=== PATIENT | female | born 1995 | race Caucasian/White ===

== ENCOUNTER 2019-06-21 17:26 | Emergency (ER) | payer MEDICAID, SELFPAY ==
[2019-06-21 17:38] VITALS: BP 126/90; PULSE 104; RESP 16; TEMP 36.8; O2SAT 100; BMI 24.3
--- NOTE | 2019-06-21 17:54 | ED_ITS ---
Entered by Louann Shin, acting as scribe for Judit Flores HPI - Ear Problem General: Chief complaint: Ear Stated complaint: infected left outter earlobe Time Seen by Provider: 06/21/19 17:51 Source: patient Mode of arrival: ambulatory Limitations: no limitations History of Present Illness: HPI Narrative: 24 yo Female presents to ED with complaint of ear pain. Pt states that this pain started from an earring that she ordered online. Pt states that the pain is now running down into her neck. Pt denies any inner ear pain. MD Complaint: ear pain Location: left ear Duration: constant Relieving factors: nothing Exacerbating factors: palpation Context: other (new earring) Discharge from ear: no Associated symptoms: Reports ear or mastoid pain and external ear pain; Denies fever(s), headache(s) or neck pain Treatment prior to arrival: none Review of Systems General: Reports: other (negative unless marked) Const: Denies: fever, chills, body aches, fatigue, malaise or diaphoresis Eyes: Denies: change in vision or blurry vision ENMT: Reports: ear pain; Denies: throat pain, painful swallowing, hoarseness, ear discharge, Change in hearing or nasal discharge Card: Denies: chest pain, palpitations, irregular heart rhythm, syncope, pre- syncope, shortness of breath on exertion or shortness of breath when lying down Resp: Denies: shortness of breath, productive cough, non-productive cough, wheezing, coughing up blood or chest congestion GI: Denies: abdominal pain, nausea, vomiting, vomiting blood, coffee grounds in vomit, diarrhea, constipation, cramping, blood in stool or black tarry stool : Denies: flank pain, painful urination, urinary frequency, urinary urgency, decreased urine ouput, urinary incontinence or blood in urine Musc: Denies: neck pain, back pain, extremity pain, extremity swelling, joint pain, joint swelling, joint warmth or joint stiffness Skin/Breast: Denies: rash, skin tenderness or yellow skin Neuro: Denies: headache, numbness in extremities, weakness in extremities, changes in sensation, lack of coordination, difficulty walking, dizziness, vertigo or confusion Endo: Denies: excessive thirst, tired all the time, cold intolerance, excessive sweating, flushing or hot flashes Josh/Lymph: Denies: easy bruising, easy bleeding, petechiae or enlarged lymph nodes All/Imm: Denies: hives, throat swelling, tongue swelling, facial swelling or acute wheezing PFSH ED PFSH: Statuses (acute, chronic, etc) shown below reflect problem list status as previously entered and may not be historically accurate Social History Smoking and tobacco status: never smoked Alcohol intake: never Female Reproductive History: Date of last menstrual period: 05/23/19 Physical Exam Const: COMMON NORMALS: no apparent distress, oriented x3, no limitations, healthy appearing and well nourished EXAM LIMITATIONS: no altered mental status GENERAL APPEARANCE: cooperative, well kempt and well developed ORIENTATION/CONSCIOUSNESS: Yes awake HENMT: COMMON NORMALS: normocephalic, head/scalp atraumatic, hearing grossly n ormal bilaterally, external ears normal, EAC's normal, external nose normal and moist oral mucous membranes HEAD & SCALP: normal to inspection, normocephalic and atraumatic FACE & SINUS: normal facial exam and face symmetric NOSE: external nose normal and nares normal EXTERNAL EAR: Yes external ears normal EXTERNAL AUDITORY CANAL: EAC's normal MOUTH: oral and palatal mucosa normal and tongue normal Eye: COMMON NORMALS: PERRL, EOMs intact bilaterally, conjunctivae normal and no scleral icterus GENERAL EYE: normal appearance of both eyes and normal light reflex CONJUNCTIVA: Yes conjunctivae normal SCLERA: sclerae normal CORNEA: Yes corneas normal PUPIL: Yes PERRL DIRECT OPHTHALMOSCOPY: Yes normal light reflex Neck/C-Spine: COMMON NORMALS: full ROM, no lymphadenopathy, supple, no meningeal signs and no JVD GENERAL: Yes normal visual inspection and Yes trachea midline CERVICAL SPINE: Yes cervical ROM normal Chest: COMMONS NORMALS: inspection of chest normal and palpation of chest normal Resp: COMMON NORMALS: normal respiratory effort, no retractions, no use of accessory muscles and clear to auscultation bilaterally EFFORT & INSPECTION: Yes able to speak in complete sentences AUSCULTATION: clear to auscultation bilaterally Cardio: COMMON NORMALS: no JVD, regular rate, regular rhythm, S1 normal heart sound, S2 normal heart sound, no gallops, no clicks, no murmurs and no rub JUGULAR VENOUS DISTENTION: no JVD RATE: regular rate RHYTHM: regular rhythm HEART SOUNDS: S1 normal and S2 normal GI: COMMON NORMALS: soft to palpation, non-tender, no hepatosplenomegaly and no masses INSPECTION: Yes normal to inspection PALPATION: Yes soft and Yes no hepatosplenomegaly : COMMON NORMALS: Yes no CVA tenderness BLADDER/KIDNEY EXAM: Yes no CVA tenderness Back/Pelvis: COMMON NORMALS: no CVA tenderness, thoracic and lumbar spine normal to inspection, no thoracic nor lumbar tenderness and thoraco-lumbar ROM normal Extremity: COMMON NORMALS: normal to inspection, full ROM, normal capillary refill, no joint enlargement, no clubbing, cyanosis or edema and no calf tenderness Neuro: COMMON NORMALS: oriented x3, CN's II-XII intact bilaterally, moves all extremities, no focal motor deficits and no sensory deficits noted MENINGEAL SIGNS: Yes no meningeal signs Psych: COMMON NORMALS: mental status grossly normal, thought process normal, cooperative, affect normal, speech normal and activity/motor behavior normal APPEARANCE: Yes well kempt SPEECH: Yes normal speech THOUGHT PROCESS: normal thought process Skin: COMMON NORMALS: no rashes or lesions noted, skin turgor normal, no jaundice, no petechiae and no mottling GENERAL SKIN EXAM: no rashes or lesions noted and turgor normal Course Vital Signs: Vital signs: Vital Signs Temperature 98.3 F 06/21/19 17:38 Pulse Rate 104 H 06/21/19 17:38 Respiratory Rate 16 06/21/19 17:38 Blood Pressure 126/90 06/21/19 17:38 Pulse Oximetry 100 06/21/19 17:38 MDM - Ear MDM Narrative: Medical decision making narrative: Brooklyn is a 24-year-old female comes in with a infection of her right earlobe. The area was inflamed and with drainage coming from the ear piercing. Patient is remove this. But continues to have pain and swelling. Denies any hearing loss. I see no evidence of lymphadenopathy, torticollis, meningismus or otherwise. The patient appears to have just localized earlobe infection but I will cover her with Bactrim for MRSA but also add Levaquin to cover any cartilage infection. Discharge Plan Discharge Patient Disposition: Home, Self-Care Clinical Impression: Cellulitis and abscess of face Condition: Stable Prescriptions: New Bactrim DS 800-160 mg tablet 2 tab PO BID 10 Days Qty: 40 RF: 0 Levaquin 500 mg tablet 500 mg PO DAILY 10 Days RF: 0 Discharge Orders: Discharge Order (Routine); Ordered 06/21/19 Ordered By: Judit Flores Referrals: Steven Del Rio MD [Primary Care Provider] - Discharge Diet: Usual diet Discharge Activity: Resume usual activity Patient Instructions: Cellulitis (ED) Activity Restrictions/Additional Instructions: Please return to the ER immediately for any of the signs or symptoms listed on your discharge instruction sheets, worsening/changing of your symptoms, you are not getting better as quickly as expected, or for ANY other cause or concerns. Discharge Date/Time: 06/21/19 18:17 Coding Level of Care Code ED Research Development Director for Chg Fwd Exam Problem Focused The documentation recorded by the Kip clark Carmen, accurately reflects the service I personally performed and the decisions made by , Judit Flores
--- NOTE | 2019-06-21 17:55 | PC.NURSE ---
pt has wound on ear lobe, no pain inside of ear
[2019-06-21] MEDS: sulfamethoxazole-trimeth DS 160-800 mg Tablet 2 TAB PO (18:14)
[2019-06-21] MEDS: HYDROcodone-acetaminophen 5-325 mg Tablet 1 TAB PO (18:14)
[2019-06-21] MEDS: levoFLOXacin 750 mg Tablet PO (18:14)
== END 2019-06-21 18:17 | disposition home or self-care (01) ==
LOC: ER 18:34
PROVIDERS: Emergency Provider Emergency Medicine; Family Provider Family Medicine; PCP Family Medicine
DX: H60.02 Abscess of left external ear (principal); H60.12 Cellulitis of left external ear
CPT/HCPCS: 99281; 99283

== ENCOUNTER 2019-12-30 19:54 | Emergency (ER) | payer MEDICAID, SELFPAY ==
[2019-12-30 20:33] VITALS: BP 127/89; PULSE 97; RESP 18; TEMP 36.8; O2SAT 99; BMI 26.3
--- NOTE | 2019-12-30 21:59 | US_ITS ---
WS: [id number] EXAM: TRANSABDOMINAL AND TRANSVAGINAL PELVIC SONOGRAM DATE OF EXAMINATION: 12/30/2019, 2235 hours COMPARISON: None. HISTORY: 24 years old with passing blood clots after her last menstrual cycle. Cramping. History of t ubal ligation. FINDINGS: Uterus measures 7.43,8.16 cm in length, 4.7 cm in width, and 3.8 in depth. Small nabothian cysts are seen in the cervix. Endometrial stripe is measured 3.2 mm in thickness otherwise unremarkable. Left ovary measures 3.1 x 2.6 x 1.8 cm. Color-flow and spectral Doppler demonstrates flow within the left ovary. Right ovary measures 3.0 x 3.0 x 1.9 cm. Color-flow and spectral Doppler demonstrates flow within the right ovary. There is trace free fluid in the cul-de-sac US/US pelvic with transvaginal OPINION: Normal appearance to the uterus and ovaries other than small nabothian cysts in the cervix. Trace free fluid in the cul-de-sac.
--- NOTE | 2019-12-30 22:00 | W.ED.FEMALGU ---
Documented by User: Judit Flores 12/31/19 11:04 HPI - Female Genitourinary General: Chief complaint: Vaginal Bleeding Stated complaint: abnormal bleeding Time Seen by Provider: 12/30/19 21:55 Source: patient Mode of arrival: ambulatory Limitations: no limitations History of Present Illness: HPI Narrative: Brooklyn is a nice 24-year-old female comes in complaining of heavy menstrual bleeding. She states she actually finished her menstrual cycle but then over the past 2 days has had a recurrence of bleeding at this time with cramping and heavy clots. Patient denies possibly being as she is had a tubal ligation. She denies any other abdominal pain. She denies any vaginal discharge other than the bleeding. Size and a changes in her bowel habits such as diarrhea or constipation. She said no nausea or vomiting. She had no fevers or chills. She denies any urinary symptoms. Associated symptoms: Reports abdominal pain and vaginal bleeding; Deny headache(s), nausea or syncope Date of Last Menstrual Period: 05/23/19 Review of Systems Const: Denies: fever(s), chills, body aches, fatigue, malaise or diaphoresis Eyes: Denies: change in vision, blurry vision, photophobia, eye discomfort, eye discharge or eye redness ENMT: Denies: throat pain, odynophagia, hoarseness, swelling of lips/tongue, ear or mastoid pain, ear discharge, change in hearing or nasal discharge Card: Denies: chest pain, palpitations, irregular heart rhythm, edema, lightheadedness, syncope, pre-syncope, dyspnea on exertion or orthopnea Resp: Denies: dyspnea, productive cough, non-productive cough, wheezing, hemoptysis or chest congestion GI: Reports: abdominal pain; Denies: nausea, vomiting, hematemesis, coffee ground emesis, heartburn, diarrhea, constipation, GI cramping, hematochezia or melena : Reports: vaginal bleeding and change in menstrual flow; Denies: flank pain, dysuria, urinary frequency, urinary urgency or hematuria Musc: Denies: neck pain, back pain, extremity pain, extremity swelling, joint pain, joint swelling, joint redness, joint warmth or joint stiffness Skin/Breast: Denies: rash, pruritus, erythema or skin tenderness Neuro: Denies: headache(s), numbness in extremities, weakness in extremities, sensory changes, lack of coordination, difficulty walking, dizziness, vertigo, confusion, Slurred speech present or seizure-like activity Josh/Lymph: Denies: easy bruising, easy bleeding, petechiae, purpura or enlarged lymph nodes All/Imm: Denies: urticaria, throat swelling, tongue swelling, facial swelling or acute wheezing PFSH ED PFSH: Medical History No pertinent past medical history Surgical History H/O tubal ligation Social History Smoking and tobacco status: never smoked Alcohol intake: never Female Reproductive History: Date of last menstrual period: 05/23/19 Physical Exam Const: COMMON NORMALS: no acute distress, patient oriented x3, no limitations, healthy appearing and well nourished GENERAL APPEARANCE: cooperative, well kempt and well developed HENMT: COMMON NORMALS: normocephalic, atraumatic, external ears normal, EAC's normal and Normal external nose present HEAD & SCALP: normal to inspection, normocephalic and atraumatic FACE & SINUS: normal facial exam and face symmetric NOSE: Normal external nose present and Normal nares present EXTERNAL EAR: Yes external ears normal EXTERNAL AUDITORY CANAL: EAC's normal MOUTH: Normal oral and palatal mucosa present, lip normal and tongue normal Eye: COMMON NORMALS: Equal, round and reactive pupils present and conjunctivae normal GENERAL EYE: appearance normal, both eyes and all related structures ALIGNMENT: Yes alignment normal PERIORBITAL: periorbital findings normal EYELID: eyelids normal CONJUNCTIVA: Yes conjunctivae normal SCLERA: sclerae normal PUPIL: Yes Equal, round and reactive pupils present Neck/C-Spine: COMMON NORMALS: full ROM, no lymphadenopathy, supple, no meningeal signs and no JVD GENERAL: Yes normal visual inspection and Yes trachea midline Chest: COMMONS NORMALS: normal inspection of the chest and normal palpation of entire chest wall Resp: COMMON NORMALS: normal respiratory effort, No retractions, No use of accessory muscles and clear to auscultation bilaterally EFFORT & INSPECTION: Yes able to speak in complete sentences and Yes symmetric chest movement AUSCULTATION: clear to auscultation bilaterally, no crackles, no rales, no rhonchi and no wheezes Cardio: COMMON NORMALS: no JVD, regular rate, regular rhythm, S1 normal heart sound present and S2 normal heart sound present RATE: regular rate RHYTHM: regular rhythm HEART SOUNDS: S1 normal heart sound present, S2 normal heart sound present, no click, no gallops, no murmurs, no rubs and abnormal split S2 GI: COMMON NORMALS: Soft to palpation and No hepatosplenomegaly present PALPATION: Yes Soft to palpation, No Tenderness to palpation present (GI), No Guarding due to palpation present (GI), No Rigid due to palpation, Yes No hepatosplenomegaly present, No Hernia present, No Palpable mass present and No Pulsatile mass present : COMMON NORMALS: Yes no CVA tenderness and Yes normal bimanual exam BLADDER/KIDNEY EXAM: Yes no CVA tenderness EXTERNAL FEMALE EXAM: Yes normal appearance of the urethra and No Hernia present SPECULUM EXAM - VAGINA: Yes vaginal bleeding SPECULUM EXAM - CERVIX: No Cervical os open, Yes Cervical os closed and Yes Cervical bleeding BIMANUAL EXAM - VAGINA & UTERUS: Yes normal bimanual exam, Yes normal palpation, Yes normal palpation and No cervical motion tenderness BIMANUAL EXAM - ADNEXA, OTHER: Yes normal adnexae OB/EXTERNAL & SPECULUM: vaginal bleeding; No Cervical os open Back/Pelvis: COMMON NORMALS: no CVA tenderness, thoracic and lumbar spine normal to inspection, no thoracic nor lumbar tenderness and thoraco-lumbar ROM normal Extremity: COMMON NORMALS: normal to inspection, full ROM, capillary refill normal, no joint enlargement, no clubbing, cyanosis or edema and no calf tenderness Neuro: COMMON NORMALS: patient oriented x3, CN's II-XII intact bilaterally, moves all extremities, no focal motor deficits and no sensory deficits noted MENINGEAL SIGNS: Yes no meningeal signs SPEECH: speech normal Psych: COMMON NORMALS: mental status grossly normal, Normal thought process present, cooperative, normal affect, speech normal and activity/motor behavior normal APPEARANCE: Yes well kempt SPEECH: Yes normal speech THOUGHT PROCESS: Normal thought process present Skin: COMMON NORMALS: no rashes or lesions noted, turgor normal, no jaundice, no petechiae and no mottling GENERAL SKIN EXAM: no rashes or lesions noted and turgor normal Course Vital Signs: Vital signs: Vital Signs Temperature 98.2 F 08/19/20 20:33 Pulse Rate 82 12/31/19 01:04 Respiratory Rate 18 12/31/19 01:04 Blood Pressure 122/78 12/31/19 01:04 Pulse Oximetry 98 12/31/19 01:04 MDM - Female Lab Data: Attestation: I reviewed the patient's lab results. Labs: Lab Results 12/30/19 12/30/19 12/30/19 Range/Units 23:15 23:45 23:45 WBC 9.1 (4.0-10.0) 10^3/ uL RBC 4.73 (4.1-5.3) 10^6/u L Hgb 12.3 (11.5-15.3) g/dL Hct 39.4 (37.0-47.0) % MCV 83.3 (81-99) fL MCH 26.0 L (28.0-34.0) pg MCHC 31.2 (30.0-36.0) g/dL RDW 14.4 (12.1-15.1) % Plt Count 327 (130-400) 10^3/c mm MPV 9.3 (7.4-10.4) fL Neut % (Auto) 57.0 % Lymph % (Auto) 32.8 % Custer % (Auto) 7.1 % Eos % (Auto) 1.9 % Baso % (Auto) 0.9 % Neut # (Auto) 5.21 (1.8-7.7) 10^3/u L Lymph # (Auto) 3.0 (0.8-4.8) 10^3/u L Custer # (Auto) 0.7 (0.2-0.9) 10^3/u L Eos # (Auto) 0.2 (0.0-0.8) 10^3/u L Baso # (Auto) 0.1 (0.0-0.1) 10^3/u L Nucleated RBC % (a uto) 0 % Nucleated RBCs # 0.0 /100WBC HCG, Qual Negative (Negative) Urine Color Yellow (Yellow) Urine Appearance Cloudy (CLEAR) Urine pH 7 (5-7) Ur Specific Gravit y 1.015 (1.005-1.030) Urine Protein Neg (Negative) Urine Glucose (UA) Norm (Normal) Urine Ketones Negative (Negative) Urine Blood 2+ H (Negative) Urine Nitrate Negative (Negative) Urine Bilirubin Neg (NEGATIVE) Urine Urobilinogen Norm (Negative) mg/dL Ur Leukocyte Kari ase Negative (Negative) Urine RBC 0-4 H (0-2) /hpf Urine WBC Rare (0-5) /hpf Ur Squamous Epith Cells 0-4 H (0-5) Amorphous Sediment 1+ Urine Bacteria 1+ H (NONE) Imaging Data: US: My impression: Ultrasound pelvis, tech interpretation -small amount of fluid in the cul-de-sac. Right ovarian cyst. All other findings unremarkable. No torsion. Discharge Plan Discharge Patient Disposition: Home Clinical Impression: Dysfunctional uterine bleeding Condition: Stable Prescriptions: New naproxen 500 mg tablet 500 mg PO BID PRN (Reason: pain) Qty: 20 RF: 0 Discharge Orders: Discharge Order (Routine); Ordered 12/31/19 Ordered By: Dale Stanford Referrals: Steven Del Rio MD [Primary Care Provider] - Discharge Diet: Usual diet Discharge Activity: Increase activity as tolerated Activity Restrictions/Additional Instructions: Drink plenty of fluids. Take medication as needed for cramping. Healthy diet and exercise. Follow-up with primary care or ARCHITECTURE INSTRUCTOR for further treatment and care. Case management will contact you regarding any assistance to help with ARCHITECTURE INSTRUCTOR follow-up. Discharge Date/Time: 12/31/19 01:07 Coding Level of Care Code ED Pillow Filler for Chg Fwd Exam Comprehensive Documented by User: [email or web address] Kent 12/31/19 00:58 HPI - Female Genitourinary General: Chief complaint: Vaginal Bleeding Stated complaint: abnormal bleeding Time Seen by Provider: 12/30/19 21:55 PFSH ED PFSH: Medical History No pertinent past medical history Surgical History H/O tubal ligation Social History Smoking and tobacco status: never smoked Alcohol intake: never Course ED course: 1115, Received patient from Dr. Flores, awaiting labs, US showed no significant abnormality, plan to dc home with follow-up if everything is normal. wjw Vital Signs: Vital signs: Vital Signs Temperature 98.2 F 12/30/19 20:33 Pulse Rate 82 12/31/19 01:04 Respiratory Rate 18 12/31/19 01:04 Blood Pressure 122/78 12/31/19 01:04 Pulse Oximetry 98 12/31/19 01:04 MDM - Female MDM Narrative: Medical decision making narrative: Patient comes in today for complaints of irregular vaginal bleeding. Patient reports completing her routine menstrual cycle last week and then today she started passing some clots. Patient reports some cramping. Patient has a history of a tubal ligation in March 2019. Exam was unremarkable. Vital signs were normal. Pelvic exam was performed by Dr. Boogie. Differential diagnosis includes but not limited to ovarian cyst, dysfunctional uterine bleeding, ectopic . Laboratory values noted a normal hemoglobin hematocrit, negative test. Patient had ultrasound that showed small fluid amount of fluid in the cul-de-sac and a small right ovarian cyst. There was no sign of torsion of ovary. Reviewed the exam with patient with recommendation of using naproxen for cramping and to help with the bleeding. Patient reported understanding of care plan and need for follow-up. Lab Data: Labs: Lab Results 12/30/19 12/30/19 12/30/19 Range/Units 23:15 23:45 23:45 WBC 9.1 (4.0-10.0) 10^3/ uL RBC 4.73 (4.1-5.3) 10^6/u L Hgb 12.3 (11.5-15.3) g/dL Hct 39.4 (37.0-47.0) % MCV 83.3 (81-99) fL MCH 26.0 L (28.0-34.0) pg MCHC 31.2 (30.0-36.0) g/dL RDW 14.4 (12.1-15.1) % Plt Count 327 (130-400) 10^3/c mm MPV 9.3 (7.4-10.4) fL Neut % (Auto) 57.0 % Lymph % (Auto) 32.8 % Custer % (Auto) 7.1 % Eos % (Auto) 1.9 % Baso % (Auto) 0.9 % Neut # (Auto) 5.21 (1.8-7.7) 10^3/u L Lymph # (Auto) 3.0 (0.8-4.8) 10^3/u L Custer # (Auto) 0.7 (0.2-0.9) 10^3/u L Eos # (Auto) 0.2 (0.0-0.8) 10^3/u L Baso # (Auto) 0.1 (0.0-0.1) 10^3/u L Nucleated RBC % (a uto) 0 % Nucleated RBCs # 0.0 /100WBC HCG, Qual Negative (Negative) Urine Color Yellow (Yellow) Urine Appearance Cloudy (CLEAR) Urine pH 7 (5-7) Ur Specific Gravit y 1.015 (1.005-1.030) Urine Protein Neg (Negative) Urine Glucose (UA) Norm (Normal) Urine Ketones Negative (Negative) Urine Blood 2+ H (Negative) Urine Nitrate Negative (Negative) Urine Bilirubin Neg (NEGATIVE) Urine Urobilinogen Norm (Negative) mg/dL Ur Leukocyte Kari ase Negative (Negative) Urine RBC 0-4 H (0-2) /hpf Urine WBC Rare (0-5) /hpf Ur Squamous Epith Cells 0-4 H (0-5) Amorphous Sediment 1+ Urine Bacteria 1+ H (NONE) Discharge Plan Discharge Patient Disposition: Home Clinical Impression: Dysfunctional uterine bleeding Condition: Stable Prescriptions: New naproxen 500 mg tablet 500 mg PO BID PRN (Reason: pain) Qty: 20 RF: 0 Discharge Orders: Discharge Order (Routine); Ordered 12/31/19 Ordered By: Dale Stanford Referrals: Steven Del Rio MD [Primary Care Provider] - Discharge Diet: Usual diet Discharge Activity: Increase activity as tolerated Activity Restrictions/Additional Instructions: Drink plenty of fluids. Take medication as needed for cramping. Healthy diet and exercise. Follow-up with primary care or ARCHITECTURE INSTRUCTOR for further treatment and care. Case management will contact you regarding any assistance to help with ARCHITECTURE INSTRUCTOR follow-up. Discharge Date/Time: 08/20/20 01:07 Coding Level of Care Code ED Pillow Filler for Chg Fwd Exam Comprehensive
[2019-12-30 23:45] LABS: Amorphous Sediment Urine 1+; Bacteria Urine 1+; Bilirubin Urine Neg (NEGATIVE); Blood Urine 2+ (Negative); Glucose Urine UA Norm (Normal); Ketones Urine Negative (Negative); Leukocyte Esterase Urine Negative (Negative); Nitrate Urine Negative (Negative); Protein Urine Neg (Negative); RBC Urine 0-4 /hpf (0-2); Specific Gravity, Urine 1.015 (1.005-1.030); Squamous Epithelial Cell Urine 0-4 (0-5); Urine Appearance Cloudy (CLEAR); Urine Color Yellow (Yellow); Urobilinogen Urine Norm (Negative); WBC Urine RARE /hpf (0-5); pH Urine 7 (5-7)
[2019-12-31 00:03] LABS: Basophils # 0.1 10^3/uL (0.0-0.1); Basophils % 0.9 %; Eosinophils # 0.2 10^3/uL (0.0-0.8); Eosinophils % 1.9 %; Hematocrit 39.4 % (37.0-47.0); Hemoglobin 12.3 g/dL (11.5-15.3); Lymphocytes % 32.8 %; Mean Corpuscular HGB Conc 31.2 g/dL (30.0-36.0); Mean Corpuscular Volume 83.3 fL (81-99); Mean Platelet Volume 9.3 fL (7.4-10.4); Monocytes # 0.7 10^3/uL (0.2-0.9); Monocytes % 7.1 %; Neutrophils # 5.21 10^3/uL (1.8-7.7); Nucleated Red Blood Cells % 0 %; Platelet Count 327 10^3/cmm (130-400); Red Blood Count 4.73 10^6/uL (4.1-5.3); Red Cell Distribution Width 14.4 % (12.1-15.1); White Blood Count 9.1 10^3/uL (4.0-10.0)
[2019-12-31] MEDS: naproxen 500 mg Tablet PO (00:03)
--- NOTE | 2019-12-31 00:06 | PC.NURSE ---
during pt rounds, pt states she is having cramping 4/10. COFFEE GROWER notified
[2019-12-31 00:16] LABS: HCG, Serum Qual Negative (Negative)
[2019-12-31 01:04] VITALS: BP 122/78; PULSE 82; RESP 18; O2SAT 98
--- NOTE | 2019-12-31 09:26 | DCPLANNER ---
appointment manager had message to schedule a follow up appointment for patient with [facility]. appointment manager [facility], spoke with Andrea, gave clinic patients information. appointment manager was told that patients information would be printed and reviewed. Clinic will call patient with appointment information.
--- NOTE | 2020-01-01 13:11 | DCPLANNER ---
Patient has a follow up appointment scheduled for Sunday, January 19, [address] at 2:[address] Walker. Clinic will call patient with appointment information.
--- NOTE | 2020-02-09 08:27 | DCPLANNER ---
[facility] called heel caser stating that appointment was never confirmed so appointment scheduled for 01.19.20 was cancelled.
== END 2019-12-31 01:07 | disposition home or self-care (01) ==
PROVIDERS: Emergency Medicine; Emergency Provider Nurse Practitioner Family; PCP Family Medicine
DX: N93.8 Other specified abnormal uterine and vaginal bleeding (principal)
CPT/HCPCS: 12345; 76830; 76856; 81001; 84703; 85025; 87210; 99281; 99282; 99283; E0352

== ENCOUNTER 2020-05-31 11:52 | Emergency (ER) | payer MEDICAID, SELFPAY ==
[2020-05-31 11:55] VITALS: BP 117/78; PULSE 125; RESP 18; TEMP 36.5; O2SAT 98; BMI 26.3
[2020-05-31 12:05] VITALS: BP 108/65; PULSE 122; RESP 16; O2SAT 98
--- NOTE | 2020-05-31 12:24 | W.ED.FEMALGU ---
HPI - Female Genitourinary General: Chief complaint: Urogenital-Female Stated complaint: back pain, nausea, dizziness Time Seen by Provider: 05/31/20 12:21 History of Present Illness: HPI Narrative: Patient is a 25-year-old female comes to the ED with right-sided flank pain, dysuria and nausea. Patient says symptoms started approximately 3 days ago. Denies any fever or chills. She does say she is having some burning sensation when she urinates and has felt nauseous as well for the past couple days. Denies any blood in the urine, vaginal discharge, vaginal bleeding, emesis or bowel symptoms. Associated symptoms: Deny abdominal pain, headache(s), nausea or vaginal discharge Date of Last Menstrual Period: 05/23/19 Review of Systems Const: Denies: fever(s), chills or fatigue Eyes: Denies: change in vision or eye discomfort ENMT: Denies: throat pain, odynophagia, nasal discharge or nasal congestion Card: Denies: chest pain, palpitations, edema, swelling of feet/ankles, dyspnea on exertion or orthopnea Resp: Denies: dyspnea, productive cough or non-productive cough GI: Denies: abdominal pain, nausea, vomiting, diarrhea, constipation or hematochezia : Reports: flank pain (right) and dysuria; Denies: hematuria, vaginal bleeding or vaginal discharge Musc: Denies: neck pain, back pain or extremity swelling Skin/Breast: Denies: rash or new lesions Neuro: Denies: headache(s), numbness in extremities or weakness in extremities [facility] ED PFSH: Medical History No pertinent past medical history Surgical History H/O tubal ligation Social History Smoking and tobacco status: never smoked Alcohol intake: never Female Reproductive History: Date of last menstrual period: 05/23/19 Physical Exam Const: COMMON NORMALS: no acute distress, patient oriented x3, healthy appearing and alert GENERAL APPEARANCE: cooperative and comfortable HENMT: COMMON NORMALS: normocephalic HEAD & SCALP: normocephalic MOUTH: Normal oral and palatal mucosa present THROAT: posterior oropharynx normal and uvula midline Eye: COMMON NORMALS: Equal, round and reactive pupils present PUPIL: Yes Equal, round and reactive pupils present Neck/C-Spine: COMMON NORMALS: supple GENERAL: Yes normal visual inspection Resp: COMMON NORMALS: normal respiratory effort, No retractions, No use of accessory muscles and clear to auscultation bilaterally AUSCULTATION: clear to auscultation bilaterally Cardio: COMMON NORMALS: regular rate, regular rhythm, S1 normal heart sound present, S2 normal heart sound present, No gallops present (Cardio), No clicks present (Cardio), No murmurs present (Cardio) and Peripheral pulses 2+ throughout RATE: regular rate RHYTHM: regular rhythm HEART SOUNDS: S1 normal heart sound present and S2 normal heart sound present PERIPHERAL PULSES: Peripheral pulses 2+ throughout GI: COMMON NORMALS: Normal to inspection, nondistended, normoactive bowel sounds present, Soft to palpation, non-tender and no masses PALPATION: Yes Soft to palpation : BLADDER/KIDNEY EXAM: Yes CVA tenderness on the right (mild) Back/Pelvis: GENERAL BACK: Yes CVA tenderness CVA tenderness: right Extremity: COMMON NORMALS: normal to inspection and no pedal edema Neuro: COMMON NORMALS: patient oriented x3 and moves all extremities SENSORIUM/ORIENTATION: Yes alert Skin: GENERAL SKIN EXAM: dry skin Course Reevaluation(s): Reevaluation #1: After patient got IV pain meds, fluids she was feeling a lot better. Patient felt a lot more comfortable and is ready to be discharged home. Time: 14:10 Vital Signs: Vital signs: Vital Signs Temperature 97.7 F 05/31/20 11:55 Pulse Rate 103 H 05/31/20 15:25 Respiratory Rate 15 05/31/20 15:25 Blood Pressure 115/81 05/31/20 15:25 Pulse Oximetry 98 05/31/20 15:25 MDM - Female MDM Narrative: Medical decision making narrative: Patient is a 25-year-old female comes to the ED with dysuria and right flank pain. Patient appears healthy a little bit of pain but did not appear ill or septic. Right CVA tenderness mild. White blood cell count 17.8 and the rest of CBC and CMP were unremarkable. hCG negative. UA indicated UTI. CT of the abdomen showed pyelonephritis especially in the right kidney. Patient was given IV fluids, Zofran, morphine and Rocephin while here in the ED. Patient symptoms improved and she felt comfortable to be discharged home. Patient diagnosed with pyelonephritis and discharged with a prescription for ciprofloxacin and Zofran. Return to ED precautions given. Follow-up with PCP in 5 days for reevaluation. Patient understood and agreed with plan. Lab Data: Labs: Lab Results 05/31/20 05/31/20 05/31/20 Range/Units 12:40 12:40 12:40 WBC 17.8 H (4.0-10.0) 10^3/ uL RBC 4.53 (4.1-5.3) 10^6/u L Hgb 11.7 (11.5-15.3) g/dL Hct 36.3 L (37.0-47.0) % MCV 80.1 L (81-99) fL MCH 25.8 L (28.0-34.0) pg MCHC 32.2 (30.0-36.0) g/dL RDW 14.4 (12.1-15.1) % Plt Count 293 (130-400) 10^3/c mm MPV 9.9 (7.4-10.4) fL Neut % (Auto) 79.1 % Lymph % (Auto) 9.4 % Coleman % (Auto) 10.2 % Eos % (Auto) 0.3 % Baso % (Auto) 0.3 % Neut # (Auto) 14.06 H (1.8-7.7) 10^3/u L Lymph # (Auto) 1.7 (0.8-4.8) 10^3/u L Coleman # (Auto) 1.8 H (0.2-0.9) 10^3/u L Eos # (Auto) 0.1 (0.0-0.8) 10^3/u L Baso # (Auto) 0.1 (0.0-0.1) 10^3/u L Nucleated RBC % (a uto) 0 % Nucleated RBCs # 0.0 /100WBC Sodium 133 L (136-145) mmol/L Potassium 3.5 (3.5-5.1) mmol/L Chloride 98 (98-107) mmol/L Carbon Dioxide 24 (22-29) mmol/L Anion Gap 14.5 (5-19) BUN 6 (6-20) mg/dL Creatinine 0.8 (0.5-0.9) mg/dL GFR Calculation 88.9 L (90-130) mL/min Glucose 115 (65-115) mg/dL Calculated Osmolal ity 275 L (285-295) mOsm/k g Calcium 10.9 H (8.5-10.5) mg/dL Total Bilirubin 1.6 H (0.15-1.2) mg/dL AST 30 (0-32) U/L ALT 44 H (0-33) U/L Alkaline Phosphata se 209 H (35-105) IU/L Total Protein 8.1 (6.6-8.7) g/dL Albumin 4.0 (3.5-5.2) g/dL Globulin 4.1 (1.3-4.6) g/dL HCG, Qual Negative (Negative) Urine Color (Yellow) Urine Appearance (CLEAR) Urine pH (5-7) Ur Specific Gravit y (1.005-1.030) Urine Protein (Negative) Urine Glucose (UA) (Normal) Urine Ketones (Negative) Urine Blood (Negative) Urine Nitrate (Negative) Urine Bilirubin (Negative) Urine Urobilinogen (Negative) mg/dL Ur Leukocyte Kari ase (Negative) Urine RBC (0-2) /hpf Urine WBC (0-5) /hpf Ur Squamous Epith Cells (0-5) /hpf Amorphous Sediment Urine Bacteria (NONE) /hpf Urine Mucus /hpf 05/31/20 Range/Units 12:40 WBC (4.0-10.0) 10^3/ uL RBC (4.1-5.3) 10^6/u L Hgb (11.5-15.3) g/dL Hct (37.0-47.0) % MCV (81-99) fL MCH (28.0-34.0) pg MCHC (30.0-36.0) g/dL RDW (12.1-15.1) % Plt Count (130-400) 10^3/c mm MPV (7.4-10.4) fL Neut % (Auto) % Lymph % (Auto) % Coleman % (Auto) % Eos % (Auto) % Baso % (Auto) % Neut # (Auto) (1.8-7.7) 10^3/u L Lymph # (Auto) (0.8-4.8) 10^3/u L Coleman # (Auto) (0.2-0.9) 10^3/u L Eos # (Auto) (0.0-0.8) 10^3/u L Baso # (Auto) (0.0-0.1) 10^3/u L Nucleated RBC % (a uto) % Nucleated RBCs # /100WBC Sodium (136-145) mmol/L Potassium (3.5-5.1) mmol/L Chloride (98-107) mmol/L Carbon Dioxide (22-29) mmol/L Anion Gap (5-19) BUN (6-20) mg/dL Creatinine (0.5-0.9) mg/dL GFR Calculation (90-130) mL/min Glucose (65-115) mg/dL Calculated Osmolal ity (285-295) mOsm/k g Calcium (8.5-10.5) mg/dL Total Bilirubin (0.15-1.2) mg/dL AST (0-32) U/L ALT (0-33) U/L Alkaline Phosphata se (35-105) IU/L Total Protein (6.6-8.7) g/dL Albumin (3.5-5.2) g/dL Globulin (1.3-4.6) g/dL HCG, Qual (Negative) Urine Color Yellow (Yellow) Urine Appearance Cloudy (CLEAR) Urine pH 5.0 (5-7) Ur Specific Gravit y 1.015 (1.005-1.030) Urine Protein 2+ H (Negative) Urine Glucose (UA) Norm (Normal) Urine Ketones Negative (Negative) Urine Blood 3+ H (Negative) Urine Nitrate Negative (Negative) Urine Bilirubin 1+ H (Negative) Urine Urobilinogen 4+ H (Negative) mg/dL Ur Leukocyte Kari ase 2+ H (Negative) Urine RBC 10-15 H (0-2) /hpf Urine WBC >100 H (0-5) /hpf Ur Squamous Epith Cells 0-4 H (0-5) /hpf Amorphous Sediment Not Reportable Urine Bacteria 2+ H (NONE) /hpf Urine Mucus Trace /hpf Imaging Data: CT Abd/Pel: Attestation: I personally reviewed and interpreted this imaging study as follows: Radiologist's impression: [facility] [address] [place] [address] CT Scan Report Signed Patient: [facility] Unit #: [id number] : 1995 Age/Sex: 25 / F ADM Date: 05/31/20 Loc: ER Room/Bed: Attending Dr: Ordering Provider/Ordering MD: Gary Niño Date of Service: 05/31/20 Procedure(s): CT abdomen pelvis w con* [id number] Accession Number(s): [id number] Report Number: [id number] WS: [id number] CT ABDOMEN AND PELVIS WITH CONTRAST HISTORY: dysuria, right flank pain TECHNIQUE: Imaging performed of the abdomen and pelvis with IV contrast. Single phase imaging of the abdomen. Coronal and sagittal reformats are submitted. All CT scans at [facility] use at least one of these dose optimization techniques: automated exposure control; mA and/or kV adjustment per patient size (includes targeted exams where dose is matched to clinical indication); or iterative reconstruction. IV CONTRAST: Omnipaque 300; 95 mL IV. Oral contrast: No DLP: 777.23 mGy.cm COMPARISON: 11/05/2017 Lower thorax: Lung bases are clear. Heart is normal size. No hiatal hernia. Liver/biliary system: Normal size with no intrahepatic dilatation. Gallbladder: Status post cholecystectomy. Pancreas: Normal. Spleen: Normal. Adrenal glands: Normal. Right kidney: RIGHT kidney is abnormally enlarged. Abnormal enhancement. There are areas of decreased enhancement throughout a large portion of the RIGHT kidney. Inflammatory changes surrounding the kidney and in the pelvis and surrounding the ureter. There is very minimal dilatation of the renal pelvis and RIGHT ureter. No calcifications obstructing the ureter identified. Left kidney: Normal. Aorta: Normal. Lymphadenopathy: None. Free fluid: None. GI tract: Normal appendix. No GI tract obstruction. Abdominal wall: Unremarkable abdominal wall. No hernia. Pelvis: Uterus is midline. Irregular follicle measuring 1.4 cm in the RIGHT ovary. There is also small amount of free fluid in the cul-de-sac. Bones: Unremarkable. CT/CT abdomen pelvis w con* [id number] IMPRESSION: 1. Acute, moderately severe RIGHT pyelonephritis with very mild dilatation of the renal pelvis. There is additional contiguous RIGHT periureteral stranding. 2. No obstructing calcifications. 3. Normal appendix. Dictated By: Josephine Constantino DO Signed By: Josephine Constantino DO Signed Date/Time: 05/31/20 1341 DD/ 1335 Discharge Plan Discharge Patient Disposition: Home Clinical Impression: Pyelonephritis Condition: Stable Prescriptions: New Zofran 4 mg tablet 4 mg PO Q8H Qty: 14 RF: 0 ciprofloxacin HCl 500 mg tablet 500 mg PO BID 7 Days Qty: 14 RF: 0 No Action ibuprofen 200 mg Tablet 400 mg PO PRN RF: 0 Discharge Orders: Discharge ED (Routine); Ordered 05/31/20 Ordered By: Gary Niño Referrals: Steven Del Rio MD [Primary Care Provider] - Discharge Diet: Advance as tolerated Discharge Activity: Increase activity as tolerated Patient Instructions: Acute Pyelonephritis (ED) Activity Restrictions/Additional Instructions: Follow-up with medical provider as directed in 5 days for reevaluation. Take medications as prescribed. Drink plenty of fluids and stay hydrated. Take [id number] ibuprofen or Tylenol for fever pain. Return to the ER or your medical provider if condition worsens. Please read and understand discharge instructions. If any questions, please ask. Stand Alone Forms: Work/School Release Coding Level of Care Code ED Medical Office Technician for Abad Fwd Exam Comprehensive
[2020-05-31] MEDS: metoclopramide 5 mg/mL SDV 2 mL 10 MG IVP (12:40)
[2020-05-31] MEDS: sodium chloride 0.9% 1,000 ML 999 ML IV ×2 (12:40→14:08)
[2020-05-31 12:54] LABS: Basophils # 0.1 10^3/uL (0.0-0.1); Basophils % 0.3 %; Eosinophils # 0.1 10^3/uL (0.0-0.8); Eosinophils % 0.3 %; Hematocrit 36.3 % (37.0-47.0); Hemoglobin 11.7 g/dL (11.5-15.3); Lymphocytes # 1.7 10^3/uL (0.8-4.8); Lymphocytes % 9.4 %; Mean Corpuscular HGB Conc 32.2 g/dL (30.0-36.0); Mean Corpuscular Hemoglobin 25.8 pg (28.0-34.0); Mean Corpuscular Volume 80.1 fL (81-99); Mean Platelet Volume 9.9 fL (7.4-10.4); Monocytes # 1.8 10^3/uL (0.2-0.9); Monocytes % 10.2 %; Neutrophils # 14.06 10^3/uL (1.8-7.7); Neutrophils % 79.1 %; Nucleated Red Blood Cells % 0 %; Platelet Count 293 10^3/cmm (130-400); Red Blood Count 4.53 10^6/uL (4.1-5.3); Red Cell Distribution Width 14.4 % (12.1-15.1); White Blood Count 17.8 10^3/uL (4.0-10.0)
--- NOTE | 2020-05-31 13:04 | CT_ITS ---
WS: [id number] CT ABDOMEN AND PELVIS WITH CONTRAST HISTORY: dysuria, right flank pain TECHNIQUE: Imaging performed of the abdomen and pelvis with IV contrast. Single phase imaging of the abdomen. Coronal and sagittal reformats are submitted. All CT scans at [facility] use at least one of these dose optimization techniques: automated exposure control; mA and/or kV adjustment per patient size (includes targeted exams where dose is matched to clinical indication); or iterativ e reconstruction. IV CONTRAST: Omnipaque 300; 95 mL IV. Oral contrast: No DLP: 777.23 mGy.cm COMPARISON: 11/05/2017 Lower thorax: Lung bases are clear. Heart is normal size. No hiatal hernia. Liver/biliary system: Normal size with no intrahepatic dilatation. Gallbladder: Status post cholecystectomy. Pancreas: Normal. Spleen: Normal. Adrenal glands: Normal. Right kidney: RIGHT kidney is abnormally enlarged. Abnormal enhancement. There are areas of decreased enhancement throughout a large portion of the RIGHT kidney. Inflammatory changes surrounding the kid farhad and in the pelvis and surrounding the ureter. There is very minimal dilatation of the renal pelvi s and RIGHT ureter. No calcifications obstructing the ureter identified. Left kidney: Normal. Aorta: Normal. Lymphadenopathy: None. Free fluid: None. GI tract: Normal appendix. No GI tract obstruction. Abdominal wall: Unremarkable abdominal wall. No hernia. Pelvis: Uterus is midline. Irregular follicle measuring 1.4 cm in the RIGHT ovary. There is also smal l amount of free fluid in the cul-de-sac. Bones: Unremarkable. CT/CT abdomen pelvis w con* [id number] IMPRESSION: 1. Acute, moderately severe RIGHT pyelonephritis with very mild dilatation of the renal pelvis. There is additional contiguous RIGHT periureteral stranding. 2. No obstructing calcifications. 3. Normal appendix.
[2020-05-31 13:13] LABS: Bilirubin Urine 1+ (Negative); Blood Urine 3+ (Negative); Glucose Urine UA Norm (Normal); Ketones Urine Negative (Negative); Leukocyte Esterase Urine 2+ (Negative); Nitrate Urine Negative (Negative); Protein Urine 2+ (Negative); Specific Gravity, Urine 1.015 (1.005-1.030); Urine Appearance Cloudy (CLEAR); Urine Color Yellow (Yellow); Urobilinogen Urine 4+ mg/dL (Negative)
[2020-05-31 13:14] LABS: Alanine Aminotransferase 44 U/L (0-33); Alkaline Phosphatase 209 IU/L (35-105); Anion Gap 14.5 (5-19); Aspartate Amino Transferase 30 U/L (0-32); Blood Urea Nitrogen 6 mg/dL (6-20); Calcium 10.9 mg/dL (8.5-10.5); Carbon Dioxide 24 mmol/L (22-29); Chloride 98 mmol/L (98-107); Globulin 4.1 g/dL (1.3-4.6); Glomerular Filtration Rate 88.9 mL/min (90-130); Glucose 115 mg/dL (65-115); Osmolality Calculated 275 mOsm/kg (285-295); Potassium 3.5 mmol/L (3.5-5.1); Sodium 133 mmol/L (136-145); Total Bilirubin 1.6 mg/dL (0.15-1.2); Total Protein 8.1 g/dL (6.6-8.7)
[2020-05-31 13:15] LABS: Add Urine Culture? Yes; Bacteria Urine 2+ /hpf; Mucus Urine TRACE /hpf; Squamous Epithelial Cell Urine 0-4 /hpf (0-5); WBC Urine >100 /hpf (0-5)
[2020-05-31 13:17] VITALS: RESP 15
[2020-05-31] MEDS: morphine 4 mg/mL SDV 1 mL IVP (13:17)
[2020-05-31 13:18] LABS: HCG, Serum Qual Negative (Negative)
[2020-05-31] MEDS: iohexol 300 mg/mL 100 mL Btl IV (13:30)
[2020-05-31 14:00] VITALS: BP 132/79; O2SAT 98
[2020-05-31] MEDS: cefTRIAXone 2,000 MG in sodium chloride 0.9% (plus) 50 ML 100 MG IV (14:08)
[2020-05-31 15:25] VITALS: BP 115/81; PULSE 103; RESP 15; O2SAT 98
== END 2020-05-31 15:26 | disposition home or self-care (01) ==
PROVIDERS: Emergency Provider Physician Assistant; PCP Family Medicine
DX: N12 Tubulo-interstitial nephritis, not specified as acute or chronic (principal)
CPT/HCPCS: 12345; 74177; 80053; 81001; 84703; 85025; 87077; 87086; 87186; 96361; 96365; 96375; 99283; J0696; J2270; J2765; J7030; Q9967

== ENCOUNTER 2021-03-28 09:55 | Emergency (ER) | payer MEDICAID, SELFPAY ==
[2021-03-28 10:19] VITALS: BP 124/84; PULSE 130; RESP 24; TEMP 43.4; O2SAT 98; BMI 26.3
--- NOTE | 2021-03-28 10:26 | CT_ITS ---
WS: [id number] CT ABDOMEN PELVIS TECHNIQUE: Noncontrast CT of the abdomen and pelvis with coronal and sagittal reformatted images. CLINICAL INFORMATION: flank pain COMPARISON: May 31, 2020 DLP: 1400.[address] [facility] use at least one of these dose optimization techniques: automated e xposure control; mA and/or kV adjustment per patient size (includes targeted exams where dose is matc hed to clinical indication); or iterative reconstruction. FINDINGS: Hepatomegaly. Cholecystectomy. Small esophageal hiatal hernia. Lung bases are well aerated. Normal no ncontrast spleen. Adrenal glands are normal. Medullary nephrocalcinosis. No hydronephrosis in either kidney. No obstructing renal or ureteral calculi. Right ovarian cyst measuring 15 mm. Small amount of free fluid in the pelvis. Normal sigmoid colon. N o evidence of high-grade small or large bowel obstruction. Normal appendix in the right lower quadran t. Noncontrast pancreas is normal. Normal caliber abdominal aorta. No abdominal or pelvic lymphadenop athy. No inguinal lymphadenopathy. Tiny fat-containing umbilical hernia. Normal lumbar spine. CT/CT kidney stone [id number] IMPRESSION: 1. Bilateral medullary nephrocalcinosis unchanged from the prior studies. No h ydronephrosis in either kidney. 2. No obstructing renal or ureteral calculi. 3. Small right ovarian cyst measuring 15 mm with a small amount of free fluid in the cul-de-sac. 4. Mild hepatomegaly. Prior cholecystectomy. 5. Small esophageal hiatal hernia.
--- NOTE | 2021-03-28 10:42 | ED_ITS ---
HPI - Abdominal Pain General: Chief Complaint: Abdominal Pain Stated Complaint: L flank pain Time Seen by Provider: 03/28/21 10:32 History of Present Illness: HPI narrative: 25-year-old female presents emergency room complaining of fever and left-sided flank pain that began yesterday. She had recurrent urinary tract infections in the past. She has had a little bit of hematuria. On presentation here she is tachycardic and febrile. She has been nauseous without vomiting. She denies any shortness of breath or cough. MD elicited complaint: flank pain Pertinent past history: none Onset (ago): hour(s) Pain Consistency: constant Location: L flank Severity: moderate Quality: stabbing Radiation: suprapubic Exacerbating factors: movement and other (Urination) Relieving factors: rest Associated Symptoms: Reports chills, GI cramping, dysuria, fever(s), hematuria, poor appetite and vomiting; Denies anorexia, belching, bloating, change in bowel habits, change in stool character, coffee ground emesis, constipation, diarrhea, dyspepsia, excessive flatus, heartburn, hematochezia, hematemesis, fecal incontinence, loose stools, melena, nausea and syncope Related Data: Date of Last Menstrual Period: 03/08/21 Review of Systems Const: Reports: fever(s) and chills ENMT: Denies: throat pain, ear or mastoid pain, nasal discharge or nasal congestion Card: Denies: syncope Resp: Denies: dyspnea, productive cough or non-productive cough GI: Reports: vomiting and GI cramping; Denies: nausea, hematemesis, coffee ground emesis, heartburn, diarrhea, constipation, bloating, belching, excessive flatus, fecal incontinence, change in bowel habits, change in stool character, hematochezia or melena : Reports: dysuria and hematuria Skin/Breast: Denies: rash or pruritus PFSH ED PFSH: Medical History (Updated 03/28/21 @ 12:26 by Florentin Floyd DO) No pertinent past medical history Surgical History H/O tubal ligation Social History Smoking and tobacco status: never smoked Alcohol intake: never Female Reproductive History: Date of last menstrual period: 03/08/21 Physical Exam Const: COMMON NORMALS: no acute distress GENERAL APPEARANCE: cooperative and comfortable ORIENTATION/CONSCIOUSNESS: Yes awake, Yes oriented to person, Yes oriented to place and Yes oriented to time HENMT: COMMON NORMALS: normocephalic, atraumatic and hearing grossly normal bilaterally HEAD & SCALP: normocephalic and atraumatic Neck/C-Spine: COMMON NORMALS: no JVD Lymph: LYMPHATIC: no lymphadenopathy noted and no lymphedema noted Resp: COMMON NORMALS: normal respiratory effort, No retractions, No use of accessory muscles and clear to auscultation bilaterally AUSCULTATION: clear to auscultation bilaterally Cardio: COMMON NORMALS: no JVD, regular rate, regular rhythm and No murmurs present (Cardio) RATE: regular rate RHYTHM: regular rhythm GI: COMMON NORMALS: Soft to palpation and No hepatosplenomegaly present AUSCULTATION: Yes normoactive bowel sounds PALPATION: Yes Soft to palpation, No Tenderness to palpation present (GI), No Guarding due to palpation present (GI) and Yes No hepatosplenomegaly present : BLADDER/KIDNEY EXAM: Yes CVA tenderness Back/Pelvis: GENERAL BACK: Yes CVA tenderness CVA tenderness: left Extremity: COMMON NORMALS: normal to inspection, capillary refill normal, no clubbing, cyanosis or edema, no calf tenderness and no pedal edema Neuro: SENSORIUM/ORIENTATION: Yes oriented to person, Yes oriented to place and Yes oriented to time Skin: COMMON NORMALS: no rashes or lesions noted GENERAL SKIN EXAM: no rashes or lesions noted Course Vital Signs: Vital signs: Vital Signs Temperature 100.0 F H 03/28/21 12:01 Pulse Rate 89 03/28/21 13:37 Respiratory Rate 16 03/28/21 13:37 Blood Pressure 144/78 03/28/21 13:37 Pulse Oximetry 99 03/28/21 13:37 MDM - Abdominal Pain MDM Narrative: Medical decision making narrative: Labs and imaging reviewed with the patient. Discussed findings. She would prefer to be treated outpatient I think she is can at this point white count is elevated but her pain is well controlled her heart rate has improved with fluid resuscitation. [place] discharge home on Cipro promethazine hydrocodone for the flank pain return if has further problems. Lab Data: Labs: Lab Results 03/28/21 03/28/21 03/28/21 10:30 10:37 10:37 WBC 16.3 10^3/uL H 10 ^3/uL (4.0-10.0) RBC 4.67 10^6/uL 10^6 /uL (4.1-5.3) Hgb 11.4 g/dL L g/dL (11.5-15.3) Hct 35.5 % L % (37.0-47.0) MCV 76.0 fl L fl (81-99) MCH 24.4 pg L pg (28.0-34.0) MCHC 32.1 g/dL g/dL (30.0-36.0) RDW 15.2 % H % (12.1-15.1) Plt Count 340 10^3/cmm 10^3 /cmm (130-400) MPV 9.7 fL fL (7.4-10.4) Neut % (Auto) 79.3 % % Lymph % (Auto) 11.1 % % Pine % (Auto) 8.4 % % Eos % (Auto) 0.3 % % Baso % (Auto) 0.5 % % Neut # (Auto) 12.96 10^3/uL H 1 0^3/uL (1.8-7.7) Lymph # (Auto) 1.8 10^3/uL 10^3/ uL (0.8-4.8) Pine # (Auto) 1.4 10^3/uL H 10^ 3/uL (0.2-0.9) Eos # (Auto) 0.1 10^3/uL 10^3/ uL (0.0-0.8) Baso # (Auto) 0.1 10^3/uL 10^3/ uL (0.0-0.1) Nucleated RBC % (a uto) 0 % % Nucleated RBCs # 0.0 /100WBC /100W BC Sodium 133 mmol/L L mmol /L (136-145) Potassium 3.8 mmol/L mmol/L (3.5-5.1) Chloride 99 mmol/L mmol/L (98-107) Carbon Dioxide 20 mmol/L L mmol/ L (22-29) Anion Gap 17.8 (5-19) BUN 6 mg/dL mg/dL (6-20) Creatinine 0.6 mg/dL mg/dL (0.5-0.9) GFR Calculation 123.9 mL/min mL/m in (90-130) Glucose 105 mg/dL mg/dL (65-115) Calculated Osmolal ity 274 mOsm/kg L mOs m/kg (285-295) Lactic Acid Calcium 10.7 mg/dL H mg/d L (8.5-10.5) Total Bilirubin 1.2 mg/dL mg/dL (0.15-1.2) AST 38 U/L H U/L (0-32) ALT 39 U/L H U/L (0-33) Alkaline Phosphata se 186 IU/L H IU/L (35-105) Total Protein 8.1 g/dL g/dL (6.6-8.7) Albumin 4.2 g/dL g/dL (3.5-5.2) Globulin 3.9 g/dL g/dL (1.3-4.6) Lipase 13 U/L U/L (13-60) HCG, Qual Urine Color Yellow (Yellow) Urine Appearance Hazy A (CLEAR) Urine pH 7 (5-7) Ur Specific Gravit y 1.010 (1.005-1.030) Urine Protein Trace (Negative) Urine Glucose (UA) Norm (Normal) Urine Ketones Negative (Negative) Urine Blood 2+ H (Negative) Urine Nitrate Negative (Negative) Urine Bilirubin Neg (Negative) Urine Urobilinogen 1 mg/dL H mg/dL (Negative) Ur Leukocyte Kari ase Trace H (Negative) Urine RBC 5-10 /hpf H /hpf (0-2) Urine WBC 15-25 /hpf H /hpf (0-5) Ur Squamous Epith Cells 10-15 /hpf H /hpf (0-5) Amorphous Sediment Not Reportable Urine Bacteria Trace /hpf /hpf (NONE) 03/28/21 03/28/21 10:37 10:37 WBC RBC Hgb Hct MCV MCH MCHC RDW Plt Count MPV Neut % (Auto) Lymph % (Auto) Pine % (Auto) Eos % (Auto) Baso % (Auto) Neut # (Auto) Lymph # (Auto) Pine # (Auto) Eos # (Auto) Baso # (Auto) Nucleated RBC % (a uto) Nucleated RBCs # Sodium Potassium Chloride Carbon Dioxide Anion Gap BUN Creatinine GFR Calculation Glucose Calculated Osmolal ity Lactic Acid 1.0 mmol/L mmol/L (0.5-2.2) Calcium Total Bilirubin AST ALT Alkaline Phosphata se Total Protein Albumin Globulin Lipase HCG, Qual Negative (Negative) Urine Color Urine Appearance Urine pH Ur Specific Gravit y Urine Protein Urine Glucose (UA) Urine Ketones Urine Blood Urine Nitrate Urine Bilirubin Urine Urobilinogen Ur Leukocyte Kari ase Urine RBC Urine WBC Ur Squamous Epith Cells Amorphous Sediment Urine Bacteria Discharge Plan Discharge Patient Disposition: Home Clinical Impression: Pyelonephritis Condition: Stable Prescriptions: New promethazine 25 mg tablet 25 mg PO Q6H PRN (Reason: nausea and vomiting) Qty: 20 RF: 0 Cipro 500 mg tablet 500 mg PO BID Qty: 14 RF: 0 hydrocodone-acetaminophen 5-325 mg tablet 1 tab PO Q6H PRN (Reason: pain) Qty: 15 RF: 0 No Action ibuprofen 200 mg Tablet 400 mg PO PRN RF: 0 Zofran 4 mg tablet 4 mg PO Q8H Qty: 14 RF: 0 Discharge Orders: Discharge ED (Routine); Ordered 03/28/21 Ordered By: Florentin Floyd Referrals: Steven Del Rio MD [Primary Care Provider] - Discharge Diet: Usual diet Discharge Activity: Increase activity as tolerated Patient Instructions: Opioid Safety Activity Restrictions/Additional Instructions: Start oral antibiotics tomorrow. If symptoms worsen return Coding Level of Care Code ED Room Service Runner for Abad Fwd Exam Comprehensive
[2021-03-28 10:51] LABS: Basophils # 0.1 10^3/uL (0.0-0.1); Basophils % 0.5 %; Eosinophils # 0.1 10^3/uL (0.0-0.8); Eosinophils % 0.3 %; Hematocrit 35.5 % (37.0-47.0); Hemoglobin 11.4 g/dL (11.5-15.3); Lymphocytes # 1.8 10^3/uL (0.8-4.8); Lymphocytes % 11.1 %; Mean Corpuscular HGB Conc 32.1 g/dL (30.0-36.0); Mean Corpuscular Hemoglobin 24.4 pg (28.0-34.0); Mean Platelet Volume 9.7 fL (7.4-10.4); Monocytes # 1.4 10^3/uL (0.2-0.9); Monocytes % 8.4 %; Neutrophils # 12.96 10^3/uL (1.8-7.7); Neutrophils % 79.3 %; Nucleated Red Blood Cells % 0 %; Platelet Count 340 10^3/cmm (130-400); Red Blood Count 4.67 10^6/uL (4.1-5.3); Red Cell Distribution Width 15.2 % (12.1-15.1); White Blood Count 16.3 10^3/uL (4.0-10.0)
[2021-03-28] MEDS: cefTRIAXone 2,000 MG in sodium chloride 0.9% (plus) 50 ML 100 MG IV (10:53)
[2021-03-28] MEDS: sodium chloride 0.9% 1,000 ML 999 ML IV (10:54)
[2021-03-28 11:03] LABS: HCG, Serum Qual Negative (Negative)
[2021-03-28 11:07] LABS: Add Urine Microscopic? YES; Bilirubin Urine Neg (Negative); Blood Urine 2+ (Negative); Glucose Urine UA Norm (Normal); Ketones Urine Negative (Negative); Leukocyte Esterase Urine Trace (Negative); Nitrate Urine Negative (Negative); Protein Urine Trace (Negative); Urine Appearance Hazy (CLEAR); Urine Color Yellow (Yellow); Urobilinogen Urine 1 mg/dL (Negative); pH Urine 7 (5-7)
[2021-03-28 11:08] LABS: Add Urine Culture? No; Bacteria Urine TRACE /hpf; WBC Urine 15-25 /hpf (0-5)
[2021-03-28 11:09] LABS: Alanine Aminotransferase 39 U/L (0-33); Albumin Level 4.2 g/dL (3.5-5.2); Alkaline Phosphatase 186 IU/L (35-105); Anion Gap 17.8 (5-19); Aspartate Amino Transferase 38 U/L (0-32); Blood Urea Nitrogen 6 mg/dL (6-20); Calcium 10.7 mg/dL (8.5-10.5); Carbon Dioxide 20 mmol/L (22-29); Chloride 99 mmol/L (98-107); Globulin 3.9 g/dL (1.3-4.6); Glomerular Filtration Rate 123.9 mL/min (90-130); Glucose 105 mg/dL (65-115); Lipase 13 U/L (13-60); Osmolality Calculated 274 mOsm/kg (285-295); Potassium 3.8 mmol/L (3.5-5.1); Sodium 133 mmol/L (136-145); Total Bilirubin 1.2 mg/dL (0.15-1.2); Total Protein 8.1 g/dL (6.6-8.7)
[2021-03-28 12:01] VITALS: BP 144/85; PULSE 111; RESP 18; TEMP 37.8; O2SAT 98
[2021-03-28] MEDS: acetaminophen 500 mg Tablet 1000 MG PO (12:05)
[2021-03-28 13:37] VITALS: BP 144/78; PULSE 89; RESP 16; O2SAT 99
== END 2021-03-28 13:45 | disposition home or self-care (01) ==
PROVIDERS: Physician Assistant; Emergency Provider Family Medicine; PCP Family Medicine
DX: N12 Tubulo-interstitial nephritis, not specified as acute or chronic (principal)
CPT/HCPCS: 74176; 80053; 81001; 83605; 83690; 84703; 85025; 87040; 96365; 99283; J0696; J7030

== ENCOUNTER 2021-06-18 18:32 | Inpatient (IN) | payer MEDICAID, SELFPAY ==
[2021-06-18] VITALS (8 sets, daily range): BP systolic 103–126; BP diastolic 70–89; PULSE 124–151; RESP 16–40; TEMP 36.4–39.3; O2SAT 90–100; BMI 28.3; BMI 29.0
--- NOTE | 2021-06-18 | SCC_ITS ---
Procedure done: 1. Cystoscopy, RIGHT ureteral stent placement (7 [place] by 28 cm double-pigtail without string) 13.3 seconds of fluoroscopic guidance, for a cumulative dose of 2.85 mGy, was provided to Dr. Benitez by the radiology department. C-arm images of the abdomen were saved for the patient's permanent record. [facility]
--- NOTE | 2021-06-18 18:55 | XRR_ITS ---
PROCEDURE INFORMATION: Exam: XR Chest Exam date and time: 06/18/2021 6:55 PM Age: 26 years old Clinical indication: Fever and tachypnea; Additional info: Fever, tachycardia TECHNIQUE: Imaging protocol: XR of the chest. Views: 1 view. COMPARISON: CR Chest 1 [place] [id number] 06/18/2018 9:33 AM FINDINGS: Lungs: Unremarkable. No consolidation. Pleural spaces: Unremarkable. No pleural effusion. No pneumothorax. Heart/Mediastinum: Unremarkable. No cardiomegaly. Bones/joints: Unremarkable. XR/XR chest 1V portable [id number] IMPRESSION: No acute findings.
--- NOTE | 2021-06-18 18:55 | W.ED.FEMALGU ---
Documented by User: KATLYN Kent 06/18/21 18:55 HPI - Female Genitourinary General: Chief complaint: Urogenital-Female Stated complaint: Back Pain Time Seen by Provider: 06/18/21 18:54 History of Present Illness: Date of Last Menstrual Period: 03/08/21 [facility] ED PFSH: Medical History (Updated 04/05/21 @ 00:01 by ) No pertinent past medical history Surgical History H/O tubal ligation Social History Smoking and tobacco status: never smoked Alcohol intake: never Female Reproductive History: Date of last menstrual period: 03/08/21 Course Vital Signs: Vital signs: Vital Signs Temperature 102.7 F H 06/18/21 18:41 Pulse Rate 151 H 06/18/21 18:41 Respiratory Rate 22 H 06/18/21 18:41 Blood Pressure 126/74 06/18/21 18:41 Pulse Oximetry 97 06/18/21 18:41 Discharge Plan Discharge Condition: Stable Prescriptions: No Action ibuprofen 200 mg Tablet 400 mg PO PRN 0RF Zofran 4 mg tablet 4 mg PO Q8H Qty: 14 0RF promethazine 25 mg tablet 25 mg PO Q6H PRN (Reason: nausea and vomiting) Qty: 20 0RF Cipro 500 mg tablet 500 mg PO BID Qty: 14 0RF hydrocodone-acetaminophen 5-325 mg tablet 1 tab PO Q6H PRN (Reason: pain) Qty: 15 0RF Referrals: Steven Del Rio MD [Primary Care Provider] - Coding Level of Care Code ED [employer] Loose End Finder for Abad Ely
--- NOTE | 2021-06-18 18:56 | ECG_ITS ---
[facility] Test Date: 2021-06-18 Pat Name: Brooklyn Day Department: Room: Gender: Female Digital Experience Manager: : 1995 Requested By: Uriel Vega Order Number: [id number] Mcguire MD: Nisreen Kay M.D. Measurements Intervals [place] Rate: 151 P: 69 [place]: 137 QRS: 64 QRSD: 82 T: 76 QT: 319 QTc: 506 Interpretive Statements SINUS TACHYCARDIA NONSPECIFIC ST & T-WAVE ABNORMALITY No previous ECG available for comparison Electronically Signed On 06-20-2021 5:16:39 ELEVATOR CONSTRUCTOR SUPERVISOR by Nisreen Kay M.D. [id number]
[2021-06-18 19:17] LABS: Basophils # 0.1 10^3/uL (0.0-0.1); Basophils % 0.4 %; Eosinophils % 0.3 %; Hemoglobin 10.5 g/dL (11.5-15.3); Lymphocytes # 1.3 10^3/uL (0.8-4.8); Lymphocytes % 8.1 %; Mean Corpuscular HGB Conc 30.9 g/dL (30.0-36.0); Mean Corpuscular Hemoglobin 23.8 pg (28.0-34.0); Mean Corpuscular Volume 76.9 fl (81-99); Mean Platelet Volume 10.1 fL (7.4-10.4); Monocytes # 1.8 10^3/uL (0.2-0.9); Monocytes % 11.2 %; Neutrophils # 12.59 10^3/uL (1.8-7.7); Neutrophils % 79.2 %; Nucleated Red Blood Cells % 0 %; Platelet Count 323 10^3/cmm (130-400); Red Blood Count 4.42 10^6/uL (4.1-5.3); Red Cell Distribution Width 15.3 % (12.1-15.1); White Blood Count 15.9 10^3/uL (4.0-10.0)
--- NOTE | 2021-06-18 19:19 | CTR_ITS ---
PROCEDURE INFORMATION: Exam: CT Abdomen And Pelvis Without Contrast Exam date and time: 06/18/2021 7:19 PM Age: 26 years old Clinical indication: Abdominal pain; Right; Prior surgery; Surgery date: 6+ months; Surgery type: Gb; Patient HX: C/O R flank pain TECHNIQUE: Imaging protocol: Computed tomography of the abdomen and pelvis without contrast. Radiation optimization: All CT scans at this facility use at least one of these dose optimization techniques: automated exposure control; mA and/or kV adjustment per patient size (includes targeted exams where dose is matched to clinical indication); or iterative reconstruction. COMPARISON: CT abdomen pelvis w con* [id number] 05/31/2020 1:18 PM RADIATION DOSE METRICS: Total DLP (mGy-cm): 1314.5 FINDINGS: Liver: Normal. No mass. Gallbladder and bile ducts: Cholecystectomy. Nondilated biliary system. Pancreas: Normal. No ductal dilation. Spleen: Normal. No splenomegaly. Adrenal glands: Normal. No mass. Kidneys and ureters: Enlarged right kidney. Right perinephric fat stranding. Large calcified stone proximal right ureter measures 6 mm transverse diameter. Hydronephrosis of the right kidney. Bilateral medullary nephrocalcinosis. Several additional nonobstructing bilateral renal stones. Stomach and bowel: Unremarkable. No obstruction. No mucosal thickening. Appendix: Unremarkable appendix. Intraperitoneal space: Unremarkable. No free air. No significant fluid collection. Vasculature: Unremarkable. No abdominal aortic aneurysm. Lymph nodes: Unremarkable. No enlarged lymph nodes. Urinary bladder: Unremarkable as visualized. Reproductive: Unremarkable as visualized. Bones/joints: Unremarkable. No acute fracture. Soft tissues: Unremarkable. CT/CT kidney stone [id number] IMPRESSION: 1. Right collecting system obstructive uropathy secondary to proximal ureterolithiasis. 2. Bilateral renal medullary nephrocalcinosis with multiple additional nonobstructing renal stones.
[2021-06-18] MEDS: cefTRIAXone 1,000 MG in sodium chloride 0.9% (plus) 50 ML 100 MG IV (19:23)
--- NOTE | 2021-06-18 19:23 | W.ED.FEMALGU ---
HPI - Female Genitourinary General: Chief complaint: Urogenital-Female Stated complaint: Back Pain Time Seen by Provider: 06/18/21 18:54 Source: patient History of Present Illness: 26-year-old female with a history of recurrent pyelonephritis. She reports right flank pain since Saturday. She noted fever today. No vomiting. She has been nauseated. She states the pain is radiating up her back. She does not have a history of kidney stones. MD elicited complaint: UTI and flank pain Pertinent past history: recurrent UTIs and pyelonephritis Onset (ago): day(s) (5) Location of symptoms: low back and flank Severity: moderate Female Urogenital Radiation: Non-Radiating Quality of pain: stabbing Consistency: constant Vaginal discharge: none Vaginal bleeding: none Urinary symptoms: Flank Pain Exacerbating factors: urination and movement Relieving factors: none Associated symptoms: Reports abdominal pain, fevers/chills, headache(s) and nausea; Deny short of breath, rash, vaginal bleeding or vaginal discharge Treatment prior to arrival: NSAIDs Patient : No Date of Last Menstrual Period: 03/08/21 Review of Systems Const: Reports: fever(s) and chills Eyes: Denies: change in vision ENMT: Denies: throat pain Card: Denies: chest pain Resp: Denies: dyspnea, productive cough or non-productive cough GI: Reports: abdominal pain and nausea; Denies: vomiting or diarrhea : Reports: flank pain and urinary frequency; Denies: vaginal discharge Musc: Reports: back pain; Denies: extremity pain Skin/Breast: Denies: rash Neuro: Reports: headache(s) PFS ED PFSH: Medical History (Updated 06/18/21 @ 21:58 by Uriel Quiroz DO) No pertinent past medical history Surgical History H/O tubal ligation Social History Smoking and tobacco status: never smoked Alcohol intake: never Female Reproductive History: Date of last menstrual period: 03/08/21 Physical Exam Const: GENERAL APPEARANCE: cooperative and ill appearing (mild) ORIENTATION/CONSCIOUSNESS: Yes awake, Yes oriented to person, Yes oriented to place and Yes oriented to time HENMT: COMMON NORMALS: normocephalic, atraumatic and Normal external nose present HEAD & SCALP: normocephalic and atraumatic NOSE: Normal external nose present and Normal nares present Eye: COMMON NORMALS: Equal, round and reactive pupils present and EOMs intact bilaterally PUPIL: Yes Equal, round and reactive pupils present Chest: COMMONS NORMALS: normal inspection of the chest Resp: COMMON NORMALS: normal respiratory effort, No use of accessory muscles and clear to auscultation bilaterally AUSCULTATION: clear to auscultation bilaterally Cardio: COMMON NORMALS: regular rhythm and Peripheral pulses 2+ throughout RATE: tachycardic RHYTHM: regular rhythm PERIPHERAL PULSES: Peripheral pulses 2+ throughout GI: COMMON NORMALS: Normal to inspection, nondistended, normoactive bowel sounds present and Soft to palpation PALPATION: Yes Soft to palpation : BLADDER/KIDNEY EXAM: Yes CVA tenderness on the right SPECULUM EXAM - VAGINA: No vaginal bleeding OB/EXTERNAL & SPECULUM: No vaginal bleeding Back/Pelvis: GENERAL BACK: Yes CVA tenderness Neuro: SENSORIUM/ORIENTATION: Yes oriented to person, Yes oriented to place and Yes oriented to time Psych: COMMON NORMALS: mental status grossly normal Course Consultations: Consultation #1: Benitez Time: 21:44 Vital Signs: Vital signs: Vital Signs Temperature 102 F H 06/18/21 20:35 Pulse Rate 133 H 06/18/21 19:45 Respiratory Rate 16 06/18/21 19:30 Blood Pressure 126/74 06/18/21 18:41 Pulse Oximetry 100 06/18/21 19:45 MDM - Female Medical Decision Making Urine is contaminated but does show evidence of urinary tract infection with hematuria. CT shows right-sided hydronephrosis with a 6 mm proximal ureteral stone. White count is 16. Potassium is 3.1. Spoke with urology, he is coming in to evaluate for ureteral stent placement. OR team and malt house supervisor has been notified. She has received 2 L of fluid and Rocephin here. Hospitalist has been consulted. Lab Data : 06/18/21 19:11 06/18/21 19:11 Radiology Impressions Chest X-Ray 06/18/21 18:55 IMPRESSION: No acute findings. Abdomen/Pelvis CT 06/18/21 19:19 IMPRESSION: 1. Right collecting system obstructive uropathy secondary to proximal ureterolithiasis. 2. Bilateral renal medullary nephrocalcinosis with multiple additional nonobstructing renal stones. Laboratory Results WBC 15.9 10^3/uL (4.0-10.0) H 06/18/21 19:11 RBC 4.42 10^6/uL (4.1-5.3) 06/18/21 19:11 Hgb 10.5 g/dL (11.5-15.3) L 06/18/21 19:11 Hct 34.0 % (37.0-47.0) L 06/18/21 19:11 MCV 76.9 fl (81-99) L 06/18/21 19:11 MCH 23.8 pg (28.0-34.0) L 06/18/21 19:11 MCHC 30.9 g/dL (30.0-36.0) 06/18/21 19:11 RDW 15.3 % (12.1-15.1) H 06/18/21 19:11 Plt Count 323 10^3/cmm (130-400) 06/18/21 19:11 MPV 10.1 fL (7.4-10.4) 06/18/21 19:11 Neut % (Auto) 79.2 % 06/18/21 19:11 Lymph % (Auto) 8.1 % 06/18/21 19:11 Hunt % (Auto) 11.2 % 06/18/21 19:11 Eos % (Auto) 0.3 % 06/18/21 19:11 Baso % (Auto) 0.4 % 06/18/21 19:11 Neut # (Auto) 12.59 10^3/uL (1.8-7.7) H 06/18/21 19:11 Lymph # (Auto) 1.3 10^3/uL (0.8-4.8) 06/18/21 19:11 Hunt # (Auto) 1.8 10^3/uL (0.2-0.9) H 06/18/21 19:11 Eos # (Auto) 0.0 10^3/uL (0.0-0.8) 06/18/21 19:11 Baso # (Auto) 0.1 10^3/uL (0.0-0.1) 06/18/21 19:11 Nucleated RBC % (auto) 0 % 06/18/21 19:11 Nucleated RBCs # 0.0 /100WBC 06/18/21 19:11 Sodium 135 mmol/L (136-145) L 06/18/21 19:11 Potassium 3.1 mmol/L (3.5-5.1) L 06/18/21 19:11 Chloride 101 mmol/L (98-107) 06/18/21 19:11 Carbon Dioxide 21 mmol/L (22-29) L 06/18/21 19:11 Anion Gap 16.1 (5-19) 06/18/21 19:11 BUN 7 mg/dL (6-20) 06/18/21 19:11 Creatinine 0.8 mg/dL (0.5-0.9) 06/18/21 19:11 GFR Calculation 88.1 mL/min (90-130) L 06/18/21 19:11 Glucose 116 mg/dL (65-115) H 06/18/21 19:11 Calculated Osmolality 279 mOsm/kg (285-295) L 06/18/21 19:11 Lactic Acid 1.4 mmol/L (0.5-2.2) 06/18/21 19:11 Calcium 10.6 mg/dL (8.5-10.5) H 06/18/21 19:11 Total Bilirubin 1.0 mg/dL (0.15-1.2) 06/18/21 19:11 AST 17 U/L (0-32) 06/18/21 19:11 ALT 30 U/L (0-33) 06/18/21 19:11 Alkaline Phosphatase 237 IU/L (35-105) H 06/18/21 19:11 C-Reactive Protein 315.1 mg/L (0.0-4.9) H 06/18/21 19:11 Total Protein 7.2 g/dL (6.6-8.7) 06/18/21 19:11 Albumin 3.7 g/dL (3.5-5.2) 06/18/21 19:11 Globulin 3.5 g/dL (1.3-4.6) 06/18/21 19:11 Lipase 13 U/L (13-60) 06/18/21 19:11 Procalcitonin 0.45 ng/mL (0-0.5) 06/18/21 19:11 HCG, Qual Negative (Negative) 06/18/21 19:11 Urine Color Yellow (Yellow) 06/18/21 20:37 Urine Appearance Clear (CLEAR) 06/18/21 20:37 Urine pH 7 (5-7) 06/18/21 20:37 Ur Specific [place] 1.005 (1.005-1.030) 06/18/21 20:37 Urine Protein 1+ (Negative) H 06/18/21 20:37 Urine Glucose (UA) Norm (Normal) 06/18/21 20:37 Urine Ketones Negative (Negative) 06/18/21 20:37 Urine Blood 3+ (Negative) H 06/18/21 20:37 Urine Nitrate Positive (Negative) H 06/18/21 20:37 Urine Bilirubin Neg (Negative) 06/18/21 20:37 Urine Urobilinogen Norm mg/dL (Negative) 06/18/21 20:37 Ur Leukocyte Esterase 2+ (Negative) H 06/18/21 20:37 Urine RBC 40-50 /hpf (0-2) H 06/18/21 20:37 Urine WBC >100 /hpf (0-5) H 06/18/21 20:37 Ur Squamous Epith Cells 25-40 /hpf (0-5) H 06/18/21 20:37 Amorphous Sediment Not Reportable 06/18/21 20:37 Urine Bacteria 3+ /hpf (NONE) H 06/18/21 20:37 Urine HCG, Qual Negative (Negative) 06/18/21 20:37 Discharge Plan Discharge Patient Disposition: Admitted As Inpatient Clinical Impression: Pyelonephritis, Ureterolithiasis Condition: Fair Prescriptions: No Action ibuprofen 200 mg Tablet 400 mg PO PRN 0RF Zofran 4 mg tablet 4 mg PO Q8H Qty: 14 0RF promethazine 25 mg tablet 25 mg PO Q6H PRN (Reason: nausea and vomiting) Qty: 20 0RF Cipro 500 mg tablet 500 mg PO BID Qty: 14 0RF hydrocodone-acetaminophen 5-325 mg tablet 1 tab PO Q6H PRN (Reason: pain) Qty: 15 0RF Referrals: Steven Del Rio MD [Primary Care Provider] - Coding Level of Care Code ED Form Setter Steel Pan Forms for Chg Fwd Exam Comprehensive
[2021-06-18] MEDS: ondansetron 2 mg/ML SDV 2 mL 4 MG IVP (19:30)
[2021-06-18] MEDS: morphine 4 mg/mL SDV 1 mL IVP (19:30)
[2021-06-18] MEDS: sodium chloride 0.9% 1,000 ML 999 ML IV ×2 (19:43→21:10)
[2021-06-18 19:49] LABS: Lactic Sepsis W/Reflex 1.4 mmol/L (0.5-2.2)
[2021-06-18 19:57] LABS: HCG, Serum Qual Negative (Negative)
[2021-06-18 20:04] LABS: Alanine Aminotransferase 30 U/L (0-33); Albumin Level 3.7 g/dL (3.5-5.2); Alkaline Phosphatase 237 IU/L (35-105); Anion Gap 16.1 (5-19); Aspartate Amino Transferase 17 U/L (0-32); Blood Urea Nitrogen 7 mg/dL (6-20); C Reactive Protein 315.1 mg/L (0.0-4.9); Calcium 10.6 mg/dL (8.5-10.5); Carbon Dioxide 21 mmol/L (22-29); Chloride 101 mmol/L (98-107); Globulin 3.5 g/dL (1.3-4.6); Glomerular Filtration Rate 88.1 mL/min (90-130); Glucose 116 mg/dL (65-115); Lipase 13 U/L (13-60); Osmolality Calculated 279 mOsm/kg (285-295); Potassium 3.1 mmol/L (3.5-5.1); Sodium 135 mmol/L (136-145); Total Protein 7.2 g/dL (6.6-8.7)
[2021-06-18 20:11] LABS: Procalcitonin 0.45 ng/mL (0-0.5)
[2021-06-18] MEDS: acetaminophen 500 mg Tablet 1000 MG PO (20:51)
[2021-06-18 21:11] LABS: Add Urine Microscopic? YES; Bilirubin Urine Neg (Negative); Blood Urine 3+ (Negative); Glucose Urine UA Norm (Normal); Ketones Urine Negative (Negative); Leukocyte Esterase Urine 2+ (Negative); Nitrate Urine Positive (Negative); Protein Urine 1+ (Negative); Specific Gravity, Urine 1.005 (1.005-1.030); Urine Appearance Clear (CLEAR); Urine Color Yellow (Yellow); Urobilinogen Urine Norm (Negative); pH Urine 7 (5-7)
[2021-06-18 21:12] LABS: Add Urine Culture? No; Bacteria Urine 3+ /hpf; RBC Urine 40-50 /hpf (0-2); Squamous Epithelial Cell Urine 25-40 /hpf (0-5); WBC Urine >100 /hpf (0-5)
--- NOTE | 2021-06-18 21:56 | PM.HP ---
Providers/Chief Complaint Primary Care Provider: Steven Del Rio MD Chief Complaint: Back Pain History of Present Illness Brooklyn Day is a 26 year old female with past medical history of recurrent pyelonephritis, came in today with chief complaint of right flank pain radiating down her back,nausea, fever, chills. Upon arrival in the ER she was worked up for above-mentioned complaint: Pertinent imaging studies: CT Abdomen And Pelvis Without Contrast: ::; Right collecting system obstructive uropathy secondary to proximal ureterolithiasis. Bilateral renal medullary nephrocalcinosis with multiple additional nonobstructing renal stones. XR chest:No acute findings. Pertinent labs: WBC 15.9 H&H 10.5/ 34 , plt : 323 , sodium 135 serum potassium 3.1 BUN serum creatinine 7/ 0.8 , Lactic acid normal procalcitonin normal Urinalysis dirty: Upon arrival in the ER she received 3 L normal saline bolus , she received ceftriaxone, morphine for pain control as well as Zofran Review of Systems General: Reports: 10 or more systems reviewed and unremarkable except in HPI and below Const: Denies: change in appetite or diaphoresis Card: Denies: palpitations, edema, swelling of feet/ankles, dyspnea on exertion, orthopnea or leg pain with exertion Resp: Denies: dyspnea, productive cough, wheezing or pain on inspiration GI: Denies: abdominal pain, nausea, vomiting, diarrhea or constipation : Reports: flank pain Musc: Denies: back pain, extremity pain or extremity swelling Neuro: Denies: headache(s), difficulty walking or confusion Medications/Allergies Home Medications Medication Instructions Recorded Confirmed Last Taken Type ibuprofen 200 mg tablet 400 mg PO PRN 05/31/20 05/31/20 05/30/20 History ondansetron HCl 4 mg tablet 4 mg PO Q8H #14 tab 05/31/20 Unknown Rx (Zofran) ciprofloxacin HCl 500 mg tablet 500 mg PO BID #14 tab 03/28/21 Unknown Rx (Cipro) hydrocodone 5 mg-acetaminophen 325 1 tab PO Q6H PRN #15 tab 03/28/21 Unknown Rx mg tablet promethazine 25 mg tablet 25 mg PO Q6H PRN #20 tab 03/28/21 Unknown Rx Allergies Allergy/AdvReac Type Severity Reaction Status Date / Time No Known Allergies Allergy Verified 05/31/20 14:15 PFSH Acute PFSH: Medical History (Updated 06/18/21 @ 22:22 by Sabino Benitez MD) No pertinent past medical history Surgical History (Updated 06/18/21 @ 22:22 by Sabino Benitez MD) H/O tubal ligation History of wisdom tooth extraction Hx of tonsillectomy Social History Smoking and tobacco status: never smoked Alcohol intake: never Female Reproductive History: Date of last menstrual period: 03/08/21 Vitals/I&O/Wt Last Vital Signs Temp 102 F H 06/18/21 20:35 Pulse 133 H 06/18/21 19:45 Resp 16 06/18/21 19:30 BP 126/74 06/18/21 18:41 Pulse Ox 100 06/18/21 19:45 Weight last 48 hrs Weight 81.919 kg Physical Exam Const: COMMON NORMALS: patient oriented x3 HENMT: COMMON NORMALS: normocephalic, atraumatic, hearing grossly normal bilaterally and external ears normal HEAD & SCALP: normocephalic and atraumatic EXTERNAL EAR: Yes external ears normal Eye: COMMON NORMALS: no scleral icterus GENERAL EYE: appearance normal, both eyes and all related structures Chest: COMMONS NORMALS: normal inspection of the chest and normal palpation of entire chest wall CHEST: Yes Symmetrical chest wall rise Resp: COMMON NORMALS: normal respiratory effort, No retractions, No use of accessory muscles and clear to auscultation bilaterally EFFORT & INSPECTION: Yes symmetric chest movement AUSCULTATION: clear to auscultation bilaterally Cardio: COMMON NORMALS: regular rate, regular rhythm, S1 normal heart sound present, S2 normal heart sound present, No gallops present (Cardio), No murmurs present (Cardio), No rub (Cardio) and Peripheral pulses 2+ throughout RATE: regular rate RHYTHM: regular rhythm HEART SOUNDS: S1 normal heart sound present and S2 normal heart sound present PERIPHERAL PULSES: Peripheral pulses 2+ throughout GI: COMMON NORMALS: Normal to inspection, nondistended, normoactive bowel sounds present, Soft to palpation, non-tender, No hepatosplenomegaly present and no masses AUSCULTATION: Yes normoactive bowel sounds PALPATION: Yes Soft to palpation and Yes No hepatosplenomegaly present RECTAL EXAM: deferred : OTHER: rt cva tenderness Extremity: COMMON NORMALS: no clubbing, cyanosis or edema and no pedal edema Neuro: COMMON NORMALS: patient oriented x3 Data : 06/18/21 19:11 06/18/21 19:11 Micro: Microbiology 06/18/21 19:30 Blood Culture - Preliminary Blood SPECIMEN COLLECTED A&P Assessment and plan (1) Pyelonephritis: Status: Acute (2) Sepsis: Status: Acute (3) Hypokalemia: Status: Acute (4) UTI (urinary tract infection): Status: Acute Plan Assessment: Sepsis secondary to pyelonephritis UTI Hypokalemia plan : Follow blood culture, urine culture Continue broad-spectrum antibiotics for now (Zosyn) Continue IV hydration with normal saline at 125 cc an hour Monitor intake output charting Monitor and replace serum potassium Urology on board for intervention Lovenox for DVT prophylax #CODE STATUS: Full code Attestations Medical Necessity Statement*: Patient is to be in hospital for management of sepsis secondary to acute pyelonephritis. Anticipated length of stay greater than 2 midnights. Time Spent in Patient Care: Greater than 35 minutes (>than 50% of time spent in counselling and/or direct pt care on unit). Coding Level of Care Code Acute Web Services Professional for Chg Fwd Exam Comprehensive Diagnoses Pyelonephritis N12 Sepsis A41.9 Hypokalemia E87.6 UTI (urinary tract infection) N39.0
--- NOTE | 2021-06-18 22:14 | P.HP_ITS ---
Providers/Chief Complaint Admitting Physician: Eli Primary Care Provider: Steven Del Rio MD Chief Complaint: Back Pain History of Present Illness Brooklyn Day is a 26 year old female who I evaluated for the first time tonight at the request of Dr. Quiroz for right-sided obstructive pyelonephritis. She had been recently placed on some antibiotic for UTI but noted increasing symptoms on treatment. She presented to the ER tonight with right-sided pain, fever 102, nausea and vomiting. No mental status changes. No changes in her bowel habits. No shortness of breath or cough. She does report a history of recurrent urinary tract infection with the least a couple episodes of kidney infection for which she was treated with antibiotics through the emergency department. Has not required hospitalization. She does have some baseline lower urinary tract symptoms suspicious for CHRONIC CYSTITIS Work-up: 1. CT scan: Demonstrated a roughly 6 mm right proximal ureteral stone with obstructive changes and bilateral medullary sponge kidney type changes with typical medullary blushing. 2. CBC showed a white count elevation of 16 3. Electrolytes normal except for potassium was mildly low at 3.1. hCG negative 4. Urinalysis showed too numerous to count white cells 40-50 red cells, NITRITE positive. 5. Lactic acid was normal at 1.4 6. Creatinine 0.8 7. Physical exam showed tenderness in the right upper quadrant and right CVA area. She was lucid. Recommendations: Based on her findings consistent with obstructive pyelonephritis and likely impending sepsis is recommended that she go to the operating room emergently for right ureteral stent placement. I reviewed the condition in detail with the patient and her boyfriend. Discussed the procedure in detail. Described the potential for having to perform ureteroscopy if the wire is not easily bypassing of the stone and even the potential for transfer for interventional radiologist involvement with placement of right percutaneous nephrostomy tube if retrograde access cannot be obtained. Informed consent was obtained Review of Systems Const: Reports: fever(s), fatigue and malaise Eyes: Denies: change in vision or eye discharge ENMT: Reports: throat pain; Denies: change in hearing Card: Denies: chest pain or palpitations Resp: Denies: dyspnea or productive cough GI: Reports: abdominal pain, nausea and vomiting; Denies: diarrhea : Reports: flank pain, dysuria, urinary frequency and urinary urgency Musc: Denies: joint redness, joint warmth or joint stiffness Skin/Breast: Denies: rash or jaundice Neuro: Denies: confusion, Slurred speech present or difficulty communicating thoughts Psych: Reports: anxiety (Related to her medical condition but normal basal) Josh/Lymph: Denies: easy bruising, easy bleeding or enlarged lymph nodes All/Imm: Denies: urticaria or acute wheezing Medications/Allergies Home Medications Medication Instructions Recorded Confirmed Last Taken Type ibuprofen 200 mg tablet 400 mg PO PRN 05/31/20 05/31/20 05/30/20 History ondansetron HCl 4 mg tablet 4 mg PO Q8H #14 tab 05/31/20 Unknown Rx (Zofran) ciprofloxacin HCl 500 mg tablet 500 mg PO BID #14 tab 03/28/21 Unknown Rx (Cipro) hydrocodone 5 mg-acetaminophen 325 1 tab PO Q6H PRN #15 tab 03/28/21 Unknown Rx mg tablet promethazine 25 mg tablet 25 mg PO Q6H PRN #20 tab 03/28/21 Unknown Rx Allergies Allergy/AdvReac Type Severity Reaction Status Date / Time No Known Allergies Allergy Verified 05/31/20 14:15 PFSH Acute PFSH: Medical History (Updated 06/18/21 @ 22:22 by Sabino Benitez MD) No pertinent past medical history Surgical History (Updated 06/18/21 @ 22:22 by Sabino Benitez MD) H/O tubal ligation History of wisdom tooth extraction Hx of tonsillectomy Social History Smoking and tobacco status: never smoked Alcohol intake: never Female Reproductive History: Date of last menstrual period: 03/08/21 Vitals/I&O/Wt Last Vital Signs Temp 102 F H 06/18/21 20:35 Pulse 133 H 06/18/21 19:45 Resp 16 06/18/21 19:30 BP 126/74 06/18/21 18:41 Pulse Ox 100 06/18/21 19:45 06/18/21 06/18/21 06/18/21 06:59 14:59 22:59 Intake Total 1000 / 1000 Balance 1000 / 1000 Weight last 48 hrs Weight 180 lb 9.6 oz Physical Exam Const: COMMON NORMALS: no acute distress, average body habitus, patient oriented x3 and no limitations HENMT: COMMON NORMALS: normocephalic and atraumatic Eye: COMMON NORMALS: conjunctivae normal and negative for no scleral icterus Neck/C-Spine: OTHER: Good range of motion Lymph: LYMPHATIC: no lymphadenopathy noted and no lymphedema noted Chest: OTHER: Normal chest movement Resp: COMMON NORMALS: normal respiratory effort, No retractions, No use of accessory muscles and clear to auscultation bilaterally Cardio: COMMON NORMALS: regular rate and regular rhythm OTHER: Tachycardia GI: OTHER: Soft. Right upper quadrant tenderness. No palpable mass organomegaly : OTHER: Bladder nondistended, right CVA tenderness. Normal external female genitalia, urethra, urethral meatus. No vaginal discharge Back/Pelvis: OTHER: Right CVA tenderness Extremity: NARRATIVE EXTREMITY EXAM: Good range of motion, no significant peripheral edema Neuro: OTHER: No focal defects. Psych: COMMON NORMALS: mental status grossly normal, Normal thought process present, cooperative and speech normal Skin: OTHER: No jaundice rashes or lesion Data : 06/18/21 19:11 06/18/21 19:11 Micro: Microbiology 06/18/21 19:30 Blood Culture - Preliminary Blood SPECIMEN COLLECTED A&P Assessment and plan (1) Obstructive pyelonephritis: 6 mm right proximal ureteral stone with obstruction patient with history of recurrent urinary tract infections, leukocytosis, tachycardia, tachypnea, and grossly infected urine. Status: Acute (2) Ureterolithiasis: 6 mm right proximal ureteral stone Status: Acute (3) Sepsis: Hospitalist service consulted for assistance with medical management for sepsis post stent placement I spoke with Dr. Diallo Status: Acute (4) Recurrent UTI: Some symptoms suspicious for chronic cystitis Status: Acute Attestations Medical Necessity Statement*: Patient with obstructive pyelonephritis requiring surgical intervention for stenting and likely several days of hospitalization for IV antibiotics. Coding Level of Care Code Acute Automatic Door Mechanic for [facility] Fwd Diagnoses Ureterolithiasis N20.1 Sepsis A41.9 Recurrent UTI N39.0 Obstructive pyelonephritis N11.1
--- NOTE | 2021-06-18 22:19 | SC_ITS ---
WS: [id number] C-arm [place] for Urology REASON FOR EXAM: intra-op FINDINGS: Properly positioned proximal portion of right ureteral stent. Calcifications in the right kidney. SC/C-arm [place] for Urology IMPRESSION: Right ureteral stent placement.
--- NOTE | 2021-06-18 22:20 | P.ANESASSM_ITS ---
Pre-Anesthetic Assessment Height/Weight: Height 1.7 m Weight 81.919 kg Temp Pulse Resp BP Pulse Ox 102 F H 133 H 16 126/74 100 06/18/21 20:35 06/18/21 19:45 06/18/21 19:30 06/18/21 18:41 06/18/21 19:45 Preop Diagnosis: Kidney stone Operation Date: 06/18/21 22:30 Proposed Procedures p Cystoscopy(Not Applicable) - Sabino Benitez MD s Ureteral Stent Placement(Not Applicable) - Sabino Benitez MD Familial anesthetic complications: None Was Beta Rayshawn taken within 24 hours: N/A Was Clonidine taken within 24 hours: N/A Last intake: couple bites of rice at 5 pm Social vapes Exam alert, oriented x 3, clear to auscultation bilaterally and regular rate & rhythm Airway Mallampati: Class I Dentition: other (missing molars) kidney stones w/ hydronephrosis Anesthetic Plan ASA status: 1E Anesthesia: General Medications/Allergies Home Medications Medication Instructions Recorded Confirmed Last Taken Type ibuprofen 200 mg tablet 400 mg PO PRN 05/31/20 05/31/20 05/30/20 History ondansetron HCl 4 mg tablet 4 mg PO Q8H #14 tab 05/31/20 Unknown Rx (Zofran) ciprofloxacin HCl 500 mg tablet 500 mg PO BID #14 tab 03/28/21 Unknown Rx (Cipro) hydrocodone 5 mg-acetaminophen 325 1 tab PO Q6H PRN #15 tab 03/28/21 Unknown Rx mg tablet promethazine 25 mg tablet 25 mg PO Q6H PRN #20 tab 03/28/21 Unknown Rx Allergies Allergy/AdvReac Type Severity Reaction Status Date / Time No Known Allergies Allergy Verified 05/31/20 14:15 [facility] Anesthesia Medical History (Updated 06/18/21 @ 22:22 by Sabino Benitez MD) No pertinent past medical history Surgical History (Updated 06/18/21 @ 22:22 by Sabino Benitez MD) H/O tubal ligation History of wisdom tooth extraction Hx of tonsillectomy Social History Smoking and tobacco status: never smoked Alcohol intake: never Female Reproductive History Date of last menstrual period: 03/08/21 Data Anesthesia : 06/18/21 19:11 06/18/21 19:11 Short CBC 06/18/21 Range/Units 19:11 WBC 15.9 H (4.0-10.0) 10^3/uL Hgb 10.5 L (11.5-15.3) g/dL Hct 34.0 L (37.0-47.0) % MCV 76.9 L (81-99) fl Plt Count 323 (130-400) 10^3/cmm Neut % (Auto) 79.2 % Neut # (Auto) 12.59 H (1.8-7.7) 10^3/uL BMP 06/18/21 19:11 Sodium 135 L Potassium 3.1 L Chloride 101 Carbon Dioxide 21 L BUN 7 Creatinine 0.8 Glucose 116 H Calcium 10.6 H Liver Function 06/18/21 Range/Units 19:11 Total Bilirubin 1.0 (0.15-1.2) mg/dL AST 17 (0-32) U/L ALT 30 (0-33) U/L Alkaline Phosphatase 237 H (35-105) IU/L Albumin 3.7 (3.5-5.2) g/dL Urine 06/18/21 Range/Units 20:37 Urine Color Yellow (Yellow) Urine Appearance Clear (CLEAR) Urine pH 7 (5-7) Ur Specific Sims 1.005 (1.005-1.030) Urine Protein 1+ H (Negative) Urine Glucose (UA) Norm (Normal) Urine Ketones Negative (Negative) Urine Nitrate Positive H (Negative) Urine Bilirubin Neg (Negative) Ur Leukocyte Esterase 2+ H (Negative) Urine RBC 40-50 H (0-2) /hpf Urine WBC >100 H (0-5) /hpf Coags 06/18/21 19:11 C-Reactive Protein 315.1 H Microbiology 06/18/21 19:30 Blood Culture - Preliminary Blood SPECIMEN COLLECTED Cardiac Studies: No Data to Display
[2021-06-18] MEDS: piperacillin-tazobactam 3.375 GM in sodium chloride 0.9% (plus) 50 ML IV (22:29)
--- NOTE | 2021-06-18 23:05 | PC.NURSE ---
Pt is ready to transfer to the floor, waiting for a bed on [facility]
[2021-06-18] MEDS: sodium chloride 0.9% 1,000 ML 100 ML IV (23:52)
[2021-06-19] VITALS (7 sets, daily range): BP systolic 98–117; BP diastolic 66–75; PULSE 69–124; RESP 16–19; TEMP 36.3–37; O2SAT 90–99
--- NOTE | 2021-06-19 01:02 | PM.OP ---
Operative Report Date of procedure: June 18, 2021 Pre-op diagnosis: Preop Diagnosis obstructive pyelonephritis, RIGHT Post-op diagnosis: Obstructive pyelonephritis, RIGHT Procedure done: 1. Cystoscopy, RIGHT ureteral stent placement (7 Faroese by 28 cm double-pigtail without string) Pathology: None Surgeon: Eli Estimated blood loss: None Urine output: Not measured Complications: None Findings: Wire easily bypassed the stone and stent was placed without difficulty. Minimal cloudy urine effluxed from the stent. Brief History: Brooklyn is a very pleasant 26-year-old white female direct admitted through the emergency department with diagnosis of obstructive pyelonephritis related to a right proximal ureteral stone measuring approximately 6 mm. Urine was grossly infected. CT scan was definitive for this diagnosis. She was admitted through the emergency department taken directly to the operating room for stent placement after full evaluation, explanation of diagnosis, and emphasis on emergency status. Procedure: After emergent evaluation examination and obtaining of informed consent she was taken from the emergency department to the OR. After appropriate level of anesthesia was obtained appropriate timeout was performed, SCDs confirmed to be functioning, preoperative antibiotics administered, beta-fredy protocol confirmed. Prepped and draped in usual sterile fashion in dorsolithotomy position paying careful attention to avoiding pressure points. 21 Faroese cystoscope with 30 degree lens was introduced to the urethral meatus and advanced to the bladder under videoscopy. Bladder was systematically examined. There were some findings consistent with more of a chronic cystitis type picture. Some appearance of cystitis cystica. (She did relate some chronicity to her lower urinary tract symptoms) A flexible tip guidewire was then easily advanced at the right ureter bypassing the right proximal ureteral stone and curling in the area of the renal pelvis. A 7 Faroese by 28 cm double-pigtail stent was advanced over the guidewire through the cystoscope into appropriate position as confirmed via fluoroscopy and cystoscopy. Stent was confirmed to be draining. There was some cloudiness to the efflux but it was not purulent appearing. The bladder was drained and the procedure was completed. She tolerated the procedure well without complications and was taken recovery room in stable condition. PLANS: 1. Admit for IV antibiotics 2. Delayed treatment of the stone after recovery from infection. 3. Hospitalist consult for assistance with medical therapy.
[2021-06-19] MEDS: piperacillin-tazobactam 3.375 GM in sodium chloride 0.9% (plus) 50 ML IV ×3 (05:57→22:03)
[2021-06-19] MEDS: morphine 4 mg/mL SDV 1 mL 2 MG IVP ×2 (06:03→18:02)
--- NOTE | 2021-06-19 07:45 | P.PN_ITS ---
Subjective Subjective: Interval history: Brooklyn reports she feels better today.. Think she could eat a little bit today. Medications: Reviewed: Yes Vitals/I&O/Wt Last Vital Signs Temp 97.4 F L 06/19/21 07:40 Pulse 85 06/19/21 07:40 Resp 16 06/19/21 07:40 BP 108/73 06/19/21 07:40 Pulse Ox 98 06/19/21 07:40 06/18/21 06/19/21 06/19/21 22:59 06:59 14:59 Intake Total 1050 / 1050 Output Total 0 / 0 Balance 1050 / 1050 Weight last 48 hrs Weight 83.915 kg Weight 81.919 kg Physical Exam Narrative: EXAM NARRATIVE: General exam no distress Neck is supple Cardiovascular regular rate and rhythm Lungs clear Abdomen is soft, positive bowel sounds Extremities no cyanosis clubbing or edema Data : 06/18/21 19:11 06/18/21 19:11 Micro: Microbiology 06/19/21 02:17 Blood Culture - Preliminary Blood SPECIMEN COLLECTED 06/18/21 19:30 Blood Culture - Preliminary Blood SPECIMEN COLLECTED A&P Assessment and plan (1) Obstructive pyelonephritis: Postoperative day #1 status post right ureteral stent. Currently on Zosyn Awaiting culture Status: Acute (2) UTI (urinary tract infection): See above Status: Acute (3) Hypokalemia: Supplemented. Await repeat level today. Status: Acute (4) Sepsis: Improved. Heart rate and blood pressure appear to have stabilized. No fever this morning. Continue to follow closely. Status: Acute Attestations Medical Necessity Statement*: Needs continued hospitalization for IV anti biotics related to sepsis and obstructive pyelonephritis. Coding Level of Care Code Acute Laser Cutter for [facility] Fwd Diagnoses Obstructive pyelonephritis N11.1 UTI (urinary tract infection) N39.0 Hypokalemia E87.6 Sepsis A41.9
--- NOTE | 2021-06-19 08:20 | P.PN_ITS ---
Subjective Subjective: Interval history: Urology postop day #1, emergency RIGHT ureteral stent placement for clinical picture of obstructive pyelonephritis Has been afebrile postoperatively. Heart rate has decreased from about 124 immediately postop down to 85 this morning. Blood pressure has been stable No significant evidence of progression to septic complications. Current symptoms: No fever or chills. Feeling much better than last night. Still weak though. Appetite is returning but still suboptimal. Marked decrease in flank pain. She actually was hoping she could go home. Medications: Reviewed: Yes Vitals/I&O/Wt Last Vital Signs Temp 97.4 F L 06/19/21 07:40 Pulse 85 06/19/21 07:40 Resp 16 06/19/21 07:40 BP 108/73 06/19/21 07:40 Pulse Ox 98 06/19/21 07:40 06/18/21 06/19/21 06/19/21 22:59 06:59 14:59 Intake Total 1050 / 1050 2898 / 2898 Output Total 0 / 0 Balance 1050 / 1050 2898 / 2898 Weight last 48 hrs Weight 185 lb Weight 180 lb 9.6 oz Physical Exam Narrative: EXAM NARRATIVE: Alert oriented no acute distress. Mental status normal Respiratory no labored respiration no audible wheezes Cardiovascular: Regular rate rhythm Neck good range of motion Data : 06/19/21 08:08 06/19/21 08:08 Micro: Microbiology 06/19/21 02:17 Blood Culture - Preliminary Blood SPECIMEN COLLECTED 06/18/21 19:30 Blood Culture - Preliminary Blood SPECIMEN COLLECTED A&P Assessment and plan (1) Obstructive pyelonephritis: Doing much better after emergency stenting with continued antibiotics. Cultures pending. Possible discharge tomorrow if no progression of septic episode. Status: Acute (2) Ureterolithiasis: Status post emergency stenting. Definitive treatment pending. Status: Acute (3) Recurrent UTI: She did have some evidence of chronic cystitis on cystoscopy at time of surgical intervention. May require prolonged course of antibiotics appropriate for chronic cystitis after resolution of the current events. Status: Acute Plan Continue current treatment. Advance diet. Appreciate the hospitalist's assistance. Attestations Medical Necessity Statement*: Status post right emergency stent placement for obstructive pyelonephritis. We will maintain in hospital today for IV antibiotics. 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
[2021-06-19 08:37] LABS: Basophils % 0.3 %; Hematocrit 30.3 % (37.0-47.0); Hemoglobin 9.1 g/dL (11.5-15.3); Lymphocytes # 1.1 10^3/uL (0.8-4.8); Lymphocytes % 9.7 %; Mean Corpuscular Hemoglobin 23.5 pg (28.0-34.0); Mean Corpuscular Volume 78.3 fl (81-99); Mean Platelet Volume 9.9 fL (7.4-10.4); Monocytes # 0.8 10^3/uL (0.2-0.9); Monocytes % 6.5 %; Neutrophils # 9.54 10^3/uL (1.8-7.7); Neutrophils % 82.4 %; Nucleated Red Blood Cells % 0 %; Platelet Count 290 10^3/cmm (130-400); Red Blood Count 3.87 10^6/uL (4.1-5.3); Red Cell Distribution Width 15.7 % (12.1-15.1); White Blood Count 11.6 10^3/uL (4.0-10.0)
[2021-06-19 08:48] LABS: Alanine Aminotransferase 24 U/L (0-33); Aspartate Amino Transferase 14 U/L (0-32); Globulin 3.3 g/dL (1.3-4.6); Potassium 3.6 mmol/L (3.5-5.1); Sodium 143 mmol/L (136-145)
[2021-06-19] MEDS: sodium chloride 0.9% 1,000 ML 100 ML IV ×2 (09:10→18:04)
[2021-06-19] MEDS: acetaminophen 325 mg Tablet 650 MG PO (09:14)
[2021-06-19 09:24] LABS: Albumin Level 3.1 g/dL (3.5-5.2); Alkaline Phosphatase 178 IU/L (35-105); Anion Gap 14.5 (5-19); Blood Urea Nitrogen 6 mg/dL (6-20); Calcium 10.5 mg/dL (8.5-10.5); Carbon Dioxide 18 mmol/L (22-29); Chloride 112 mmol/L (98-107); Glomerular Filtration Rate 122.8 mL/min (90-130); Glucose 125 mg/dL (65-115); Osmolality Calculated 291 mOsm/kg (285-295); Total Bilirubin 0.6 mg/dL (0.15-1.2); Total Protein 6.5 g/dL (6.6-8.7)
--- NOTE | 2021-06-19 10:48 | PC.CHAP ---
Pastoral Care Encounter/Spiritual Assessment Type of Contact [] Declined raimann machine operator visit [] Patient/Family/Request visit [] Outpatient visit [] Follow-up visit [] Physician referral [] Code/Alert [x] Routine visit [] Staff referral [] Actively dying [] Patient sleeping [] Family support [] [] Out of room [] Palliative care [] [] Receiving care in room [] Pre-surgical visit [] Trauma [] Long length of stay [] ICU visit [] Other: Relational/Emotional Strength [] Patient feels connected with others/family/visitors/staff [] Distress [] Loneliness/isolation [] Abandonment Spirituality of Patient [x] Person of Rita [x] Attends Confucianist of their Rita [x] Believes in Prayer [] Reads Bible or Congregation materials [] There are Spiritual issues to be addressed Seafood Harvester Interventions [x] Prayer [x] Active listening [x] Non-anxious presence [x] Spiritual/emotional support [] Crisis/trauma care [] Spiritual counseling [] Bereavement support [] Provided bereavement packet [] Provided Bible/devotional materials [] Provided toy/stuffed animal, coloring book to patient or family member [] Provided Communion [] Anointing/[place] [] Salvation [x] Completed spiritual assessment [] Other: Impact on Illness or Injury [] Angry [] Fearful [] Anxious [] Often cries [] Exhaustion [] Unable to work [] Unable to attend evangelical [] Unable to walk/stand [] Unable to read [] Unable to drive [] Unable to eat/drink [] Unable to sleep [] Unable to be with family [] Patient intubated [] Other: Summary Time spent with patient
--- NOTE | 2021-06-19 19:43 | PC.NURSE ---
Patient declines PRN pain medication at this time.
[2021-06-19] MEDS: enoxaparin 40 mg/0.4 mL Syringe SUBCUT (22:02)
[2021-06-20] VITALS: BP 114/70; PULSE 84; RESP 18; TEMP 36.6; O2SAT 97
[2021-06-20 01:06] VITALS: RESP 18; O2SAT 97
[2021-06-20] MEDS: morphine 4 mg/mL SDV 1 mL 2 MG IVP (01:06)
[2021-06-20] MEDS: acetaminophen 325 mg Tablet 650 MG PO (01:10)
[2021-06-20] MEDS: sodium chloride 0.9% 1,000 ML 100 ML IV (03:47)
[2021-06-20 04:00] VITALS: BP 124/78; PULSE 84; RESP 18; TEMP 36.6; O2SAT 97
[2021-06-20 06:08] LABS: Basophils % 0.2 %; Hematocrit 26.8 % (37.0-47.0); Hemoglobin 8.2 g/dL (11.5-15.3); Lymphocytes # 1.8 10^3/uL (0.8-4.8); Lymphocytes % 15.7 %; Mean Corpuscular HGB Conc 30.6 g/dL (30.0-36.0); Mean Corpuscular Hemoglobin 23.7 pg (28.0-34.0); Mean Corpuscular Volume 77.5 fl (81-99); Monocytes # 0.7 10^3/uL (0.2-0.9); Monocytes % 6.2 %; Neutrophils # 9.02 10^3/uL (1.8-7.7); Neutrophils % 77.2 %; Nucleated Red Blood Cells % 0 %; Platelet Count 306 10^3/cmm (130-400); Red Blood Count 3.46 10^6/uL (4.1-5.3); Red Cell Distribution Width 15.9 % (12.1-15.1); White Blood Count 11.7 10^3/uL (4.0-10.0)
[2021-06-20 06:33] LABS: Alanine Aminotransferase 20 U/L (0-33); Albumin Level 3.1 g/dL (3.5-5.2); Alkaline Phosphatase 196 IU/L (35-105); Anion Gap 12.2 (5-19); Aspartate Amino Transferase 17 U/L (0-32); Blood Urea Nitrogen 8 mg/dL (6-20); Calcium 9.8 mg/dL (8.5-10.5); Carbon Dioxide 20 mmol/L (22-29); Chloride 112 mmol/L (98-107); Globulin 2.6 g/dL (1.3-4.6); Glomerular Filtration Rate 102.8 mL/min (90-130); Glucose 142 mg/dL (65-115); Osmolality Calculated 293 mOsm/kg (285-295); Potassium 3.2 mmol/L (3.5-5.1); Sodium 141 mmol/L (136-145); Total Bilirubin 0.3 mg/dL (0.15-1.2); Total Protein 5.7 g/dL (6.6-8.7)
[2021-06-20] MEDS: piperacillin-tazobactam 3.375 GM in sodium chloride 0.9% (plus) 50 ML IV (06:35)
--- NOTE | 2021-06-20 06:38 | PC.NURSE ---
Patient declines PRN pain medication at this time
[2021-06-20 08:00] VITALS: BP 120/82; PULSE 68; RESP 16; TEMP 36.6; O2SAT 100
[2021-06-20 08:10] LABS: Magnesium 1.9 mg/dL (1.7-2.3)
--- NOTE | 2021-06-20 08:15 | PM.PN ---
Subjective Subjective: No concerns overnight. Remains afebrile. Pain less. Medications: Reviewed: Yes Vitals/I&O/Wt Last Vital Signs Temp 97.8 F 06/20/21 04:00 Pulse 84 06/20/21 04:00 Resp 18 06/20/21 04:00 BP 124/78 06/20/21 04:00 Pulse Ox 97 06/20/21 04:00 06/19/21 06/20/21 06/20/21 22:59 06:59 14:59 Intake Total 1490 / 5708 1021.667 / 6729.667 Output Total 680 / 680 Balance 1490 / 5708 341.667 / 6049.667 Weight last 48 hrs Weight 83.915 kg Weight 81.919 kg Physical Exam Narrative: General exam no distress Neck is supple Cardiovascular regular rate and rhythm Lungs clear Abdomen is soft, positive bowel sounds Extremities no cyanosis clubbing or edema Data : 06/20/21 05:21 06/20/21 05:21 Micro: Microbiology 06/19/21 02:17 Blood Culture - Preliminary Blood NEGATIVE TO DATE 06/18/21 19:30 Blood Culture - Preliminary Blood NEGATIVE TO DATE A&P Assessment and plan (1) Obstructive pyelonephritis: Postoperative day #2 status post right ureteral stent. Currently on Zosyn. Unfortunately urine culture not done. Consider discharge on cephalosporin secondary third-generation. Blood cultures negative to date Status: Acute (2) UTI (urinary tract infection): See above Status: Acute (3) Hypokalemia: Supplemented. Await repeat level today. Status: Acute (4) Sepsis: Improved. Heart rate and blood pressure appear to have stabilized. 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
[2021-06-20] MEDS: potassium chloride ER 20 mEq Tablet 40 MEQ PO ×2 (09:21→12:32)
--- NOTE | 2021-06-20 12:42 | P.DS_ITS ---
Discharge Providers Date of Admission: 06/18/21 23:10 Date of Discharge: June 20, 2021 Attending Provider at Admission: Sabino Benitez MD Attending Provider at Discharge: Sabino Benitez MD Consults: Hospitalist service: Dr. Garcia Primary Care Provider: Steven Del Rio MD Diagnoses at Discharge Discharge Diagnosis (1) Obstructive pyelonephritis: Details from hospital stay: Emergency stenting performed at admission from the emergency department. Did well. Recovered quickly with antibiotic therapy following stenting. 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 Status: Chronic (5) Urolithiasis: Details from hospital stay: Multi stone former. Status: Chronic Reason for Visit Reason for Visit: Obstructive pyelonephritis Brief History: History of recurrent urinary tract infections. She developed renal colicky type symptoms 2 to 3 days before presentation. She had been placed on antibiotics by local primary care but had increasing symptoms. When she was evaluated in the emergency department she had temperature of 102, tachycardia, grossly infected urine etc. Stone was identified on CT scan of the right proximal ureter and she was recommended to be treated emergently with stent placement. Hospital Course Hospital Course Admitted through the emergency department on 06/18/2021 for RIGHT obstructive pyelonephritis secondary to a stone in the proximal ureter. She was treated with antibiotics prior to surgery and continued until postop day #2. She did well with no further infectious complications throughout her hospital stay and was discharged on postop day #2 in stable condition on oral antibiotics with plans for endoscopic treatment of the stone on 06/26/2021. Physical Exam Narrative: Alert oriented no acute distress. Very pleasant cooperative throughout exam Neck good range of motion Skin no jaundice Respiratory no labored respiration audible wheezes etc. Mental status normal. No anxiety Appears well recovered and not ill. Discharge Data Studies Completed and Pending Completed Studies During Hospitalization Category Date Time Status [place] kidney stone [id number] Urgent Cat Scan 06/18/21 19:19 Completed XR chest 1V portable [id number] Urgent Exams 06/18/21 18:55 Completed Pending at discharge Category Date Time Status Blood Culture Stat Lab 06/18/21 19:30 Results Complete Blood Count w/Auto AM LABS Lab 06/21/21 04:00 Ordered Comprehensive Metabolic Panel AM LABS Lab 06/21/21 04:00 Ordered Urine Culture Routine Lab 06/18/21 22:04 Uncollected Radiology Impressions Chest X-Ray 06/18/21 18:55 IMPRESSION: No acute findings. Abdomen/Pelvis CT 06/18/21 19:19 IMPRESSION: 1. Right collecting system obstructive uropathy secondary to proximal ureterolithiasis. 2. Bilateral renal medullary nephrocalcinosis with multiple additional nonobstructing renal stones. C-Arm Fluoroscopy 06/18/21 22:19 IMPRESSION: Right ureteral stent placement. Laboratory Results WBC 11.7 10^3/uL (4.0-10.0) H 06/20/21 05:21 RBC 3.46 10^6/uL (4.1-5.3) L 06/20/21 05:21 Hgb 8.2 g/dL (11.5-15.3) L 06/20/21 05:21 Hct 26.8 % (37.0-47.0) L 06/20/21 05:21 MCV 77.5 fl (81-99) L 06/20/21 05:21 MCH 23.7 pg (28.0-34.0) L 06/20/21 05:21 MCHC 30.6 g/dL (30.0-36.0) 06/20/21 05:21 RDW 15.9 % (12.1-15.1) H 06/20/21 05:21 Plt Count 306 10^3/cmm (130-400) 06/20/21 05:21 MPV 10.0 fL (7.4-10.4) 06/20/21 05:21 Neut % (Auto) 77.2 % 06/20/21 05:21 Lymph % (Auto) 15.7 % 06/20/21 05:21 Lawrence % (Auto) 6.2 % 06/20/21 05:21 Eos % (Auto) 0.0 % 06/20/21 05:21 Baso % (Auto) 0.2 % 06/20/21 05:21 Neut # (Auto) 9.02 10^3/uL (1.8-7.7) H 06/20/21 05:21 Lymph # (Auto) 1.8 10^3/uL (0.8-4.8) 06/20/21 05:21 Lawrence # (Auto) 0.7 10^3/uL (0.2-0.9) 06/20/21 05:21 Eos # (Auto) 0.0 10^3/uL (0.0-0.8) 06/20/21 05:21 Baso # (Auto) 0.0 10^3/uL (0.0-0.1) 06/20/21 05:21 Nucleated RBC % (auto) 0 % 06/20/21 05:21 Nucleated RBCs # 0.0 /100WBC 06/20/21 05:21 Sodium 141 mmol/L (136-145) 06/20/21 05:21 Potassium 3.2 mmol/L (3.5-5.1) L 06/20/21 05:21 Chloride 112 mmol/L (98-107) H 06/20/21 05:21 Carbon Dioxide 20 mmol/L (22-29) L 06/20/21 05:21 Anion Gap 12.2 (5-19) 06/20/21 05:21 BUN 8 mg/dL (6-20) 06/20/21 05:21 Creatinine 0.7 mg/dL (0.5-0.9) 06/20/21 05:21 GFR Calculation 102.8 mL/min (90-130) 06/20/21 05:21 Glucose 142 mg/dL (65-115) H 06/20/21 05:21 Calculated Osmolality 293 mOsm/kg (285-295) 06/20/21 05:21 Lactic Acid 1.4 mmol/L (0.5-2.2) 06/18/21 19:11 Calcium 9.8 mg/dL (8.5-10.5) 06/20/21 05:21 Magnesium 1.9 mg/dL (1.7-2.3) 06/20/21 05:21 Total Bilirubin 0.3 mg/dL (0.15-1.2) 06/20/21 05:21 AST 17 U/L (0-32) 06/20/21 05:21 ALT 20 U/L (0-33) 06/20/21 05:21 Alkaline Phosphatase 196 IU/L (35-105) H 06/20/21 05:21 C-Reactive Protein 315.1 mg/L (0.0-4.9) H 06/18/21 19:11 Total Protein 5.7 g/dL (6.6-8.7) L 06/20/21 05:21 Albumin 3.1 g/dL (3.5-5.2) L 06/20/21 05:21 Globulin 2.6 g/dL (1.3-4.6) 06/20/21 05:21 Lipase 13 U/L (13-60) 06/18/21 19:11 Procalcitonin 0.45 ng/mL (0-0.5) 06/18/21 19:11 HCG, Qual Negative (Negative) 06/18/21 19:11 Urine Color Yellow (Yellow) 06/18/21 20:37 Urine Appearance Clear (CLEAR) 06/18/21 20:37 Urine pH 7 (5-7) 06/18/21 20:37 Ur Specific Sabine 1.005 (1.005-1.030) 06/18/21 20:37 Urine Protein 1+ (Negative) H 06/18/21 20:37 Urine Glucose (UA) Norm (Normal) 06/18/21 20:37 Urine Ketones Negative (Negative) 06/18/21 20:37 Urine Blood 3+ (Negative) H 06/18/21 20:37 Urine Nitrate Positive (Negative) H 06/18/21 20:37 Urine Bilirubin Neg (Negative) 06/18/21 20:37 Urine Urobilinogen Norm mg/dL (Negative) 06/18/21 20:37 Ur Leukocyte Esterase 2+ (Negative) H 06/18/21 20:37 Urine RBC 40-50 /hpf (0-2) H 06/18/21 20:37 Urine WBC >100 /hpf (0-5) H 06/18/21 20:37 Ur Squamous Epith Cells 25-40 /hpf (0-5) H 06/18/21 20:37 Amorphous Sediment Not Reportable 06/18/21 20:37 Urine Bacteria 3+ /hpf (NONE) H 06/18/21 20:37 Urine HCG, Qual Negative (Negative) 06/18/21 20:37 Procedures Performed 1. Cystoscopy, right ureteral stent placement emergently on 06/18/2021 Vitals Last Vital Signs Temp 97.8 F 06/20/21 08:00 Pulse 68 02/08/22 08:00 Resp 16 06/20/21 08:00 BP 120/82 06/20/21 08:00 Pulse Ox 100 06/20/21 08:00 Discharge Plan Discharge Patient Disposition: Home Condition: Fair Prescriptions: New cefdinir 300 mg capsule 300 mg PO BID 10 Days Qty: 28 1RF Continued ibuprofen 200 mg Tablet 400 mg PO PRN 0RF Discharge Orders: Discharge Order (Routine); Ordered 06/20/21 Ordered By: Sabino Benitez Referrals: Steven Del Rio MD [Primary Care Provider] - Discharge Diet: Usual diet Discharge Activity: Increase activity as tolerated Patient Instructions: Opioid Safety Activity Restrictions/Additional Instructions: 1. We will plan on endoscopic treatment of the stone 06/26/2021. 2. You should be contacted by the hospital on Saturday for exact time for arrival. 3. A prescription has been sent for oral antibiotics. Is important this be filled and you continue until we reevaluate. Discharge Attestations Time Spent in Discharge Care*: greater than 30 min Quality Metrics Clinical Quality Measures [ No reported AMI, CVA or VTE this stay] Coding Level of Care Code Acute g [facility] note Diagnoses Obstructive pyelonephritis N11.1 Hypokalemia E87.6 Sepsis A41.9 Medullary sponge kidney Q61.5 Urolithiasis N20.9
== END 2021-06-20 14:38 | disposition home or self-care (01) | DRG 854 ==
LOC: ER 21:58 → OR 22:04 → MEDSURG 06-19 07:12
PROVIDERS: Emergency Medicine; Internal Medicine; Nurse Practitioner Family; Admitting Provider Urology; Emergency Provider Emergency Medicine; PCP Family Medicine; Visit Provider Urology
PROC: 0TJB8ZZ Inspection of Bladder, Via Natural or Artificial Opening Endoscopic (ICD-10-PCS; CPT 52000; principal; 2021-06-18 22:30)
PROC: 0T768DZ Dilation of Right Ureter with Intraluminal Device, Via Natural or Artificial Opening Endoscopic (ICD-10-PCS; CPT 50605; 2021-06-18 22:30)
DX: A41.9 Sepsis, unspecified organism (principal); N13.2 Hydronephrosis with renal and ureteral calculous obstruction; Q61.5 Medullary cystic kidney; N30.21 Other chronic cystitis with hematuria; E87.6 Hypokalemia
CPT/HCPCS: 36415; 71045; 74176; 76000; 80053; 81001; 81025; 83605; 83690; 83735; 84145; 84703; 85025; 86140; 87040; 93005; 96372; C2625; J0330; J0696; J1100; J1650; J2270; J2405; J2543; J2704; J3010; J7030

== ENCOUNTER → 2021-06-21 10:56 | Outpatient (BNVA) | payer MEDICAID, SELFPAY | PROVIDERS: PCP Family Medicine; Visit Provider Nurse Practitioner Family | DX: Z20.822 Contact with and (suspected) exposure to COVID-19 (principal); N20.9 Urinary calculus, unspecified | CPT/HCPCS: 87635 ==

== ENCOUNTER 2021-06-26 09:08 | Day surgery (SDC) | payer MEDICAID, SELFPAY ==
[2021-06-23 12:11] VITALS: BMI 28.1
[2021-06-26] VITALS (8 sets, daily range): BP systolic 120–147; BP diastolic 67–101; PULSE 52–90; RESP 16–18; TEMP 36.1–36.4; O2SAT 95–99
--- NOTE | 2021-06-26 | SCC_ITS ---
Procedure done: 1. Cystoscopy removal of right ureteral stent 2. Right ureteroscopy, laser lithotripsy, stent placement 27.9 seconds of fluoroscopic guidance, for a cumulative dose of 8.0 mGy, was provided to Dr. Benitez by the radiology department. C-arm images of the abdomen were saved for the patient's permanent record. [facility]
--- NOTE | 2021-06-26 06:04 | W.PM.OPSUD ---
Surgery/Procedure H&P Update DATE OF PROCEDURE: June 26, 2021 DATE H&P PERFORMED: 06/18/21 CHANGES TO PREVIOUS DOCUMENTATION: Admitted for symptoms of RIGHT obstructive pyelo on 06/18/21. Febrile, elevated WBCs, infected urine, tachycardia, etc. Lactate was not elevated. Emergent stenting that night/early am of 06/19/21 Continued on antibiotics and did very well. D/C'd on POD #1 on Cefdinir. PREOP DIAGNOSIS: Kidney stone PLANNED PROCEDURE: Operation Date: 06/26/21 10:35 Proposed Procedures p Cystoscopy n11.11/n20.9(Not Applicable) - Sabino Benitez MD s Retrograde Pyelogram(Right) - Sabino Benitez MD s Ureteroscopy(Right) - Sabino Benitez MD s Laser Lithotripsy(Right) - Sabino Benitez MD s Ureteral Stent Exchange(Right) - Sabino Benitez MD
--- NOTE | 2021-06-26 09:20 | XRR_ITS ---
PROCEDURE INFORMATION: Exam: XR Abdomen Exam date and time: 06/26/2021 9:20 AM Age: 26 years old Clinical indication: Condition or disease; Kidney or ureter condition; Calculus (stone) in ureter; Prior surgery; Surgery type: Gb, kidney stents, tubal; Additional info: Right ureteral calculus preop ureteroscopy TECHNIQUE: Imaging protocol: XR of the abdomen. Views: Frontal supine view of the abdomen. 1 View. COMPARISON: CT kidney stone [id number] 06/18/2021 8:14 PM FINDINGS: Gastrointestinal tract: Normal. No bowel dilation. Organs: There are multiple caliceal stones seen within the proximal collecting system of both kidneys. A ureteral stent is in place on the right side in good position. There is a 3.5 mm caliceal stone in place near the right transverse process. This finding is in the proximal right ureter . Comparison to prior examination similar findings is seen. Bones/joints: Negative for acute bony abnormality XR/XR KUB [id number] IMPRESSION: 1. No acute GI abnormality. 2. Stable multiple bilateral caliceal stones 3. Status post ureteral stent right side in good position. 4. Stable caliceal stone proximal right ureter.
--- NOTE | 2021-06-26 09:20 | SC_ITS ---
WS: [id number] INTRAOPERATIVE TECHNIQUE: 2 Spot fluoroscopic images for intraoperative purposes. FLUOROSCOPY TIME: 27.9 seconds CLINICAL INFORMATION: Right ureteral calculus: ureteroscopy COMPARISON: None. FINDINGS: Partially visualized RIGHT double-J ureteral stent. SC/C-arm [place] for Urology IMPRESSION: Images obtained for intraoperative purposes.
[2021-06-26] MEDS: sodium chloride 0.9% 1,000 ML 30 ML IV (10:05)
[2021-06-26 10:14] LABS: OR HCG Qualitative Urine Negative (Negative)
--- NOTE | 2021-06-26 10:25 | ANES.PREANE2 ---
Pre-Anesthetic Assessment Height/Weight: Height 1.7 m Weight 81.647 kg Preop Diagnosis: Right ureteral stone status post emergency stenting Operation Date: 06/26/21 10:35 Proposed Procedures p Cystoscopy n11.11/n20.9(Not Applicable) - Sabino Benitez MD s Retrograde Pyelogram(Right) - MD janeth Badillo Ureteroscopy(Right) - MD janeth Badillo Laser Lithotripsy(Right) - MD janeth Badillo Ureteral Stent Exchange(Right) - Sabino Benitez MD Familial anesthetic complications: None Was Beta Rayshawn taken within 24 hours: N/A Was Clonidine taken within 24 hours: N/A Last intake: Intake Last Liquid Date 06/25/21 Last Liquid Time 19:00 Last Solid Date 06/25/21 Last Solid Time 19:00 Social Tobacco (VAPES) Exam alert, oriented x 3, clear to auscultation bilaterally and regular rate & rhythm Airway Submandibular: within normal limits Cervical ROM: within normal limits Mallampati: Class I Dentition: full History/ROS No significant history except as noted Pulmonary None reported CV/HEM None reported Medullary sponge kidney Urolithiasis Hepatic None reported GI None reported Metabolic None reported Musc/skel None reported Neuropsych None reported Anesthetic Plan ASA status: 2 Anesthesia: Anesthesia Evaluation and General Other: We discussed risk and benefits of general anesthesia including PONV, sore throat (sometimes severe), corneal abrasion, positioning and peripheral nerve injuries, life threatening allergic reaction, post operative ICU admission requiring prolonged intubation, stroke, heart attack, , and rare incidences of recall. Patient consents to proceed with general anesthesia. Risk of > 500 ml blood loss (7ml/kg in children): No Medications/Allergies Home Medications Medication Instructions Recorded Confirmed Last Taken Type ibuprofen 200 mg tablet 400 mg PO PRN 05/31/20 06/26/21 2 Days Ago History ~06/24/21 cefdinir 300 mg capsule 300 mg PO BID 10 Days #28 cap 06/20/21 06/26/21 06/25/21 Rx Allergies Allergy/AdvReac Type Severity Reaction Status Date / Time No Known Allergies Allergy Verified 06/26/21 10:06 Current Medications Generic Name Dose Route Start Last Admin Trade Name Freq PRN Reason Stop Dose Admin Sodium Chloride 1,000 mls @ 30 mls/hr 06/26/21 09:30 06/26/21 10:05 Sodium Chloride 0.9% IV 06/27/21 09:29 30 mls/hr .Q24H KRISTEN Administration PFSH Anesthesia Medical History Medullary sponge kidney No pertinent past medical history Urolithiasis Surgical History H/O tubal ligation History of wisdom tooth extraction Hx of tonsillectomy Social History Smoking and tobacco status: never smoked Alcohol intake: never Female Reproductive History Date of last menstrual period: 06/16/21 Data Anesthesia Cardiac Studies: No Data to Display
--- NOTE | 2021-06-26 12:08 | PM.OP ---
Operative Report Date of procedure: June 26, 2021 Pre-op diagnosis: Preop Diagnosis Right ureteral stone status post emergency stenting Post-op diagnosis: Same Post-op findings: Procedure done: 1. Cystoscopy removal of right ureteral stent 2. 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 Fragmented with a 365 ?m thulium superpulse laser fiber into small fragments that should easily pass or were flushed through the sheath Stent left indwelling at the completion of the procedure for healing purposes. Brief History: Nic is a very pleasant 26-year-old white female recently treated with obstructive pyelonephritis associated with a 6 mm right proximal ureteral stone, fever, chills, tachycardia, and UTI. She underwent emergency stenting on 06/19/2021 and recovered very well. She was maintained in the hospital until postop day #1 and was discharged home on cefdinir. She has been maintained on antibiotics and is back now for attempt at definitive treatment of the stone. Procedure: After routine preoperative evaluation examination and obtaining of informed consent she was taken to the operating suite on 06/26/2021 where general anesthesia was administered without difficulty after appropriate timeout was performed, SCDs confirmed to be functioning, preoperative antibiotics administered, beta-fredy protocol confirmed. Prepped and draped in the usual sterile fashion in dorsolithotomy position paying careful attention to avoiding pressure points. 21 [place] cystoscope with 30 degree lens was introduced into the urethra meatus and advanced into the bladder to videoscopy. The stent was in the expected position. The distal aspect was grasped and easily removed through the urethral meatus. A flexible tip guidewire was then advanced up the stent without difficulty uncurling the proximal end and though proximal end of the wire curling in the area the upper pole calyx. The stent was removed. The wire was secured to the drapes as a safety wire. A second guidewire was then passed as a working wire easily up the right ureter bypassing the stone. A 24 cm ureteral access sheath was advanced over the guidewire easily up the right ureter to the hub. The inner sheath was removed the wire was removed and a 7.5 [place] offset semirigid ureteroscope was then easily advanced up the sheath. The stone was encountered and began to be fragmented with a 365 thulium superpulse laser fiber. Most of the stone was treated this point but some migrated proximally into the renal pelvis. The semirigid scope was then traded out for a flexible ureteroscope which was then advanced into the renal pelvis and those remaining fragments were pulverized into sand. There was no bleeding. No clear residual fragments identified beyond just sand size. The sheath was then backloaded onto the hub of the scope and the scope was withdrawn under direct vision. The ureter was in good shape. Cystoscope was then backloaded over the safety wire and a 4.5 [place] by 28 cm double-pigtail stent was advanced over the guidewire through the cystoscope into appropriate position as confirmed via fluoroscopy cystoscopy. Stent confirmed to be functioning well. Bladder was drained procedure completed. Tolerated procedure well without complications and was awakened in the operating room and returned to the recovery room in stable condition. PLANS: 1. Anticipate discharge from outpatient surgery 2. Follow-up Saturday for stent removal. KUB first
[2021-06-26] MEDS: cefTRIAXone 1,000 MG in sodium chloride 0.9% (plus) 50 ML 100 MG IV (12:19)
--- NOTE | 2021-06-26 16:00 | ANE.PACU2 ---
Inpatient post-anesthesia follow up: Airway intact: Yes Vital signs: Temperature 97.6 F Pulse Rate 61 Respiratory Rate 16 Blood Pressure 132/81 Pulse Oximetry 99 Oxygen Delivery Me thod Room Air Oxygen Flow Rate 6 Fraction of Inspir ed Oxygen Hydration adequate: Yes Nausea and vomiting: No Pain level: 5 Mental status: Baseline
== END 2021-06-26 13:20 | disposition home or self-care (01) ==
PROVIDERS: Anesthesiology; PCP Family Medicine; Visit Provider Urology
PROC: 0TJB8ZZ Inspection of Bladder, Via Natural or Artificial Opening Endoscopic (ICD-10-PCS; CPT 52000; principal; 2021-06-26 10:25)
PROC: 0TJ98ZZ Inspection of Ureter, Via Natural or Artificial Opening Endoscopic (ICD-10-PCS; CPT 52351; 2021-06-26 10:25)
PROC: (CPT 52356; 2021-06-26 10:25)
PROC: (CPT 52356; 2021-06-26 10:25)
DX: A41.9 Sepsis, unspecified organism (principal); N20.1 Calculus of ureter; F17.290 Nicotine dependence, other tobacco product, uncomplicated; N39.0 Urinary tract infection, site not specified; N11.1 Chronic obstructive pyelonephritis
CPT/HCPCS: 52356; 74018; 76000; 81025; 84703; C2625; J0696; J1100; J2001; J2250; J2405; J2704; J3010; J3490; J7030

== ENCOUNTER 2021-06-30 11:17 | Outpatient (CLI) | payer MEDICAID, SELFPAY ==
--- NOTE | 2021-06-30 11:25 | XR_ITS ---
WS: [id number] KUB, AP view, 06/30/2021 Clinical Data: urolithiasis Comparison: KUB, 06/26/2021. Findings: No abnormal intraabdominal masses are seen. There is no dilatated small bowel or evidence of obstruct ion. The right ureteral stent is in good position. There are bilateral small renal calcifications. The rig ht proximal ureteral calculus is not seen on this examination. XR/XR KUB [id number] Impression: 1. Right ureteral stent. 2. Bilateral small renal calcifications. 3. Right proximal ureteral calculus not seen on this exam.
== END 2021-06-30 11:18 | disposition home or self-care (01) ==
LOC: RAD 11:19
PROVIDERS: PCP Family Medicine; Visit Provider Urology
DX: Z96.0 Presence of urogenital implants (principal); N20.0 Calculus of kidney
CPT/HCPCS: 74018; 81003

== ENCOUNTER 2021-10-25 09:15 | Inpatient (IN) | payer MEDICAID, SELFPAY ==
[2021-10-25] VITALS (16 sets, daily range): BP systolic 94–142; BP diastolic 58–94; PULSE 97–147; RESP 18–27; TEMP 37.7–37.9; O2SAT 93–100; BMI 28.1
--- NOTE | 2021-10-25 11:47 | ED_ITS ---
HPI - General Adult General: Chief complaint: General Medical Stated complaint: low back/abd pain Time Seen by Provider: 10/25/21 11:33 History of Present Illness: Patient is a 26-year-old female with history of tubal ligation, prior cholecystectomy, recurrent UTI/pyelonephritis followed by Dr. Benitez currently on cefdinir w/ recent R ureteral stent removal x 4 presenting to the emergency room with concerns of acute onset of right-sided flank pain back pain and dysuria symptoms since yesterday. Patient tells me yesterday night first noticed dysuria symptoms since then her pain has progressed and now she reports fever and chills and nausea vomiting. Patient is concerned that she may have a urinary tract infection. Patient is currently compliant her cefdinir. Patient denies any chest pain, shortness breath, palpitation, cough, runny nose, or sore throat. Onset:1 day ago Duration:1 day Location:home Severity:severe Associated symptoms: Reports nausea and vomiting; Deny chest pain, dyspnea, rash or palpitations Review of Systems Const: Denies: fever(s) or chills Eyes: Denies: change in vision ENMT: Denies: mouth pain Card: Denies: chest pain or palpitations Resp: Denies: dyspnea or non-productive cough GI: Reports: abdominal pain, nausea and vomiting; Denies: diarrhea : Reports: flank pain and dysuria Musc: Denies: extremity pain Skin/Breast: Denies: rash or new lesions Neuro: Denies: weakness in extremities Psych: Reports: other (Normal mood) Josh/Lymph: Denies: easy bruising PFSH ED PFSH: Medical History Medullary sponge kidney No pertinent past medical history Urolithiasis Surgical History H/O tubal ligation History of wisdom tooth extraction Hx of tonsillectomy Status post laser lithotripsy of ureteral calculus Family History Father , AT AGE 24 Electric injury Social History Smoking and tobacco status: current every day smoker (VAPE) Alcohol intake: never Marital status: Current occupational status: employed History of recent travel: No Female Reproductive History: Date of last menstrual period: 06/16/21 Physical Exam Const: COMMON NORMALS: alert HENMT: COMMON NORMALS: atraumatic HEAD & SCALP: atraumatic MOUTH: moist mucous membranes abnormal Eye: COMMON NORMALS: EOMs intact bilaterally and conjunctivae normal CONJUNCTIVA: Yes conjunctivae normal Neck/C-Spine: COMMON NORMALS: full ROM and supple Resp: COMMON NORMALS: normal respiratory effort and clear to auscultation bilaterally AUSCULTATION: clear to auscultation bilaterally Cardio: RATE: tachycardic GI: COMMON NORMALS: Soft to palpation PALPATION: Yes Soft to palpation O THER: +RLQ moderate focal TTP. NO guarding rebound, guarding, rigidity. R>L CVA tenderness to percussion. Neg Day/Neg McBurney's point tenderness, no suprabupic tenderness to palpation. Extremity: COMMON NORMALS: full ROM Neuro: SENSORIUM/ORIENTATION: Yes alert MOTOR EXAM: No Abnormal motor strength present and Other motor observations present (no focal motor deficits) Psych: COMMON NORMALS: speech normal SPEECH: Yes normal speech MOOD & AFFECT: Yes euthymic mood Course Vital Signs: Vital signs: Vital Signs Temperature 100 F H 10/25/21 09:28 Pulse Rate 120 H 10/25/21 12:30 Respiratory Rate 20 H 10/25/21 09:28 Blood Pressure 120/80 10/25/21 12:30 Pulse Oximetry 98 10/25/21 12:30 [facility] - General Adult Medical Decision Making 26-year-old female with history of recurrent UTI/pyelonephritis, with recent ureteral stent removal followed by Dr. Benitez currently on cefdinir presenting to the emergency room for evaluation of cute onset of right-sided flank back pain with nausea vomiting fever chills. On exam, patient noted be severely tachycardic to the 150s. Patient is no guarding or rebound tenderness. Fast negative for any signs of hemoperitoneum. Urine is negative. Low-grade fever, tachycardia, this is concerning for possible sepsis. Patient received 30 cc/kg of IVF, vancomycin and Zosyn for empirical coverage as patient has been on cefdinir. CT abdomen pelvis showed right-sided hydroureter with hydronephrosis without any visualiation of stone. This is concerning for possible anatomical obstruction. Have consulted Dr. Benitez who will follow the case. On reassessment, patient's heart rate improved from 150 to 105. Patient is currently pain-free. Patient will need source control at some point and admission for pyelonephritis is in the setting of hydroureter and hydronephrosis. Disposition: admisison Lab Data : 10/25/21 12:00 10/25/21 12:00 Radiology Impressions Abdomen/Pelvis CT 10/25/21 12:22 IMPRESSION: 1. Mildly enlarged, edematous RIGHT kidney with perinephric stranding and mild hydroureteronephrosis. No obstructing stone is identified. 2. 3 mm calcification dependent portion of gallbladder is probably a recently passed ureteral stone from the RIGHT kidney. 3. Extensive bilateral medullary nephrocalcinosis. 4. Prior cholecystectomy. Chest X-Ray 10/25/21 13:12 Impression: Negative chest. Laboratory Results WBC 14.0 10^3/uL (4.0-10.0) H 10/25/21 12:00 RBC 4.69 10^6/uL (4.1-5.3) 10/25/21 12:00 Hgb 11.5 g/dL (11.5-15.3) 10/25/21 12:00 Hct 35.7 % (37.0-47.0) L 10/25/21 12:00 MCV 76.1 fl (81-99) L 10/25/21 12:00 MCH 24.5 pg (28.0-34.0) L 10/25/21 12:00 MCHC 32.2 g/dL (30.0-36.0) 10/25/21 12:00 RDW 14.8 % (12.1-15.1) 10/25/21 12:00 Plt Count 290 10^3/cmm (130-400) 10/25/21 12:00 MPV 9.9 fL (7.4-10.4) 10/25/21 12:00 Neut % (Auto) 88.3 % 10/25/21 12:00 Lymph % (Auto) 3.4 % 10/25/21 12:00 [place] % (Auto) 6.4 % 10/25/21 12:00 Eos % (Auto) 0.8 % 10/25/21 12:00 Baso % (Auto) 0.6 % 10/25/21 12:00 Neut # (Auto) 12.34 10^3/uL (1.8-7.7) H 10/25/21 12:00 Lymph # (Auto) 0.5 10^3/uL (0.8-4.8) L 10/25/21 12:00 [place] # (Auto) 0.9 10^3/uL (0.2-0.9) 10/25/21 12:00 Eos # (Auto) 0.1 10^3/uL (0.0-0.8) 10/25/21 12:00 Baso # (Auto) 0.1 10^3/uL (0.0-0.1) 10/25/21 12:00 Nucleated RBC % (auto) 0 % 10/25/21 12:00 Nucleated RBCs # 0.0 /100WBC 10/25/21 12:00 Sodium 134 mmol/L (136-145) L 10/25/21 12:00 Potassium 3.8 mmol/L (3.5-5.1) 10/25/21 12:00 Chloride 100 mmol/L (98-107) 10/25/21 12:00 Carbon Dioxide 22 mmol/L (22-29) 10/25/21 12:00 Anion Gap 15.8 (5-19) 10/25/21 12:00 BUN 10 mg/dL (6-20) 10/25/21 12:00 Creatinine 0.7 mg/dL (0.5-0.9) 10/25/21 12:00 GFR Calculation 102.8 mL/min (90-130) 10/25/21 12:00 Glucose 114 mg/dL (65-115) 10/25/21 12:00 Calculated Osmolality 278 mOsm/kg (285-295) L 10/25/21 12:00 Lactic Acid 2.2 mmol/L (0.5-2.2) 10/25/21 12:00 Calcium 11.4 mg/dL (8.5-10.5) H 10/25/21 12:00 Total Bilirubin 1.0 mg/dL (0.15-1.2) 10/25/21 12:00 AST 65 U/L (0-32) H 10/25/21 12:00 ALT 48 U/L (0-33) H 10/25/21 12:00 Alkaline Phosphatase 295 IU/L (35-105) H 10/25/21 12:00 Total Protein 8.2 g/dL (6.6-8.7) 10/25/21 12:00 Albumin 4.4 g/dL (3.5-5.2) 10/25/21 12:00 Globulin 3.8 g/dL (1.3-4.6) 10/25/21 12:00 Lipase 13 U/L (13-60) 10/25/21 12:00 HCG, Qual Negative (Negative) 10/25/21 12:00 Urine Color Yellow (Yellow) 10/25/21 11:55 Urine Appearance Sl cloudy (CLEAR) A 10/25/21 11:55 Urine pH 6 (5-7) 10/25/21 11:55 Ur Specific [place] 1.010 (1.005-1.030) 10/25/21 11:55 Urine Protein 1+ (Negative) H 10/25/21 11:55 Urine Glucose (UA) Norm (Normal) 10/25/21 11:55 Urine Ketones Negative (Negative) 10/25/21 11:55 Urine Blood 3+ (Negative) H 10/25/21 11:55 Urine Nitrate Positive (Negative) H 10/25/21 11:55 Urine Bilirubin Neg (Negative) 10/25/21 11:55 Urine Urobilinogen Norm mg/dL (Negative) 10/25/21 11:55 Ur Leukocyte Esterase 3+ (Negative) H 10/25/21 11:55 Urine RBC 10-15 /hpf (0-2) H 10/25/21 11:55 Urine WBC Too numerous to cnt /hpf (0-5) H 10/25/21 11:55 Ur Squamous Epith Cells 5-10 /hpf (0-5) H 10/25/21 11:55 Amorphous Sediment Not Reportable 10/25/21 11:55 Urine Bacteria 1+ /hpf (NONE) H 10/25/21 11:55 Imaging Data Other Imaging: Radiologist's impression: [address] [address] XRay Report Signed Patient: [facility] Unit #: [id number] : 1995 Age/Sex: 26 / F ADM Date: 10/25/21 Loc: ER Room/Bed: Attending Dr: Ordering Provider/Ordering MD: Gabriela Gillette MD Date of Service: 10/25/21 Procedure(s): XR chest 2V* [id number] Accession Number(s): [id number] Report Number: [id number] WS: [email or web address] Chest 2 views, 10/25/2021 Clinical Data: dyspnea Comparison: Portable chest, 06/18/2021. Findings: No nodules, masses or effusions are seen. The heart is normal. The pulmonary vascularity is not increased. No pneumonia or pneumothorax is seen. Monitor leads are on the chest wall. XR/XR chest 2V* [id number] Impression: Negative chest. ? ? Dictated By: Milli Foster MD Signed By: Milli Foster MD Signed Date/Time: 10/25/211353 DD/ [address] [place] [id number] CT Scan Report Signed Patient: [facility] #: [id number] : 1995 Age/Sex: 26 / F ADM Date: 10/25/21 Loc: ER Room/Bed: Attending Dr: Ordering Provider/Ordering MD: Gabriela Gillette MD Date of Service: 10/25/21 Procedure(s): CT abdomen pelvis w con* [id number] Accession Number(s): [id number] Report Number: [id number] WS: [id number] CT ABDOMEN AND PELVIS WITH CONTRAST HISTORY: sepsis, possible anatomical obstructive uropathy R TECHNIQUE: Imaging performed of the abdomen and pelvis with IV contrast.? Single phase imaging of the abdomen. Coronal and sagittal reformats are submitted.? All CT scans at [facility] use at least one of these dose optimization techniques: automated exposure control; mA and/or kV adjustment per patient size (includes targeted exams where dose is matched to clinical indication); or iterative reconstruction. IV CONTRAST: Omnipaque 300; 50 mL IV. Oral contrast: No DLP: 1750.87 mGy.cm COMPARISON: 06/18/2021 Lower thorax: Lung bases are clear. Heart is normal size. No hiatal hernia. Liver/biliary system: Normal size with no intrahepatic dilatation. Gallbladder: Status post cholecystectomy.? Pancreas: Normal size pancreas and pancreatic duct. No adjacent inflammation. 3 mm area of decreased attenuation in the proximal body of the pancreas stable since 05/31/2020 and is probably a small cyst. Spleen: Normal size spleen. No mass or infarct. Adrenal glands: Normal. Right kidney: Enlarged mildly edematous RIGHT kidney with loss of the normal cortical medullary junction. Numerous medullary calcifications. Mild hydronephrosis and hydroureter. Ureter wall enhancement. Periureteral inflammation. No stone is identified within the ureter. There is a 3 mm calcification in the dependent portion of the bladder. Left kidney: Normal size kidney with no inflammation. Numerous medullary calcifications. No obstruction. No ureteral obstruction. Aorta: Normal. Lymphadenopathy: None. Free fluid: None. GI tract: Normal appearance of the stomach. No small bowel obstruction. Mild diffuse constipation. Normal appendix. Abdominal wall: Unremarkable abdominal wall. No hernia. Pelvis: Midline uterus. Both ovaries are identified. Very tiny amount of free fluid present in the pelvis. Urinary bladder is well distended. 8mm calcification dependent urinary bladder. Bones: Unremarkable. CT/CT abdomen pelvis w con* [id number] IMPRESSION: ? 1.? Mildly enlarged, edematous RIGHT kidney with perinephric stranding and mild hydroureteronephrosis. No obstructing stone is identified. 2.? 3 mm calcification dependent portion of gallbladder is probably a recently passed ureteral stone from the RIGHT kidney. 3.? Extensive bilateral medullary nephrocalcinosis. 4.? Prior cholecystectomy. ? Dictated By: Josephine Constantino DO Signed By: Josephine Constantino DO Signed Date/Time: 10/25/21 6560 DD/ 1329 Discharge Plan Discharge Patient Disposition: Admitted As Inpatient Clinical Impression: Pyelonephritis, Hydronephrosis, Hydroureter Condition: Stable Coding Level of Care Code ED Electronic Scale Subassembler for Chg Fwd Exam Comprehensive
[2021-10-25 12:07] LABS: Basophils # 0.1 10^3/uL (0.0-0.1); Basophils % 0.6 %; Eosinophils # 0.1 10^3/uL (0.0-0.8); Eosinophils % 0.8 %; Hematocrit 35.7 % (37.0-47.0); Hemoglobin 11.5 g/dL (11.5-15.3); Lymphocytes # 0.5 10^3/uL (0.8-4.8); Lymphocytes % 3.4 %; Mean Corpuscular HGB Conc 32.2 g/dL (30.0-36.0); Mean Corpuscular Hemoglobin 24.5 pg (28.0-34.0); Mean Corpuscular Volume 76.1 fl (81-99); Mean Platelet Volume 9.9 fL (7.4-10.4); Monocytes # 0.9 10^3/uL (0.2-0.9); Monocytes % 6.4 %; Neutrophils # 12.34 10^3/uL (1.8-7.7); Neutrophils % 88.3 %; Nucleated Red Blood Cells % 0 %; Platelet Count 290 10^3/cmm (130-400); Red Blood Count 4.69 10^6/uL (4.1-5.3); Red Cell Distribution Width 14.8 % (12.1-15.1)
[2021-10-25] MEDS: acetaminophen 500 mg Tablet 1000 MG PO (12:09)
[2021-10-25 12:17] LABS: Urine Color Yellow (Yellow)
[2021-10-25 12:18] LABS: Bilirubin Urine Neg (Negative); Blood Urine 3+ (Negative); Glucose Urine UA Norm (Normal); Ketones Urine Negative (Negative); Nitrate Urine Positive (Negative); Protein Urine 1+ (Negative); Urobilinogen Urine Norm (Negative); pH Urine 6 (5-7)
[2021-10-25 12:19] LABS: Add Urine Microscopic? YES; Leukocyte Esterase Urine 3+ (Negative); WBC Urine TOO NUMEROUS TO CNT /hpf (0-5)
[2021-10-25 12:20] LABS: Add Urine Culture? Yes; Bacteria Urine 1+ /hpf
--- NOTE | 2021-10-25 12:22 | CT_ITS ---
WS: [id number] CT ABDOMEN AND PELVIS WITH CONTRAST HISTORY: sepsis, possible anatomical obstructive uropathy R TECHNIQUE: Imaging performed of the abdomen and pelvis with IV contrast. Single phase imaging of the abdomen. Coronal and sagittal reformats are submitted. All CT scans at [facility] use at [facility] st one of these dose optimization techniques: automated exposure control; mA and/or kV adjustment per patient size (includes targeted exams where dose is matched to clinical indication); or iterative re construction. IV CONTRAST: Omnipaque 300; 50 mL IV. Oral contrast: No DLP: 1750.87 mGy.cm COMPARISON: 06/18/2021 Lower thorax: Lung bases are clear. Heart is normal size. No hiatal hernia. Liver/biliary system: Normal size with no intrahepatic dilatation. Gallbladder: Status post cholecystectomy. Pancreas: Normal size pancreas and pancreatic duct. No adjacent inflammation. 3 mm area of decreased attenuation in the proximal body of the pancreas stable since 05/31/2020 and is probably a small cyst. Spleen: Normal size spleen. No mass or infarct. Adrenal glands: Normal. Right kidney: Enlarged mildly edematous RIGHT kidney with loss of the normal cortical medullary junct ion. Numerous medullary calcifications. Mild hydronephrosis and hydroureter. Ureter wall enhancement. Periureteral inflammation. No stone is identified within the ureter. There is a 3 mm calcification i n the dependent portion of the bladder. Left kidney: Normal size kidney with no inflammation. Numerous medullary calcifications. No obstructi on. No ureteral obstruction. Aorta: Normal. Lymphadenopathy: None. Free fluid: None. GI tract: Normal appearance of the stomach. No small bowel obstruction. Mild diffuse constipation. No rmal appendix. Abdominal wall: Unremarkable abdominal wall. No hernia. Pelvis: Midline uterus. Both ovaries are identified. Very tiny amount of free fluid present in the pe lvis. Urinary bladder is well distended. 8mm calcification dependent urinary bladder. Bones: Unremarkable. CT/CT abdomen pelvis w con* [id number] IMPRESSION: 1. Mildly enlarged, edematous RIGHT kidney with perinephric stranding and mild hydroureteronephrosis. No obstructing stone is identified. 2. 3 mm calcification dependent portion of gallbladder is probably a recently passed ureteral stone from the RIGHT kidney. 3. Extensive bilateral medullary nephrocalcinosis. 4. Prior cholecystectomy.
[2021-10-25] MEDS: sodium chloride 0.9% 500 ML IV (12:23)
[2021-10-25] MEDS: piperacillin-tazobactam 4.5 GM in sodium chloride 0.9% (plus) 50 ML IV (12:23)
[2021-10-25 12:25] LABS: HCG, Serum Qual Negative (Negative)
[2021-10-25] MEDS: sodium chloride 0.9% 1,000 ML 999 ML IV ×2 (12:27→13:56)
[2021-10-25 12:30] LABS: Alanine Aminotransferase 48 U/L (0-33); Albumin Level 4.4 g/dL (3.5-5.2); Alkaline Phosphatase 295 IU/L (35-105); Anion Gap 15.8 (5-19); Aspartate Amino Transferase 65 U/L (0-32); Blood Urea Nitrogen 10 mg/dL (6-20); Calcium 11.4 mg/dL (8.5-10.5); Carbon Dioxide 22 mmol/L (22-29); Chloride 100 mmol/L (98-107); Globulin 3.8 g/dL (1.3-4.6); Glomerular Filtration Rate 102.8 mL/min (90-130); Glucose 114 mg/dL (65-115); Lipase 13 U/L (13-60); Osmolality Calculated 278 mOsm/kg (285-295); Potassium 3.8 mmol/L (3.5-5.1); Sodium 134 mmol/L (136-145); Total Protein 8.2 g/dL (6.6-8.7)
[2021-10-25 12:35] LABS: Lactic Sepsis W/Reflex 2.2 mmol/L (0.5-2.2)
[2021-10-25] MEDS: iohexol 300 mg/mL 100 mL Btl IV (12:36)
[2021-10-25] MEDS: vancomycin 1,000 MG in sodium chloride 0.9% 250 ML 250 MG IV (13:02)
--- NOTE | 2021-10-25 13:12 | XR_ITS ---
WS: [email or web address] Chest 2 views, 10/25/2021 Clinical Data: dyspnea Comparison: Portable chest, 06/18/2021. Findings: No nodules, masses or effusions are seen. The heart is normal. The pulmonary vascularity is not increased. No pneumonia or pneumothorax is seen. Monitor leads are on the chest wall. XR/XR chest 2V* [id number] Impression: Negative chest.
[2021-10-25 13:50] LABS: Reflex Lactate Order REFLEX LACTIC ORDERD
[2021-10-25] MEDS: morphine 4 mg/mL SDV 1 mL IVP (14:57)
--- NOTE | 2021-10-25 15:05 | PM.HP ---
Providers/Chief Complaint Primary Care Provider: Steven Del Rio MD Chief Complaint: low back/abd pain History of Present Illness Brooklyn Day is a 26 year old female with past medical history of recurrent UTI, pyelonephritis, post right ureteral stent, removal in June 2021 on chronic cefdinir suppression. Patient presents the ER today complaining of right-sided back and flank pain along with feeling nauseous. Patient states she has been feeling difficulty in urinating along with dysuria for last couple of days gotten worse since today morning. Has not noticed any fever at home. States she has been having occasional episodes of fungal UTI for which she has been taking fluconazole on and off for the last course around 3 days ago. Blood work in the ER showed a white count 14,000, hemoglobin of 11.5, odium 134, creatinine of 0.7, AST/ALT of 65/48, UA showed positive for nitrite, leuk esterase. ER course: Received 5 L of IV fluids, vancomycin and Zosyn. On presentation patient's heart rate was running in 130s. On examination heart rate 38 120, blood pressure 130/70 mmhg, temperature 100 Fahrenheit. Review of Systems General: Reports: 10 or more systems reviewed and unremarkable except in HPI and below Const: Denies: fever(s), chills, body aches, change in appetite, change in weight, malaise, night sweats, diaphoresis, change in sleep pattern, daytime sleepiness or snoring Eyes: Denies: change in vision, blurry vision, photophobia, eye discomfort or eye discharge ENMT: Denies: throat pain, enlarged tonsils, hoarseness, mouth pain, oral sores, dry mouth, tinnitus, nasal congestion or post nasal drip Card: Denies: chest pain, palpitations, irregular heart rhythm, edema, swelling of feet/ankles, lightheadedness, syncope, pre-syncope, dyspnea on exertion, orthopnea, leg pain with exertion or acrocyanosis Resp: Denies: dyspnea, productive cough, non-productive cough, wheezing, stridor, pain on inspiration, change in phlegm color, hemoptysis or chest congestion GI: Denies: abdominal pain, nausea, vomiting, hematemesis, coffee ground emesis, dysphagia, heartburn, diarrhea, constipation, bloating, GI cramping, change in bowel habits, pain on defecation, hematochezia or melena : Denies: flank pain, dysuria, urinary frequency, urinary urgency, urinary hesitancy, nocturia or hematuria Musc: Denies: neck pain, back pain, extremity pain, joint pain, joint swelling, joint redness, joint stiffness or limited range of motion Neuro: Denies: headache(s), numbness in extremities, weakness in extremities, sensory changes, lack of coordination, difficulty walking, frequent falls, dizziness, vertigo, confusion, Slurred speech present, difficulty communicating thoughts or seizure-like activity Psych: Denies: anxiety, depression, mood swings, panic attacks, hopelessness or irritability Endo: Denies: polyuria, polydipsia, tired all the time, cold intolerance, excessive sweating, flushing or heat intolerance Josh/Lymph: Denies: easy bruising or easy bleeding All/Imm: Denies: tongue swelling, facial swelling or acute wheezing Medications/Allergies Home Medications Medication Instructions Recorded Confirmed Last Taken Type ibuprofen 200 mg tablet 600 mg PO Q6H PRN 05/31/20 10/25/21 10/25/21 08:00 History cefdinir 300 mg capsule 300 mg PO BID 10 Days #60 cap 10/03/21 10/25/21 10/25/21 08:00 Rx fluconazole 150 mg tablet 150 mg PO Q3D #2 tab 10/12/21 10/25/21 10/23/21 Rx finished ferrous sulfate 325 mg (65 mg 325 mg PO DAILY 10/25/21 10/25/21 10/25/21 08:00 History iron) tablet (iron) Allergies Allergy/AdvReac Type Severity Reaction Status Date / Time No Known Allergies Allergy Verified 10/25/21 11:59 PFSH Acute PFSH: Medical History (Updated 10/25/21 @ 15:08 by Anuj Lange MD) Medullary sponge kidney No pertinent past medical history Urolithiasis Surgical History (Updated 10/25/21 @ 15:08 by Anuj Lange MD) H/O tubal ligation History of wisdom tooth extraction Hx of cholecystectomy Hx of tonsillectomy Status post laser lithotripsy of ureteral calculus Family History Father , AT AGE 24 Electric injury Social History Smoking and tobacco status: current every day smoker (VAPE) Alcohol intake: never Marital status: Current occupational status: employed History of recent travel: No Female Reproductive History: Date of last menstrual period: 06/16/21 Vitals/I&O/Wt Last Vital Signs Temp 100 F H 10/25/21 09:28 Pulse 102 H 10/25/21 14:00 Resp 27 H 10/25/21 14:57 BP 142/85 10/25/21 14:00 Pulse Ox 98 10/25/21 14:00 10/25/21 10/25/21 10/25/21 06:59 14:59 22:59 Intake Total 1800 / 1800 Balance 1800 / 1800 Weight last 48 hrs Weight 81.647 kg Physical Exam Narrative: General: No acute distress, AO x3 HEENT: PERRLA, pupils bilaterally equal and reactive Chest: Normal vesicular breath sounds, no added sounds, equal good air entry bilaterally CVS: S1-S2 regular, no murmurs, no tachycardia, no gallops, no rubs Abdomen: Soft, nontender, no organomegaly, bowel sounds present Neuro: No focal deficits, no facial deformity, AO x3, power 5/5 in all limbs Data : 10/25/21 12:00 10/25/21 12:00 Other Labs: Radiology Impressions Abdomen/Pelvis CT 10/25/21 12:22 IMPRESSION: 1. Mildly enlarged, edematous RIGHT kidney with perinephric stranding and mild hydroureteronephrosis. No obstructing stone is identified. 2. 3 mm calcification dependent portion of gallbladder is probably a recently passed ureteral stone from the RIGHT kidney. 3. Extensive bilateral medullary nephrocalcinosis. 4. Prior cholecystectomy. Chest X-Ray 10/25/21 13:12 Impression: Negative chest. Laboratory Results WBC 14.0 10^3/uL (4.0-10.0) H 10/25/21 12:00 RBC 4.69 10^6/uL (4.1-5.3) 10/25/21 12:00 Hgb 11.5 g/dL (11.5-15.3) 10/25/21 12:00 Hct 35.7 % (37.0-47.0) L 10/25/21 12:00 MCV 76.1 fl (81-99) L 10/25/21 12:00 MCH 24.5 pg (28.0-34.0) L 10/25/21 12:00 MCHC 32.2 g/dL (30.0-36.0) 10/25/21 12:00 RDW 14.8 % (12.1-15.1) 10/25/21 12:00 Plt Count 290 10^3/cmm (130-400) 10/25/21 12:00 MPV 9.9 fL (7.4-10.4) 10/25/21 12:00 Neut % (Auto) 88.3 % 10/25/21 12:00 Lymph % (Auto) 3.4 % 10/25/21 12:00 [place] % (Auto) 6.4 % 10/25/21 12:00 Eos % (Auto) 0.8 % 10/25/21 12:00 Baso % (Auto) 0.6 % 10/25/21 12:00 Neut # (Auto) 12.34 10^3/uL (1.8-7.7) H 10/25/21 12:00 Lymph # (Auto) 0.5 10^3/uL (0.8-4.8) L 10/25/21 12:00 [place] # (Auto) 0.9 10^3/uL (0.2-0.9) 10/25/21 12:00 Eos # (Auto) 0.1 10^3/uL (0.0-0.8) 10/25/21 12:00 Baso # (Auto) 0.1 10^3/uL (0.0-0.1) 10/25/21 12:00 Nucleated RBC % (auto) 0 % 10/25/21 12:00 Nucleated RBCs # 0.0 /100WBC 10/25/21 12:00 Sodium 134 mmol/L (136-145) L 10/25/21 12:00 Potassium 3.8 mmol/L (3.5-5.1) 10/25/21 12:00 Chloride 100 mmol/L (98-107) 10/25/21 12:00 Carbon Dioxide 22 mmol/L (22-29) 10/25/21 12:00 Anion Gap 15.8 (5-19) 10/25/21 12:00 BUN 10 mg/dL (6-20) 10/25/21 12:00 Creatinine 0.7 mg/dL (0.5-0.9) 10/25/21 12:00 GFR Calculation 102.8 mL/min (90-130) 10/25/21 12:00 Glucose 114 mg/dL (65-115) 10/25/21 12:00 Calculated Osmolality 278 mOsm/kg (285-295) L 10/25/21 12:00 Lactic Acid 2.2 mmol/L (0.5-2.2) 10/25/21 12:00 Lactic Acid (Sepsis) 1.7 mmol/L (0.5-2.2) 10/25/21 15:41 Calcium 11.4 mg/dL (8.5-10.5) H 10/25/21 12:00 Magnesium 1.5 mg/dL (1.7-2.3) L 10/25/21 12:00 Iron 18 ug/dL (37-145) L 10/25/21 12:00 TIBC 372 mcg/dl 10/25/21 12:00 % Saturation 4.8 % (20-50) L 10/25/21 12:00 Unsat Iron Binding 354 ug/dL (112-347) H 10/25/21 12:00 Total Bilirubin 1.0 mg/dL (0.15-1.2) 10/25/21 12:00 AST 65 U/L (0-32) H 10/25/21 12:00 ALT 48 U/L (0-33) H 10/25/21 12:00 Alkaline Phosphatase 295 IU/L (35-105) H 10/25/21 12:00 Total Protein 8.2 g/dL (6.6-8.7) 10/25/21 12:00 Albumin 4.4 g/dL (3.5-5.2) 10/25/21 12:00 Globulin 3.8 g/dL (1.3-4.6) 10/25/21 12:00 Lipase 13 U/L (13-60) 10/25/21 12:00 Procalcitonin 0.27 ng/mL (0-0.5) 10/25/21 12:00 TSH 0.53 uIU/mL (0.27-4.20) 10/25/21 12:00 HCG, Qual Negative (Negative) 10/25/21 12:00 Urine Color Yellow (Yellow) 10/25/21 11:55 Urine Appearance Sl cloudy (CLEAR) A 10/25/21 11:55 Urine pH 6 (5-7) 10/25/21 11:55 Ur Specific [place] 1.010 (1.005-1.030) 10/25/21 11:55 Urine Protein 1+ (Negative) H 10/25/21 11:55 Urine Glucose (UA) Norm (Normal) 10/25/21 11:55 Urine Ketones Negative (Negative) 10/25/21 11:55 Urine Blood 3+ (Negative) H 10/25/21 11:55 Urine Nitrate Positive (Negative) H 10/25/21 11:55 Urine Bilirubin Neg (Negative) 10/25/21 11:55 Urine Urobilinogen Norm mg/dL (Negative) 10/25/21 11:55 Ur Leukocyte Esterase 3+ (Negative) H 10/25/21 11:55 Urine RBC 10-15 /hpf (0-2) H 10/25/21 11:55 Urine WBC Too numerous to cnt /hpf (0-5) H 10/25/21 11:55 Ur Squamous Epith Cells 5-10 /hpf (0-5) H 10/25/21 11:55 Amorphous Sediment Not Reportable 10/25/21 11:55 Urine Bacteria 1+ /hpf (NONE) H 10/25/21 11:55 Micro: Microbiology 10/25/21 12:42 Blood Culture - Preliminary Blood SPECIMEN COLLECTED 10/25/21 12:35 Blood Culture - Preliminary Blood SPECIMEN COLLECTED A&P Assessment and plan (1) Sepsis: Status: Acute (2) Pyelonephritis: Status: Acute (3) Hydronephrosis: Status: Acute (4) Medullary sponge kidney: Status: Chronic (5) Recurrent UTI: Status: Acute Plan Sepsis. Ruled in by tachycardia, leukocytosis, fever with mild transaminitis. Secondary to pyelonephritis. Keep your blood pressure 65. Normal saline at 100 cc/h. Pyelonephritis: Seen on CT scan. Clinical history consistent with pansensitive E. coli. Check MRSA swab, blood culture, urine culture, procalcitonin, bacterial antigen. For now start patient on vancomycin and cefepime. Will de-escalate antibiotics as per culture. Dr. Benitez has been consulted from the ER. Hydroureteronephrosis: No actual obstruction seen currently. Could be secondary to recently passed calculi. We will continue to monitor. Analgesia: Morphine 2 mg every 4 hours as needed, Motrin 4 mg every 8 hourly as needed Glycemic control: Not needed Nutrition: Regular diet CODE STATUS: Full code PUD prophylaxis: Protonix DVT prophylaxis: Lovenox 40 mg subcu daily Admit to [facility] Attestations Medical Necessity Statement*: Admission for more than 2 midnights for management of sepsis secondary to pyelonephritis Time Spent in Patient Care: Greater than 35 minutes Coding Level of Care Code Acute Traffic Agent for [facility] Fwd Diagnoses Sepsis A41.9 Pyelonephritis N12 Hydronephrosis N13.30 Medullary sponge kidney Q61.5 Recurrent UTI N39.0
[2021-10-25 15:23] LABS: Magnesium 1.5 mg/dL (1.7-2.3); Thyroid Stimulating Hormone 0.53 uIU/mL (0.27-4.20)
[2021-10-25 16:20] LABS: Lactic Acid level (Lactate) 1.7 mmol/L (0.5-2.2)
[2021-10-25 16:25] LABS: Iron 18 ug/dL (37-145); Percent Saturation 4.8 % (20-50); Total Iron Binding Capacity 372 mcg/dl; Unsaturated Iron Binding 354 ug/dL (112-347)
[2021-10-25 16:32] LABS: Procalcitonin 0.27 ng/mL (0-0.5)
[2021-10-25] MEDS: sodium chloride 0.9% 1,000 ML 100 ML IV (16:51)
[2021-10-25] MEDS: cefepime 1,000 MG in sodium chloride 0.9% (plus) 50 ML 100 MG IV (17:39)
[2021-10-25] MEDS: morphine 4 mg/mL SDV 1 mL 2 MG IVP (19:01)
--- NOTE | 2021-10-25 21:02 | PC.PHAR ---
Pharmacokinetic dosing service Date: 10/25/21 Time: 2100 Objective: Patient: Brooklyn Day Floor: [id number] Age: 26 yo Serum creatinine: 0.7 mg/dL Height: 67.0 Inches Weight (kg): 81.647 Diagnosis: Relevant medical/social history: Cultures and sensitivities: Other labs: Assessment: IBW (kg): 61.60 Dosing wt(kg): 81.647 Estimated Creatinine clearance (ml/min): 120.5 CRCL method: Cockcroft and Gault using ibw(default). Drug selected: Vancomycin Loading dose (mg): 0 Vd (liters): 73.5 (factor used: 0.9 L/kg) Lane (hr-1): 0.104 Half life (hrs): 6.66 Recommended dose: 1250 mg Interval: 8 hrs Infusion time (hrs): 1.5 Predicted peak (mcg/mL): 27.9 Predicted trough (mcg/mL): 14.19 Total body weight is being used for vancomycin dosing. Renal function is stable [ ] /unstable [ ] Recommendations: Give Vancomycin 1250 mg q 8 hrs with an expected Cpeak of 27.9 mcg/ml and an expected Ctrough of 14.19 mcg/ml Renal dosing of other antibiotics (review renal dosing of other medications and list guidelines here): Thank you for the consult, will continue to follow. Signature: Stefanie Paul [facility]
[2021-10-25] MEDS: vancomycin 1,250 MG/250 ML PIGGYBACK 250 MG IV (21:28)
--- NOTE | 2021-10-25 21:41 | PC.NURSE ---
i reported high temp 100.3 and high pulse 114 to nurse
[2021-10-26] VITALS: BP 97/66; PULSE 100; RESP 18; TEMP 37.2; O2SAT 97
[2021-10-26 04:00] VITALS: BP 103/67; PULSE 97; RESP 18; TEMP 37.1; O2SAT 99
[2021-10-26] MEDS: vancomycin 1,250 MG/250 ML PIGGYBACK 250 MG IV ×2 (05:16→13:29)
[2021-10-26] MEDS: cefepime 1,000 MG in sodium chloride 0.9% (plus) 50 ML 100 MG IV ×2 (05:17→17:03)
[2021-10-26] MEDS: sodium chloride 0.9% 1,000 ML 100 ML IV (05:22)
[2021-10-26 07:03] LABS: Basophils # 0.1 10^3/uL (0.0-0.1); Basophils % 0.7 %; Eosinophils # 0.4 10^3/uL (0.0-0.8); Eosinophils % 2.6 %; Hematocrit 29.2 % (37.0-47.0); Hemoglobin 9.4 g/dL (11.5-15.3); Lymphocytes % 14.3 %; Mean Corpuscular HGB Conc 32.2 g/dL (30.0-36.0); Mean Corpuscular Hemoglobin 24.5 pg (28.0-34.0); Mean Corpuscular Volume 76.2 fl (81-99); Mean Platelet Volume 9.8 fL (7.4-10.4); Monocytes # 1.4 10^3/uL (0.2-0.9); Neutrophils # 9.83 10^3/uL (1.8-7.7); Nucleated Red Blood Cells % 0 %; Platelet Count 265 10^3/cmm (130-400); Red Blood Count 3.83 10^6/uL (4.1-5.3); Red Cell Distribution Width 15.4 % (12.1-15.1); White Blood Count 13.7 10^3/uL (4.0-10.0)
[2021-10-26 07:14] LABS: Estmated Average Glucose 91; Hemoglobin A1C 4.8 % (4.0-6.0)
[2021-10-26 07:26] LABS: Chol HDL Ratio 3.31 mg/dL (0.0-4.40); Cholesterol 116 mg/dL (0-200); HDL Cholesterol 35 mg/dL (60-100); LDL Cholesterol Calculated 66 mg/dL (50-129); Triglycerides 77 mg/dL (0-150); VLDL Cholestrol Calculation 15 mg/dL (0-30)
[2021-10-26 07:27] LABS: Alanine Aminotransferase 39 U/L (0-33); Albumin Level 3.4 g/dL (3.5-5.2); Alkaline Phosphatase 224 IU/L (35-105); Anion Gap 11.9 (5-19); Aspartate Amino Transferase 28 U/L (0-32); Blood Urea Nitrogen 6 mg/dL (6-20); Calcium 10.9 mg/dL (8.5-10.5); Carbon Dioxide 21 mmol/L (22-29); Chloride 111 mmol/L (98-107); Globulin 2.9 g/dL (1.3-4.6); Glomerular Filtration Rate 151.6 mL/min (90-130); Glucose 93 mg/dL (65-115); Osmolality Calculated 287 mOsm/kg (285-295); Potassium 3.9 mmol/L (3.5-5.1); Sodium 140 mmol/L (136-145); Total Protein 6.3 g/dL (6.6-8.7)
[2021-10-26 07:56] LABS: Phosphorus 2.2 mg/dL (2.5-4.5)
[2021-10-26 08:00] VITALS: BP 109/72; PULSE 95; RESP 16; TEMP 36.9; O2SAT 97
--- NOTE | 2021-10-26 09:49 | PC.CHAP ---
Pastoral Care Encounter/Spiritual Assessment Type of Contact [] Declined district branch manager visit [] Patient/Family/Request visit [] Outpatient visit [] Follow-up visit [] Physician referral [] Code/Alert [x] Routine visit [] Staff referral [] Actively dying [] Patient sleeping [] Family support [] [] Out of room [] Palliative care [] [x] Receiving care in room [] Pre-surgical visit [] Trauma [] Long length of stay [] ICU visit [] Other: Relational/Emotional Strength [x] Patient feels connected with others/family/visitors/staff [] Distress [] Loneliness/isolation [] Abandonment Spirituality of Patient [x] Person of Rita [] Attends Sikhism of their Rita [x] Believes in Prayer [] Reads Bible or Catholic materials [] There are Spiritual issues to be addressed Partition Setter Interventions [x] Prayer [x] Active listening [x] Non-anxious presence [x] Spiritual/emotional support [] Crisis/trauma care [x] Spiritual counseling [] Bereavement support [] Provided bereavement packet [] Provided Bible/devotional materials [] Provided toy/stuffed animal, coloring book to patient or family member [] Provided Communion [] Anointing/[place] [] Salvation [x] Completed spiritual assessment [] Other: Impact on Illness or Injury [] Angry [] Fearful [] Anxious [] Often cries [] Exhaustion [] Unable to work [] Unable to attend gnosticism [] Unable to walk/stand [] Unable to read [] Unable to drive [] Unable to eat/drink [] Unable to sleep [] Unable to be with family [] Patient intubated [] Other: Summary blockage kindy stones waiting to see if they desolve well be able to go home at some point Time spent with patient 10 mins
[2021-10-26] MEDS: famotidine 20 mg Tablet PO (11:05)
[2021-10-26] MEDS: ferrous sulfate EC 325 mg Tablet PO (11:05)
[2021-10-26 12:00] VITALS: BP 109/75; PULSE 91; RESP 16; TEMP 36.8; O2SAT 97
--- NOTE | 2021-10-26 15:31 | P.PN_ITS ---
Subjective Subjective: No acute documented events overnight. Patient states she is feeling a lot better. Denies any nausea, Dehn, headache. Has remained hemodynamically stable. T-max since admission 100.3 Fahrenheit last night. Vitals/I&O/Wt Last Vital Signs Temp 98.2 F 10/26/21 12:00 Pulse 91 10/26/21 12:00 Resp 16 10/26/21 12:00 BP 109/75 10/26/21 12:00 Pulse Ox 97 10/26/21 12:00 10/26/21 10/26/21 10/26/21 06:59 14:59 22:59 Intake Total 1295.833 / 4395.833 120 / 120 1250 / 1370 Balance 1295.833 / 4395.833 120 / 120 1250 / 1370 Weight last 48 hrs Weight 81.647 kg Physical Exam Narrative: General: No acute distress, AO x3 HEENT: PERRLA, pupils bilaterally equal and reactive Chest: Normal vesicular breath sounds, no added sounds, equal good air entry bilaterally CVS: S1-S2 regular, no murmurs, no tachycardia, no gallops, no rubs Abdomen: Soft, nontender, no organomegaly, bowel sounds present, no abdominal or flank tenderness anymore. Neuro: No focal deficits, no facial deformity, AO x3, power 5/5 in all limbs Data : 10/26/21 06:44 10/26/21 06:44 Micro: Microbiology 10/25/21 16:15 MRSA Culture - Final Nose 10/25/21 12:42 Blood Culture - Preliminary Blood NEGATIVE TO DATE 10/25/21 12:35 Blood Culture - Preliminary Blood NEGATIVE TO DATE 10/25/21 11:55 Urine Culture - Preliminary Urine,Clean Catch Gram Negative Rods 10/25/21 11:55 Bacterial Antigens - Final Urine Kidney A&P Assessment and plan (1) Sepsis: Status: Acute (2) Pyelonephritis: Status: Acute (3) Hydronephrosis: Status: Acute (4) Medullary sponge kidney: Status: Chronic (5) Recurrent UTI: Status: Acute Plan Sepsis. Ruled in by tachycardia, leukocytosis, fever with mild transaminitis. Secondary to pyelonephritis. Keep your blood pressure 65. Patient eating well. Stop IV fluids. Pyelonephritis: Seen on CT scan. Clinical history consistent with pansensitive E. coli. MRSA swab negative, blood cultures so far negative. Urine culture persistent with gram-negative rods. Stop vancomycin. Continue with cefepime. Will de-escalate antibiotics further as per culture sensitivities. Dr. Benitez has been consulted from the ER. Hydroureteronephrosis: No actual obstruction seen currently. Could be secondary to recently passed calculi. We will continue to monitor. Analgesia: Tylenol as needed, Motrin 4 mg every 8 hourly as needed Glycemic control: Not needed Nutrition: Regular diet CODE STATUS: Full code PUD prophylaxis: Protonix DVT prophylaxis: Lovenox 40 mg subcu daily Discharge planning: Plan to discharge within next 24 hours hopefully on oral antibiotics as per culture sensitivities. Continue with [facility] care. Attestations Medical Necessity Statement*: Requires further hospitalization for management of sepsis secondary to pyelonephritis Time Spent in Patient Care: Greater than 35 minutes Coding Level of Care Code Acute Research Affiliate for [employer] Fwd Diagnoses Sepsis A41.9 Pyelonephritis N12 Hydronephrosis N13.30 Medullary sponge kidney Q61.5 Recurrent UTI N39.0
[2021-10-26 16:00] VITALS: BP 113/78; PULSE 96; RESP 16; TEMP 36.8; O2SAT 99
--- NOTE | 2021-10-26 16:47 | PM.DCS ---
Discharge Providers Date of Admission: 10/25/21 14:39 Date of Discharge: October 26, 2021 Attending Provider at Admission: Anuj Lange MD Attending Provider at Discharge: Anuj Lange MD Primary Care Provider: Steven Del Rio MD Diagnoses at Discharge Discharge Diagnosis (1) Sepsis: Status: Acute (2) Pyelonephritis: Status: Acute (3) Hydronephrosis: Status: Acute (4) Medullary sponge kidney: Status: Chronic (5) Recurrent UTI: Status: Acute Reason for Visit Reason for Visit: low back/abd pain Discharge Data Studies Completed and Pending Completed Studies During Hospitalization Category Date Time Status CT abdomen pelvis w con* [id number] Urgent Cat Scan 10/25/21 12:22 Completed XR chest 2V* [id number] Stat Exams 10/25/21 13:12 Completed Pending at discharge Category Date Time Status Blood Culture Stat Lab 10/25/21 12:42 Results Comprehensive Metabolic Panel AM LABS Lab 10/27/21 04:00 Ordered Respiratory Viral Panel PCR Stat Lab 10/25/21 13:11 Ordered Urine Culture Stat Lab 10/25/21 11:55 Results Vancomycin Trough Timed Lab 10/26/21 20:00 Ordered Radiology Impressions Abdomen/Pelvis CT 10/25/21 12:22 IMPRESSION: 1. Mildly enlarged, edematous RIGHT kidney with perinephric stranding and mild hydroureteronephrosis. No obstructing stone is identified. 2. 3 mm calcification dependent portion of gallbladder is probably a recently passed ureteral stone from the RIGHT kidney. 3. Extensive bilateral medullary nephrocalcinosis. 4. Prior cholecystectomy. Chest X-Ray 10/25/21 13:12 Impression: Negative chest. Laboratory Results WBC 13.7 10^3/uL (4.0-10.0) H 10/26/21 06:44 RBC 3.83 10^6/uL (4.1-5.3) L 10/26/21 06:44 Hgb 9.4 g/dL (11.5-15.3) L 10/26/21 06:44 Hct 29.2 % (37.0-47.0) L 10/26/21 06:44 MCV 76.2 fl (81-99) L 10/26/21 06:44 MCH 24.5 pg (28.0-34.0) L 10/26/21 06:44 MCHC 32.2 g/dL (30.0-36.0) 10/26/21 06:44 RDW 15.4 % (12.1-15.1) H 10/26/21 06:44 Plt Count 265 10^3/cmm (130-400) 10/26/21 06:44 MPV 9.8 fL (7.4-10.4) 10/26/21 06:44 Neut % (Auto) 72.0 % 10/26/21 06:44 Lymph % (Auto) 14.3 % 10/26/21 06:44 [place] % (Auto) 10.0 % 10/26/21 06:44 Eos % (Auto) 2.6 % 10/26/21 06:44 Baso % (Auto) 0.7 % 10/26/21 06:44 Neut # (Auto) 9.83 10^3/uL (1.8-7.7) H 10/26/21 06:44 Lymph # (Auto) 2.0 10^3/uL (0.8-4.8) 10/26/21 06:44 [place] # (Auto) 1.4 10^3/uL (0.2-0.9) H 10/26/21 06:44 Eos # (Auto) 0.4 10^3/uL (0.0-0.8) 10/26/21 06:44 Baso # (Auto) 0.1 10^3/uL (0.0-0.1) 10/26/21 06:44 Nucleated RBC % (auto) 0 % 10/26/21 06:44 Nucleated RBCs # 0.0 /100WBC 10/26/21 06:44 Sodium 140 mmol/L (136-145) 10/26/21 06:44 Potassium 3.9 mmol/L (3.5-5.1) 10/26/21 06:44 Chloride 111 mmol/L (98-107) H 10/26/21 06:44 Carbon Dioxide 21 mmol/L (22-29) L 10/26/21 06:44 Anion Gap 11.9 (5-19) 10/26/21 06:44 BUN 6 mg/dL (6-20) 10/26/21 06:44 Creatinine 0.5 mg/dL (0.5-0.9) 10/26/21 06:44 GFR Calculation 151.6 mL/min (90-130) H 10/26/21 06:44 Glucose 93 mg/dL (65-115) 10/26/21 06:44 Estimat Average Glucose 91 10/26/21 06:44 Hemoglobin A1c 4.8 % (4.0-6.0) 10/26/21 06:44 Calculated Osmolality 287 mOsm/kg (285-295) 10/26/21 06:44 Lactic Acid 2.2 mmol/L (0.5-2.2) 10/25/21 12:00 Lactic Acid (Sepsis) 1.7 mmol/L (0.5-2.2) 10/25/21 15:41 Calcium 10.9 mg/dL (8.5-10.5) H 10/26/21 06:44 Phosphorus 2.2 mg/dL (2.5-4.5) L 10/26/21 06:44 Magnesium 1.5 mg/dL (1.7-2.3) L 10/25/21 12:00 Iron 18 ug/dL (37-145) L 10/25/21 12:00 TIBC 372 mcg/dl 10/25/21 12:00 % Saturation 4.8 % (20-50) L 10/25/21 12:00 Unsat Iron Binding 354 ug/dL (112-347) H 10/25/21 12:00 Total Bilirubin 1.0 mg/dL (0.15-1.2) 10/26/21 06:44 AST 28 U/L (0-32) 10/26/21 06:44 ALT 39 U/L (0-33) H 10/26/21 06:44 Alkaline Phosphatase 224 IU/L (35-105) H 10/26/21 06:44 Total Protein 6.3 g/dL (6.6-8.7) L D 10/26/21 06:44 Albumin 3.4 g/dL (3.5-5.2) L 10/26/21 06:44 Globulin 2.9 g/dL (1.3-4.6) 10/26/21 06:44 Triglycerides 77 mg/dL (0-150) 10/26/21 06:44 Cholesterol 116 mg/dL (0-200) 10/26/21 06:44 LDL Cholesterol, Calc 66 mg/dL (50-129) 10/26/21 06:44 Total VLDL Cholesterol 15 mg/dL (0-30) 10/26/21 06:44 HDL Cholesterol 35 mg/dL (60-100) L 10/26/21 06:44 Cholesterol/HDL Ratio 3.31 mg/dL (0.0-4.40) 10/26/21 06:44 Lipase 13 U/L (13-60) 10/25/21 12:00 Procalcitonin 0.27 ng/mL (0-0.5) 10/25/21 12:00 TSH 0.53 uIU/mL (0.27-4.20) 10/25/21 12:00 HCG, Qual Negative (Negative) 10/25/21 12:00 Urine Color Yellow (Yellow) 10/25/21 11:55 Urine Appearance Sl cloudy (CLEAR) A 10/25/21 11:55 Urine pH 6 (5-7) 10/25/21 11:55 Ur Specific [place] 1.010 (1.005-1.030) 10/25/21 11:55 Urine Protein 1+ (Negative) H 10/25/21 11:55 Urine Glucose (UA) Norm (Normal) 10/25/21 11:55 Urine Ketones Negative (Negative) 10/25/21 11:55 Urine Blood 3+ (Negative) H 10/25/21 11:55 Urine Nitrate Positive (Negative) H 10/25/21 11:55 Urine Bilirubin Neg (Negative) 10/25/21 11:55 Urine Urobilinogen Norm mg/dL (Negative) 10/25/21 11:55 Ur Leukocyte Esterase 3+ (Negative) H 10/25/21 11:55 Urine RBC 10-15 /hpf (0-2) H 10/25/21 11:55 Urine WBC Too numerous to cnt /hpf (0-5) H 10/25/21 11:55 Ur Squamous Epith Cells 5-10 /hpf (0-5) H 10/25/21 11:55 Amorphous Sediment Not Reportable 10/25/21 11:55 Urine Bacteria 1+ /hpf (NONE) H 10/25/21 11:55 Vitals Last Vital Signs Temp 98.2 F 10/26/21 16:00 Pulse 96 10/26/21 16:00 Resp 16 10/26/21 16:00 BP 113/78 10/26/21 16:00 Pulse Ox 99 10/26/21 16:00 Discharge Plan Discharge Patient Disposition: Home Condition: Stable Prescriptions: No Action cefdinir 300 mg capsule 300 mg PO BID 10 Days Qty: 60 2RF fluconazole 150 mg tablet 150 mg PO Q3D Qty: 2 2RF ibuprofen 200 mg Tablet 600 mg PO Q6H PRN (Reason: Pain) 0RF iron 325 mg (65 mg iron) Tablet 325 mg PO DAILY 0RF Referrals: Steven Del Rio MD [Primary Care Provider] - Patient Instructions: Opioid Safety Coding Level of Care Code Acute Chg FW DC note Diagnoses Sepsis A41.9 Pyelonephritis N12 Hydronephrosis N13.30 Medullary sponge kidney Q61.5 Recurrent UTI N39.0
--- NOTE | 2021-10-26 18:25 | PC.NURSE ---
Pt left BETI, RN educated pt, but pt had to leave to get her kids.
== END 2021-10-26 18:26 | disposition left against medical advice (07) | DRG 872 ==
LOC: ER 17:24 → MEDSURG 19:00
PROVIDERS: Physician Assistant; Admitting Provider Student in an Organized Health Care Education/Training Program; Emergency Provider Emergency Medicine; PCP Family Medicine; Visit Provider Student in an Organized Health Care Education/Training Program
DX: A41.9 Sepsis, unspecified organism (principal); N12 Tubulo-interstitial nephritis, not specified as acute or chronic; N13.30 Unspecified hydronephrosis; N39.0 Urinary tract infection, site not specified; Q61.5 Medullary cystic kidney; F17.290 Nicotine dependence, other tobacco product, uncomplicated; Z87.440 Personal history of urinary (tract) infections; Z87.442 Personal history of urinary calculi; Z53.29 Procedure and treatment not carried out because of patient's decision for other reasons
CPT/HCPCS: 36415; 71046; 74177; 80053; 80061; 81001; 83036; 83540; 83550; 83605; 83690; 83735; 84100; 84145; 84443; 84703; 85025; 86403; 87040; 87077; 87086; 87186; 87641; 94664; 96365; 96367; 99285; J0692; J2270; J2543; J3370; J7030; J7040; J7050; Q9967

== ENCOUNTER 2021-11-03 08:07 | Outpatient (CLI) | payer MEDICAID, SELFPAY ==
--- NOTE | 2021-11-03 10:00 | XR_ITS ---
WS: [id number] Exam: XR KUB [id number] Date/Time of Exam: 11/03/2021 10:00 AM Reason For Exam: urolithiasis Comparison 06/30/2021. Small calcification superimpose both kidneys and apparently represent known renal stones. No bowel ob struction or free air. No sign of organ enlargement. Regional bony elements are intact. 2 mm left pel cristel calcification noted that is nonspecific. XR/XR KUB [id number] IMPRESSION: 1. Small calcification superimpose both kidneys and apparently represent known renal stones. 2. 2 mm nonspecific left-sided pelvic calcification. 3. No acute abdominal finding. Moderate amount retained stool in the colon.
== END 2021-11-03 08:08 | disposition home or self-care (01) ==
LOC: RAD 08:08
PROVIDERS: PCP Family Medicine; Visit Provider Urology
DX: N20.9 Urinary calculus, unspecified (principal); B37.3 Candidiasis of vulva and vagina; N30.20 Other chronic cystitis without hematuria; N76.0 Acute vaginitis
CPT/HCPCS: 74018; 81003; 87077; 87086; 87186; 99213

== ENCOUNTER 2022-03-01 21:02 | Emergency (ER) | payer MEDICAID, SELFPAY ==
[2022-03-01 21:22] VITALS: BP 104/65; PULSE 101; RESP 15; TEMP 37; O2SAT 99; BMI 26.3
[2022-03-01 21:29] VITALS: BP 103/64; PULSE 96; RESP 14; O2SAT 94
[2022-03-01 21:56] LABS: Basophils # 0.1 10^3/uL (0.0-0.1); Basophils % 0.6 %; Eosinophils # 0.2 10^3/uL (0.0-0.8); Eosinophils % 1.7 %; Hematocrit 37.9 % (37.0-47.0); Lymphocytes # 1.6 10^3/uL (0.8-4.8); Lymphocytes % 17.7 %; Mean Corpuscular HGB Conc 31.7 g/dL (30.0-36.0); Mean Corpuscular Hemoglobin 25.3 pg (28.0-34.0); Mean Platelet Volume 9.8 fL (7.4-10.4); Monocytes # 0.6 10^3/uL (0.2-0.9); Neutrophils # 6.42 10^3/uL (1.8-7.7); Neutrophils % 72.5 %; Nucleated Red Blood Cells % 0 %; Platelet Count 300 10^3/cmm (130-400); Red Blood Count 4.74 10^6/uL (4.1-5.3); Red Cell Distribution Width 14.6 % (12.1-15.1); White Blood Count 8.9 10^3/uL (4.0-10.0)
--- NOTE | 2022-03-01 21:56 | CTR_ITS ---
PROCEDURE INFORMATION: Exam: CT Abdomen And Pelvis Without Contrast Exam date and time: 03/01/2022 10:34 PM Age: 26 years old Clinical indication: Abdominal pain; Flank; Prior surgery; Surgery date: 6+ months; Surgery type: Kidney stents, cholecystectomy; Patient HX: Right sided pain. Umbilical ring cant be removed; Additional info: Abd pain TECHNIQUE: Imaging protocol: Computed tomography of the abdomen and pelvis without contrast. Radiation optimization: All CT scans at this facility use at least one of these dose optimization techniques: automated exposure control; mA and/or kV adjustment per patient size (includes targeted exams where dose is matched to clinical indication); or iterative reconstruction. COMPARISON: CT abdomen pelvis w con* [id number] 10/25/2021 1:21 PM RADIATION DOSE METRICS: Total DLP (mGy-cm): 499.08 FINDINGS: Lungs: Bibasilar atelectasis. Liver: Normal. No mass. Gallbladder and bile ducts: Cholecystectomy. Pancreas: Normal. No ductal dilation. Spleen: Normal. No splenomegaly. Adrenal glands: Normal. No mass. 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 Stomach and bowel: Unremarkable. No obstruction. No mucosal thickening. Appendix: No evidence of appendicitis. Intraperitoneal space: Unremarkable. No free air. No significant fluid collection. Vasculature: Unremarkable. No abdominal aortic aneurysm. Lymph nodes: Unremarkable. No enlarged lymph nodes. Urinary bladder: Unremarkable as visualized. Reproductive: Unremarkable as visualized. Bones/joints: Unremarkable. No acute fracture. Soft tissues: Unremarkable. CT/CT abdomen pelvis con [id number] IMPRESSION: 1. Negative for acute inflammatory process in the abdomen or pelvis. 2. 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 3. Bibasilar atelectasis. 4. Cholecystectomy.
--- NOTE | 2022-03-01 22:00 | ED_ITS ---
HPI - Abdominal Pain General: Chief Complaint: Abdominal Pain Stated Complaint: Right side pain Time Seen by Provider: 03/01/22 21:34 Source: patient Mode of arrival: ambulatory Limitations: no limitations History of Present Illness: 26-year-old female states she has been having right-sided flank pain throughout the day. States her pain is sharp in nature rates it a 7 out of 10. States she had a history of kidney stones along with kidney infections denies any dysuria or vaginal discharge. She denies any worsening proving factors states she has had nausea and vomiting throughout the day with some generalized fatigue. Associated Symptoms: Denies chills, diarrhea, fever(s), nausea and vomiting Related Data: Date of Last Menstrual Period: 02/27/22 Review of Systems Const: Denies: fever(s), chills, body aches or change in appetite Eyes: Denies: blurry vision or eye discomfort ENMT: Denies: throat pain or dental pain Card: Denies: chest pain Resp: Denies: dyspnea GI: Denies: abdominal pain, nausea, vomiting or diarrhea : Reports: flank pain Musc: Denies: neck pain or back pain Skin/Breast: Denies: rash Neuro: Denies: headache(s) Psych: Denies: depression Josh/Lymph: Denies: easy bruising All/Imm: Denies: urticaria PFSH ED PFSH: Medical History Medullary sponge kidney No pertinent past medical history Recurrent UTI Urolithiasis Yeast vaginitis Surgical History H/O tubal ligation History of wisdom tooth extraction Hx of cholecystectomy Hx of tonsillectomy Status post laser lithotripsy of ureteral calculus Family History Father , AT AGE 24 Electric injury Social History Smoking and tobacco status: current every day smoker e-cigarettes Alcohol intake: current Alcohol intake frequency: few times a month Marital status: Current occupational status: employed History of recent travel: No Female Reproductive History: Date of last menstrual period: 02/27/22 Physical Exam Const: COMMON NORMALS: no acute distress, patient oriented x3 and healthy appearing HENMT: COMMON NORMALS: normocephalic and atraumatic HEAD & SCALP: normocephalic and atraumatic Eye: COMMON NORMALS: Equal, round and reactive pupils present and EOMs intact bilaterally PUPIL: Yes Equal, round and reactive pupils present Neck/C-Spine: COMMON NORMALS: full ROM and supple Chest: COMMONS NORMALS: normal inspection of the chest and normal palpation of entire chest wall Resp: COMMON NORMALS: normal respiratory effort, No retractions, No use of accessory muscles and clear to auscultation bilaterally AUSCULTATION: clear to auscultation bilaterally Cardio: COMMON NORMALS: regular rate, regular rhythm and No murmurs present (Cardio) RATE: regular rate RHYTHM: regular rhythm GI: COMMON NORMALS: Normal to inspection, nondistended, normoactive bowel sounds present, Soft to palpation, non-tender and no masses PALPATION: Yes Soft to palpation Extremity: COMMON NORMALS: normal to inspection and full ROM Neuro: COMMON NORMALS: patient oriented x3, moves all extremities and no focal motor deficits Psych: COMMON NORMALS: mental status grossly normal, Normal thought process present and cooperative THOUGHT PROCESS: Normal thought process present Skin: COMMON NORMALS: no rashes or lesions noted and no wounds GENERAL SKIN EXAM: no rashes or lesions noted Course Vital Signs: Vital signs: Vital Signs Temperature 98.6 F 03/01/22 21:22 Pulse Rate 81 03/01/22 22:38 Respiratory Rate 16 03/01/22 22:38 Blood Pressure 99/72 03/01/22 22:38 Pulse Oximetry 98 03/01/22 22:38 Oxygen Delivery Me thod 03/01/22 22:38 MDM - Abdominal Pain Medical Decision Making Patient presents here with abdominal pain she was found to have acute cystitis CT scan is normal we will start her on antibiotics she is stable for discharge she is to follow-up PCP and return if worsening. Lab Data : 03/01/22 21:48 03/01/22 21:48 Labs/Radiology: Radiology Impressions Abdomen/Pelvis CT 03/01/22 21:56 IMPRESSION: 1. Negative for acute inflammatory process in the abdomen or pelvis. 2. 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 3. Bibasilar atelectasis. 4. Cholecystectomy. Laboratory Results WBC 8.9 10^3/uL (4.0-10.0) 03/01/22 21:48 RBC 4.74 10^6/uL (4.1-5.3) 03/01/22 21:48 Hgb 12.0 g/dL (11.5-15.3) 03/01/22 21:48 Hct 37.9 % (37.0-47.0) 03/01/22 21:48 MCV 80.0 fl (81-99) L 03/01/22 21:48 MCH 25.3 pg (28.0-34.0) L 03/01/22 21:48 MCHC 31.7 g/dL (30.0-36.0) 03/01/22 21:48 RDW 14.6 % (12.1-15.1) 03/01/22 21:48 Plt Count 300 10^3/cmm (130-400) 03/01/22 21:48 MPV 9.8 fL (7.4-10.4) 03/01/22 21:48 Neut % (Auto) 72.5 % 03/01/22 21:48 Lymph % (Auto) 17.7 % 03/01/22 21:48 Mccracken % (Auto) 7.0 % 03/01/22 21:48 Eos % (Auto) 1.7 % 03/01/22 21:48 Baso % (Auto) 0.6 % 03/01/22 21:48 Neut # (Auto) 6.42 10^3/uL (1.8-7.7) 03/01/22 21:48 Lymph # (Auto) 1.6 10^3/uL (0.8-4.8) 03/01/22 21:48 Mccracken # (Auto) 0.6 10^3/uL (0.2-0.9) 03/01/22 21:48 Eos # (Auto) 0.2 10^3/uL (0.0-0.8) 03/01/22 21:48 Baso # (Auto) 0.1 10^3/uL (0.0-0.1) 03/01/22 21:48 Nucleated RBC % (auto) 0 % 03/01/22 21:48 Nucleated RBCs # 0.0 /100WBC 03/01/22 21:48 Sodium 138 mmol/L (136-145) 03/01/22 21:48 Potassium 4.1 mmol/L (3.5-5.1) 03/01/22 21:48 Chloride 103 mmol/L (98-107) 03/01/22 21:48 Carbon Dioxide 26 mmol/L (22-29) 03/01/22 21:48 Anion Gap 13.1 (5-19) 03/01/22 21:48 BUN 8 mg/dL (6-20) 03/01/22 21:48 Creatinine 0.7 mg/dL (0.5-0.9) 03/01/22 21:48 GFR Calculation 102.8 mL/min (90-130) 03/01/22 21:48 Glucose 109 mg/dL (65-115) 03/01/22 21:48 Calculated Osmolality 285 mOsm/kg (285-295) 03/01/22 21:48 Calcium 10.5 mg/dL (8.5-10.5) 03/01/22 21:48 Total Bilirubin 0.7 mg/dL (0.15-1.2) 03/01/22 21:48 AST 20 U/L (0-32) 03/01/22 21:48 ALT 15 U/L (0-33) 03/01/22 21:48 Alkaline Phosphatase 155 U/L (35-105) H 03/01/22 21:48 Total Protein 7.4 g/dL (6.6-8.7) 03/01/22 21:48 Albumin 4.2 g/dL (3.5-5.2) 03/01/22 21:48 Globulin 3.2 g/dL (1.3-4.6) 03/01/22 21:48 Lipase 17 U/L (13-60) 03/01/22 21:48 HCG, Qual Negative (Negative) 03/01/22 21:48 Urine Color Dark yellow (Yellow) 03/01/22 21:48 Urine Appearance Cloudy (CLEAR) A 03/01/22 21:48 Urine pH 6 (5-7) 03/01/22 21:48 Ur Specific [place] 1.020 (1.005-1.030) 03/01/22 21:48 Urine Protein 1+ (Negative) H 03/01/22 21:48 Urine Glucose (UA) Norm (Normal) 03/01/22 21:48 Urine Ketones 1+ (Negative) H 03/01/22 21:48 Urine Blood 2+ (Negative) H 03/01/22 21:48 Urine Nitrate Positive (Negative) H 03/01/22 21:48 Urine Bilirubin 1+ (Negative) H 03/01/22 21:48 Urine Urobilinogen 1 mg/dL (Negative) H 03/01/22 21:48 Ur Leukocyte Esterase 2+ (Negative) H 03/01/22 21:48 Urine RBC 40-50 /hpf (0-2) H 03/01/22 21:48 Urine WBC Too numerous to cnt /hpf (0-5) H 03/01/22 21:48 Ur Squamous Epith Cells 0-4 /hpf (0-5) H 03/01/22 21:48 Amorphous Sediment Not Reportable 03/01/22 21:48 Urine Bacteria 4+ /hpf (NONE) H 03/01/22 21:48 Discharge Plan Discharge Patient Disposition: Home Clinical Impression: Acute cystitis Condition: Stable Prescriptions: New hydrocodone-acetaminophen 5-325 mg tablet 1 tab PO Q6H PRN (Reason: pain) Qty: 14 0RF cephalexin 500 mg capsule 500 mg PO TID 7 Days Qty: 21 0RF ondansetron 4 mg tablet,disintegrating 4 mg PO Q6H PRN (Reason: nausea and vomiting) Qty: 14 0RF No Action nitrofurantoin monohyd/m-cryst [Macrobid] 100 mg capsule 100 mg PO BID Qty: 60 6RF Rx Instructions: must administer with a meal/food fluconazole 150 mg tablet 150 mg PO DAILY Qty: 3 3RF ibuprofen 200 mg Tablet 600 mg PO Q6H PRN (Reason: Pain) iron 325 mg (65 mg iron) Tablet 325 mg PO DAILY Discharge Orders: Discharge ED (Routine); Ordered 03/01/22 Ordered By: Paz Dutton Referrals: Steven Del Rio MD [Primary Care Provider] - 1-3 days Discharge Diet: Advance as tolerated Discharge Activity: Resume usual activity Patient Instructions: Urinary Tract Infection in Women (ED), Opioid Safety Coding Level of Care Code ED Director Supply Chain for Chg Fwd Exam Comprehensive
[2022-03-01 22:03] VITALS: RESP 18; O2SAT 98
[2022-03-01] MEDS: HYDROmorphone 1 mg/mL INJ 1 mL 0.5 MG IVP (22:03)
[2022-03-01] MEDS: ondansetron 2 mg/ML SDV 2 mL 4 MG IVP (22:04)
[2022-03-01 22:05] LABS: Add Urine Microscopic? YES; Bilirubin Urine 1+ (Negative); Blood Urine 2+ (Negative); Glucose Urine UA Norm (Normal); Ketones Urine 1+ (Negative); Leukocyte Esterase Urine 2+ (Negative); Nitrate Urine Positive (Negative); Protein Urine 1+ (Negative); Urine Appearance Cloudy (CLEAR); Urine Color Dark Yellow (Yellow); Urobilinogen Urine 1 mg/dL (Negative); pH Urine 6 (5-7)
[2022-03-01 22:06] LABS: Add Urine Culture? Yes; Bacteria Urine 4+ /hpf; HCG, Serum Qual Negative (Negative); RBC Urine 40-50 /hpf (0-2); Squamous Epithelial Cell Urine 0-4 /hpf (0-5); WBC Urine TOO NUMEROUS TO CNT /hpf (0-5)
[2022-03-01] MEDS: cefTRIAXone 1,000 MG in sodium chloride 0.9% (plus) 50 ML 100 MG IV (22:14)
[2022-03-01 22:19] LABS: Alanine Aminotransferase 15 U/L (0-33); Albumin Level 4.2 g/dL (3.5-5.2); Alkaline Phosphatase 155 U/L (35-105); Anion Gap 13.1 (5-19); Aspartate Amino Transferase 20 U/L (0-32); Blood Urea Nitrogen 8 mg/dL (6-20); Calcium 10.5 mg/dL (8.5-10.5); Carbon Dioxide 26 mmol/L (22-29); Chloride 103 mmol/L (98-107); Globulin 3.2 g/dL (1.3-4.6); Glomerular Filtration Rate 102.8 mL/min (90-130); Glucose 109 mg/dL (65-115); Lipase 17 U/L (13-60); Osmolality Calculated 285 mOsm/kg (285-295); Potassium 4.1 mmol/L (3.5-5.1); Sodium 138 mmol/L (136-145); Total Bilirubin 0.7 mg/dL (0.15-1.2); Total Protein 7.4 g/dL (6.6-8.7)
[2022-03-01 22:38] VITALS: BP 99/72; PULSE 81; RESP 16; O2SAT 98
[2022-03-02 00:41] VITALS: BP 107/61; PULSE 84; RESP 16; O2SAT 94
== END 2022-03-02 00:43 | disposition home or self-care (01) ==
PROVIDERS: Emergency Provider Emergency Medicine; PCP Family Medicine
DX: N30.00 Acute cystitis without hematuria (principal)
CPT/HCPCS: 74176; 80053; 81001; 83690; 84703; 85025; 87077; 87086; 87186; 96365; 96375; 99285; J0696; J1170; J2405

== ENCOUNTER 2022-05-25 08:22 | Inpatient (IN) | payer MEDICAID, SELFPAY ==
[2022-05-25] VITALS (37 sets, daily range): BP systolic 99–138; BP diastolic 64–93; PULSE 81–138; RESP 16–33; TEMP 36.7–39.6; O2SAT 94–100
--- NOTE | 2022-05-25 08:30 | ED_ITS ---
Documented by User: BLAZE Garcia 05/25/22 10:30 HPI - Female Genitourinary General: Chief complaint: Abdominal Pain Stated complaint: Kidney pains Time Seen by Provider: 05/25/22 08:24 Source: patient Mode of arrival: ambulatory Limitations: no limitations History of Present Illness: Patient is a nice 27-year-old female who presents to ED today with a complaint of severe left-sided flank pain. Patient states pain began yesterday. She states by yesterday evening she was having episodes of vomiting and began running fevers as high as 101. Patient states she is on daily Macrobid due to chronic cystitis. Patient has a history of medullary sponge disease, current episodes of UTIs/pyelonephritis/obstructive pyelo requiring ureter stents. MD elicited complaint: flank pain Pertinent past history: pyelonephritis Onset (ago): hour(s) Severity: severe Female Urogenital Radiation: L Flank Quality of pain: sharp Consistency: constant Vaginal discharge: none Vaginal bleeding: none Urinary symptoms: Flank Pain Exacerbating factors: none Relieving factors: none Associated symptoms: Reports abdominal pain, fevers/chills and nausea; Deny headache(s) Treatment prior to arrival: none Patient : No Date of Last Menstrual Period: 02/27/22 Review of Systems Const: Reports: fever(s) and chills; Denies: fatigue or malaise Card: Denies: chest pain Resp: Denies: dyspnea GI: Reports: abdominal pain, nausea and vomiting; Denies: hematemesis or change in bowel habits : Reports: flank pain; Denies: difficulty voiding, dysuria, urinary frequency, urinary urgency, urinary hesitancy, vaginal odor, vaginal bleeding or pelvic pain Musc: Reports: back pain (bilateral L>R flank pain); Denies: neck pain, extremity pain or joint pain Skin/Breast: Denies: rash Neuro: Denies: headache(s) or dizziness PFSH ED PFSH: Medical History Medullary sponge kidney No pertinent past medical history Recurrent UTI Urolithiasis Yeast vaginitis Surgical History H/O tubal ligation History of wisdom tooth extraction Hx of cholecystectomy Hx of tonsillectomy Status post laser lithotripsy of ureteral calculus Family History Father , AT AGE 24 Electric injury Social History Smoking and tobacco status: current every day smoker e-cigarettes Alcohol intake: current Alcohol intake frequency: few times a month Marital status: Current occupational status: employed History of recent travel: No Female Reproductive History: Date of last menstrual period: 02/27/22 Physical Exam Const: COMMON NORMALS: average body habitus, patient oriented x3, no limitations, healthy appearing, alert and well nourished GENERAL APPEARANCE: cooperative and ill appearing ORIENTATION/CONSCIOUSNESS: Yes awake, Yes oriented to person, Yes oriented to place and Yes oriented to time HENMT: COMMON NORMALS: normocephalic and atraumatic HEAD & SCALP: normal to inspection, normocephalic and atraumatic Resp: COMMON NORMALS: normal respiratory effort and clear to auscultation bilaterally AUSCULTATION: clear to auscultation bilaterally Cardio: COMMON NORMALS: regular rhythm RATE: tachycardic RHYTHM: regular rhythm GI: COMMON NORMALS: Normal to inspection, nondistended, normoactive bowel sounds present, Soft to palpation, No hepatosplenomegaly present and no masses INSPECTION: Yes normal to inspection AUSCULTATION: Yes normoactive bowel sounds PALPATION: Yes Soft to palpation, Yes Tenderness to palpation present (GI) (L abdomen), No Guarding due to palpation present (GI), No Rigid due to palpation and Yes No hepatosplenomegaly present : BLADDER/KIDNEY EXAM: Yes CVA tenderness (L>R) bilateral Back/Pelvis: COMMON NORMALS: thoracic and lumbar spine normal to inspection, no thoracic nor lumbar tenderness and thoraco-lumbar ROM normal GENERAL BACK: Yes CVA tenderness (L>R) Extremity: COMMON NORMALS: normal to inspection GENERAL: Yes normal exam except as noted Neuro: ADDIS COMA SCALE: document [facility] findings [place] coma scale eye opening: Spontaneous [place] coma scale verbal response: Orientated [place] coma scale motor response: Obey commands [place] coma scale total score: 15 COMMON NORMALS: patient oriented x3 SENSORIUM/ORIENTATION: Yes alert, Yes oriented to person, Yes oriented to place and Yes oriented to time Skin: COMMON NORMALS: no rashes or lesions noted GENERAL SKIN EXAM: no rashes or lesions noted Course Vital Signs: Vital signs: Vital Signs Temperature 98.4 F 05/25/22 08:26 Pulse Rate 116 H 05/25/22 10:14 Respiratory Rate 22 H 05/25/22 10:14 Blood Pressure 130/71 05/25/22 10:14 Pulse Oximetry 96 05/25/22 10:14 Oxygen Delivery Me thod 05/25/22 08:26 MDM - Female Medical Decision Making Patient has an obstructive pyelonephritis. She arrives tachycardic in the 130s. White count is almost 24,000. Lactate is 2.1. Blood cultures obtained and septic bolus/IV abx initiated. Dr. Floyd will assume care and speak to Dr. Benitez. Lab Data 05/25/22 08:43 05/25/22 08:43 Radiology Impressions Abdomen/Pelvis CT 05/25/22 08:39 IMPRESSION: 1. Bilateral medullary nephrocalcinosis. 2. Bilateral obstructing proximal ureteral calculi largest in the LEFT measures 5 mm and largest in the RIGHT measures 4 mm. Moderate LEFT and mild RIGHT hydronephrosis with bilateral ureterectasis. 3. Inflammatory stranding and edema worse about the LEFT renal pelvis and proximal ureter. 4. No other acute findings. Attempted notification BLAZE Garcia at 05/25/2022 9:43 AM. Laboratory Results WBC 23.8 10^3/uL (4.0-10.0) H 05/25/22 08:43 RBC 4.80 10^6/uL (4.1-5.3) 05/25/22 08:43 Hgb 12.4 g/dL (11.5-15.3) 05/25/22 08:43 Hct 38.6 % (37.0-47.0) 05/25/22 08:43 MCV 80.4 fl (81-99) L 05/25/22 08:43 MCH 25.8 pg (28.0-34.0) L 05/25/22 08:43 MCHC 32.1 g/dL (30.0-36.0) 05/25/22 08:43 RDW 14.6 % (12.1-15.1) 05/25/22 08:43 Plt Count 321 10^3/cmm (130-400) 05/25/22 08:43 MPV 9.6 fL (7.4-10.4) 05/25/22 08:43 Neut % (Auto) 93.7 % 05/25/22 08:43 Lymph % (Auto) 2.5 % 05/25/22 08:43 [place] % (Auto) 2.9 % 05/25/22 08:43 Eos % (Auto) 0.0 % 05/25/22 08:43 Baso % (Auto) 0.4 % 05/25/22 08:43 Neut # (Auto) 22.29 10^3/uL (1.8-7.7) H 05/25/22 08:43 Lymph # (Auto) 0.6 10^3/uL (0.8-4.8) L 05/25/22 08:43 [place] # (Auto) 0.7 10^3/uL (0.2-0.9) 05/25/22 08:43 Eos # (Auto) 0.0 10^3/uL (0.0-0.8) 05/25/22 08:43 Baso # (Auto) 0.1 10^3/uL (0.0-0.1) 05/25/22 08:43 Nucleated RBC % (auto) 0 % 05/25/22 08:43 Nucleated RBCs # 0.0 /100WBC 05/25/22 08:43 Sodium 134 mmol/L (136-145) L 05/25/22 08:43 Potassium 3.9 mmol/L (3.5-5.1) 05/25/22 08:43 Chloride 103 mmol/L (98-107) 05/25/22 08:43 Carbon Dioxide 21 mmol/L (22-29) L 05/25/22 08:43 Anion Gap 13.9 (5-19) 05/25/22 08:43 BUN 11 mg/dL (6-20) 05/25/22 08:43 Creatinine 0.6 mg/dL (0.5-0.9) 05/25/22 08:43 GFR Calculation 121.8 mL/min (90-130) 05/25/22 08:43 Glucose 121 mg/dL (65-115) H 05/25/22 08:43 Calculated Osmolality 279 mOsm/kg (285-295) L 05/25/22 08:43 Lactic Acid 2.1 mmol/L (0.5-2.2) 05/25/22 08:43 Calcium 10.9 mg/dL (8.5-10.5) H 05/25/22 08:43 Total Bilirubin 1.0 mg/dL (0.15-1.2) 05/25/22 08:43 AST 67 U/L (0-32) H 05/25/22 08:43 ALT 56 U/L (0-33) H 05/25/22 08:43 Alkaline Phosphatase 170 U/L (35-105) H 05/25/22 08:43 Total Protein 7.5 g/dL (6.6-8.7) 05/25/22 08:43 Albumin 4.3 g/dL (3.5-5.2) 05/25/22 08:43 Globulin 3.2 g/dL (1.3-4.6) 05/25/22 08:43 HCG, Qual Negative (Negative) 05/25/22 08:43 Urine Color Yellow (Yellow) 05/25/22 08:30 Urine Appearance Hazy (CLEAR) A 05/25/22 08:30 Urine pH 6.5 (5-7) 05/25/22 08:30 Ur Specific [place] 1.030 (1.005-1.030) 05/25/22 08:30 Urine Protein Neg (Negative) 05/25/22 08:30 Urine Glucose (UA) Norm (Normal) 05/25/22 08:30 Urine Ketones Negative (Negative) 05/25/22 08:30 Urine Blood Neg (Negative) 05/25/22 08:30 Urine Nitrate Positive (Negative) H 05/25/22 08:30 Urine Bilirubin Neg (Negative) 05/25/22 08:30 Urine Urobilinogen Neg mg/dL (Negative) 05/25/22 08:30 Ur Leukocyte Esterase 2+ (Negative) H 05/25/22 08:30 Urine RBC None /hpf (0-2) 05/25/22 08:30 Urine WBC 15-25 /hpf (0-5) H 05/25/22 08:30 Ur Squamous Epith Cells 15-25 /hpf (0-5) H 05/25/22 08:30 Amorphous Sediment Not Reportable 05/25/22 08:30 Urine Bacteria 1+ /hpf (NONE) H 05/25/22 08:30 Discharge Plan Discharge Patient Disposition: Admitted As Inpatient Clinical Impression: Obstructive pyelonephritis, Medullary sponge kidney Condition: Stable Coding Level of Care Code ED Case Management Coordinator for Marig Fwd Exam Comprehensive Documented by User: Florentin Floyd DO 05/25/22 10:36 HPI - Female Genitourinary General: Chief complaint: Abdominal Pain Stated complaint: Kidney pains Time Seen by Provider: 05/25/22 08:24 History of Present Illness: 27-year-old female presents emergency room with bilateral flank pain she reports a fever at home as well as up to 101. She is a previous history of renal stones and a history of medullary sponge kidney. She is afebrile on arrival here but tachycardic left flank pain greater than the rig ht. She is has had nausea with vomiting. She has not noticed any hematuria. MD elicited complaint: dysuria, back pain and flank pain Pertinent past history: pyelonephritis and other (Nephrolithiasis) Onset (ago): hour(s) Severity: moderate Quality of pain: sharp Consistency: constant Urinary symptoms: Dysuria and Flank Pain Exacerbating factors: none Relieving factors: none Associated symptoms: Reports abdominal pain and nausea Treatment prior to arrival: none Review of Systems Const: Reports: fever(s) and chills; Denies: body aches, change in appetite, fatigue or malaise ENMT: Denies: throat pain, ear or mastoid pain, nasal discharge or nasal congestion Card: Denies: chest pain, edema, dyspnea on exertion or orthopnea Resp: Denies: dyspnea, productive cough or non-productive cough GI: Reports: abdominal pain, nausea and vomiting; Denies: hematemesis, coffee ground emesis, diarrhea, constipation, bloating, hematochezia or melena : Reports: flank pain; Denies: difficulty voiding, dysuria, urinary frequency or urinary urgency Skin/Breast: Denies: rash or pruritus [facility] ED PFSH: Medical History Medullary sponge kidney No pertinent past medical history Recurrent UTI Urolithiasis Yeast vaginitis Surgical History H/O tubal ligation History of wisdom tooth extraction Hx of cholecystectomy Hx of tonsillectomy Status post laser lithotripsy of ureteral calculus Family History Father , AT AGE 24 Electric injury Social History Smoking and tobacco status: current every day smoker e-cigarettes Alcohol intake: current Alcohol intake frequency: few times a month Marital status: Current occupational status: employed History of recent travel: No Physical Exam Const: GENERAL APPEARANCE: cooperative ORIENTATION/CONSCIOUSNESS: Yes awake, Yes oriented to person, Yes oriented to place and Yes oriented to time HENMT: COMMON NORMALS: normocephalic, atraumatic and hearing grossly normal bilaterally HEAD & SCALP: normocephalic and atraumatic Resp: COMMON NORMALS: normal respiratory effort, No retractions, No use of accessory muscles and clear to auscultation bilaterally AUSCULTATION: clear to auscultation bilaterally Cardio: COMMON NORMALS: regular rate, regular rhythm and No murmurs present (Cardio) RATE: regular rate RHYTHM: regular rhythm GI: COMMON NORMALS: Soft to palpation and No hepatosplenomegaly present AUSCULTATION: Yes normoactive bowel sounds PALPATION: Yes Soft to palpation, No Tenderness to palpation present (GI), No Guarding due to palpation present (GI) and Yes No hepatosplenomegaly present : BLADDER/KIDNEY EXAM: Yes CVA tenderness Back/Pelvis: GENERAL BACK: Yes CVA tenderness Extremity: COMMON NORMALS: normal to inspection, capillary refill normal, no clubbing, cyanosis or edema, no calf tenderness and no pedal edema Neuro: SENSORIUM/ORIENTATION: Yes oriented to person, Yes oriented to place and Yes oriented to time Skin: COMMON NORMALS: no rashes or lesions noted GENERAL SKIN EXAM: no rashes or lesions noted Course Vital Signs: Vital signs: Vital Signs Temperature 98.4 F 05/25/22 08:26 Pulse Rate 116 H 05/25/22 10:14 Respiratory Rate 22 H 05/25/22 10:14 Blood Pressure 130/71 05/25/22 10:14 Pulse Oximetry 96 05/25/22 10:14 Oxygen Delivery Me thod 05/25/22 08:26 MDM - Female Lab Data 05/25/22 08:43 05/25/22 08:43 Radiology Impressions Abdomen/Pelvis CT 05/25/22 08:39 IMPRESSION: 1. Bilateral medullary nephrocalcinosis. 2. Bilateral obstructing proximal ureteral calculi largest in the LEFT measures 5 mm and largest in the RIGHT measures 4 mm. Moderate LEFT and mild RIGHT hydronephrosis with bilateral ureterectasis. 3. Inflammatory stranding and edema worse about the LEFT renal pelvis and proximal ureter. 4. No other acute findings. Attempted notification BLAZE Garcia at 05/25/2022 9:43 AM. Laboratory Results WBC 23.8 10^3/uL (4.0-10.0) H 05/25/22 08:43 RBC 4.80 10^6/uL (4.1-5.3) 05/25/22 08:43 Hgb 12.4 g/dL (11.5-15.3) 05/25/22 08:43 Hct 38.6 % (37.0-47.0) 05/25/22 08:43 MCV 80.4 fl (81-99) L 05/25/22 08:43 MCH 25.8 pg (28.0-34.0) L 05/25/22 08:43 MCHC 32.1 g/dL (30.0-36.0) 05/25/22 08:43 RDW 14.6 % (12.1-15.1) 05/25/22 08:43 Plt Count 321 10^3/cmm (130-400) 05/25/22 08:43 MPV 9.6 fL (7.4-10.4) 05/25/22 08:43 Neut % (Auto) 93.7 % 05/25/22 08:43 Lymph % (Auto) 2.5 % 05/25/22 08:43 [place] % (Auto) 2.9 % 05/25/22 08:43 Eos % (Auto) 0.0 % 05/25/22 08:43 Baso % (Auto) 0.4 % 05/25/22 08:43 Neut # (Auto) 22.29 10^3/uL (1.8-7.7) H 05/25/22 08:43 Lymph # (Auto) 0.6 10^3/uL (0.8-4.8) L 05/25/22 08:43 [place] # (Auto) 0.7 10^3/uL (0.2-0.9) 05/25/22 08:43 Eos # (Auto) 0.0 10^3/uL (0.0-0.8) 05/25/22 08:43 Baso # (Auto) 0.1 10^3/uL (0.0-0.1) 05/25/22 08:43 Nucleated RBC % (auto) 0 % 05/25/22 08:43 Nucleated RBCs # 0.0 /100WBC 05/25/22 08:43 Sodium 134 mmol/L (136-145) L 05/25/22 08:43 Potassium 3.9 mmol/L (3.5-5.1) 05/25/22 08:43 Chloride 103 mmol/L (98-107) 05/25/22 08:43 Carbon Dioxide 21 mmol/L (22-29) L 05/25/22 08:43 Anion Gap 13.9 (5-19) 05/25/22 08:43 BUN 11 mg/dL (6-20) 05/25/22 08:43 Creatinine 0.6 mg/dL (0.5-0.9) 05/25/22 08:43 GFR Calculation 121.8 mL/min (90-130) 05/25/22 08:43 Glucose 121 mg/dL (65-115) H 05/25/22 08:43 Calculated Osmolality 279 mOsm/kg (285-295) L 05/25/22 08:43 Lactic Acid 2.1 mmol/L (0.5-2.2) 05/25/22 08:43 Calcium 10.9 mg/dL (8.5-10.5) H 05/25/22 08:43 Total Bilirubin 1.0 mg/dL (0.15-1.2) 05/25/22 08:43 AST 67 U/L (0-32) H 05/25/22 08:43 ALT 56 U/L (0-33) H 05/25/22 08:43 Alkaline Phosphatase 170 U/L (35-105) H 05/25/22 08:43 Total Protein 7.5 g/dL (6.6-8.7) 05/25/22 08:43 Albumin 4.3 g/dL (3.5-5.2) 05/25/22 08:43 Globulin 3.2 g/dL (1.3-4.6) 05/25/22 08:43 HCG, Qual Negative (Negative) 05/25/22 08:43 Urine Color Yellow (Yellow) 05/25/22 08:30 Urine Appearance Hazy (CLEAR) A 05/25/22 08:30 Urine pH 6.5 (5-7) 05/25/22 08:30 Ur Specific [place] 1.030 (1.005-1.030) 05/25/22 08:30 Urine Protein Neg (Negative) 05/25/22 08:30 Urine Glucose (UA) Norm (Normal) 05/25/22 08:30 Urine Ketones Negative (Negative) 05/25/22 08:30 Urine Blood Neg (Negative) 05/25/22 08:30 Urine Nitrate Positive (Negative) H 05/25/22 08:30 Urine Bilirubin Neg (Negative) 05/25/22 08:30 Urine Urobilinogen Neg mg/dL (Negative) 05/25/22 08:30 Ur Leukocyte Esterase 2+ (Negative) H 05/25/22 08:30 Urine RBC None /hpf (0-2) 05/25/22 08:30 Urine WBC 15-25 /hpf (0-5) H 05/25/22 08:30 Ur Squamous Epith Cells 15-25 /hpf (0-5) H 05/25/22 08:30 Amorphous Sediment Not Reportable 05/25/22 08:30 Urine Bacteria 1+ /hpf (NONE) H 05/25/22 08:30 Discharge Plan Discharge Patient Disposition: Admitted As Inpatient Clinical Impression: Obstructive pyelonephritis, Medullary sponge kidney Condition: Stable Coding Level of Care Code ED Case Management Coordinator for Chg Fwd Exam Comprehensive
--- NOTE | 2022-05-25 08:39 | CT_ITS ---
WS: [id number] CT ABDOMEN PELVIS TECHNIQUE: Noncontrast CT of the abdomen and pelvis with coronal and sagittal reformatted images. CLINICAL INFORMATION: bilateral L>R flank pain COMPARISON: CT March 01, 2022 DLP: 502.[address] scans at [facility] use at least one of these dose optimization techniques: automated e xposure control; mA and/or kV adjustment per patient size (includes targeted exams where dose is matc hed to clinical indication); or iterative reconstruction. FINDINGS: Cholecystectomy clips. Bilateral medullary nephrocalcinosis. Obstructing calculi in the bilateral pro ximal ureters LEFT greater than RIGHT. Moderate LEFT hydronephrosis with inflammatory stranding and edema. 2 calculi in the proximal LEFT ur eter. Obstructing calculi in the proximal LEFT ureter the largest measuring 5 mm. Distal LEFT ureter is decompressed. Mild hydronephrosis in RIGHT kidney. Obstructing RIGHT renal ureteral calculus measuring 4 mm. Inflam matory stranding and edema about the RIGHT renal pelvis and proximal ureter. Mild RIGHT ureterectasis . Distal RIGHT ureter is decompressed. Slight bibasilar atelectasis. Normal noncontrast liver. Cholecystectomy clips. Normal noncontrast spl een. Normal GE junction. Adrenal glands are normal. Normal noncontrast pancreas. Normal caliber abdom inal aorta. Small amount of free fluid in the cul-de-sac. Normal sigmoid colon. Normal appendix in the RIGHT lowe r quadrant. A few slightly prominent lymph nodes in the RIGHT lower quadrant likely reactive. CT/CT kidney stone [id number] IMPRESSION: 1. Bilateral medullary nephrocalcinosis. 2. Bilateral obstructing proximal ureteral calculi largest in the LEFT measure s 5 mm and largest in the RIGHT measures 4 mm. Moderate LEFT and mild RIGHT hyd ronephrosis with bilateral ureterectasis. 3. Inflammatory stranding and edema worse about the LEFT renal pelvis and prox imal ureter. 4. No other acute findings. Attempted notification BLAZE Garcia at 05/25/2022 9:43 AM.
[2022-05-25] MEDS: morphine 4 mg/mL SDV 1 mL IVP ×3 (08:49→20:25)
[2022-05-25] MEDS: sodium chloride 0.9% 1,000 ML 999 ML IV ×2 (08:50→09:54)
[2022-05-25] MEDS: ondansetron 2 mg/ML SDV 2 mL 4 MG IVP ×2 (08:50→12:36)
[2022-05-25 08:58] LABS: Basophils # 0.1 10^3/uL (0.0-0.1); Basophils % 0.4 %; Hematocrit 38.6 % (37.0-47.0); Hemoglobin 12.4 g/dL (11.5-15.3); Lymphocytes # 0.6 10^3/uL (0.8-4.8); Lymphocytes % 2.5 %; Mean Corpuscular HGB Conc 32.1 g/dL (30.0-36.0); Mean Corpuscular Hemoglobin 25.8 pg (28.0-34.0); Mean Corpuscular Volume 80.4 fl (81-99); Mean Platelet Volume 9.6 fL (7.4-10.4); Monocytes # 0.7 10^3/uL (0.2-0.9); Monocytes % 2.9 %; Neutrophils # 22.29 10^3/uL (1.8-7.7); Neutrophils % 93.7 %; Nucleated Red Blood Cells % 0 %; Platelet Count 321 10^3/cmm (130-400); Red Cell Distribution Width 14.6 % (12.1-15.1); White Blood Count 23.8 10^3/uL (4.0-10.0)
[2022-05-25 09:12] LABS: Alanine Aminotransferase 56 U/L (0-33); Albumin Level 4.3 g/dL (3.5-5.2); Alkaline Phosphatase 170 U/L (35-105); Anion Gap 13.9 (5-19); Aspartate Amino Transferase 67 U/L (0-32); Blood Urea Nitrogen 11 mg/dL (6-20); Calcium 10.9 mg/dL (8.5-10.5); Carbon Dioxide 21 mmol/L (22-29); Chloride 103 mmol/L (98-107); Creatinine Clr Calc Pharmacy 146.6051; Globulin 3.2 g/dL (1.3-4.6); Glomerular Filtration Rate 121.8 mL/min (90-130); Glucose 121 mg/dL (65-115); Osmolality Calculated 279 mOsm/kg (285-295); Potassium 3.9 mmol/L (3.5-5.1); Sodium 134 mmol/L (136-145); Total Protein 7.5 g/dL (6.6-8.7)
[2022-05-25 09:13] LABS: Lactic Sepsis W/Reflex 2.1 mmol/L (0.5-2.2)
[2022-05-25 09:14] LABS: HCG, Serum Qual Negative (Negative)
[2022-05-25 09:19] LABS: Urine Appearance Hazy (CLEAR); Urine Color Yellow (Yellow); pH Urine 6.5 (5-7)
[2022-05-25 09:20] LABS: Add Urine Microscopic? YES; Bilirubin Urine Neg (Negative); Blood Urine Neg (Negative); Glucose Urine UA Norm (Normal); Ketones Urine Negative (Negative); Leukocyte Esterase Urine 2+ (Negative); Nitrate Urine Positive (Negative); Protein Urine Neg (Negative); Urobilinogen Urine Neg (Negative)
[2022-05-25 09:29] LABS: WBC Urine 15-25 /hpf (0-5)
[2022-05-25 09:30] LABS: Add Urine Culture? No; Bacteria Urine 1+ /hpf; Squamous Epithelial Cell Urine 15-25 /hpf (0-5)
[2022-05-25] MEDS: cefTRIAXone 1,000 MG in sodium chloride 0.9% (plus) 50 ML 100 MG IV (09:53)
--- NOTE | 2022-05-25 10:21 | PC.PHAR ---
pt states she takes care of her own medications-pt states she is suppose to be taking iron 325mg daily but states she hasnt been taking for 2 months
[2022-05-25 10:40] LABS: Reflex Lactate Order REFLEX LACTIC ORDERD
--- NOTE | 2022-05-25 11:08 | P.HP_ITS ---
Providers/Chief Complaint Primary Care Provider: Steven Del Rio MD Chief Complaint: Kidney pains History of Present Illness Brooklyn Day is a 27 year old female presenting to the emergency department with complaints of abdominal discomfort. She reports that last night, she started having discomfort on the left side of her abdomen, flank, and back. She had an elevated temperature of 101.8, and had some vomiting. She reports she has had renal stones before and was concerned this was a problem. She states she has a past history of a stent on the right. She denies any blood in her urine. She reports she feels better after pain medication. She was able to urinate without difficulty. Review of Systems General: Reports: 10 or more systems reviewed and unremarkable except in HPI and below Const: Reports: fever(s); Denies: chills or malaise Eyes: Denies: change in vision ENMT: Denies: throat pain Card: Denies: chest pain Resp: Denies: dyspnea GI: Reports: abdominal pain, nausea and vomiting; Denies: hematemesis, hematochezia or melena : Reports: flank pain Musc: Denies: neck pain Skin/Breast: Denies: rash Neuro: Denies: headache(s) Psych: Denies: anxiety or depression Endo: Denies: polyuria Josh/Lymph: Denies: easy bruising All/Imm: Denies: urticaria Medications/Allergies Home Medications Medication Instructions Recorded Confirmed Last Taken Type ibuprofen 200 mg tablet 600 mg PO Q6H PRN Pain 05/31/20 05/25/22 05/24/22 History nitrofurantoin 100 mg PO BID #60 caps 11/03/21 05/25/22 05/24/22 Rx monohydrate/macrocrystals 100 mg capsule (Macrobid) cranberry-B.coofewlek-B-We phos 1 tab PO DAILY 05/25/22 05/25/22 Unknown History 480 mg-20 mg-100 million cell tablet (Cranberry-Probiotic) Allergies Allergy/AdvReac Type Severity Reaction Status Date / Time No Known Allergies Allergy Verified 05/25/22 10:20 PFSH Acute PFSH: Medical History (Updated 05/25/22 @ 11:09 by Dhiraj Garcia MD) Medullary sponge kidney Recurrent UTI Urolithiasis Yeast vaginitis Surgical History H/O tubal ligation History of wisdom tooth extraction Hx of cholecystectomy Hx of tonsillectomy Status post laser lithotripsy of ureteral calculus Family History Father , AT AGE 24 Electric injury Social History Smoking and tobacco status: current every day smoker e-cigarettes Alcohol intake: current Alcohol intake frequency: few times a month Marital status: Current occupational status: employed History of recent travel: No Vitals/I&O/Wt Last Vital Signs Temp 98.4 F 05/25/22 08:26 Pulse 105 H 05/25/22 10:55 Resp 28 H 05/25/22 10:55 BP 126/72 05/25/22 10:55 Pulse Ox 99 05/25/22 10:55 O2 Del Method 05/25/22 08:26 Weight last 48 hrs Weight 73.028 kg Physical Exam Narrative: General exam is a conversant white female, in no distress HEENT: Atraumatic and normocephalic. Pupils equally round. Oropharynx clear. Neck is supple no lymphadenopathy thyromegaly Cardiovascular slightly tachycardic, no murmur Lungs clear no wheezing or crackles Abdomen soft, positive bowel sounds. Tenderness is noted right flank. exam was deferred Extremities no cyanosis clubbing or edema, cap refill brisk Skin no rash Neuro no obvious focal deficits. Data 05/25/22 08:43 05/25/22 08:43 Other Labs: Calcium elevated at 10.9 Lactic acid 2.1 LFTs demonstrate elevated AST of 67, ALT 56, alk phos of 170. Bilirubin 1.0 Qualitative hCG negative Urinalysis demonstrates 15-25 white cells but also 15-25 squamous cells and 1+ bacteria. CT abdomen and pelvis demonstrates bilateral medullary nephrocalcinosis Bilateral obstructing proximal ureteral calculi. Moderate left and mild right hydronephrosis is noted. Some stranding of the left renal pelvis is noted. Micro: Microbiology 05/25/22 08:47 Blood Culture - Preliminary Blood SPECIMEN COLLECTED 05/25/22 08:43 Blood Culture - Preliminary Blood SPECIMEN COLLECTED A&P Assessment and plan (1) Urolithiasis: Patient presents with bilateral ureterolithiasis Hydration Pain control Urology consultation (2) Hydronephrosis: Secondary to above, await urologic consultation (3) Obstructive pyelonephritis: Concern for obstructive Flo considering fever at home, abnormal vital signs including tachycardia, elevated white blood cell count. Urine appears contaminated, recheck urine with cath specimen Urine and blood cultures Rocephin 1 g IV every 24 hours Plan Mild transaminitis. Check hepatitis panel. Repeat CMP tomorrow. Low risk for DVT, no prophylaxis needed Full code Attestations Medical Necessity Statement*: Will require greater than 2 midnight stay for evaluation and treatment of obstructive pyelonephritis Coding Level of Care Code Acute Code for [facility] Diagnoses Urolithiasis N20.9 Hydronephrosis N13.30 Obstructive pyelonephritis N11.1
--- NOTE | 2022-05-25 11:10 | PM.CONSULT ---
Providers/Reason For Consult Consulting Physician/Specialty*: Urology/Eli Reason for Consult*: Obstructive pyelonephritis with bilateral obstructing proximal ureteral stones Attending Physician: Sabino Benitez MD Primary Care Provider: Steven Del Rio MD History of Present Illness History of Present Illness Brooklyn Day is a 27 year old female Well-known to me for history of urolithiasis, medullary sponge kidney, obstructive Flo back in June 2020. She missed her last scheduled visit. Does have a history of diffuse cystitis cystica. Presented to the emergency department with a 1 day history of left flank pain and feeling quite ill. Work-up in the ER demonstrated the following: History of fever in the last 24 hours Elevated white count of 23,[address] scan demonstrating bilateral proximal ureteral stones with obstructive changes. She is hemodynamically stable but it high risk and for that reason I recommended EMERGENCY cystoscopy, bilateral ureteral stents, possible retrograde, possible ureteroscopy if unable to advance a wire beyond the stents Informed consent was obtained. Review of Systems Const: Reports: fever(s) and malaise ENMT: Denies: hoarseness Card: Denies: chest pain or palpitations Resp: Denies: dyspnea or productive cough GI: Reports: abdominal pain, nausea and vomiting; Denies: diarrhea : Reports: flank pain and urinary urgency Musc: Denies: joint swelling or joint redness Skin/Breast: Denies: rash or new lesions Neuro: Denies: confusion, behavioral changes or Slurred speech present Psych: Denies: anxiety or depression Endo: Denies: polyuria or flushing Josh/Lymph: Denies: easy bruising or easy bleeding All/Imm: Denies: urticaria or acute wheezing Medications/Allergies Home Medications Medication Instructions Recorded Confirmed Last Taken Type ibuprofen 200 mg tablet 600 mg PO Q6H PRN Pain 05/31/20 05/25/22 05/24/22 History nitrofurantoin 100 mg PO BID #60 caps 11/03/21 05/25/22 05/24/22 Rx monohydrate/macrocrystals 100 mg capsule (Macrobid) cranberry-B.[id number] phos 1 tab PO DAILY 05/25/22 05/25/22 Unknown History 480 mg-20 mg-100 million cell tablet (Cranberry-Probiotic) Allergies Allergy/AdvReac Type Severity Reaction Status Date / Time No Known Allergies Allergy Verified 05/25/22 10:20 PFSH Acute PFSH: Medical History (Updated 05/25/22 @ 11:32 by Sabino Benitez MD) Medullary sponge kidney Recurrent UTI Urolithiasis Yeast vaginitis Surgical History H/O tubal ligation History of wisdom tooth extraction Hx of cholecystectomy Hx of tonsillectomy Status post laser lithotripsy of ureteral calculus Family History Father , AT AGE 24 Electric injury Social History Smoking and tobacco status: current every day smoker e-cigarettes Alcohol intake: current Alcohol intake frequency: few times a month Marital status: Current occupational status: employed History of recent travel: No Vitals/I&O/Wt Last Vital Signs Temp 98.4 F 05/25/22 08:26 Pulse 105 H 05/25/22 10:55 Resp 28 H 05/25/22 10:55 BP 126/72 05/25/22 10:55 Pulse Ox 99 05/25/22 10:55 O2 Del Method 05/25/22 08:26 Weight last 48 hrs Weight 161 lb Physical Exam Const: COMMON NORMALS: no acute distress, alert and well nourished GENERAL APPEARANCE: well kempt and well developed ORIENTATION/CONSCIOUSNESS: not confused HENMT: COMMON NORMALS: normocephalic HEAD & SCALP: normal to inspection and normocephalic Eye: COMMON NORMALS: conjunctivae normal and no scleral icterus CONJUNCTIVA: Yes conjunctivae normal Neck/C-Spine: GENERAL: Yes normal visual inspection Resp: COMMON NORMALS: normal respiratory effort EFFORT & INSPECTION: Yes able to speak in complete sentences, No labored and No Actively coughing Cardio: OTHER: Regular rhythm. Tachycardia. No murmurs GI: OTHER: No masses. Does have some tenderness bilateral upper quadrants left greater than right : OTHER: No masses. Does have some tenderness bilateral upper quadrants left greater than right Back/Pelvis: OTHER: CVA tenderness Extremity: COMMON NORMALS: no clubbing, cyanosis or edema Neuro: COMMON NORMALS: no focal motor deficits SENSORIUM/ORIENTATION: Yes alert Psych: COMMON NORMALS: mental status grossly normal APPEARANCE: Yes grossly normal and Yes well kempt ATTITUDE: Yes calm and Yes engaged Skin: COMMON NORMALS: no rashes or lesions noted and no jaundice GENERAL SKIN EXAM: no rashes or lesions noted Data 05/25/22 08:43 05/25/22 08:43 Micro: Microbiology 05/25/22 08:47 Blood Culture - Preliminary Blood SPECIMEN COLLECTED 05/25/22 08:43 Blood Culture - Preliminary Blood SPECIMEN COLLECTED A&P Assessment and plan (1) Obstructive pyelonephritis: (2) Bilateral ureteral calculi: (3) Urolithiasis: Plan To the OR emergently for bilateral stent placement. Did discuss the possibility of requirement for antegrade drainage via percutaneous nephrostomy if unable to access from below. Hopefully that would not be necessary. She understands the emergent nature of this procedure and the rationale for proceeding in such case. Consult Attestations Medical Necessity Statement: Bilateral ureteral stones with obstructive pyelonephritis. Require surgical intervention and ICU monitoring. Coding Level of Care Code Acute Code for [facility] Diagnoses Obstructive pyelonephritis N11.1 Bilateral ureteral calculi N20.1 Urolithiasis N20.9
--- NOTE | 2022-05-25 11:11 | PC.NURSE ---
PT STRAIGHT CATHED FOR URINE CULTURE SAMPLE BY JAYDA OROZCO PER VERBAL ORDER OF DR. RENO
--- NOTE | 2022-05-25 12:29 | ANES.PREANE2 ---
Pre-Anesthetic Assessment Height/Weight: Height 1.68 m Weight 73.028 kg Temp Pulse Resp BP Pulse Ox O2 Del Method 99.3 F 125 H 24 H 125/76 98 05/25/22 12:05 05/25/22 12:05 05/25/22 12:05 05/25/22 12:05 05/25/22 12:05 05/25/22 12:05 Preop Diagnosis: Right ureteral stone status post emergency stenting Operation Date: 05/25/22 13:00 Proposed Procedures p Cystoscopy(Bilateral) - Sabino Benitez MD s Ureteral Stent Placement(Bilateral) - Sabino Benitez MD s Retrograde Pyelogram(Bilateral) - Sabino Benitez MD Familial anesthetic complications: NOne Was Beta Rayshawn taken within 24 hours: N/A Was Clonidine taken within 24 hours: N/A Last intake: Intake Last Liquid Date 05/24/22 Last Liquid Time 21:00 Last Solid Date 05/24/22 Last Solid Time 21:00 Social Tobacco and No alcohol Exam alert, oriented x 3, clear to auscultation bilaterally and regular rate & rhythm Airway Mallampati: Class II Dentition: full medullary sponge Anesthetic Plan ASA status: 2 Anesthesia: General Risk of > 500 ml blood loss (7ml/kg in children): No Medications/Allergies Home Medications Medication Instructions Recorded Confirmed Last Taken Type ibuprofen 200 mg tablet 600 mg PO Q6H PRN Pain 05/31/20 05/25/22 05/24/22 History nitrofurantoin 100 mg PO BID #60 caps 11/03/21 05/25/22 05/24/22 Rx monohydrate/macrocrystals 100 mg capsule (Macrobid) cranberry-B.ozdomiqjm-J-De phos 1 tab PO DAILY 05/25/22 05/25/22 Unknown History 480 mg-20 mg-100 million cell tablet (Cranberry-Probiotic) Allergies Allergy/AdvReac Type Severity Reaction Status Date / Time No Known Allergies Allergy Verified 05/25/22 10:20 ON LICENSE OF [facility] Anesthesia Medical History (Updated 05/25/22 @ 11:32 by Sabino Benitez MD) Medullary sponge kidney Recurrent UTI Urolithiasis Yeast vaginitis Surgical History H/O tubal ligation History of wisdom tooth extraction Hx of cholecystectomy Hx of tonsillectomy Status post laser lithotripsy of ureteral calculus Family History Father , AT AGE 24 Electric injury Social History Smoking and tobacco status: current every day smoker e-cigarettes Alcohol intake: current Alcohol intake frequency: few times a month Marital status: Current occupational status: employed History of recent travel: No Data Anesthesia 05/25/22 08:43 05/25/22 08:43 Short CBC 05/25/22 Range/Units 08:43 WBC 23.8 H (4.0-10.0) 10^3/uL Hgb 12.4 (11.5-15.3) g/dL Hct 38.6 (37.0-47.0) % MCV 80.4 L (81-99) fl Plt Count 321 (130-400) 10^3/cmm Neut % (Auto) 93.7 % Neut # (Auto) 22.29 H (1.8-7.7) 10^3/uL BMP 05/25/22 08:43 Sodium 134 L Potassium 3.9 Chloride 103 Carbon Dioxide 21 L BUN 11 Creatinine 0.6 Glucose 121 H Calcium 10.9 H Liver Function 05/25/22 Range/Units 08:43 Total Bilirubin 1.0 (0.15-1.2) mg/dL AST 67 H (0-32) U/L ALT 56 H (0-33) U/L Alkaline Phosphatase 170 H (35-105) U/L Albumin 4.3 (3.5-5.2) g/dL Urine 05/25/22 Range/Units 08:30 Urine Color Yellow (Yellow) Urine Appearance Hazy A (CLEAR) Urine pH 6.5 (5-7) Ur Specific [place] 1.030 (1.005-1.030) Urine Protein Neg (Negative) Urine Glucose (UA) Norm (Normal) Urine Ketones Negative (Negative) Urine Nitrate Positive H (Negative) Urine Bilirubin Neg (Negative) Ur Leukocyte Esterase 2+ H (Negative) Urine RBC None (0-2) /hpf Urine WBC 15-25 H (0-5) /hpf Microbiology 05/25/22 08:47 Blood Culture - Preliminary Blood SPECIMEN COLLECTED 05/25/22 08:43 Blood Culture - Preliminary Blood SPECIMEN COLLECTED Cardiac Studies: No Data to Display
[2022-05-25] MEDS: fentaNYL 50 mcg/mL INJ 2mL IVP (12:35)
--- NOTE | 2022-05-25 12:49 | SUR.PREOP ---
1249-Patient refuses to remove upper lip ring. Anesthesia explained the risks of leaving it in, patient is aware of risks.
[2022-05-25 12:50] LABS: Hepatitis A Antibody IgM Non-Reactive (Nonreactive); Hepatitis B Core IgM Non-Reactive (Nonreactive); Hepatitis B Surface Antigen Non-Reactive (Nonreactive); Hepatitis C Virus Antibody Non-Reactive (Nonreactive)
[2022-05-25] MEDS: sodium chloride 0.9% 1,000 ML 30 ML IV (12:58)
[2022-05-25] MEDS: acetaminophen 1,000 MG/100 ML PIGGYBACK 400 MG IV (13:02)
--- NOTE | 2022-05-25 13:59 | P.OP_ITS ---
Operative Report Date of procedure: May 25, 2022 Pre-op diagnosis: Obstructive pyelonephritis with bilateral obstructing proximal ureteral stones Post-op diagnosis: Obstructive pyelonephritis with bilateral obstructing proximal ureteral stones Procedure done: 1. Cystoscopy with bilateral ureteral stent placement 2. LEFT retrograde pyelogram Implants: Bilateral ureteral stents, 7 Lithuanian by 26 cm double-pigtail without string Specimens removed/disposition: None Pathology: None Surgeon: Eli Estimated blood loss: Minimal Urine output: Not measured Complications: None Findings: Anesthesia: General Condition: Stable Disposition: ICU Intraoperative findings: * Stones readily identifiable on fluoroscopy in the expected position. * Right ureteral stent without difficulty. * Left ureteral stent did not curl as expected and therefore was removed and a open-ended ureteral catheter was placed over guidewire and a very small amount of contrast was injected into the collecting system to confirm positioning. Left ureteral stent then was replaced with good positioning in the lower pole area. No extravasation of contrast etc. * Both stents confirmed to be draining well at the completion of the procedure. * Patricia catheter left in place Brief History: Brooklyn is a very pleasant 27-year-old white female well-known to me for history of recurrent urolithiasis and UTIs with a history of cystitis cystica. She missed her last scheduled appointment. Presented to the emergency department with 24 hours of left flank pain and febrile illness. Was found to have a urinary tract infection and CT scan demonstrated bilateral obstructing ureteral calculi. It was recommended that we go to the operating room emergently for stent placement bilaterally. She is actually had a previous episode of obstructive pyelonephritis Procedure: After emergent evaluation examination and obtaining informed consent she was taken to the operating suite on 05/25/2022 where general anesthesia was administered without difficulty after appropriate timeout was performed, SCDs confirmed to be functioning, preoperative antibiotics administered, beta-fredy protocol confirmed. Prepped and draped in usual sterile fashion in dorsolithotomy position paying careful attention to avoiding pressure points. 21 Lithuanian cystoscope with 30 degree lens was introduced into the urethra meatus and advanced into the bladder without difficulty. The bladder was systematically examined. No stones were seen. A flexible tip guidewire was then advanced up the left ureter bypassing the visible left proximal ureteral stone and curling what appeared to be the area of the upper pole calyx. A 7 Lithuanian by 26 cm double-pigtail stent was passed and it met some resistance at the level of the stone. The wire was withdrawn in the distal aspect of the ureter curled in the bladder without difficulty but the proximal aspect did not. Because of the significance potential problems related to malpositioning of the stent the stent was grasped with grasping forceps and withdrawn through the meatus and the wire replaced. The stent was removed and an open-ended ureteral catheter was advanced over the wire and a very small amount of contrast was injected showing an intact collecting system without extravasation. The wire was replaced and the stent passed through the cystoscope over the guidewire into appropriate position as confirmed via fluoroscopy and cystoscopy. Both stents were confirmed to be functioning. She was awakened in the operating room and transported to ICU for continued care. Condition stable PLANS: 1. We will maintain the stents for least a couple weeks and then plan for definitive treatment of the stones most likely via endoscopy. 2. We will follow on inpatient basis
[2022-05-25] MEDS: sodium chloride 0.9% 1,000 ML 150 ML IV ×2 (16:05→22:55)
[2022-05-25 17:37] LABS: Lactic Acid level (Lactate) 0.7 mmol/L (0.5-2.2)
[2022-05-25 19:29] LABS: Add Urine Culture? Yes; Bacteria Urine TRACE /hpf; Bilirubin Urine Neg (Negative); Blood Urine 2+ (Negative); Glucose Urine UA Norm (Normal); Ketones Urine Negative (Negative); Leukocyte Esterase Urine 1+ (Negative); Nitrate Urine Negative (Negative); Protein Urine Neg (Negative); RBC Urine 0-4 /hpf (0-2); Specific Gravity, Urine 1.005 (1.005-1.030); Squamous Epithelial Cell Urine 0-4 /hpf (0-5); Urine Appearance Clear (CLEAR); Urine Color Yellow (Yellow); Urobilinogen Urine Norm (Negative); WBC Urine 55-80 /hpf (0-5); pH Urine 5 (5-7)
[2022-05-26] VITALS (10 sets, daily range): BP systolic 100–123; BP diastolic 62–76; PULSE 70–120; RESP 15–22; TEMP 36.6–38.3; O2SAT 96–99
[2022-05-26] MEDS: sodium chloride 0.9% 1,000 ML 150 ML IV ×3 (05:29→22:38)
[2022-05-26] MEDS: morphine 4 mg/mL SDV 1 mL IVP (05:31)
[2022-05-26 05:41] LABS: Basophils % 0.2 %; Hematocrit 31.2 % (37.0-47.0); Hemoglobin 9.8 g/dL (11.5-15.3); Lymphocytes # 1.1 10^3/uL (0.8-4.8); Lymphocytes % 5.2 %; Mean Corpuscular HGB Conc 31.4 g/dL (30.0-36.0); Mean Corpuscular Hemoglobin 26.2 pg (28.0-34.0); Mean Corpuscular Volume 83.4 fl (81-99); Mean Platelet Volume 11.6 fL (7.4-10.4); Monocytes # 1.3 10^3/uL (0.2-0.9); Monocytes % 6.5 %; Neutrophils % 86.9 %; Nucleated Red Blood Cells % 0 %; Platelet Count 340 10^3/cmm (130-400); Red Blood Count 3.74 10^6/uL (4.1-5.3); Red Cell Distribution Width 15.6 % (12.1-15.1); White Blood Count 20.1 10^3/uL (4.0-10.0)
[2022-05-26 06:05] LABS: Acinetobacter baumannii Not Detected (NOT DETECT); Bacteroides fragilis Not Detected (NOT DETECT); CTX-M Not Detected (NOT DETECT); Citrobacter Not Detected (NOT DETECT); Cronobacter sakazakii Not Detected (NOT DETECT); Enterobacter cloacae complex Not Detected (NOT DETECT); Enterobacter non cloacae Not Detected (NOT DETECT); Fusobacterium necrophorum Not Detected (NOT DETECT); Fusobacterium nucleatum Not Detected (NOT DETECT); Haemophilus influenzae Not Detected (NOT DETECT); IMP Resistance Gene Not Detected (NOT DETECT); KPC Resistance Gene Not Detected (NOT DETECT); Klebsiella pneumoniae group Not Detected (NOT DETECT); Morganella morganii Not Detected (NOT DETECT); NDM Resistance Gene Not Detected (NOT DETECT); Neisseria meningitidis Not Detected (NOT DETECT); OXA Resistance Gene Not Detected (NOT DETECT); Pan Candida Not Detected (NOT DETECT); Pan Gram-Positive Not Detected (NOT DETECT); Proteus mirabilis Not Detected (NOT DETECT); Pseudomonas aeruginosa Not Detected (NOT DETECT); Salmonella Not Detected (NOT DETECT); Serratia Not Detected (NOT DETECT); Serratia marcescens Not Detected (NOT DETECT); Stenotrophomonas maltophilia Not Detected (NOT DETECT); VIM Resistance Gene Not Detected (NOT DETECT)
[2022-05-26 06:09] LABS: Alanine Aminotransferase 91 U/L (0-33); Albumin Level 3.1 g/dL (3.5-5.2); Alkaline Phosphatase 168 U/L (35-105); Aspartate Amino Transferase 61 U/L (0-32); Blood Urea Nitrogen 7 mg/dL (6-20); Calcium 10.2 mg/dL (8.5-10.5); Carbon Dioxide 19 mmol/L (22-29); Chloride 112 mmol/L (98-107); Globulin 2.8 g/dL (1.3-4.6); Glomerular Filtration Rate 150.3 mL/min (90-130); Glucose 108 mg/dL (65-115); Osmolality Calculated 287 mOsm/kg (285-295); Sodium 139 mmol/L (136-145); Total Bilirubin 0.6 mg/dL (0.15-1.2); Total Protein 5.9 g/dL (6.6-8.7)
[2022-05-26] MEDS: cefTRIAXone 1,000 MG in sodium chloride 0.9% (plus) 50 ML 100 MG IV ×2 (10:02→20:35)
[2022-05-26] MEDS: oxyCODONE 5 mg IR Tab/Cap PO ×2 (11:16→17:49)
--- NOTE | 2022-05-26 11:57 | PC.NURSE ---
PT C/O BLADDER PAIN, BLADDER SCAN SHOWED 0MLS IN HER BLADDER, MCKENNA CATH DRAINING. PT REQUESTED MCKENNA BE PULLED, NOTIFIED DR. BALBUENA OF BLADDER SCAN FINDINGS, GAVE VERBAL ORDER TO REMOVE MCKENNA. PT TOLERATED WELL.
--- NOTE | 2022-05-26 13:27 | PM.PN ---
Subjective Subjective: Urology follow-up Postop day #1: Bilateral ureteral stent placement and left retrograde pyelogram Overall she is doing better. Her white count is still elevated but is improved. Vital signs have been stable. Last fever was during the operation at 103. Has had no significant systemic symptoms other than fatigue and weakness. No hemodynamic instability. Was complaining of bladder spasms which would be expected with bilateral ureteral stents and a Patricia catheter as well as a UTI. Catheter was removed and felt better. Was treated with OXYBUTYNIN 5 mg 3 times daily as needed and can be placed on schedule if necessary Reviewed with her the significance of her illness on admission. She is holding her own currently. Discussed the importance of follow-up. She missed her last appointment. Told her we be happy to work with her schedule to try to get her in on days where she is not working. Reviewed that she still has work to be done with ureteroscopy and laser lithotripsy of the stones versus ESWL. We will need to overlap with antibiotics. Also need to focus on chronic cystitis long-term planning. Vitals/I&O/Wt Last Vital Signs Temp 98.9 F 05/26/22 12:00 Pulse 108 H 05/26/22 12:00 Resp 18 05/26/22 12:00 BP 123/76 05/26/22 12:00 Pulse Ox 99 05/26/22 12:00 O2 Del Method 05/26/22 12:00 O2 Flow Rate 5 05/25/22 14:25 05/25/22 05/26/22 05/26/22 22:59 06:59 14:59 Intake Total 1000 / 4150 985 / 5135 290 / 290 Output Total 1600 / 1600 Balance -600 / 2550 985 / 3535 290 / 290 Weight last 48 hrs Weight 161 lb Physical Exam Const: COMMON NORMALS: no acute distress, alert and well nourished GENERAL APPEARANCE: well kempt and well developed ORIENTATION/CONSCIOUSNESS: not confused HENMT: COMMON NORMALS: normocephalic HEAD & SCALP: normal to inspection and normocephalic Eye: COMMON NORMALS: conjunctivae normal and no scleral icterus CONJUNCTIVA: Yes conjunctivae normal Neck/C-Spine: GENERAL: Yes normal visual inspection Resp: COMMON NORMALS: normal respiratory effort EFFORT & INSPECTION: Yes able to speak in complete sentences, No labored and No Actively coughing Neuro: COMMON NORMALS: no focal motor deficits SENSORIUM/ORIENTATION: Yes alert Psych: COMMON NORMALS: mental status grossly normal APPEARANCE: Yes grossly normal and Yes well kempt ATTITUDE: Yes calm and Yes engaged Skin: COMMON NORMALS: no jaundice Urinary Catheter Management: Patricia: Cath Placed During This Visit: no Reason for Continuing Indwelling Catheter: Acute Urinary Retention or Obstruction Data 05/26/22 05:19 05/26/22 05:19 Micro: Microbiology 05/25/22 08:43 Blood Culture - Preliminary Blood NEGATIVE TO DATE 05/25/22 08:47 Blood Culture - Preliminary Blood A&P Assessment and plan (1) Bilateral ureteral calculi: (2) Chronic cystitis: (3) Obstructive pyelonephritis: Attestations Medical Necessity Statement*: Still on IV antibiotics. Still very ill post obstructive pyelonephritis stent drainage Coding Level of Care Code Acute Code for [facility] Diagnoses Bilateral ureteral calculi N20.1 Chronic cystitis N30.20 Obstructive pyelonephritis N11.1
--- NOTE | 2022-05-26 16:06 | P.PN_ITS ---
Subjective Subjective: Reports that she is feeling much better. Her pain is better controlled today. States that she has been able to eat and drink a little bit today. She denies any further fevers. Currently denies any nausea, or vomiting. Medications: Reviewed: Yes Vitals/I&O/Wt Last Vital Signs Temp 98.9 F 05/26/22 12:00 Pulse 108 H 05/26/22 12:00 Resp 18 05/26/22 12:00 BP 123/76 05/26/22 12:00 Pulse Ox 99 05/26/22 12:00 O2 Del Method 05/26/22 12:00 O2 Flow Rate 5 05/25/22 14:25 05/26/22 05/26/22 05/26/22 06:59 14:59 22:59 Intake Total 985 / 5135 1290 / 1290 Balance 985 / 3535 1290 / 1290 Weight last 48 hrs Weight 161 lb Physical Exam Narrative: General: Cooperative patient in no apparent distress. Well developed. HEENT: Normocephalic, Atraumatic. External ears normal. Nasal passages patent without drainage. MMM. Heart: Tachycardia, regular rhythm. No rubs, gallops, murmurs. Resp: Lungs clear to auscultation. No respiratory distress, no use of accessory muscles. Abd: Soft, nontender, non-distended. Extremities: No edema. Skin: No rash or lesions on exposed areas. Urinary Catheter Management: Patricia: Cath Placed During This Visit: no Reason for Continuing Indwelling Catheter: Acute Urinary Retention or Ob struction Data 05/26/22 05:19 05/26/22 05:19 Micro: Microbiology 05/25/22 08:43 Blood Culture - Preliminary Blood NEGATIVE TO DATE 05/25/22 08:47 Blood Culture - Preliminary Blood A&P Assessment and plan (1) Bilateral ureteral calculi: (2) Chronic cystitis: (3) Obstructive pyelonephritis: Plan 27-year-old female, admitted for bilateral ureteral calculi, obstructive pyelonephritis. Continue close inpatient monitoring. Urology is consulted and appreciate their help with this patient. She is mildly tachycardic, but remainder the vitals are stable. She is status post placement of a ureteral stent. She reports that she is feeling much better since undergoing this procedure. Blood cultures are currently pending. She is on ceftriaxone for empiric therapy. We will continue for now. Will repeat a.m. labs. Continue IV fluids. Continue diet as tolerated. Continue pain medication. She is currently well controlled. Code status: Full Diet: As tolerated. DVT PPx: SCD's. GI PPx: Famotidine Abx: Rocephin IVF: NS @ 150ml/hr Attestations Medical Necessity Statement*: Still on IV antibiotics. Still very ill post obstructive pyelonephritis stent drainage Time Spent in Patient Care: 16 - 35 minutes Coding Level of Care Code Acute Code for [facility] Diagnoses Bilateral ureteral calculi N20.1 Chronic cystitis N30.20 Obstructive pyelonephritis N11.1
[2022-05-26] MEDS: oxybutynin 5 mg Tablet PO (17:49)
[2022-05-26] MEDS: acetaminophen 325 mg Tablet 650 MG PO (20:35)
[2022-05-27 00:05] VITALS: BP 97/57; PULSE 94; RESP 16; TEMP 36.7; O2SAT 96
[2022-05-27 04:28] VITALS: BP 99/57; PULSE 91; RESP 16; TEMP 36.8; O2SAT 97
[2022-05-27 05:04] VITALS: RESP 17
[2022-05-27] MEDS: oxybutynin 5 mg Tablet PO (05:04)
[2022-05-27] MEDS: oxyCODONE 5 mg IR Tab/Cap PO (05:04)
[2022-05-27] MEDS: sodium chloride 0.9% 1,000 ML 150 ML IV (05:05)
[2022-05-27 08:00] VITALS: BP 106/65; PULSE 93; RESP 16; TEMP 37.1; O2SAT 96
[2022-05-27] MEDS: cefTRIAXone 1,000 MG in sodium chloride 0.9% (plus) 50 ML 100 MG IV (09:27)
[2022-05-27 11:42] VITALS: BP 127/81; PULSE 86; RESP 17; TEMP 37.4
--- NOTE | 2022-05-27 11:46 | P.PN_ITS ---
Subjective Subjective: Urology follow-up: Postop day #2 bilateral ureteral stenting for bilateral proximal ureteral stones with obstruction and obstructive pyelonephritis. She continues to improve. T-max was 101.0 at 8 PM last night. Afebrile since. Feels much better and stronger. Appetite increasing. Tolerating stents well. Will decrease her fluid rate to 75 cc/h Waiting on cultures. Preliminary shows gram-negative rods in the urine Vitals/I&O/Wt Last Vital Signs Temp 99.4 F 05/27/22 11:42 Pulse 86 05/27/22 11:42 Resp 17 05/27/22 11:42 BP 127/81 05/27/22 11:42 Pulse Ox 96 05/27/22 08:00 O2 Del Method 05/27/22 11:42 O2 Flow Rate 5 05/25/22 14:25 05/26/22 05/27/22 05/27/22 22:59 06:59 14:59 Intake Total 1410 / 2940 1267.5 / 4207.5 410 / 410 Balance 1410 / 1940 1267.5 / 3207.5 410 / 410 Physical Exam Const: COMMON NORMALS: no acute distress, alert and well nourished GENERAL APPEARANCE: well kempt and well developed ORIENTATION/CONSCIOUSNESS: not confused Resp: COMMON NORMALS: normal respiratory effort EFFORT & INSPECTION: Yes able to speak in complete sentences, No labored and No Actively coughing Neuro: COMMON NORMALS: no focal motor deficits SENSORIUM/ORIENTATION: Yes alert Psych: COMMON NORMALS: mental status grossly normal APPEARANCE: Yes grossly normal and Yes well kempt ATTITUDE: Yes calm and Yes engaged Skin: COMMON NORMALS: no jaundice Urinary Catheter Management: Patricia: Cath Placed During This Visit: yes, but has since been removed by the nurse Reason for Continuing Indwelling Catheter: Decision to DC Catheter Date Urinary Catheter Removed: 05/26/22 Time Urinary Catheter Discontinued: 12:00 Data 05/26/22 05:19 05/26/22 05:19 Micro: Microbiology 05/25/22 10:55 Urine Culture - Preliminary Urine,Clean Catch Gram Negative Rods 05/25/22 08:43 Blood Culture - Preliminary Blood NEGATIVE TO DATE A&P Assessment and plan (1) Bilateral ureteral calculi: Will need definitive treatment of the stones after recovers from obstructive pyelonephritis (2) Chronic cystitis: She will need to continue prolonged course of antibiotics. We will adjust antibiotics based on culture results from this hospital stay. (3) Obstructive pyelonephritis: Clinically improving. Attestations Medical Necessity Statement*: See attending Coding Level of Care Code Acute Code for [facility] Diagnoses Bilateral ureteral calculi N20.1 Chronic cystitis N30.20 Obstructive pyelonephritis N11.1
[2022-05-27] MEDS: sodium chloride 0.9% 1,000 ML 75 ML IV (13:25)
--- NOTE | 2022-05-27 15:33 | PC.NURSE ---
AMA: Pt requesting to leave AMA due to being the only member in her household that has a job and the only provider for her children. Dr. Benitez, Dr. Martinez, and charge nurse PAM Beebe notified. Risks and benefits explained to pt by Dr. Benitez and this nurse. Pt continued to request to leave AMA. AMA paperwork given to pt. AMA paperwork signed and filed in chart.
--- NOTE | 2022-05-27 21:45 | PM.DCS ---
Discharge Providers Date of Admission: 05/25/22 13:15 Date of Discharge: May 27, 2022 Attending Provider at Admission: Sabino Benitez MD Attending Provider at Discharge: Hector Martinez DO Primary Care Provider: Steven Del Rio MD Diagnoses at Discharge Discharge Diagnosis (1) Bilateral ureteral calculi: Status: Acute (2) Chronic cystitis: Status: Acute (3) Obstructive pyelonephritis: Status: Acute Reason for Visit Reason for Visit: Kidney pains Hospital Course Hospital Course Patient was admitted for IV ABx due to obstructive pyelonephritis. Elected to Leave AMA this evening stating that she has to work tomorrow and can't stay in the hospital any longer. It was recommended to patient that she stay for continued Abx and follow up on results of cultures. Urine cultures were pending ID and susceptibilities. Also noted that she had positive Blood cultures in 1/4 bottles with GNR. Patient again voiced that she is not staying in the hospital and will be leaving soon. Additional doses of Cefdinir were sent to the pharmacy and it was recommended that patient have blood cultures repeated before leaving as this would require further IV ABx. Patient adamant about leaving despite recommendations from myself and Urology. Physical Exam Urinary Catheter Management: Patricia: Cath Placed During This Visit: yes, but has since been removed by the nurse Reason for Continuing Indwelling Catheter: Decision to DC Catheter Date Urinary Catheter Removed: 05/26/22 Time Urinary Catheter Discontinued: 12:00 Discharge Data Studies Completed and Pending Completed Studies During Hospitalization Category Date Time Status CT abdomen renal stone [CT kidney stone 93372] Stat Cat Scan 05/25/22 08:39 Completed Pending at discharge Category Date Time Status Blood Culture Stat Lab 05/25/22 08:47 Results Urine Culture Stat Lab 05/25/22 10:55 Results Radiology Impressions Abdomen/Pelvis CT 05/25/22 08:39 IMPRESSION: 1. Bilateral medullary nephrocalcinosis. 2. Bilateral obstructing proximal ureteral calculi largest in the LEFT measures 5 mm and largest in the RIGHT measures 4 mm. Moderate LEFT and mild RIGHT hydronephrosis with bilateral ureterectasis. 3. Inflammatory stranding and edema worse about the LEFT renal pelvis and proximal ureter. 4. No other acute findings. Attempted notification BLAZE Garcia at 05/25/2022 9:43 AM. Laboratory Results WBC 20.1 10^3/uL (4.0-10.0) H 05/26/22 05:19 RBC 3.74 10^6/uL (4.1-5.3) L 05/26/22 05:19 Hgb 9.8 g/dL (11.5-15.3) L 05/26/22 05:19 Hct 31.2 % (37.0-47.0) L 05/26/22 05:19 MCV 83.4 fl (81-99) 05/26/22 05:19 MCH 26.2 pg (28.0-34.0) L 05/26/22 05:19 MCHC 31.4 g/dL (30.0-36.0) 05/26/22 05:19 RDW 15.6 % (12.1-15.1) H 05/26/22 05:19 Plt Count 340 10^3/cmm (130-400) 05/26/22 05:19 MPV 11.6 fL (7.4-10.4) H 05/26/22 05:19 Neut % (Auto) 86.9 % 05/26/22 05:19 Lymph % (Auto) 5.2 % 05/26/22 05:19 [place] % (Auto) 6.5 % 05/26/22 05:19 Eos % (Auto) 0.0 % 05/26/22 05:19 Baso % (Auto) 0.2 % 05/26/22 05:19 Neut # (Auto) 17.50 10^3/uL (1.8-7.7) H 05/26/22 05:19 Lymph # (Auto) 1.1 10^3/uL (0.8-4.8) 05/26/22 05:19 [place] # (Auto) 1.3 10^3/uL (0.2-0.9) H 05/26/22 05:19 Eos # (Auto) 0.0 10^3/uL (0.0-0.8) 05/26/22 05:19 Baso # (Auto) 0.0 10^3/uL (0.0-0.1) 05/26/22 05:19 Nucleated RBC % (auto) 0 % 05/26/22 05:19 Nucleated RBCs # 0.0 /100WBC 05/26/22 05:19 Sodium 139 mmol/L (136-145) 05/26/22 05:19 Potassium 4.0 mmol/L (3.5-5.1) 05/26/22 05:19 Chloride 112 mmol/L (98-107) H 05/26/22 05:19 Carbon Dioxide 19 mmol/L (22-29) L 05/26/22 05:19 Anion Gap 12.0 (5-19) 05/26/22 05:19 BUN 7 mg/dL (6-20) 05/26/22 05:19 Creatinine 0.5 mg/dL (0.5-0.9) 05/26/22 05:19 GFR Calculation 150.3 mL/min (90-130) H 05/26/22 05:19 Glucose 108 mg/dL (65-115) 05/26/22 05:19 Calculated Osmolality 287 mOsm/kg (285-295) 05/26/22 05:19 Lactic Acid 2.1 mmol/L (0.5-2.2) 05/25/22 08:43 Lactic Acid (Sepsis) 0.7 mmol/L (0.5-2.2) 05/25/22 17:15 Calcium 10.2 mg/dL (8.5-10.5) 05/26/22 05:19 Total Bilirubin 0.6 mg/dL (0.15-1.2) 05/26/22 05:19 AST 61 U/L (0-32) H 05/26/22 05:19 ALT 91 U/L (0-33) H 05/26/22 05:19 Alkaline Phosphatase 168 U/L (35-105) H 05/26/22 05:19 Total Protein 5.9 g/dL (6.6-8.7) L D 05/26/22 05:19 Albumin 3.1 g/dL (3.5-5.2) L 05/26/22 05:19 Globulin 2.8 g/dL (1.3-4.6) 05/26/22 05:19 HCG, Qual Negative (Negative) 05/25/22 08:43 Urine Color Yellow (Yellow) 05/25/22 10:55 Urine Appearance Clear (CLEAR) 05/25/22 10:55 Urine pH 5 (5-7) 05/25/22 10:55 Ur Specific [place] 1.005 (1.005-1.030) 05/25/22 10:55 Urine Protein Neg (Negative) 05/25/22 10:55 Urine Glucose (UA) Norm (Normal) 05/25/22 10:55 Urine Ketones Negative (Negative) 05/25/22 10:55 Urine Blood 2+ (Negative) H 05/25/22 10:55 Urine Nitrate Negative (Negative) 05/25/22 10:55 Urine Bilirubin Neg (Negative) 05/25/22 10:55 Urine Urobilinogen Norm mg/dL (Negative) 05/25/22 10:55 Ur Leukocyte Esterase 1+ (Negative) H 05/25/22 10:55 Urine RBC 0-4 /hpf (0-2) H 05/25/22 10:55 Urine WBC 55-80 /hpf (0-5) H 05/25/22 10:55 Ur Squamous Epith Cells 0-4 /hpf (0-5) H 05/25/22 10:55 Amorphous Sediment Not Reportable 05/25/22 10:55 Urine Bacteria Trace /hpf (NONE) 05/25/22 10:55 Hepatitis A IgM Ab Non-reactive (Nonreactive) 05/25/22 08:43 Hep Bs Antigen Non-reactive (Nonreactive) 05/25/22 08:43 Hep B Core IgM Ab Non-reactive (Nonreactive) 05/25/22 08:43 Hepatitis C Antibody Non-reactive (Nonreactive) 05/25/22 08:43 Vitals Last Vital Signs Temp 99.4 F 05/27/22 11:42 Pulse 86 05/27/22 11:42 Resp 17 05/27/22 11:42 BP 127/81 05/27/22 11:42 Pulse Ox 96 05/27/22 08:00 O2 Del Method 05/27/22 11:42 O2 Flow Rate 5 05/25/22 14:25 Discharge Plan Discharge Patient Disposition: Left Against Medical Advice Condition: Stable Prescriptions: New cefdinir 300 mg capsule 300 mg PO BID 10 Days Qty: 20 0RF Continued nitrofurantoin monohyd/m-cryst [Macrobid] 100 mg capsule 100 mg PO BID Qty: 60 6RF Rx Instructions: must administer with a meal/food ibuprofen 200 mg Tablet 600 mg PO Q6H PRN (Reason: Pain) Cranberry-Probiotic 480 mg-20 mg- 100million cell Tablet 1 tab PO DAILY Referrals: Steven Del Rio MD [Primary Care Provider] - Discharge Attestations Time Spent in Discharge Care*: less than 30 min Quality Metrics Clinical Quality Measures [ No reported AMI, CVA or VTE this stay] Coding Level of Care Code Acute Chg FW HI note Diagnoses Bilateral ureteral calculi N20.1 Chronic cystitis N30.20 Obstructive pyelonephritis N11.1
== END 2022-05-27 15:38 | disposition left against medical advice (07) | DRG 660 ==
LOC: ER 09:35 → OR 11:08 → MEDSURG 13:15
PROVIDERS: Internal Medicine; Physician Assistant; Admitting Provider Urology; Emergency Provider Family Medicine; PCP Family Medicine; Visit Provider Family Medicine
PROC: 0TJB8ZZ Inspection of Bladder, Via Natural or Artificial Opening Endoscopic (ICD-10-PCS; CPT 52000; principal; 2022-05-25 13:00)
PROC: 0T788DZ Dilation of Bilateral Ureters with Intraluminal Device, Via Natural or Artificial Opening Endoscopic (ICD-10-PCS; CPT 50605; 2022-05-25 13:00)
PROC: 0T788DZ Dilation of Bilateral Ureters with Intraluminal Device, Via Natural or Artificial Opening Endoscopic (ICD-10-PCS; CPT 74420; 2022-05-25 13:00)
DX: N20.1 Calculus of ureter (principal); Q61.5 Medullary cystic kidney; Z87.442 Personal history of urinary calculi; Z53.29 Procedure and treatment not carried out because of patient's decision for other reasons; N30.20 Other chronic cystitis without hematuria; Z87.440 Personal history of urinary (tract) infections; F17.290 Nicotine dependence, other tobacco product, uncomplicated
CPT/HCPCS: 36415; 74176; 80053; 80074; 81001; 81025; 83605; 84703; 85025; 87040; 87077; 87086; 87150; 87186; 87205; 96365; 96375; 99285; C2625; J0131; J0696; J1100; J1200; J2250; J2270; J2370; J2405; J2704; J3010; J3490; J7030; Q9967

== ENCOUNTER 2022-06-01 11:14 | Outpatient (CLI) | payer MEDICAID, SELFPAY ==
--- NOTE | 2022-06-01 11:29 | XR_ITS ---
WS: [id number] XR KUB [id number] REASON FOR EXAM: STONES FINDINGS: Bilateral ureteral stents. Small calculus (3 mm) adjacent to the right ureteral stent at the right transverse process of the L3 vertebral body. Multiple small calculi (2 mm) adjacent to the proximal left ureteral stent between L2 and L3. Additio nal small ureteral calculus overlying the transverse process of L3. There are multiple groups of very small calculi overlying the right kidney and a smaller number of gr oups of calculi overlying the upper pole of the left kidney. Congruent with the diffuse medullary nep hrocalcinosis seen on the CT scan of 05/25/2022. XR/XR KUB [id number] IMPRESSION: Bilateral ureteral stents with bilateral ureteral and renal calculi as above.
== END 2022-06-01 11:15 | disposition home or self-care (01) ==
PROVIDERS: PCP Family Medicine; Visit Provider Urology
DX: N20.9 Urinary calculus, unspecified (principal)
CPT/HCPCS: 74018; 81003

== ENCOUNTER 2022-06-06 05:53 | Day surgery (SDC) | payer MEDICAID, SELFPAY ==
[2022-06-05 12:19] VITALS: BMI 25.8
[2022-06-06] VITALS (10 sets, daily range): BP systolic 113–134; BP diastolic 69–93; PULSE 48–79; RESP 10–18; TEMP 36.1–36.5; O2SAT 98–100
--- NOTE | 2022-06-06 05:58 | SC_ITS ---
WS: [id number] Exam: C-arm FL for Urology Date/Time of Exam: 06/06/2022 5:58 AM Reason For Exam: Bilateral ureteroscopy Limited AP C-arm images of the abdomen are submitted. Bilateral ureteral stent catheters are identified in the region of the kidneys. The right-sided stephanie ter appears to contain a guidewire. The mid and lower aspects of both catheters are out of the field- of-view.. No other significant finding.
--- NOTE | 2022-06-06 05:58 | XR_ITS ---
WS: [id number] Exam: XR KUB [id number] Date/Time of Exam: 06/06/2022 5:58 AM Reason For Exam: Preop bilateral ureteroscopy Comparison 06/01/2022. No bowel obstruction or free air. No organ enlargement noted. Again noted are bilateral ureteral sten ts in place. There are small calcifications seen along the proximal aspects of both catheters apparen tly representing known ureteral stones. There are additional small stones in both kidneys. Bony struc tures are intact. XR/XR KUB [id number] IMPRESSION: 1. Bilateral ureteral stents with bilateral ureteral and renal calculi. No comer ge.
[2022-06-06 06:17] LABS: OR HCG Qualitative Urine Negative (Negative)
[2022-06-06] MEDS: sodium chloride 0.9% 1,000 ML 30 ML IV (06:31)
--- NOTE | 2022-06-06 06:58 | ANES.PREANE2 ---
Pre-Anesthetic Assessment Height/Weight: Height 1.68 m Weight 72.575 kg Temp Pulse Resp BP Pulse Ox O2 Del Method 97.7 F 67 18 113/82 99 06/06/22 06:21 06/06/22 06:21 06/06/22 06:21 06/06/22 06:21 06/06/22 06:21 06/06/22 06:22 Preop Diagnosis: Bilateral ureteral calculi Operation Date: 06/06/22 07:10 Proposed Procedures p CYSTOSCOPY BILATERAL RETROGRADES URETEROSCOPY LASER STENT POSSIBLE ESWL [id number] MOD[place] 26 87426,N20.1(Not Applicable) - Sabino Benitez MD s Ureteroscopy(Bilateral) - MD janeth Badillo Laser Lithotripsy(Bilateral) - MD janeth Badillo Ureteral Stent Exchange(Bilateral) - Sabino Benitez MD s ESWL(Bilateral) - Sabino Benitez MD Familial anesthetic complications: None Was Beta Rayshawn taken within 24 hours: N/A Was Clonidine taken within 24 hours: N/A Last intake: Intake Last Liquid Date 06/05/22 Last Liquid Time 23:00 Last Solid Date 06/05/22 Last Solid Time 23:00 Social Tobacco and No alcohol Exam alert, oriented x 3, clear to auscultation bilaterally and regular rate & rhythm Airway Mallampati: Class III Dentition: full Pulmonary None reported CV/HEM None reported None reported medullary sponge Hepatic None reported GI None reported Metabolic None reported Musc/skel None reported Neuropsych None reported Anesthetic Plan ASA status: 2 Anesthesia: General Risk of > 500 ml blood loss (7ml/kg in children): No Medications/Allergies Home Medications Medication Instructions Recorded Confirmed Last Taken Type ibuprofen 200 mg tablet 600 mg PO Q6H PRN Pain 05/31/20 06/05/22 06/03/22 History nitrofurantoin 100 mg PO BID #60 caps 11/03/21 06/05/22 06/05/22 Rx monohydrate/macrocrystals 100 mg capsule (Macrobid) cranberry-B.odcxfdnio-W-Vq phos 1 tab PO DAILY 05/25/22 06/05/22 06/05/22 History 480 mg-20 mg-100 million cell tablet (Cranberry-Probiotic) hydrocodone 5 mg-acetaminophen 325 1 tab PO Q6H PRN Renal colic 4 05/29/22 06/06/22 06/05/22 Rx mg tablet days #16 tabs cefdinir 300 mg capsule 300 mg PO BID 10 days #20 caps 06/01/22 06/05/22 06/05/22 Rx oxybutynin chloride 10 mg 10 mg PO DAILY #20 tabs 06/01/22 06/05/22 06/05/22 Rx tablet,extended release 24 hr Allergies Allergy/AdvReac Type Severity Reaction Status Date / Time No Known Allergies Allergy Verified 06/06/22 06:19 Current Medications Generic Name Dose Route Start Last Admin Trade Name Freq PRN Reason Stop Dose Admin Sodium Chloride 1,000 mls @ 30 mls/hr 06/06/22 06:00 06/06/22 06:31 Sodium Chloride 0.9% IV 06/07/22 05:59 30 mls/hr .Q24H KRISTEN Administration PFSH Anesthesia Medical History Medullary sponge kidney Recurrent UTI Urolithiasis Yeast vaginitis Surgical History H/O tubal ligation History of wisdom tooth extraction Hx of cholecystectomy Hx of tonsillectomy Status post laser lithotripsy of ureteral calculus Family History Father , AT AGE 24 Electric injury Social History Smoking and tobacco status: current every day smoker e-cigarettes Alcohol intake: current Alcohol intake frequency: few times a month Marital status: Current occupational status: employed History of recent travel: No Female Reproductive History Date of last menstrual period: 06/02/22 Data Anesthesia Cardiac Studies: No Data to Display
--- NOTE | 2022-06-06 07:04 | W.PM.OPSUD ---
Surgery/Procedure H&P Update DATE OF PROCEDURE: June 06, 2022 DATE H&P PERFORMED: 06/01/22 H&P UPDATE INFORMATION: I have reviewed H&P completed within last 30 days, I have examined patient prior to procedure, No changes to prior documentation and H&P is in [facility] [place] on date indicated PREOP DIAGNOSIS: Bilateral ureteral calculi PLANNED PROCEDURE: Operation Date: 06/06/22 07:10 Proposed Procedures p CYSTOSCOPY BILATERAL RETROGRADES URETEROSCOPY LASER STENT POSSIBLE ESWL [id number] [id number] [place] [address] 57636,N20.1(Not Applicable) - Sabino Benitez MD s Ureteroscopy(Bilateral) - MD janeth Badillo Laser Lithotripsy(Bilateral) - MD janeth Badillo Ureteral Stent Exchange(Bilateral) - Sabino Benitez MD s ESWL(Bilateral) - Sabino Benitez MD
[2022-06-06] MEDS: levofloxacin-dextrose 5 % 500 MG/100 ML PREMIX 100 MG IV (07:09)
--- NOTE | 2022-06-06 08:45 | SUR.OPER ---
1470 ATTEMPT TO UPDATE SIGNIFICANT OTHER VIA CELL PHONE
--- NOTE | 2022-06-06 08:53 | SUR.OPER ---
0853 FAMILY UPDATED BY ANGELA SANTOS
--- NOTE | 2022-06-06 09:22 | P.OP_ITS ---
Operative Report Date of procedure: June 06, 2022 Pre-op diagnosis: Bilateral ureteral calculi, status post emergency stenting for obstructive pyelonephritis Post-op diagnosis: Bilateral ureteral calculi, status post emergency stenting for obstructive pyelonephritis Procedure done: 1. Cystoscopy, removal of BILATERAL ureteral stent 2. BILATERAL: Retrograde ureteropyelogram 3. BILATERAL: Ureteroscopy, laser lithotripsy, stent placement with stone extraction Implants: None Specimens removed/disposition: Ureteral stones Pathology: Ureteral stones Surgeon: Eli Estimated blood loss: Minimal Urine output: Not measured Complications: None Findings: Anesthesia: General Condition: Stable Disposition: PACU Intraoperative findings: * Stones were too large to pull out intact and therefore they were treated with endoscopic laser lithotripsy and fragment into small enough pieces that were basketed or flushed. A couple stones in each kidney were also fragmented * There is enough persistent inflammation of the ureters to warrant leaving ureteral stents indwelling. Bilateral 4.5 x 26 cm double-pigtail stents Brief History: [place] is a very pleasant 27-year-old white female with a history of recurrent stone disease and radiographic findings consistent with MSK. She was recently hospitalized with obstructive pyelonephritis and bacteremia with bilateral ureteral obstructing stones. No impairment of kidney function at the time though. She underwent emergency stenting and was continued on IV and then oral antibiotics. Back now for definitive treatment of the stones. Current films were reviewed again before surgery. CT scan specifically were evaluated and I could not see any clear evidence of loose stones in the collecting system on either side. Her bilateral renal calcifications all appear to be parenchymal. Procedure: After routine preoperative evaluation examination and obtaining of informed consent she was taken to the operating suite on 06/06/2022 where general ane sthesia was administered without difficulty after appropriate timeout was performed, SCDs confirmed to be functioning, preoperative antibiotics administered, beta-fredy protocol confirmed. Prepped and draped in the usual sterile fashion in dorsolithotomy position paying careful attention to avoiding pressure points. 21 Cameroonian cystoscope with 30 degree lens was introduced into the uret hra meatus and advanced into the bladder under videoscopy. Both stents were identified in the expected position. No encrustation. The stent was grasped with grasping forceps and withdrawn to the urethral meatus where a flexible tip guidewire was advanced up the right ureter through the stent into appropriate position. The stent was then removed manually under fluoroscopic visualization of the proximal aspect uncurled easily. A 6 Cameroonian mini scope was then passed next to the wire which had been secured to the drapes as a safety wire, up the RIGHT ureter without difficulty. The stone was encountered in its expected position secured in grasping forceps but was felt to be too large to remove intact and therefore was fragmented with a 200 ?m thulium superpulse laser fiber into small fragments. A flexible ureteroscope was then passed up to the right ureter and the kidney was inspected. There were 2 additional stones identified loose in the collecting system that were completely fragmented as well.. Scope was repassed and the ureter was carefully inspected. The safety wire was left indwelling while attention was then directed to the other side Attention was then directed to the LEFT side. Grasping forceps were then passed into the bladder the stent withdrawn to the urethral meatus and a wire passed through the stent into appropriate position and the stent removed. Wire was secured to the drapes as a safety wire. 6 Cameroonian mini scope was then passed. Some stones were encountered and fragmented with the laser. Basketing was used to remove many of the fragments. Flexible scope was then passed into the kidney and 2 additional stones were seen loose in the collecting system and these were fragmented. Multiple fragments were removed with basketing without d ifficulty. It was decided to leave a stent in both kidneys for healing Cystoscope backloaded over the guidewire was 1 at a time and a 4.5 Cameroonian by 26 cm double-pigtail stent was advanced over the guidewire through the cystoscope into appropriate position as confirmed via fluoroscopy and cystoscopy. Both stents were confirmed to be draining. Bladder was drained. Pieces that it been dropped into the bladder were flushed free. She tolerated procedure well without complications and was awakened in the operating room and returned to PACU in stable condition. PLANS: 1. Dissipate discharge from outpatient surgery 2. Follow-up in 2 weeks for cystoscopy and stent removal in the clinic 3. Continue antibiotics for now.
--- NOTE | 2022-06-06 09:33 | PC.NURSE ---
Airway removed at 0920. Awake. No pain
--- NOTE | 2022-06-06 14:09 | ANE.PACU2 ---
Inpatient post-anesthesia follow up: Airway intact: Yes Vital signs: Temperature 97.4 F Pulse Rate 51 Respiratory Rate 16 Blood Pressure 129/78 Pulse Oximetry 99 Oxygen Delivery Me thod Room Air Oxygen Flow Rate 8 Fraction of Inspir ed Oxygen Hydration adequate: Yes Nausea and vomiting: No Pain level: 1 Mental status: Baseline
--- NOTE | 2022-06-06 16:57 | SUR.PHASEII ---
4609-patient called in to ask if Dr Benitez could call her in some pain medication. Told her he didn't order any as she had some on her med list when we went over it this morning. She stated she forgot to tell me she was out. Dr Benitez was notified.
== END 2022-06-06 10:31 | disposition home or self-care (01) ==
PROVIDERS: PCP Family Medicine; Visit Provider Urology
PROC: 0TJB8ZZ Inspection of Bladder, Via Natural or Artificial Opening Endoscopic (ICD-10-PCS; CPT 52000; principal; 2022-06-06 07:00)
PROC: 0TJ98ZZ Inspection of Ureter, Via Natural or Artificial Opening Endoscopic (ICD-10-PCS; CPT 52351; 2022-06-06 07:00)
PROC: (CPT 52356; 2022-06-06 07:00)
PROC: (CPT 52356; 2022-06-06 07:00)
DX: N20.1 Calculus of ureter (principal); N12 Tubulo-interstitial nephritis, not specified as acute or chronic; F17.290 Nicotine dependence, other tobacco product, uncomplicated; B37.32 Chronic candidiasis of vulva and vagina; N30.20 Other chronic cystitis without hematuria
CPT/HCPCS: 52356; 74018; 76000; 81025; 82365; 84703; 88300; C2625; J1100; J1200; J1956; J2250; J2405; J2704; J2710; J3010; J3490; J7030

== ENCOUNTER 2022-06-19 07:27 | Outpatient (CLI) | payer MEDICAID, SELFPAY ==
--- NOTE | 2022-06-19 08:25 | XR_ITS ---
WS: [id number] XR KUB [id number] REASON FOR EXAM: stones FINDINGS: Bilateral ureteral stents in proper position. Compared to the previous abdomen examination 06/06/2019 3V small calculi along the course of both ureteral stents are no longer identifiable. No other calcul i along the course of the ureters or within the bladder. Multiple tiny right renal calculi unchanged compared to the previous examination. No definite calculi identified within the left kidney. (Previous CT scan 05/25/2022 2 demonstrated ext ensive medullary nephrocalcinosis bilaterally. XR/XR KUB [id number] IMPRESSION: Bilateral ureteral stents and right renal calculi as above.
== END 2022-06-19 07:28 | disposition home or self-care (01) ==
LOC: LAB 07:28
PROVIDERS: PCP Family Medicine; Visit Provider Urology
DX: Z87.440 Personal history of urinary (tract) infections (principal); Z96.0 Presence of urogenital implants; N20.0 Calculus of kidney; N20.9 Urinary calculus, unspecified; N20.1 Calculus of ureter; Q61.5 Medullary cystic kidney
CPT/HCPCS: 52310; 74018; 81003

== ENCOUNTER 2022-07-25 15:16 | Outpatient (CLI) | payer MEDICAID, SELFPAY ==
--- NOTE | 2022-07-25 15:28 | XR_ITS ---
WS: [id number] XR KUB [id number] REASON FOR EXAM: STONES FINDINGS: Numerous tiny intrarenal calculi are seen bilaterally indicative of the bilateral medullary nephrocal cinosis demonstrated on CT scan of 05/25/2022. No calculi along the course of the ureter or overlying the bladder identified. No other significant abdominal abnormality. XR/XR KUB [id number] IMPRESSION: Medullary nephrocalcinosis.
== END 2022-07-25 15:17 | disposition home or self-care (01) ==
PROVIDERS: PCP Family Medicine; Visit Provider Urology
DX: E83.59 Other disorders of calcium metabolism (principal); N29 Other disorders of kidney and ureter in diseases classified elsewhere
CPT/HCPCS: 74018; 81003

== ENCOUNTER 2022-10-22 20:52 | Emergency (ER) | payer MEDICAID, SELFPAY ==
[2022-10-22 21:01] VITALS: BP 116/73; PULSE 106; RESP 14; TEMP 37.5; O2SAT 100; BMI 26.1
[2022-10-22 21:05] VITALS: BP 114/74; PULSE 104; RESP 20; O2SAT 100
[2022-10-22 21:57] LABS: HCG Qualitative Urine. Negative (Negative)
--- NOTE | 2022-10-22 22:04 | ED_ITS ---
HPI - Female Genitourinary General: Chief complaint: Urogenital-Female Stated complaint: kidney pain Time Seen by Provider: 10/22/22 21:31 Source: patient Mode of arrival: ambulatory Limitations: no limitations History of Present Illness: 27-year-old female has a history of medullary sponge kidney and recurrent kidney and urinary tract infections she states she is having some left flank pain today with dysuria and low-grade fevers consistent with her previous kidney infections she denies any vomiting or diarrhea states pain sharp in nature rates it a 2 out of 10 she is a low-grade fever here. Denies any worsening proving factors. Associated symptoms: Deny abdominal pain, headache(s) or nausea Review of Systems 2 Const: Reports: fever(s); Denies: chills, body aches or change in appetite ENMT: Denies: throat pain or dental pain Card: Denies: chest pain Resp: Denies: dyspnea GI: Denies: abdominal pain, nausea, vomiting or diarrhea : Reports: flank pain and dysuria Musc: Denies: neck pain or back pain Skin/Breast: Denies: rash Neuro: Denies: headache(s) PFSH ED PFSH: Medical History Medullary sponge kidney Recurrent UTI Urolithiasis Yeast vaginitis Surgical History H/O tubal ligation History of wisdom tooth extraction Hx of cholecystectomy Hx of tonsillectomy Status post laser lithotripsy of ureteral calculus Family History Father , AT AGE 24 Electric injury Social History Smoking and tobacco status: current every day smoker e-cigarettes Alcohol intake: current Alcohol intake frequency: few times a month Substance/Drug Use: never Marital status: Current occupational status: employed Physical Exam Const: COMMON NORMALS: no acute distress, patient oriented x3 and healthy appearing HENMT: COMMON NORMALS: normocephalic and atraumatic HEAD & SCALP: normocephalic and atraumatic Eye: COMMON NORMALS: Equal, round and reactive pupils present and EOMs intact bilaterally PUPIL: Yes Equal, round and reactive pupils present Neck/C-Spine: COMMON NORMALS: full ROM and supple Chest: COMMONS NORMALS: normal inspection of the chest Resp: COMMON NORMALS: normal respiratory effort Cardio: COMMON NORMALS: regular rate, regular rhythm and No murmurs present (Cardio) RATE: regular rate RHYTHM: regular rhythm GI: COMMON NORMALS: Normal to inspection, nondistended, normoactive bowel sounds present, Soft to palpation, non-tender and no masses PALPATION: Yes Soft to palpation : OTHER: Slight left flank tenderness Extremity: COMMON NORMALS: normal to inspection and full ROM Neuro: COMMON NORMALS: patient oriented x3, moves all extremities and no focal motor deficits Psych: COMMON NORMALS: mental status grossly normal, Normal thought process present and cooperative THOUGHT PROCESS: Normal thought process present Skin: COMMON NORMALS: no rashes or lesions noted and no wounds GENERAL SKIN EXAM: no rashes or lesions noted Course Vital Signs: Vital signs: Vital Signs Temperature 99.5 F 10/22/22 21:01 Pulse Rate 104 H 10/22/22 21:05 Respiratory Rate 20 H 10/22/22 21:05 Blood Pressure 114/74 10/22/22 21:05 Pulse Oximetry 100 10/22/22 21:05 Oxygen Delivery Me thod Room Air 10/22/22 21:05 MDM - Female Medical Decision Making Patient presents with flank pain along with dysuria likely a UTI she had chronic UTIs from her medullary sponge kidney disease we will start her on Cipro she is to follow-up with urologist return if worsening she understands agrees to plan she had no vomiting no signs of his septic appearance. Medical Records I reviewed the patient's medical records. Lab Data I reviewed the patient's lab results. 10/22/22 21:44 10/22/22 21:44 Laboratory Results WBC 14.6 10^3/uL (4.0-10.0) H 10/22/22 21:44 RBC 4.57 10^6/uL (4.1-5.3) 10/22/22 21:44 Hgb 11.6 g/dL (11.5-15.3) 10/22/22 21:44 Hct 37.3 % (37.0-47.0) 10/22/22 21:44 MCV 81.6 fl (81-99) 10/22/22 21:44 MCH 25.4 pg (28.0-34.0) L 10/22/22 21:44 MCHC 31.1 g/dL (30.0-36.0) 10/22/22 21:44 RDW 14.8 % (12.1-15.1) 10/22/22 21:44 Plt Count 338 10^3/cmm (130-400) 10/22/22 21:44 MPV 10.1 fL (7.4-10.4) 10/22/22 21:44 Neut % (Auto) 64.0 % 10/22/22 21:44 Lymph % (Auto) 17.3 % 10/22/22 21:44 [place] % (Auto) 7.1 % 10/22/22 21:44 Eos % (Auto) 10.1 % 10/22/22 21:44 Baso % (Auto) 1.2 % 10/22/22 21:44 Neut # (Auto) 9.35 10^3/uL (1.8-7.7) H 10/22/22 21:44 Lymph # (Auto) 2.5 10^3/uL (0.8-4.8) 10/22/22 21:44 [place] # (Auto) 1.0 10^3/uL (0.2-0.9) H 10/22/22 21:44 Eos # (Auto) 1.5 10^3/uL (0.0-0.8) H 10/22/22 21:44 Baso # (Auto) 0.2 10^3/uL (0.0-0.1) H 10/22/22 21:44 Nucleated RBC % (auto) 0 % 10/22/22 21:44 Nucleated RBCs # 0.0 /100WBC 10/22/22 21:44 Sodium 140 mmol/L (136-145) 10/22/22 21:44 Potassium 3.5 mmol/L (3.5-5.1) 10/22/22 21:44 Chloride 104 mmol/L (98-107) 10/22/22 21:44 Carbon Dioxide 25 mmol/L (22-29) 10/22/22 21:44 Anion Gap 14.5 (5-19) 10/22/22 21:44 BUN 11 mg/dL (6-20) 06/12/23 21:44 Creatinine 0.7 mg/dL (0.5-0.9) 10/22/22 21:44 GFR Calculation 102.0 mL/min (90-130) 10/22/22 21:44 Glucose 77 mg/dL (65-115) 10/22/22 21:44 Calculated Osmolality 288 mOsm/kg (285-295) 10/22/22 21:44 Calcium 10.8 mg/dL (8.5-10.5) H 10/22/22 21:44 Total Bilirubin 0.3 mg/dL (0.15-1.2) 10/22/22 21:44 AST 83 U/L (0-32) H 10/22/22 21:44 ALT 97 U/L (0-33) H 10/22/22 21:44 Alkaline Phosphatase 195 U/L (35-105) H 10/22/22 21:44 Total Protein 7.3 g/dL (6.6-8.7) 10/22/22 21:44 Albumin 4.3 g/dL (3.5-5.2) 10/22/22 21:44 Globulin 3.0 g/dL (1.3-4.6) 10/22/22 21:44 Lipase 24 U/L (13-60) 10/22/22 21:44 HCG, Qual Negative (Negative) 10/22/22 21:44 Urine Color Dark yellow (Yellow) 10/22/22 21:20 Urine Appearance Hazy (CLEAR) A 10/22/22 21:20 Urine pH 6.5 (5-7) 10/22/22 21:20 Ur Specific [place] 1.015 (1.005-1.030) 10/22/22 21:20 Urine Protein Neg (Negative) 10/22/22 21:20 Urine Glucose (UA) Norm (Normal) 10/22/22 21:20 Urine Ketones Negative (Negative) 10/22/22 21:20 Urine Blood 2+ (Negative) H 10/22/22 21:20 Urine Nitrate Positive (Negative) H 10/22/22 21:20 Urine Bilirubin Neg (Negative) 10/22/22 21:20 Urine Urobilinogen 1 mg/dL (Negative) H 10/22/22 21:20 Ur Leukocyte Esterase Negative (Negative) 10/22/22 21:20 Urine RBC 0-4 /hpf (0-2) H 10/22/22 21:20 Urine WBC 25-40 /hpf (0-5) H 10/22/22 21:20 Ur Squamous Epith Cells 0-4 /hpf (0-5) H 10/22/22 21:20 Amorphous Sediment Not Reportable 10/22/22 21:20 Urine Bacteria 3+ /hpf (NONE) H 10/22/22 21:20 Urine Mucus Trace /hpf 10/22/22 21:20 Discharge Plan Discharge Patient Disposition: Home Clinical Impression: Acute cystitis Condition: Stable Prescriptions: New Cipro 500 mg tablet 500 mg PO BID Qty: 14 0RF No Action cefdinir 300 mg capsule 300 mg PO BID Qty: 60 2RF nitrofurantoin monohyd/m-cryst [Macrobid] 100 mg capsule 100 mg PO BID Qty: 60 6RF Rx Instructions: must administer with a meal/food hydrocodone-acetaminophen 5-325 mg tablet 1 tab PO Q6H PRN (Reason: Renal colic) 4 Days Qty: 16 0RF oxybutynin chloride 10 mg tablet extended release 24hr 10 mg PO DAILY Qty: 20 1RF ibuprofen 200 mg Tablet 600 mg PO Q6H PRN (Reason: Pain) Cranberry-Probiotic 480 mg-20 mg- 100million cell Tablet 1 tab PO DAILY Discharge Orders: Discharge ED (Routine); Ordered 10/22/22 Ordered By: Paz Dutton Referrals: Steven Del Rio MD [Primary Care Provider] - Discharge Diet: Advance as tolerated Discharge Activity: Resume usual activity Patient Instructions: Urinary Tract Infection in Women (ED) Coding Level of Care Code ED 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
[2022-10-22 22:13] LABS: HCG, Serum Qual Negative (Negative)
[2022-10-22 22:21] LABS: Blood Urine 2+ (Negative); Glucose Urine UA Norm (Normal); Ketones Urine Negative (Negative); Nitrate Urine Positive (Negative); Protein Urine Neg (Negative); Specific Gravity, Urine 1.015 (1.005-1.030); Urine Appearance Hazy (CLEAR); Urine Color Dark yellow (Yellow); pH Urine 6.5 (5-7)
[2022-10-22 22:21] LABS: Albumin Level 4.3 g/dL (3.5-5.2); Chloride 104 mmol/L (98-107); Potassium 3.5 mmol/L (3.5-5.1); Sodium 140 mmol/L (136-145)
[2022-10-22 22:22] LABS: Add Urine Microscopic? YES; Bilirubin Urine Neg (Negative); Leukocyte Esterase Urine Negative (Negative); Urobilinogen Urine 1 mg/dL (Negative)
[2022-10-22] MEDS: sodium chloride 0.9% 1,000 ML 999 ML IV (22:23)
[2022-10-22] MEDS: ketorolac 30 mg/mL INJ 15 MG IVP (22:24)
[2022-10-22] MEDS: ondansetron 2 mg/ML SDV 2 mL 4 MG IVP (22:25)
[2022-10-22 22:28] LABS: Add Urine Culture? Yes; Bacteria Urine 3+ /hpf; Mucus Urine TRACE /hpf; RBC Urine 0-4 /hpf (0-2); Squamous Epithelial Cell Urine 0-4 /hpf (0-5); WBC Urine 25-40 /hpf (0-5)
[2022-10-22 22:41] LABS: Alanine Aminotransferase 97 U/L (0-33); Anion Gap 14.5 (5-19); Aspartate Amino Transferase 83 U/L (0-32); Blood Urea Nitrogen 11 mg/dL (6-20); Calcium 10.8 mg/dL (8.5-10.5); Carbon Dioxide 25 mmol/L (22-29); Glucose 77 mg/dL (65-115); Lipase 24 U/L (13-60); Osmolality Calculated 288 mOsm/kg (285-295); Total Bilirubin 0.3 mg/dL (0.15-1.2); Total Protein 7.3 g/dL (6.6-8.7)
[2022-10-22] MEDS: cefTRIAXone 1,000 MG in sodium chloride 0.9% (plus) 50 ML 100 MG IV (22:44)
[2022-10-22 22:55] LABS: Basophils # 0.2 10^3/uL (0.0-0.1); Basophils % 1.2 %; Eosinophils # 1.5 10^3/uL (0.0-0.8); Eosinophils % 10.1 %; Hematocrit 37.3 % (37.0-47.0); Hemoglobin 11.6 g/dL (11.5-15.3); Lymphocytes # 2.5 10^3/uL (0.8-4.8); Lymphocytes % 17.3 %; Mean Corpuscular HGB Conc 31.1 g/dL (30.0-36.0); Mean Corpuscular Hemoglobin 25.4 pg (28.0-34.0); Mean Corpuscular Volume 81.6 fl (81-99); Mean Platelet Volume 10.1 fL (7.4-10.4); Monocytes % 7.1 %; Neutrophils # 9.35 10^3/uL (1.8-7.7); Nucleated Red Blood Cells % 0 %; Platelet Count 338 10^3/cmm (130-400); Red Blood Count 4.57 10^6/uL (4.1-5.3); Red Cell Distribution Width 14.8 % (12.1-15.1); White Blood Count 14.6 10^3/uL (4.0-10.0)
[2022-10-22 23:02] LABS: Alkaline Phosphatase 195 U/L (35-105)
[2022-10-22 23:20] VITALS: BP 100/64; PULSE 91; RESP 14; O2SAT 97
== END 2022-10-22 23:25 | disposition home or self-care (01) ==
PROVIDERS: Nurse Practitioner Family; Emergency Provider Emergency Medicine; PCP Family Medicine
DX: N30.00 Acute cystitis without hematuria (principal); F17.290 Nicotine dependence, other tobacco product, uncomplicated; Z87.440 Personal history of urinary (tract) infections
CPT/HCPCS: 80053; 81001; 81025; 83690; 84703; 85025; 87077; 87086; 87186; 96365; 96375; 99284; J0696; J1885; J2405; J7030

== ENCOUNTER 2023-01-28 13:34 | Emergency (ER) | payer MEDICAID, SELFPAY ==
[2023-01-28 13:37] VITALS: BP 141/89; PULSE 117; RESP 21; TEMP 37.6; O2SAT 99; BMI 26.6
--- NOTE | 2023-01-28 14:01 | ED_ITS ---
HPI - Abdominal Pain General: Chief Complaint: Abdominal Pain Stated Complaint: lower back pain Time Seen by Provider: 01/28/23 13:39 History of Present Illness: 27-year-old female with history of chronic UTI and spongy kidney presents emergency room with bilateral flank pain nausea and vomiting that started around 11:00 this morning. Patient with multiple similar complaints in the past before. Patient described the pain as aching/sharp sensation with severity of 7 out of 10. Denies any bloody stool, diarrhea, hematuria or urinary frequency. No known sick contacts or recent foreign travel. No recent fall or injury. Associated Symptoms: Reports chills; Denies dysuria and hematuria Review of Systems General: Reports: 10 or more systems reviewed and unremarkable except in HPI and below Const: Reports: chills and malaise; Denies: change in appetite, fatigue, night sweats, diaphoresis, change in sleep pattern or daytime sleepiness Card: Denies: chest pain, palpitations, irregular heart rhythm or edema Resp: Denies: dyspnea, productive cough, non-productive cough, wheezing, stridor, pain on inspiration or change in phlegm color : Reports: flank pain; Denies: dysuria, urinary frequency, urinary urgency, urinary hesitancy, dribbling, nocturia, oliguria, urinary incontinence, hematuria, genital lesions, genital pruritis, vaginal dryness, vaginal odor or vaginal bleeding Musc: Reports: back pain; Denies: extremity pain, joint pain, joint swelling or joint redness PFSH ED PFSH: Medical History Medullary sponge kidney Recurrent UTI Urolithiasis Yeast vaginitis Surgical History H/O tubal ligation History of wisdom tooth extraction Hx of cholecystectomy Hx of tonsillectomy Status post laser lithotripsy of ureteral calculus Family History Father , AT AGE 24 Electric injury Social History Smoking and tobacco status: current every day smoker e-cigarettes Alcohol intake: current Alcohol intake frequency: few times a month Substance/Drug Use: never Marital status: Current occupational status: employed Physical Exam Const: COMMON NORMALS: no acute distress; negative for average body habitus, negative for patient oriented x3, limitations and negative for healthy appearing Neck/C-Spine: COMMON NORMALS: full ROM, no lymphadenopathy, supple, no meningeal signs, no JVD, Thyroid normal and No carotid bruits THYROID: Thyroid normal Chest: COMMONS NORMALS: normal inspection of the chest, normal palpation of entire chest wall, normal inspection of the breasts and normal palpation of the breasts Breast/axilla inspection: Yes normal inspection of the breasts B REAST/AXILLA PALPATION: Yes normal palpation of the breasts Resp: COMMON NORMALS: normal respiratory effort, No retractions, No use of accessory muscles, clear to auscultation bilaterally and percussion normal AUSCULTATION: clear to auscultation bilaterally PERCUSSION: percussion normal Cardio: COMMON NORMALS: no JVD GI: COMMON NORMALS: Normal to inspection, nondistended, normoactive bowel sounds present, Soft to palpation, non-tender, No hepatosplenomegaly present, no masses and no bruits INSPECTION: Yes normal to inspection PALPATION: Yes Soft to palpation and Yes No hepatosplenomegaly present : BLADDER/KIDNEY EXAM: Yes CVA tenderness Back/Pelvis: GENERAL BACK: Yes CVA tenderness, No mass, No erythema, No warmth, No ecchymosis, No scar(s), No swelling, No tenderness and No Muse-Sharpe sign Neuro: COMMON NORMALS: negative for patient oriented x3 MENINGEAL SIGNS: Yes no meningeal signs Course Vital Signs: Vital signs: Vital Signs Temperature 99.7 F H 01/28/23 13:37 Pulse Rate 117 H 01/28/23 13:37 Respiratory Rate 21 H 01/28/23 13:37 Blood Pressure 141/89 01/28/23 13:37 Pulse Oximetry 99 01/28/23 13:37 Oxygen Delivery Me thod Room Air 01/28/23 13:37 MDM - Abdominal Pain Medical Decision Making Patient was made comfortable emergency room medical record reviewed. Patient was given pain medication and had extensive work-up. CBC CMP and a UA done. She will be discharged with antibiotics and pain medication. Differential Diagnosis Likely abdominal pain, acute appendicitis, calculus of kidney, constipation, diverticulitis, endometriosis, gastroenteritis, pancreatitis and small bowel obstruction Lab Data 01/28/23 14:07 01/28/23 14:07 Labs/Radiology: Laboratory Results WBC 9.15 10^3/uL (3.29-11.43) 01/28/23 14:07 RBC 4.85 10^6/uL (3.85-5.65) 01/28/23 14:07 Hgb 12.80 g/dL (11.27-16.99) 01/28/23 14:07 Hct 39.7 % (36-47) 01/28/23 14:07 MCV 81.9 fl (85-98) L 01/28/23 14:07 MCH 26.4 pg (27-33) L 01/28/23 14:07 MCHC 32.2 g/dL (30-55) 01/28/23 14:07 RDW 14.7 % (12.1-15.1) 01/28/23 14:07 Plt Count 268 10^3/cmm (157-399) 01/28/23 14:07 MPV 9.3 fL (7.4-10.4) 01/28/23 14:07 Neut % (Auto) 82.8 % 01/28/23 14:07 Lymph % (Auto) 8.5 % 01/28/23 14:07 [place] % (Auto) 6.6 % 01/28/23 14:07 Eos % (Auto) 1.0 % 01/28/23 14:07 Baso % (Auto) 0.7 % 01/28/23 14:07 Neut # (Auto) 7.58 10^3/uL (1.8-7.7) 01/28/23 14:07 Lymph # (Auto) 0.8 10^3/uL (0.8-4.8) 01/28/23 14:07 [place] # (Auto) 0.6 10^3/uL (0.2-0.9) 01/28/23 14:07 Eos # (Auto) 0.1 10^3/uL (0.0-0.8) 01/28/23 14:07 Baso # (Auto) 0.1 10^3/uL (0.0-0.1) 01/28/23 14:07 Nucleated RBC % (auto) 0 % 01/28/23 14:07 Nucleated RBCs # 0.0 /100WBC 01/28/23 14:07 Sodium 138 mmol/L (136-145) 01/28/23 14:07 Potassium 4.0 mmol/L (3.5-5.1) 01/28/23 14:07 Chloride 105 mmol/L (98-107) 01/28/23 14:07 Carbon Dioxide 26 mmol/L (22-29) 01/28/23 14:07 Anion Gap 11.0 (5-19) 01/28/23 14:07 BUN 11 mg/dL (6-20) 01/28/23 14:07 Creatinine 0.7 mg/dL (0.5-0.9) 01/28/23 14:07 GFR Calculation 102.0 mL/min (90-130) 01/28/23 14:07 Glucose 92 mg/dL (65-115) 01/28/23 14:07 Calculated Osmolality 285 mOsm/kg (285-295) 01/28/23 14:07 Calcium 10.8 mg/dL (8.5-10.5) H 01/28/23 14:07 Total Bilirubin 0.8 mg/dL (0.15-1.2) 01/28/23 14:07 AST 34 U/L (0-32) H 01/28/23 14:07 ALT 73 U/L (0-33) H 01/28/23 14:07 Alkaline Phosphatase 203 U/L (35-105) H 01/28/23 14:07 Total Protein 7.4 g/dL (6.6-8.7) 01/28/23 14:07 Albumin 4.4 g/dL (3.5-5.2) 01/28/23 14:07 Globulin 3.0 g/dL (1.3-4.6) 01/28/23 14:07 Lipase 21 U/L (13-60) 01/28/23 14:07 Urine Color Yellow (Yellow) 01/28/23 15:05 Urine Appearance Clear (CLEAR) 01/28/23 15:05 Urine pH 7 (5-7) 01/28/23 15:05 Ur Specific [place] 1.010 (1.005-1.030) 01/28/23 15:05 Urine Protein Neg (Negative) 01/28/23 15:05 Urine Glucose (UA) Norm (Normal) 01/28/23 15:05 Urine Ketones Negative (Negative) 01/28/23 15:05 Urine Blood Neg (Negative) 01/28/23 15:05 Urine Nitrate Negative (Negative) 01/28/23 15:05 Urine Bilirubin Neg (Negative) 01/28/23 15:05 Urine Urobilinogen Norm mg/dL (Negative) 01/28/23 15:05 Ur Leukocyte Esterase 1+ (Negative) H 01/28/23 15:05 Urine RBC None /hpf (0-2) 01/28/23 15:05 Urine WBC 5-10 /hpf (0-5) H 01/28/23 15:05 Ur Squamous Epith Cells 0-4 /hpf (0-5) H 01/28/23 15:05 Amorphous Sediment Not Reportable 01/28/23 15:05 Urine Bacteria 1+ /hpf (NONE) H 01/28/23 15:05 No radiology studies performed this visit Discharge Plan Discharge Patient Disposition: Home Clinical Impression: Chronic cystitis, Chronic pain Condition: Stable Prescriptions: New Bactrim DS 800-160 mg tablet 1 tab PO BID 7 Days Qty: 14 0RF promethazine 25 mg tablet 25 mg PO QID PRN (Reason: nausea) Qty: 14 0RF Macrobid 100 mg capsule 100 mg PO BID 10 Days Qty: 20 0RF Rx Instructions: must administer with a meal/food tramadol 50 mg tablet 50 mg PO TID PRN (Reason: pain) Qty: 10 0RF No Action nitrofurantoin monohyd/m-cryst [Macrobid] 100 mg capsule 100 mg PO BID Qty: 60 6RF Rx Instructions: must administer with a meal/food ibuprofen 200 mg Tablet 600 mg PO Q6H PRN (Reason: Pain) Discharge Orders: Discharge ED (Routine); Ordered 01/28/23 Ordered By: Reji Acuña Referrals: Steven Del Rio MD [Primary Care Provider] - Discharge Diet: Advance as tolerated Discharge Activity: Resume usual activity Patient Instructions: Opioid Safety, Pain Management Coding Level of Care Code ED Youth Pastor for Marig Jhoana
[2023-01-28 14:16] LABS: Basophils # 0.1 10^3/uL (0.0-0.1); Basophils % 0.7 %; Eosinophils # 0.1 10^3/uL (0.0-0.8); Hematocrit 39.7 % (36-47); Lymphocytes # 0.8 10^3/uL (0.8-4.8); Lymphocytes % 8.5 %; Mean Corpuscular HGB Conc 32.2 g/dL (30-55); Mean Corpuscular Hemoglobin 26.4 pg (27-33); Mean Corpuscular Volume 81.9 fl (85-98); Mean Platelet Volume 9.3 fL (7.4-10.4); Monocytes # 0.6 10^3/uL (0.2-0.9); Monocytes % 6.6 %; Neutrophils # 7.58 10^3/uL (1.8-7.7); Neutrophils % 82.8 %; Nucleated Red Blood Cells % 0 %; Platelet Count 268 10^3/cmm (157-399); Red Blood Count 4.85 10^6/uL (3.85-5.65); Red Cell Distribution Width 14.7 % (12.1-15.1); White Blood Count 9.15 10^3/uL (3.29-11.43)
[2023-01-28] MEDS: morphine 4 mg/mL SDV 1 mL IM (14:20)
[2023-01-28] MEDS: sodium chloride 0.9% 1,000 ML 999 ML IV ×2 (14:20→15:43)
[2023-01-28] MEDS: ondansetron 2 mg/ML SDV 2 mL 4 MG IVP (14:20)
[2023-01-28 14:32] LABS: Alanine Aminotransferase 73 U/L (0-33); Albumin Level 4.4 g/dL (3.5-5.2); Alkaline Phosphatase 203 U/L (35-105); Aspartate Amino Transferase 34 U/L (0-32); Blood Urea Nitrogen 11 mg/dL (6-20); Calcium 10.8 mg/dL (8.5-10.5); Carbon Dioxide 26 mmol/L (22-29); Chloride 105 mmol/L (98-107); Glucose 92 mg/dL (65-115); Lipase 21 U/L (13-60); Osmolality Calculated 285 mOsm/kg (285-295); Sodium 138 mmol/L (136-145); Total Bilirubin 0.8 mg/dL (0.15-1.2); Total Protein 7.4 g/dL (6.6-8.7)
[2023-01-28 15:24] LABS: Add Urine Microscopic? YES; Bilirubin Urine Neg (Negative); Blood Urine Neg (Negative); Glucose Urine UA Norm (Normal); Ketones Urine Negative (Negative); Leukocyte Esterase Urine 1+ (Negative); Nitrate Urine Negative (Negative); Protein Urine Neg (Negative); Urine Appearance Clear (CLEAR); Urine Color Yellow (Yellow); Urobilinogen Urine Norm (Negative); pH Urine 7 (5-7)
[2023-01-28 15:25] LABS: Add Urine Culture? No; Bacteria Urine 1+ /hpf; Squamous Epithelial Cell Urine 0-4 /hpf (0-5)
[2023-01-28] MEDS: ketorolac 30 mg/mL INJ IVP (16:08)
[2023-01-28 16:54] LABS: HCG Qualitative Urine. Negative (Negative)
== END 2023-01-28 17:14 | disposition home or self-care (01) ==
PROVIDERS: Emergency Provider Family Medicine; PCP Family Medicine
DX: N30.20 Other chronic cystitis without hematuria (principal); G89.29 Other chronic pain; F17.290 Nicotine dependence, other tobacco product, uncomplicated; Z87.440 Personal history of urinary (tract) infections
CPT/HCPCS: 80053; 81001; 81025; 83690; 85025; 96361; 96372; 96374; 96375; 99284; J1885; J2270; J2405; J7030

== ENCOUNTER 2023-01-30 15:06 | Inpatient (IN) | payer MEDICAID, SELFPAY ==
[2023-01-30] VITALS (13 sets, daily range): BP systolic 92–142; BP diastolic 56–88; PULSE 59–107; RESP 15–17; TEMP 37.2–38.7; O2SAT 95–99; BMI 25.8
--- NOTE | 2023-01-30 15:28 | W.ED.HA ---
HPI - Headache General: Chief Complaint: Headache Stated Complaint: headache Time Seen by Provider: 01/30/23 15:08 History of Present Illness: 27-year-old female started getting a fever and headache Saturday afternoon, 2 days ago. On arrival she has a headache from the front of the head all the way to the back of the head and radiating down her neck posteriorly. She has a temperature of 101.7 axillary. She has no known history of migraine or other headache disorder. She rarely does get headaches. She denies any rashes, wounds, tick bites. She does not have any other known source of infection. She was seen on Saturday for flank pain. test was negative. UA was not highly suggestive of urinary tract infection. She was diagnosed with probable cystitis. She did not actually start getting a headache until about an hour after that visit. She had a fever of 101 degrees by the time she got home. Patient endorses binocular sort of blurry vision. She has had nausea without vomiting. No stool changes. No dysuria or hematuria. She denies any backache today but has pain radiating from her head down to her posterior neck. When she stretches her chin to her chest she does not hurt in her neck but states it hurts in her head. Associated symptoms: Deny chest pain, rash, syncope or vomiting Review of Systems General: Reports: 10 or more systems reviewed and unremarkable except in HPI and below Const: Denies: chills or body aches ENMT: Denies: throat pain Card: Denies: chest pain, edema or syncope Resp: Denies: dyspnea or productive cough GI: Denies: abdominal pain, vomiting or diarrhea : Denies: flank pain, dysuria or urinary frequency Musc: Denies: back pain, extremity pain or extremity swelling Skin/Breast: Denies: rash or erythema Neuro: Denies: numbness in extremities, weakness in extremities, lack of coordination or difficulty walking PFSH ED PFSH: Medical History Medullary sponge kidney Recurrent UTI Urolithiasis Yeast vaginitis Surgical History H/O tubal ligation History of wisdom tooth extraction Hx of cholecystectomy Hx of tonsillectomy Status post laser lithotripsy of ureteral calculus Family History Father , AT AGE 24 Electric injury Social History Smoking and tobacco status: current every day smoker e-cigarettes Alcohol intake: current Alcohol intake frequency: few times a month Substance/Drug Use: never Marital status: Current occupational status: employed Physical Exam Narrative: EXAM NARRATIVE: Alert, fully oriented, prefers a dark room, she has photophobia. Pupils are equal round and reactive to light. Normal accommodation. She has a negative Kernig sign. Chin to chest actually causes her pain in her forehead rather than in her neck. She does appear to be in moderate distress and winces every time there is a loud sound or light. Const: COMMON NORMALS: no limitations, alert and well nourished EXAM LIMITATIONS: no altered mental status HENMT: COMMON NORMALS: normocephalic, atraumatic and external ears normal HEAD & SCALP: normocephalic and atraumatic EXTERNAL EAR: Yes external ears normal MOUTH: no muffled voice Eye: COMMON NORMALS: EOMs intact bilaterally, conjunctivae normal and no scleral icterus CONJUNCTIVA: Yes conjunctivae normal Neck/C-Spine: COMMON NORMALS: no JVD GENERAL: Yes normal visual inspection and Yes trachea midline Resp: COMMON NORMALS: normal respiratory effort, No use of accessory muscles and clear to auscultation bilaterally AUSCULTATION: clear to auscultation bilaterally Cardio: COMMON NORMALS: no JVD, regular rate and regular rhythm RATE: regular rate RHYTHM: regular rhythm GI: COMMON NORMALS: Soft to palpation and non-tender PALPATION: Yes Soft to palpation and No Guarding due to palpation present (GI) Extremity: COMMON NORMALS: normal to inspection Neuro: COMMON NORMALS: moves all extremities, no focal motor deficits and no sensory deficits noted SENSORIUM/ORIENTATION: Yes alert SPEECH: speech normal Psych: COMMON NORMALS: mental status grossly normal, Normal thought process present, cooperative, normal affect and speech normal SPEECH: Yes normal speech THOUGHT PROCESS: Normal thought process present Skin: COMMON NORMALS: no rashes or lesions noted, turgor normal and no jaundice GENERAL SKIN EXAM: no rashes or lesions noted and turgor normal Procedures Lumbar Puncture Time Out Performed: Yes Patient Position: upright Skin Prep: 0.5% Chlorhexidine/Alcohol Local Anesthetic: lidocaine 2% Amount of anesthesia used (mL): 10 Interspace Used: L3-L4 Fluid Initially Obtained: other (first 1cc slightly bloody, after that clear) Complications: none Additional Comments: Single attempt Course Vital Signs: Vital signs: Vital Signs Temperature 98.9 F 01/30/23 18:28 Pulse Rate 62 01/30/23 18:28 Respiratory Rate 17 01/30/23 15:08 Blood Pressure 106/65 01/30/23 18:28 Pulse Oximetry 98 01/30/23 18:28 Oxygen Delivery Me thod Room Air 01/30/23 18:28 MDM - Headache Medical Decision Making Acute headache with fever. Meningitis is possible. Patient's had symptoms now for 2-1/2 days. Bacterial meningitis is on the differential diagnosis but viral meningitis seems more likely. No encephalopathy. No vesicles or signs of HSV. Oropharynx is clear. No petechiae or purpura. The plan is to control her symptoms with IV fluids, control her fever with Tylenol and Toradol, control her pain with hydromorphone. Obtain inflammatory markers. Obtain flu and COVID swabs. Obtain ct head w/ w/o to rule out blood, masses, abscesses. Obtain CSF to rule out bacterial meningitis. test negative on 01/28/2023. Update 1800 Temp down to normal CRP elevated WBC normal COVID/FLU neg Awaiting CSF results--two nurses on the case miscommunicated and didn't send the CSF to lab. I'll give empiric 2g rocephin given time delay. 1904 CSF suggestive of meningitis Discussed case with Dr Lange We've added bacterial antigen panel for csf and respiratory pathogen panel. We discussed abx: he'd like to add vanc. We'll add decadron also. Lab Data 01/30/23 15:20 01/30/23 15:[address] 01/30/23 15:37 IMPRESSION: Unremarkable CT examination of the head. No abnormalities detected. Laboratory Results WBC 5.36 10^3/uL (3.29-11.43) 01/30/23 15:20 RBC 4.93 10^6/uL (3.85-5.65) 01/30/23 15:20 Hgb 13.00 g/dL (11.27-16.99) 01/30/23 15:20 Hct 40.6 % (36-47) 01/30/23 15:20 MCV 82.4 fl (85-98) L 01/30/23 15:20 MCH 26.4 pg (27-33) L 01/30/23 15:20 MCHC 32.0 g/dL (30-55) 01/30/23 15:20 RDW 14.7 % (12.1-15.1) 01/30/23 15:20 Plt Count 252 10^3/cmm (157-399) 01/30/23 15:20 MPV 9.5 fL (7.4-10.4) 01/30/23 15:20 Neut % (Auto) 58.3 % 01/30/23 15:20 Lymph % (Auto) 22.9 % 01/30/23 15:20 [place] % (Auto) 16.0 % 01/30/23 15:20 Eos % (Auto) 1.5 % 01/30/23 15:20 Baso % (Auto) 0.9 % 01/30/23 15:20 Neut # (Auto) 3.12 10^3/uL (1.8-7.7) 01/30/23 15:20 Lymph # (Auto) 1.2 10^3/uL (0.8-4.8) 01/30/23 15:20 [place] # (Auto) 0.9 10^3/uL (0.2-0.9) 01/30/23 15:20 Eos # (Auto) 0.1 10^3/uL (0.0-0.8) 01/30/23 15:20 Baso # (Auto) 0.1 10^3/uL (0.0-0.1) 01/30/23 15:20 Nucleated RBC % (auto) 0 % 01/30/23 15:20 Nucleated RBCs # 0.0 /100WBC 01/30/23 15:20 ESR 8 mm/hr (0-15) 01/30/23 15:20 Sodium 138 mmol/L (136-145) 01/30/23 15:20 Potassium 3.8 mmol/L (3.5-5.1) 01/30/23 15:20 Chloride 104 mmol/L (98-107) 01/30/23 15:20 Carbon Dioxide 25 mmol/L (22-29) 01/30/23 15:20 Anion Gap 12.8 (5-19) 01/30/23 15:20 BUN 6 mg/dL (6-20) 01/30/23 15:20 Creatinine 0.8 mg/dL (0.5-0.9) 01/30/23 15:20 GFR Calculation 87.4 mL/min (90-130) L 01/30/23 15:20 Glucose 99 mg/dL (65-115) 01/30/23 15:20 Calculated Osmolality 284 mOsm/kg (285-295) L 01/30/23 15:20 Lactic Acid 0.9 mmol/L (0.5-2.2) 01/30/23 15:39 Calcium 10.8 mg/dL (8.5-10.5) H 01/30/23 15:20 Total Bilirubin 0.3 mg/dL (0.15-1.2) 01/30/23 15:20 AST 38 U/L (0-32) H 01/30/23 15:20 ALT 75 U/L (0-33) H 01/30/23 15:20 Alkaline Phosphatase 214 U/L (35-105) H 01/30/23 15:20 C-Reactive Protein 25.3 mg/L (0.0-4.9) H 01/30/23 15:20 Total Protein 8.0 g/dL (6.6-8.7) 01/30/23 15:20 Albumin 4.5 g/dL (3.5-5.2) 01/30/23 15:20 Globulin 3.5 g/dL (1.3-4.6) 01/30/23 15:20 CSF Appearance Clear (CLEAR) 01/30/23 18:12 CSF Color Colorless (COLORLESS) 01/30/23 18:12 CSF WBC 15 /uL (0-5) H 01/30/23 18:12 CSF RBC 0 10^3/uL (0-0) 01/30/23 18:12 CSF Mononuclear # Auto 0.002 10^3/uL (50-90) L 01/30/23 18:12 CSF Mononuclear WBCs % 13 % (50-90) L 01/30/23 18:12 CSF Polynuclear WBCs # 0.013 10^3/uL (0-10) 01/30/23 18:12 CSF Polynuclear WBCs % 87 % (0-10) H 01/30/23 18:12 CSF Diff Comment Yes 01/30/23 18:12 CSF Glucose 54 mg/dL (40-70) 01/30/23 18:12 CSF Total Protein 80 mg/dL (15-45) H 01/30/23 18:12 Influenza Type A Ag negative (Negative) 01/30/23 16:53 Influenza Type B Ag negative (Negative) 01/30/23 16:53 SARS-CoV-2 Ag (Rapid) negative (Negative) 01/30/23 15:27 All radiology interpretation(s) finalized by discharge ED provider radiology interpretation(s): CT head w/ and w/o --neg per radiology Discharge Plan Discharge Patient Disposition: Admitted As Inpatient Clinical Impression: Meningitis Condition: Stable Coding Level of Care Code ED [employer] Worker for Abad Ely
--- NOTE | 2023-01-30 15:37 | CTR_ITS ---
PROCEDURE INFORMATION: Exam: CT Head Without And With Contrast Exam date and time: 01/30/2023 5:02 PM Age: 27 years old Clinical indication: Fever and visual disturbance and other: Headache; Additional info: Headache 2 days, fever; Possible meningitis/cerebral abscess TECHNIQUE: Imaging protocol: Computed tomography of the head without and with contrast. Radiation optimization: All CT scans at this facility use at least one of these dose optimization techniques: automated exposure control; mA and/or kV adjustment per patient size (includes targeted exams where dose is matched to clinical indication); or iterative reconstruction. Contrast material: OMNI 350; Contrast volume: 100 ml; Contrast route: INTRAVENOUS (IV); REPORTING DATA: Count of CT and Cardiac NM exams in prior 12 months: This patient has received 2 known CTs and 0 known cardiac nuclear medicine studies in the 12 months prior to the current study. COMPARISON: No relevant prior studies available. RADIATION DOSE METRICS: Total DLP (mGy-cm): 1986 FINDINGS: Brain: Normal. No hemorrhage. Unremarkable white matter. No mass effect. No abnormal areas of enhancement. Cerebral ventricles: No ventriculomegaly. Paranasal sinuses: Visualized sinuses are unremarkable. No fluid levels. Mastoid air cells: Visualized mastoid air cells are well aerated. Bones/joints: Unremarkable. No acute fracture. Soft tissues: Unremarkable. CT/CT head wo/w con [id number] IMPRESSION: Unremarkable CT examination of the head. No abnormalities detected.
[2023-01-30 15:40] LABS: Basophils # 0.1 10^3/uL (0.0-0.1); Basophils % 0.9 %; Eosinophils # 0.1 10^3/uL (0.0-0.8); Eosinophils % 1.5 %; Hematocrit 40.6 % (36-47); Lymphocytes # 1.2 10^3/uL (0.8-4.8); Lymphocytes % 22.9 %; Mean Corpuscular Hemoglobin 26.4 pg (27-33); Mean Corpuscular Volume 82.4 fl (85-98); Mean Platelet Volume 9.5 fL (7.4-10.4); Monocytes # 0.9 10^3/uL (0.2-0.9); Neutrophils # 3.12 10^3/uL (1.8-7.7); Neutrophils % 58.3 %; Nucleated Red Blood Cells % 0 %; Platelet Count 252 10^3/cmm (157-399); Red Blood Count 4.93 10^6/uL (3.85-5.65); Red Cell Distribution Width 14.7 % (12.1-15.1); White Blood Count 5.36 10^3/uL (3.29-11.43)
[2023-01-30] MEDS: sodium chloride 0.9% 1,000 ML 999 ML IV ×2 (15:41→15:50)
[2023-01-30] MEDS: ondansetron 2 mg/ML SDV 2 mL 4 MG IVP (15:42)
[2023-01-30] MEDS: ketorolac 30 mg/mL INJ 15 MG IVP (15:42)
[2023-01-30] MEDS: HYDROmorphone 1 mg/mL INJ 1 mL 0.5 MG IVP (15:42)
[2023-01-30] MEDS: acetaminophen 1,000 MG/100 ML PIGGYBACK 400 MG IV (15:43)
[2023-01-30 15:45] LABS: Erythrocyte Sedimentation Rate 8 mm/hr (0-15)
[2023-01-30 16:03] LABS: Alanine Aminotransferase 75 U/L (0-33); Albumin Level 4.5 g/dL (3.5-5.2); Alkaline Phosphatase 214 U/L (35-105); Anion Gap 12.8 (5-19); Aspartate Amino Transferase 38 U/L (0-32); Blood Urea Nitrogen 6 mg/dL (6-20); C Reactive Protein 25.3 mg/L (0.0-4.9); Calcium 10.8 mg/dL (8.5-10.5); Carbon Dioxide 25 mmol/L (22-29); Chloride 104 mmol/L (98-107); Globulin 3.5 g/dL (1.3-4.6); Glomerular Filtration Rate 87.4 mL/min (90-130); Glucose 99 mg/dL (65-115); Osmolality Calculated 284 mOsm/kg (285-295); Potassium 3.8 mmol/L (3.5-5.1); Sodium 138 mmol/L (136-145); Total Bilirubin 0.3 mg/dL (0.15-1.2)
[2023-01-30 16:05] LABS: Lactic Sepsis W/Reflex 0.9 mmol/L (0.5-2.2)
[2023-01-30] MEDS: diphenhydrAMINE 50 mg/mL SDV 1mL IVP (16:29)
[2023-01-30] MEDS: fentaNYL 50 mcg/mL INJ 2mL 72.6 MCG IVP (16:30)
[2023-01-30] MEDS: prochlorperazine 10 mg/2 mL Inj IVP (16:31)
[2023-01-30] MEDS: lidocaine 2% INJ 20 mL INJECTION (16:41)
[2023-01-30] MEDS: iohexol 350 mg/mL 500 mL Btl (per mL) IV (17:20)
[2023-01-30 17:51] LABS: Influenza A by IFA negative (Negative); Influenza B by IFA negative (Negative)
[2023-01-30 17:52] LABS: SARS Covid-2 Antigen negative (Negative)
[2023-01-30 18:25] LABS: Appearance CSF CLEAR (CLEAR); Color CSF COLORLESS (COLORLESS); Cyto Order Verification No Order; Pathology Referral Yes
[2023-01-30 18:28] LABS: Red Blood Cell CSF 0 10^3/uL (0-0)
[2023-01-30 18:31] LABS: CSF Mononuclear # 0.002 10^3/uL (50-90); Mononuclear WBC CSF % 13 % (50-90); Polynuclear Cells ,CSF # 0.013 10^3/uL (0-10); Polynuclear WBC CSF % 87 % (0-10); White Blood Cell CSF 15 /uL (0-5)
[2023-01-30 18:50] LABS: Glucose CSF 54 mg/dL (40-70); Total Protein CSF 80 mg/dL (15-45)
[2023-01-30] MEDS: cefTRIAXone 2,000 MG in sodium chloride 0.9% (plus) 50 ML 100 MG IV (19:20)
--- NOTE | 2023-01-30 19:40 | CTR_ITS ---
PROCEDURE INFORMATION: Exam: CT Abdomen And Pelvis Without Contrast Exam date and time: 01/30/2023 8:27 PM Age: 27 years old Clinical indication: Other: PT dx with meningitis; Prior surgery; Surgery date: 6+ months; Surgery type: Surgery--gb, tubal , kidney surgeries; Patient HX: History--stones? , Patient dx with meningitis. Cancer-n. Smoking--y; Additional info: Renal stones TECHNIQUE: Imaging protocol: Computed tomography of the abdomen and pelvis without contrast. Radiation optimization: All CT scans at this facility use at least one of these dose optimization techniques: automated exposure control; mA and/or kV adjustment per patient size (includes targeted exams where dose is matched to clinical indication); or iterative reconstruction. REPORTING DATA: Count of CT and Cardiac NM exams in prior 12 months: This patient has received 2 known CTs and 0 known cardiac nuclear medicine studies in the 12 months prior to the current study. COMPARISON: CT kidney stone [id number] 05/25/2022 9:06 AM RADIATION DOSE METRICS: Total DLP (mGy-cm): 636.56 FINDINGS: Liver: Normal. No mass. Gallbladder and bile ducts: There has been a cholecystectomy. Pancreas: Normal. No ductal dilation. Spleen: Normal. No splenomegaly. Adrenal glands: Normal. No mass. Kidneys and ureters: There is contrast in the bilateral renal pelvis and calices. No hydronephrosis. Stomach and bowel: Unremarkable. No obstruction. No mucosal thickening. Appendix: The appendix is visualized and appears normal. Intraperitoneal space: Unremarkable. No free air. No significant fluid collection. Vasculature: Unremarkable. No abdominal aortic aneurysm. Lymph nodes: There are right lower quadrant mesenteric lymph nodes. Urinary bladder: There is contrast in the bladder without abnormality. Reproductive: Unremarkable as visualized. Bones/joints: Unremarkable. No acute fracture. Soft tissues: Unremarkable. CT/CT abdomen pelvis wo con [id number] IMPRESSION: There are no acute concerning abnormalities.
[2023-01-30] MEDS: dexamethasone 10 mg/mL INJ IVP (19:56)
[2023-01-30] MEDS: vancomycin 1,500 MG/300 ML PIGGYBACK 200 MG IV (20:03)
[2023-01-30 20:50] LABS: Procalcitonin 0.05 ng/mL (0-0.5); Thyroid Stimulating Hormone 1.29 uIU/mL (0.27-4.20)
--- NOTE | 2023-01-30 21:23 | PC.PHAR ---
Pharmacokinetic dosing service Date: 01/30/23 Time: 2122 Objective: Patient: Brooklyn Day Floor: 275[address]1 Age: 27 yo Serum creatinine: 0.8 mg/dL Height: 66.0 Inches Weight (kg): 72.575 Diagnosis: Relevant medical/social history: Cultures and sensitivities: Other labs: Assessment: IBW (kg): 59.30 Dosing wt(kg): 72.575 Estimated Creatinine clearance (ml/min): 100.6 CRCL method: Cockcroft and Gault using ibw(default). Drug selected: Vancomycin Loading dose (mg): 0 Vd (liters): 65.3 (factor used: 0.9 L/kg) Lane (hr-1): 0.088 Half life (hrs): 7.88 Recommended dose: 1250 mg Interval: 12 hrs Infusion time (hrs): 1.5 Predicted peak (mcg/mL): 27.5 Predicted trough (mcg/mL): 10.92 Total body weight is being used for vancomycin dosing. Renal function is stable [ ] /unstable [ ] Recommendations: Give Vancomycin 1250 mg q 12 hrs with an expected Cpeak of 27.5 mcg/ml and an expected Ctrough of 10.92 mcg/ml Renal dosing of other antibiotics (review renal dosing of other medications and list guidelines here): Thank you for the consult, will continue to follow. Signature: Stefanie Paul [facility]
[2023-01-30 21:45] LABS: Adenovirus Not Detected (NOT DETECT); Chlamydia Pneumoniae Not Detected (NOT DETECT); Coronavirus 229E,HKU1,NL63,OC4 Not Detected (NOT DETECT); Human Metapneumovirus Not Detected (NOT DETECT); Human Rhinovirus/Enterovirus Not Detected (NOT DETECT); Influenza A Not Detected (NOT DETECT); Influenza A H1 Not Detected (NOT DETECT); Influenza A H1-2009 Not Detected (NOT DETECT); Influenza A H3 Not Detected (NOT DETECT); Influenza B Not Detected (NOT DETECT); Mycoplasma Pneumoniae Not Detected (NOT DETECT); Parainfluenza Virus Type 1 Not Detected (NOT DETECT); Parainfluenza Virus Type 2 Not Detected (NOT DETECT); Parainfluenza Virus Type 3 Not Detected (NOT DETECT); Parainfluenza Virus Type 4 Not Detected (NOT DETECT); Respiratory Syncytial Virus A Not Detected (NOT DETECT); Respiratory Syncytial Virus B Not Detected (NOT DETECT); SARS-COV-2 Not Detected (NOT DETECT)
[2023-01-30 21:53] LABS: Lactic Sepsis W/Reflex 0.8 mmol/L (0.5-2.2)
--- NOTE | 2023-01-30 22:03 | P.HP_ITS ---
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 As per patient while she was in the ER she started experiencing headache visit on oral nitrofurantoin. While being at home she continued to have a global headache radiating to nape of neck which kept getting worse for last 3 days associated with photophobia, nausea and vomiting and high-grade fevers. Patient denies sick contact. She lives with her kids and at home. Gets go to school and has been having runny nose recently. She denies any history of STIs, meningitis in the past. She has not been vaccinated for herpes. She denies any history of rash. In the ER patient had a CT head which was negative for acute abnormality. For further work-up of global persistent headache lumbar puncture was done with CSF studies as below. Hospital service was consulted for further evaluation and management. Review of Systems General: Reports: 10 or more systems reviewed and unremarkable except in HPI and below Const: Denies: fever(s), chills, body aches, change in appetite, change in weight, malaise, night sweats, diaphoresis, change in sleep pattern, daytime sleepiness or snoring Eyes: Denies: change in vision, blurry vision, photophobia, eye discomfort or eye discharge ENMT: Denies: throat pain, enlarged tonsils, hoarseness, mouth pain, oral sores, dry mouth, tinnitus, nasal congestion or post nasal drip Card: Denies: chest pain, palpitations, irregular heart rhythm, edema, swelling of feet/ankles, lightheadedness, syncope, pre-syncope, dyspnea on exertion, orthopnea, leg pain with exertion or acrocyanosis Resp: Denies: dyspnea, productive cough, non-productive cough, wheezing, stridor, pain on inspiration, change in phlegm color, hemoptysis or chest conge stion GI: Denies: abdominal pain, nausea, vomiting, hematemesis, coffee ground emesis, dysphagia, heartburn, diarrhea, constipation, bloating, GI cramping, change in bowel habits, pain on defecation, hematochezia or melena : Denies: flank pain, dysuria, urinary frequency, urinary urgency, urinary hesitancy, nocturia or hematuria Musc: Denies: neck pain, back pain, extremity pain, joint pain, joint swellin g, joint redness, joint stiffness or limited range of motion Neuro: Denies: headache(s), numbness in extremities, weakness in extremities, sensory changes, lack of coordination, difficulty walking, frequent falls, dizziness, vertigo, confusion, Slurred speech present, difficulty communicating thoughts or seizure-like activity Psych: Denies: anxiety, depression, mood swings, panic attacks, hopelessness or irritability Endo: Denies: polyuria, polydipsia, tired all the time, cold intolerance, excessive sweating, flushing or heat intolerance Josh/Lymph: Denies: easy bruising or easy bleeding All/Imm: Denies: tongue swelling, facial swelling or acute wheezing Medications/Allergies Home Medications Medication Instructions Recorded Confirmed Last Taken Type ibuprofen 200 mg tablet 600 mg PO Q6H PRN Pain 05/31/20 01/30/23 06/03/22 History nitrofurantoin 100 mg PO BID #60 caps 07/25/22 01/30/23 01/28/23 Rx monohydrate/macrocrystals 100 mg capsule (Macrobid) Allergies Allergy/AdvReac Type Severity Reaction Status Date / Time No Known Allergies Allergy Verified 10/22/22 21:01 PFSH Acute PFSH: Medical History (Updated 01/30/23 @ 22:07 by Anuj Lange MD) Bilateral ureteral calculi Chronic cystitis History of recurrent UTI (urinary tract infection) Medullary sponge kidney Pyelonephritis Recurrent UTI Urolithiasis Yeast vaginitis Surgical History (Updated 01/30/23 @ 22:07 by Anuj Lange MD) H/O tubal ligation History of wisdom tooth extraction Hx of cholecystectomy Hx of tonsillectomy Status post laser lithotripsy of ureteral calculus Family History Father , AT AGE 24 Electric injury Social History Smoking and tobacco status: current every day smoker e-cigarettes Alcohol intake: current Alcohol intake frequency: few times a month Substance/Drug Use: never Marital status: Current occupational status: employed Vitals/I&O/Wt Last Vital Signs Temp 98.9 F 01/30/23 18:28 Pulse 78 01/30/23 20:15 Resp 16 01/30/23 20:15 BP 142/88 01/30/23 20:15 Pulse Ox 98 01/30/23 20:15 O2 Del Method Room Air 01/30/23 18:28 01/30/23 01/30/23 01/30/23 06:59 14:59 22:59 Intake Total 1249.85 / 1249.85 Balance 1249.85 / 1249.85 Weight last 48 hrs Weight 72.575 kg Physical Exam Narrative: General: No acute distress, AO x3, sick appearing, laying comfortably in bed with eyes closed because of light bothering her HEENT: PERRLA, pupils bilaterally equal and reactive Chest: Normal vesicular breath sounds, no added sounds, equal good air entry bilaterally CVS: S1-S2 regular, no murmurs, no tachycardia, no gallops, no rubs Abdomen: Soft, nontender, no organomegaly, bowel sounds present Neuro: No focal deficits, no facial deformity, AO x3, power 5/5 in all limbs Data 01/31/23 09:30 01/31/23 05:06 Micro: Microbiology 01/30/23 21:29 Blood Culture - Preliminary Blood SPECIMEN COLLECTED 01/30/23 18:12 Gram Stain - Final Cerebrospinal Fluid A&P Assessment and plan (1) Headache: CT head negative for acute abnormality. Most likely in setting of meningitis. CSF study shows mildly elevated white count of 15 with predominant neutrophils, elevated protein up to 80 with a glucose mildly low at 54. Follow-up CSF culture, blood culture. Check CSF bacterial antigen, respiratory viral panel, procalcitonin, MRSA swab. Check VDRL in CSF, chlamydia gonorrhea, HIV, beta-hCG, tick panel. For now empirically start patient on IV vancomycin, IV ceftriaxone 2 g every 12 hourly, acyclovir 10 mg/kg body weight Q8 hourly. As patient will be on acyclovir start on gentle IV hydration with normal saline at 75 cc/h. Morphine for pain. Tylenol for fever. We will plan for MRI in a.m. depending on clinical picture. 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 Check CT abdomen pelvis without contrast. Important to rule out obstructive uropathy as there is no urology in hospital. If concern for any obstructive uropathy will request ER physician to transfer patient from the ER. Regular diet Protonix OPD prophylaxis Heparin for DVT prophylaxis Attestations Medical Necessity Statement*: Admission for more than 2 midnights for management of headache in setting of meningitis Diagnoses Headache R51.9 Meningitis G03.9
[2023-01-30] MEDS: acetaminophen 325 mg Tablet 650 MG PO (22:32)
[2023-01-30] MEDS: HYDROcodone-acetaminophen 5-325 mg Tablet 1 TAB PO (22:32)
[2023-01-30] MEDS: enoxaparin 40 mg/0.4 mL Syringe SUBCUT (22:32)
[2023-01-30] MEDS: sodium chloride 0.9% 1,000 ML 75 ML IV (22:32)
[2023-01-30 23:22] LABS: HIV 1 & 2 Antibody Non-Reactive (Non-Reactiv); HIV 1 & 2 Antigen Non-Reactive (Non-Reactiv)
[2023-01-30 23:27] LABS: Vitamin B12 387 pg/mL (232-1245)
[2023-01-30] MEDS: acyclovir 700 MG in sodium chloride 0.9% (100 ml) 100 ML 110 MG IV (23:47)
[2023-01-31] VITALS (10 sets, daily range): BP systolic 93–104; BP diastolic 51–67; PULSE 79–85; RESP 16–22; TEMP 37.5–37.7; O2SAT 94–99
[2023-01-31] MEDS: morphine 4 mg/mL SDV 1 mL 2 MG IVP ×4 (00:14→20:26)
[2023-01-31 06:22] LABS: Alanine Aminotransferase 63 U/L (0-33); Albumin Level 3.8 g/dL (3.5-5.2); Alkaline Phosphatase 184 U/L (35-105); Anion Gap 13.6 (5-19); Aspartate Amino Transferase 34 U/L (0-32); Blood Urea Nitrogen 7 mg/dL (6-20); Calcium 10.3 mg/dL (8.5-10.5); Carbon Dioxide 20 mmol/L (22-29); Chloride 108 mmol/L (98-107); Globulin 2.6 g/dL (1.3-4.6); Glucose 125 mg/dL (65-115); Magnesium 1.9 mg/dL (1.7-2.3); Osmolality Calculated 283 mOsm/kg (285-295); Phosphorus 2.6 mg/dL (2.5-4.5); Potassium 4.6 mmol/L (3.5-5.1); Sodium 137 mmol/L (136-145); Total Bilirubin 0.3 mg/dL (0.15-1.2); Total Protein 6.4 g/dL (6.6-8.7)
[2023-01-31 06:24] LABS: Chol HDL Ratio 3.64 mg/dL (0.0-4.40); Cholesterol 153 mg/dL (0-200); HDL Cholesterol 42 mg/dL (60-100); LDL Cholesterol Calculated 99 mg/dL (50-129); LDL HDL Ratio 2.36 RATIO (0.00-3.22); Triglycerides 62 mg/dL (0-150)
[2023-01-31 06:29] LABS: Procalcitonin 0.04 ng/mL (0-0.5)
[2023-01-31 06:39] LABS: Folate Level 16.2 ng/mL (4.8-37.3)
[2023-01-31 06:48] LABS: Estmated Average Glucose 97
[2023-01-31 09:41] LABS: Basophils % 0.2 %; Hematocrit 35.3 % (36-47); Lymphocytes # 0.9 10^3/uL (0.8-4.8); Lymphocytes % 20.1 %; Mean Corpuscular Hemoglobin 26.5 pg (27-33); Mean Corpuscular Volume 82.7 fl (85-98); Mean Platelet Volume 9.2 fL (7.4-10.4); Monocytes # 0.6 10^3/uL (0.2-0.9); Monocytes % 12.7 %; Neutrophils # 3.06 10^3/uL (1.8-7.7); Neutrophils % 66.8 %; Nucleated Red Blood Cells % 0 %; Platelet Count 234 10^3/cmm (157-399); Red Blood Count 4.27 10^6/uL (3.85-5.65); Red Cell Distribution Width 14.8 % (12.1-15.1); White Blood Count 4.58 10^3/uL (3.29-11.43)
[2023-01-31] MEDS: cefTRIAXone 2,000 MG in sodium chloride 0.9% (plus) 50 ML 100 MG IV ×2 (09:58→19:44)
[2023-01-31] MEDS: famotidine 20 mg Tablet PO ×2 (10:00→19:45)
--- NOTE | 2023-01-31 10:06 | MRR_ITS ---
PROCEDURE INFORMATION: Exam: MR Head Without and With Contrast Exam date and time: 01/31/2023 5:49 PM Age: 27 years old Clinical indication: Pain; Headache; Additional info: Persistent headache, possible meningitis, verbal per Dr lou, Dr. Constantino advised to upgrade to a wwo TECHNIQUE: Imaging protocol: Magnetic resonance imaging of the head without and with contrast. Contrast material: MULTIHANCE; Contrast volume: 17 ml; Contrast route: INTRAVENOUS (IV); COMPARISON: CT head wo/w con [id number] 01/30/2023 5:02 PM FINDINGS: Limitations: The study is motion degraded. Brain: No acute infarct. No hemorrhage. No significant white matter disease. No edema. No abnormal enhancement. Cerebral ventricles: Normal. No ventriculomegaly. Bones/joints: Unremarkable. Paranasal sinuses: Scattered paranasal sinus mucosal thickening, without air-fluid level present. Mastoid air cells: Normal as visualized. No mastoid effusion. Orbital cavities: Unremarkable. Soft tissues: Unremarkable. MR/MR head wo/w con [id number] IMPRESSION: No acute intracranial abnormality.
[2023-01-31] MEDS: vancomycin 1,250 MG/250 ML PIGGYBACK 250 MG IV ×2 (10:27→20:38)
[2023-01-31] MEDS: HYDROcodone-acetaminophen 5-325 mg Tablet 1 TAB PO ×2 (10:27→19:22)
--- NOTE | 2023-01-31 10:49 | PC.CHAP ---
Pastoral Care Encounter/Spiritual Assessment Type of Contact [] Declined commercial construction superintendent visit [] Patient/Family/Request visit [] Outpatient visit [] Follow-up visit [] Physician referral [] Code/Alert [] Routine visit [] Staff referral [] Actively dying [] Patient sleeping [] Family support [] [] Out of room [] Palliative care [] [] Receiving care in room [] Pre-surgical visit [] Trauma [] Long length of stay [] ICU visit [x] Other: Isolation Relational/Emotional Strength [] Patient feels connected with others/family/visitors/staff [] Distress [] Loneliness/isolation [] Abandonment Spirituality of Patient [] Person of Rita [] Attends Judaism of their Rita [] Believes in Prayer [] Reads Bible or Worship materials [] There are Spiritual issues to be addressed Lens Shaper Grinder Interventions [] Prayer [] Active listening [] Non-anxious presence [] Spiritual/emotional support [] Crisis/trauma care [] Spiritual counseling [] Bereavement support [] Provided bereavement packet [] Provided Bible/devotional materials [] Provided toy/stuffed animal, coloring book to patient or family member [] Provided Communion [] Anointing/[place]nn [] Salvation [] Completed spiritual assessment [] Other: Impact on Illness or Injury [] Angry [] Fearful [] Anxious [] Often cries [] Exhaustion [] Unable to work [] Unable to attend sikh [] Unable to walk/stand [] Unable to read [] Unable to drive [] Unable to eat/drink [] Unable to sleep [] Unable to be with family [] Patient intubated [] Other: Summary Isolation Time spent with patient 5 mins
[2023-01-31] MEDS: acyclovir 700 MG in sodium chloride 0.9% (100 ml) 100 ML 110 MG IV ×2 (13:27→19:42)
[2023-01-31] MEDS: sodium chloride 0.9% 1,000 ML 75 ML IV (13:35)
--- NOTE | 2023-01-31 14:16 | P.PN_ITS ---
Subjective Subjective: No acute events overnight. Patient states her headache is slightly better but continues to bothersome. Light continues to bother her. Patient denies any vomiting but has occasional nausea. Tmax since admission 101.1 Fahrenheit at 10 PM. Blood work appreciated stable CBC, CMP showing stable transaminitis, respiratory viral panel negative Vitals/I&O/Wt Last Vital Signs Temp 99.5 F 01/31/23 03:57 Pulse 85 01/31/23 06:00 Resp 18 01/31/23 06:32 BP 93/51 01/31/23 03:57 Pulse Ox 95 01/31/23 03:57 O2 Del Method Room Air 01/31/23 00:00 01/30/23 01/31/23 01/31/23 22:59 06:59 14:59 Intake Total 1599.85 / 1599.85 114 / 1713.85 1290 / 1290 Balance 1599.85 / 1599.85 114 / 1713.85 1290 / 1290 Weight last 48 hrs Weight 39.463 kg Weight 72.575 kg Physical Exam Narrative: General: No acute distress, AO x3, sick appearing, laying comfortably in bed with eyes closed because of light bothering her HEENT: PERRLA, pupils bilaterally equal and reactive Chest: Normal vesicular breath sounds, no added sounds, equal good air entry bilaterally CVS: S1-S2 regular, no murmurs, no tachycardia, no gallops, no rubs Abdomen: Soft, nontender, no organomegaly, bowel sounds present Neuro: No focal deficits, no facial deformity, AO x3, power 5/5 in all limbs, Kernig's positive Data 01/31/23 09:30 01/31/23 05:06 Micro: Microbiology 01/30/23 19:30 Bacterial Antigens - Final Cerebrospinal Fluid 01/30/23 22:30 Blood Culture - Preliminary Blood SPECIMEN COLLECTED 01/30/23 21:29 Blood Culture - Preliminary Blood SPECIMEN COLLECTED 01/30/23 18:12 Gram Stain - Final Cerebrospinal Fluid A&P Assessment and plan (1) Headache: CT head negative for acute abnormality. Most likely in setting of meningitis. CSF study shows mildly elevated white count of 15 with predominant neutrophils, elevated protein up to 80 with a glucose at 54. Given CSF studies concern for viral versus aseptic meningitis. CSF bacterial panel negative, tick panel, RPR awaited. Urinalysis and drug screen still not done. Follow-up blood culture, CSF culture. CSF VDRL, Lyme's and HSV awaited. As patient continues to have headache we will plan for MRI head with and without contrast. Continue with empiric vancomycin, IV ceftriaxone 2 g daily, acyclovir 10 mg/kg every 8 hourly. IV fluid with normal saline at 75 cc/h Morphine for pain, Tylenol for fever as needed. 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 Check CT abdomen pelvis without contrast negative for any acute abnormality. Regular diet Protonix OPD prophylaxis Heparin for DVT prophylaxis Attestations Medical Necessity Statement*: Requires further hospitalization for management of headache while patient awaits MRI, treatment for meningitis while CSF cultures are awaited. Diagnoses Headache R51.9 Meningitis G03.9
[2023-01-31] MEDS: gadobenate dimeglumine 20 mL vial IV (18:09)
[2023-01-31 18:11] LABS: Bilirubin Urine Neg (Negative); Blood Urine Neg (Negative); Glucose Urine UA Norm (Normal); Ketones Urine 1+ (Negative); Nitrate Urine Negative (Negative); Protein Urine Neg (Negative); Urine Appearance SL Hazy (CLEAR); Urine Color Yellow (Yellow); pH Urine 6 (5-7)
[2023-01-31 18:12] LABS: Add Urine Microscopic? YES; Amphetamines Screen Urine Negative (Negative); Barbiturates Screen Urine Negative (Negative); Benzodiazepines Screen Urine Negative (Negative); Cocaine Screen Urine Negative (Negative); Leukocyte Esterase Urine Negative (Negative); Opiate Screen Urine Positive (Negative); PCP Screen Urine Negative (Negative); THC Screen Urine Negative (Negative); Urobilinogen Urine Norm (Negative)
[2023-01-31 18:24] LABS: Add Urine Culture? No; Bacteria Urine 1+ /hpf; RBC Urine 0-4 /hpf (0-2); Squamous Epithelial Cell Urine 15-25 /hpf (0-5)
[2023-01-31] MEDS: enoxaparin 40 mg/0.4 mL Syringe SUBCUT (19:45)
[2023-02-01] VITALS (9 sets, daily range): BP systolic 95–115; BP diastolic 60–77; PULSE 62–84; RESP 15–17; TEMP 36.6–37.6; O2SAT 95–99; BMI 14.0
[2023-02-01] MEDS: acyclovir 700 MG in sodium chloride 0.9% (100 ml) 100 ML 110 MG IV ×3 (04:23→17:59)
[2023-02-01] MEDS: acetaminophen 325 mg Tablet 650 MG PO ×2 (04:30→14:38)
[2023-02-01] MEDS: HYDROcodone-acetaminophen 5-325 mg Tablet 1 TAB PO ×2 (04:30→14:38)
[2023-02-01 07:04] LABS: Basophils # 0.1 10^3/uL (0.0-0.1); Basophils % 1.2 %; Eosinophils % 0.7 %; Hematocrit 32.1 % (36-47); Lymphocytes # 1.7 10^3/uL (0.8-4.8); Lymphocytes % 39.9 %; Mean Corpuscular HGB Conc 32.1 g/dL (30-55); Mean Corpuscular Hemoglobin 26.5 pg (27-33); Mean Corpuscular Volume 82.7 fl (85-98); Mean Platelet Volume 9.3 fL (7.4-10.4); Monocytes # 0.5 10^3/uL (0.2-0.9); Monocytes % 10.7 %; Neutrophils # 2.03 10^3/uL (1.8-7.7); Neutrophils % 47.3 %; Nucleated Red Blood Cells % 0 %; Platelet Count 215 10^3/cmm (157-399); Red Blood Count 3.88 10^6/uL (3.85-5.65); Red Cell Distribution Width 14.6 % (12.1-15.1); White Blood Count 4.29 10^3/uL (3.29-11.43)
[2023-02-01 07:21] LABS: Alanine Aminotransferase 46 U/L (0-33); Albumin Level 3.7 g/dL (3.5-5.2); Alkaline Phosphatase 157 U/L (35-105); Anion Gap 11.9 (5-19); Aspartate Amino Transferase 18 U/L (0-32); Blood Urea Nitrogen 7 mg/dL (6-20); Calcium 10.5 mg/dL (8.5-10.5); Carbon Dioxide 22 mmol/L (22-29); Chloride 108 mmol/L (98-107); Creatinine Clr Calc Pharmacy 89.2942; Globulin 2.4 g/dL (1.3-4.6); Glomerular Filtration Rate 121.8 mL/min (90-130); Glucose 100 mg/dL (65-115); Osmolality Calculated 284 mOsm/kg (285-295); Potassium 3.9 mmol/L (3.5-5.1); Sodium 138 mmol/L (136-145); Total Bilirubin 0.4 mg/dL (0.15-1.2); Total Protein 6.1 g/dL (6.6-8.7)
[2023-02-01 07:22] LABS: Vancomycin Trough 8.6 ug/mL (10-15)
[2023-02-01] MEDS: famotidine 20 mg Tablet PO ×2 (09:20→17:59)
[2023-02-01] MEDS: cefTRIAXone 2,000 MG in sodium chloride 0.9% (plus) 50 ML 100 MG IV (09:22)
[2023-02-01] MEDS: vancomycin 1,250 MG/250 ML PIGGYBACK 250 MG IV (09:23)
[2023-02-01] MEDS: sodium chloride 0.9% 1,000 ML 75 ML IV (09:32)
--- NOTE | 2023-02-01 12:01 | P.PN_ITS ---
Subjective Subjective: No acute events overnight. Patient today morning seen sitting up in chair. Headache is a lot better. Denies any nausea, vomiting, headache. States hemodynamically stable and afebrile. Tmax in last 24 hours 99.8 Fahrenheit last night. Appreciate blood work. Vitals/I&O/Wt Last Vital Signs Temp 98.3 F 02/01/23 11:07 Pulse 72 02/01/23 11:07 Resp 16 02/01/23 11:07 BP 99/64 02/01/23 11:07 Pulse Ox 98 02/01/23 11:07 O2 Del Method Room Air 02/01/23 11:07 01/31/23 02/01/23 02/01/23 22:59 06:59 14:59 Intake Total 414 / 2068 1114 / 3182 Output Total 800 / 800 Balance -386 / 1268 1114 / 2382 Weight last 48 hrs Weight 39.463 kg Weight 39.463 kg Weight 72.575 kg Physical Exam Narrative: General: No acute distress, AO x3, sick appearing, laying comfortably in bed with eyes closed because of light bothering her HEENT: PERRLA, pupils bilaterally equal and reactive Chest: Normal vesicular breath sounds, no added sounds, equal good air entry bilaterally CVS: S1-S2 regular, no murmurs, no tachycardia, no gallops, no rubs Abdomen: Soft, nontender, no organomegaly, bowel sounds present Neuro: No focal deficits, no facial deformity, AO x3, power 5/5 in all limbs, Kernig's positive Data 02/01/23 06:55 02/01/23 06:55 Micro: Microbiology 01/30/23 22:30 Blood Culture - Preliminary Blood NEGATIVE TO DATE 01/30/23 21:29 Blood Culture - Preliminary Blood NEGATIVE TO DATE 01/30/23 18:12 Gram Stain - Final Cerebrospinal Fluid CSF Culture - Preliminary 01/30/23 19:30 Bacterial Antigens - Final Cerebrospinal Fluid A&P Assessment and plan (1) Headache: CT head negative for acute abnormality. Most likely in setting of meningitis. CSF study shows mildly elevated white count of 15 with predominant neutrophils, elevated protein up to 80 with a glucose at 54. Given CSF studies concern for viral versus aseptic meningitis. CSF bacterial panel negative, respiratory viral panel negative. Tick panel, RPR awaited. Follow-up blood culture, CSF culture, so far negative. CSF VDRL, Lyme's and HSV awaited. Appreciate MRI head with and without contrast to be without any acute abnormality. Continue with empiric vancomycin, IV ceftriaxone 2 g daily, acyclovir 10 mg/kg every 8 hourly. If MRSA becomes negative will DC vancomycin. IV fluid with normal saline at 75 cc/h [place] 5 mg PO Q6h PRN, Tylenol for fever as needed. 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 Check CT abdomen pelvis without contrast negative for any acute abnormality. Regular diet Protonix for PUD prophylaxis Heparin for DVT prophylaxis Attestations Medical Necessity Statement*: Requires further hospitalization for management of intractable headache with presumable meningitis while cultures are awaited. Diagnoses Headache R51.9 Meningitis G03.9
[2023-02-01 13:19] LABS: RPR w(Moniotor) w/REFL Titer NON-REACTIVE (NON-REACTIVE)
[2023-02-01 13:34] LABS: Methicillin-Resist S.aureu PCR NOT DETECTED (NOT DETECTED)
[2023-02-01 14:15] LABS: Lyme AB Screen <0.90 index
[2023-02-01] MEDS: enoxaparin 40 mg/0.4 mL Syringe SUBCUT (21:08)
[2023-02-02] MEDS: acyclovir 700 MG in sodium chloride 0.9% (100 ml) 100 ML 110 MG IV (02:28)
[2023-02-02 03:59] VITALS: BP 110/70; PULSE 74; RESP 15; TEMP 36.6; O2SAT 96
[2023-02-02 05:27] LABS: Basophils # 0.1 10^3/uL (0.0-0.1); Eosinophils # 0.2 10^3/uL (0.0-0.8); Lymphocytes # 2.5 10^3/uL (0.8-4.8); Lymphocytes % 49.6 %; Mean Corpuscular HGB Conc 30.9 g/dL (30-55); Mean Corpuscular Hemoglobin 25.7 pg (27-33); Mean Corpuscular Volume 83.3 fl (85-98); Mean Platelet Volume 9.5 fL (7.4-10.4); Monocytes # 0.4 10^3/uL (0.2-0.9); Monocytes % 8.3 %; Neutrophils # 1.91 10^3/uL (1.8-7.7); Neutrophils % 37.9 %; Nucleated Red Blood Cells % 0 %; Platelet Count 232 10^3/cmm (157-399); Red Blood Count 4.08 10^6/uL (3.85-5.65); Red Cell Distribution Width 14.2 % (12.1-15.1); White Blood Count 5.04 10^3/uL (3.29-11.43)
[2023-02-02 05:46] LABS: Alanine Aminotransferase 37 U/L (0-33); Albumin Level 3.3 g/dL (3.5-5.2); Alkaline Phosphatase 134 U/L (35-105); Anion Gap 9.6 (5-19); Aspartate Amino Transferase 18 U/L (0-32); Blood Urea Nitrogen 7 mg/dL (6-20); Carbon Dioxide 24 mmol/L (22-29); Chloride 107 mmol/L (98-107); Creatinine Clr Calc Pharmacy 89.2942; Globulin 2.8 g/dL (1.3-4.6); Glomerular Filtration Rate 121.8 mL/min (90-130); Glucose 97 mg/dL (65-115); Osmolality Calculated 282 mOsm/kg (285-295); Potassium 3.6 mmol/L (3.5-5.1); Sodium 137 mmol/L (136-145); Total Bilirubin 0.3 mg/dL (0.15-1.2); Total Protein 6.1 g/dL (6.6-8.7)
[2023-02-02 06:00] VITALS: PULSE 53
[2023-02-02 06:08] LABS: Slide Review Slide Review Perform
[2023-02-02 08:00] VITALS: BP 137/92; PULSE 78; RESP 16; TEMP 36.7; O2SAT 97
[2023-02-02] MEDS: cefTRIAXone 2,000 MG in sodium chloride 0.9% (plus) 50 ML 100 MG IV (10:14)
[2023-02-02] MEDS: famotidine 20 mg Tablet PO (10:15)
[2023-02-02 12:00] VITALS: BP 112/83; BP 137/92; PULSE 78; RESP 16; TEMP 36.7; O2SAT 97
--- NOTE | 2023-02-02 12:46 | PM.DCS ---
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 As per patient while she was in the ER she started experiencing headache visit on oral nitrofurantoin.? While being at home she continued to have a global headache radiating to nape of neck which kept getting worse for last 3 days associated with photophobia, nausea and vomiting and high-grade fevers.? Patient denies sick contact.? She lives with her kids and at home.? Gets go to school and has been having runny nose recently.? She denies any history of STIs, meningitis in the past.? She has not been vaccinated for herpes.? She denies any history of rash. In the ER patient had a CT head which was negative for acute abnormality.? For further work-up of global persistent headache lumbar puncture was done with CSF studies as below.? Hospital service was consulted for further evaluation and management. Given the concern For possible meningitis as per CSF studies she was started on antimicrobials for presumable meningitis. During hospitalization her blood cultures remain negative, MRSA swab became negative and vancomycin was discontinued. Given the clinical picture there was a concern for possible aseptic versus viral meningitis. Various CSF studies are pending. CSF cultures are so far negative. Patient showed clinical improvement with no fever and headache for more than 24 hours without requirement of any pain medications. On the day of discharge patient is awake and alert, sitting up comfortable in bed without any photophobia. She has been discharged in hemodynamically stable condition on oral Valtrex 1 g twice daily for next 14 days, IV ceftriaxone 2 g daily starting from tomorrow for next 7 days. She is advised in detail to follow-up with her primary care provider within next 1 week. Physical Exam Narrative: General: No acute distress, AO x3, comfortable, sitting in bed HEENT: PERRLA, pupils bilaterally equal and reactive Chest: Normal vesicular breath sounds, no added sounds, equal good air entry bilaterally CVS: S1-S2 regular, no murmurs, no tachycardia, no gallops, no rubs Abdomen: Soft, nontender, no organomegaly, bowel sounds present Neuro: No focal deficits, no facial deformity, AO x3, power 5/5 in all limbs, Kernig's positive Discharge Data Studies Completed and Pending Completed Studies During Hospitalization Category Date Time Status CT abdomen pelvis wo con 22491 Stat Cat Scan 01/30/23 19:[address] head wo/w con [id number] Stat Cat Scan 01/30/23 15:37 Completed MR head wo/w con [id number] Stat MRI 01/31/23 10:06 Completed Pending at discharge Category Date Time Status Blood Culture Stat Lab 01/30/23 22:30 Results CSF Culture & Gram Stain Stat Lab 01/30/23 18:12 Results Chlamydia/Gonorrh RNA,TMA URO Routine Lab 01/30/23 21:59 Received Herpes Simplex Virus DNA Routine Lab 01/30/23 18:12 Received Lymes Disease Antibodies CSF Routine Lab 01/30/23 18:12 Received Tick Panel AM LABS Lab 01/31/23 05:06 Results VDRL on CSF Stat Lab 01/30/23 18:12 Received Radiology Impressions Head CT 01/30/23 15:37 IMPRESSION: Unremarkable CT examination of the head. No abnormalities detected. Abdomen/Pelvis CT 01/30/23 19:40 IMPRESSION: There are no acute concerning abnormalities. Head MRI 01/31/23 10:06 IMPRESSION: No acute intracranial abnormality. Microbiology 01/30/23 18:12 Cerebrospinal Fluid Gram Stain - Final 01/30/23 18:12 Cerebrospinal Fluid CSF Culture - Preliminary 01/30/23 22:30 Blood Blood Culture - Preliminary NEGATIVE TO DATE 01/30/23 21:29 Blood Blood Culture - Preliminary NEGATIVE TO DATE 01/30/23 19:30 Cerebrospinal Fluid Bacterial Antigens - Final Laboratory Results WBC 5.04 10^3/uL (3.29-11.43) 02/02/23 04:49 RBC 4.08 10^6/uL (3.85-5.65) 02/02/23 04:49 Hgb 10.50 g/dL (11.27-16.99) L 02/02/23 04:49 Hct 34.0 % (36-47) L 02/02/23 04:49 MCV 83.3 fl (85-98) L 02/02/23 04:49 MCH 25.7 pg (27-33) L 02/02/23 04:49 MCHC 30.9 g/dL (30-55) 02/02/23 04:49 RDW 14.2 % (12.1-15.1) 02/02/23 04:49 Plt Count 232 10^3/cmm (157-399) 02/02/23 04:49 MPV 9.5 fL (7.4-10.4) 02/02/23 04:49 Neut % (Auto) 37.9 % 02/02/23 04:49 Lymph % (Auto) 49.6 % 02/02/23 04:49 [place] % (Auto) 8.3 % 02/02/23 04:49 Eos % (Auto) 3.0 % 02/02/23 04:49 Baso % (Auto) 1.0 % 02/02/23 04:49 Neut # (Auto) 1.91 10^3/uL (1.8-7.7) 02/02/23 04:49 Lymph # (Auto) 2.5 10^3/uL (0.8-4.8) 02/02/23 04:49 [place] # (Auto) 0.4 10^3/uL (0.2-0.9) 02/02/23 04:49 Eos # (Auto) 0.2 10^3/uL (0.0-0.8) 02/02/23 04:49 Baso # (Auto) 0.1 10^3/uL (0.0-0.1) 02/02/23 04:49 Nucleated RBC % (auto) 0 % 02/02/23 04:49 Nucleated RBCs # 0.0 /100WBC 02/02/23 04:49 ESR 8 mm/hr (0-15) 01/30/23 15:20 Sodium 137 mmol/L (136-145) 02/02/23 04:49 Potassium 3.6 mmol/L (3.5-5.1) 02/02/23 04:49 Chloride 107 mmol/L (98-107) 02/02/23 04:49 Carbon Dioxide 24 mmol/L (22-29) 02/02/23 04:49 Anion Gap 9.6 (5-19) 02/02/23 04:49 BUN 7 mg/dL (6-20) 02/02/23 04:49 Creatinine 0.6 mg/dL (0.5-0.9) 02/02/23 04:49 GFR Calculation 121.8 mL/min (90-130) 02/02/23 04:49 Glucose 97 mg/dL (65-115) 02/02/23 04:49 Estimat Average Glucose 97 01/30/23 15:20 Hemoglobin A1c 5.0 % (4.0-6.0) 01/30/23 15:20 Calculated Osmolality 282 mOsm/kg (285-295) L 02/02/23 04:49 Lactic Acid 0.8 mmol/L (0.5-2.2) 01/30/23 21:29 Calcium 10.0 mg/dL (8.5-10.5) 02/02/23 04:49 Phosphorus 2.6 mg/dL (2.5-4.5) 01/31/23 05:06 Magnesium 1.9 mg/dL (1.7-2.3) 01/31/23 05:06 Total Bilirubin 0.3 mg/dL (0.15-1.2) 02/02/23 04:49 AST 18 U/L (0-32) 02/02/23 04:49 ALT 37 U/L (0-33) H 02/02/23 04:49 Alkaline Phosphatase 134 U/L (35-105) H 02/02/23 04:49 C-Reactive Protein 25.3 mg/L (0.0-4.9) H 01/30/23 15:20 Total Protein 6.1 g/dL (6.6-8.7) L 02/02/23 04:49 Albumin 3.3 g/dL (3.5-5.2) L 02/02/23 04:49 Globulin 2.8 g/dL (1.3-4.6) 02/02/23 04:49 Triglycerides 62 mg/dL (0-150) 01/31/23 05:06 Cholesterol 153 mg/dL (0-200) 01/31/23 05:06 LDL Cholesterol, Calc 99 mg/dL (50-129) 01/31/23 05:06 HDL Cholesterol 42 mg/dL (60-100) L 01/31/23 05:06 LDL/HDL Ratio 2.36 RATIO (0.00-3.22) 01/31/23 05:06 Cholesterol/HDL Ratio 3.64 mg/dL (0.0-4.40) 01/31/23 05:06 Vitamin B12 387 pg/mL (232-1245) 01/30/23 15:20 Folate 16.2 ng/mL (4.8-37.3) 01/31/23 05:06 Procalcitonin 0.04 ng/mL (0-0.5) 01/31/23 05:06 TSH 1.29 uIU/mL (0.27-4.20) 01/30/23 15:20 Ser , Semi-Qnt 1.00 mIU/mL 01/30/23 22:30 Urine Color Yellow (Yellow) 01/31/23 17:55 Urine Appearance Sl hazy (CLEAR) A 01/31/23 17:55 Urine pH 6 (5-7) 01/31/23 17:55 Ur Specific [place] 1.010 (1.005-1.030) 01/31/23 17:55 Urine Protein Neg (Negative) 01/31/23 17:55 Urine Glucose (UA) Norm (Normal) 01/31/23 17:55 Urine Ketones 1+ (Negative) H 01/31/23 17:55 Urine Blood Neg (Negative) 01/31/23 17:55 Urine Nitrate Negative (Negative) 01/31/23 17:55 Urine Bilirubin Neg (Negative) 01/31/23 17:55 Urine Urobilinogen Norm mg/dL (Negative) 01/31/23 17:55 Ur Leukocyte Esterase Negative (Negative) 01/31/23 17:55 Urine RBC 0-4 /hpf (0-2) H 01/31/23 17:55 Urine WBC 5-10 /hpf (0-5) H 01/31/23 17:55 Ur Squamous Epith Cells 15-25 /hpf (0-5) H 01/31/23 17:55 Amorphous Sediment Not Reportable 01/31/23 17:55 Urine Bacteria 1+ /hpf (NONE) H 01/31/23 17:55 CSF Appearance Clear (CLEAR) 01/30/23 18:12 CSF Color Colorless (COLORLESS) 01/30/23 18:12 CSF WBC 15 /uL (0-5) H 01/30/23 18:12 CSF RBC 0 10^3/uL (0-0) 01/30/23 18:12 CSF Mononuclear # Auto 0.002 10^3/uL (50-90) L 01/30/23 18:12 CSF Mononuclear WBCs % 13 % (50-90) L 01/30/23 18:12 CSF Polynuclear WBCs # 0.013 10^3/uL (0-10) 01/30/23 18:12 CSF Polynuclear WBCs % 87 % (0-10) H 01/30/23 18:12 CSF Diff Comment Yes 01/30/23 18:12 CSF Glucose 54 mg/dL (40-70) 01/30/23 18:12 CSF Total Protein 80 mg/dL (15-45) H 01/30/23 18:12 Nasal Influ A H1 2008 PCR Not detected (NOT DETECT) 01/30/23 15:27 Vancomycin Trough 8.6 ug/mL (10-15) L 02/01/23 06:55 Urine Opiates Screen Positive ng/mL (Negative) H 01/31/23 17:55 Ur Barbiturates Screen Negative ng/mL (Negative) 01/31/23 17:55 Ur Phencyclidine Scrn Negative ng/mL (Negative) 01/31/23 17:55 Ur Amphetamines Screen Negative ng/mL (Negative) 01/31/23 17:55 U Benzodiazepines Scrn Negative ng/mL (Negative) 01/31/23 17:55 Urine Cocaine Screen Negative ng/mL (Negative) 01/31/23 17:55 U Marijuana (THC) Screen Negative ng/mL (Negative) 01/31/23 17:55 RPR w/Rflx to Titer Non-reactive (NON-REACTIVE) 01/31/23 05:06 Adenovirus (PCR) Not detected (NOT DETECT) 01/30/23 15:27 Lyme Ab (Western Blot) <0.90 index 01/31/23 05:06 C. pneumoniae DNA (PCR) Not detected (NOT DETECT) 01/30/23 15:27 Coronavirus 229E (PCR) Not detected (NOT DETECT) 01/30/23 15:27 HIV 1&2 Ab & HIV 1 Ag Non-reactive (Non-Reactiv) 01/30/23 22:30 HIV 1&2 Antibody Non-reactive (Non-Reactiv) 01/30/23 22:30 Human Metapneumovir PCR Not detected (NOT DETECT) 01/30/23 15:27 Influenza A (H1) PCR Not detected (NOT DETECT) 01/30/23 15:27 Influenza A (H3) PCR Not detected (NOT DETECT) 01/30/23 15:27 Influenza Type A Ag negative (Negative) 01/30/23 16:53 Influenza Type A (PCR) Not detected (NOT DETECT) 01/30/23 15:27 Influenza Type B Ag negative (Negative) 01/30/23 16:53 Influenza Type B (PCR) Not detected (NOT DETECT) 01/30/23 15:27 M. pneumoniae (PCR) Not detected (NOT DETECT) 01/30/23 15:27 Parainfluenza 1 (PCR) Not detected (NOT DETECT) 01/30/23 15:27 Parainfluenza 2 (PCR) Not detected (NOT DETECT) 01/30/23 15:27 Parainfluenza 3 (PCR) Not detected (NOT DETECT) 01/30/23 15:27 Parainfluenza 4 (PCR) Not detected (NOT DETECT) 01/30/23 15:27 RSV Type A (PCR) Not detected (NOT DETECT) 01/30/23 15:27 RSV Type B (PCR) Not detected (NOT DETECT) 01/30/23 15:27 Entero/Rhino (PCR) Not detected (NOT DETECT) 01/30/23 15:27 SARS-CoV-2 (PCR) Not detected (NOT DETECT) 01/30/23 15:27 SARS-CoV-2 Ag (Rapid) negative (Negative) 01/30/23 15:27 MRSA (PCR) Not detected (NOT DETECTED) 01/31/23 15:15 Vitals Last Vital Signs Temp 98.0 F 02/02/23 12:00 Pulse 78 02/02/23 12:00 Resp 16 02/02/23 12:00 BP 112/83 02/02/23 12:00 Pulse Ox 97 02/02/23 12:00 O2 Del Method Room Air 02/02/23 03:59 Discharge Plan Discharge Patient Disposition: Home Condition: Stable Prescriptions: New famotidine 20 mg Tablet 20 mg PO BID Qty: 60 0RF Valtrex 1 gram tablet 1,000 mg PO Q12H 14 Days Qty: 28 0RF Continued ibuprofen 200 mg Tablet 600 mg PO Q6H PRN (Reason: Pain) ceftriaxone 2 gram Recon Soln 2 g IV DAILY Discontinued nitrofurantoin monohyd/m-cryst [Macrobid] 100 mg capsule 100 mg PO BID Qty: 60 6RF Rx Instructions: must administer with a meal/food Discharge Orders: Discharge Order (Routine); Ordered 02/02/23 Ordered By: Anuj Lange Referrals: Outpatient IV abxs [Other] (On Saturday 02/03 you will need to go to ER and register they will redirect you to surgical services for the infusion. On Saturday02/04/23 you will arrive to surgical services to register and they will direct you to GI lab to have infusion.) Steven Del Rio MD [Primary Care Provider] - 02/05/23 3:10 pm Discharge Diet: Regular Discharge Activity: Resume usual activity and Increase activity as tolerated Patient Instructions: Famotidine (By mouth), Valacyclovir (By mouth) (Valtrex), Urinary Tract Infection in Women (DC), Opioid Safety Activity Restrictions/Additional Instructions: Please continue to follow-up with GI lab daily for IV ceftriaxone 2 g daily. Appointment for outpatient IV antibiotics Saturday02/03/23 at 1100 in GI Lab. Along with IV ceftriaxone you will also be on oral Valtrex 1 g twice daily for next 14 days. Please follow-up with your primary care provider onsite appointment. Discharge Attestations Time Spent in Discharge Care*: greater than 30 min Specific Discharge Activities: educating patient, discussing with pcp/other providers, discussing with bilingual case manager/social workers/dc planners, documenting/other paperwork and evaluating patient/reviewing data Status at Discharge: Cognitive status at discharge: cognitively intact, Behavioral status at discharge: cooperative, Functional status at discharge: independent ambulation, Overall status at discharge: patient is back to baseline Quality Metrics Clinical Quality Measures [ No reported AMI, CVA or VTE this stay] Coding Level of Care Code 22820 Total time (in minutes) for Discharge: 60 Diagnoses Headache R51.9 Meningitis G03.9
[2023-02-02 14:31] VITALS: BP 112/83; PULSE 78; RESP 16; TEMP 36.7; O2SAT 97
[2023-02-02 16:14] LABS: Chlamydia Trachomatis RNA TMA NOT DETECTED (NOT DETECTED); Neisseria Gonorrhoeae RNA, TMA NOT DETECTED (NOT DETECTED)
[2023-02-04 17:34] LABS: E. Chaffeensis AB IGG <1:64; E. Chaffeensis AB IGM <1:20
[2023-02-05 06:05] LABS: HSV 1 DNA NOT DETECTED; HSV 2 DNA NOT DETECTED; HSV Source CEREBROSPINAL FLUID
[2023-02-05 16:48] LABS: VDRL on CSF NON-REACTIVE
[2023-02-05 16:54] LABS: RMSF IGG NOT DETECTED; RMSF IGM NOT DETECTED
[2023-02-06 19:14] LABS: Lyme Disease AB (IGG),IBL NO BANDS DETECTED; Lyme Disease AB (IGM), IBL NO BANDS DETECTED
== END 2023-02-02 14:33 | disposition home or self-care (01) | DRG 99 ==
LOC: ER 19:17 → MEDSURG 20:44
PROVIDERS: Student in an Organized Health Care Education/Training Program; Admitting Provider Student in an Organized Health Care Education/Training Program; Emergency Provider Emergency Medicine; PCP Family Medicine; Visit Provider Student in an Organized Health Care Education/Training Program
DX: G03.9 Meningitis, unspecified (principal); Z87.442 Personal history of urinary calculi; D72.829 Elevated white blood cell count, unspecified; Z87.440 Personal history of urinary (tract) infections; F17.290 Nicotine dependence, other tobacco product, uncomplicated
CPT/HCPCS: 36415; 70470; 70553; 74176; 80053; 80061; 80202; 80306; 80503; 81001; 82607; 82746; 82945; 83036; 83605; 83735; 84100; 84145; 84157; 84443; 84702; 85025; 85651; 86140; 86403; 86592; 86617; 86618; 86666; 86757; 87040; 87070; 87075; 87205; 87426; 87486; 87491; 87530; 87581; 87591; 87633; 87641; 87804; 87806; 89050; 94664; 96365; 96367; 96372; 96375; 99291; A9577; J0131; J0133; J0696; J0780; J1100; J1170; J1200; J1650; J1885; J2270; J2405; J3010; J3370; J7030; Q9967

== ENCOUNTER 2023-02-03 20:35 | Emergency (ER) | payer MEDICAID, SELFPAY ==
[2023-02-03 20:37] VITALS: BP 118/87; PULSE 97; RESP 16; TEMP 36.4; O2SAT 98
--- NOTE | 2023-02-03 21:02 | W.ED.HA ---
HPI - Headache General: Chief Complaint: Headache Stated Complaint: got hit in head,head pain Time Seen by Provider: 02/03/23 20:53 History of Present Illness: Presents to the ER with complaints of a headache and also forehead laceration after getting hit in head with stapler at work. Patient was recently discharged from the hospital with a diagnosis of meningitis and has been having headaches ever since. He said this was normal. She did not have them before. She has a small laceration on her forehead bleeding is controlled. Review of Systems General: Reports: 10 or more systems reviewed and unremarkable except in HPI and below PFSH ED PFSH: Medical History Bilateral ureteral calculi Chronic cystitis History of recurrent UTI (urinary tract infection) Medullary sponge kidney Pyelonephritis Recurrent UTI Urolithiasis Yeast vaginitis Surgical History H/O tubal ligation History of wisdom tooth extraction Hx of cholecystectomy Hx of tonsillectomy Status post laser lithotripsy of ureteral calculus Family History Father , AT AGE 24 Electric injury Social History Smoking and tobacco status: current every day smoker e-cigarettes Alcohol intake: current Alcohol intake frequency: few times a month Substance/Drug Use: never Marital status: Current occupational status: employed Physical Exam Const: COMMON NORMALS: no acute distress, average body habitus, patient oriented x3, no limitations, healthy appearing, alert and well nourished HENMT: COMMON NORMALS: normocephalic, hearing grossly normal bilaterally, external ears normal, Normal external nose present and moist oral mucous membranes; head/scalp not atraumatic (Small 1 cm laceration forehead bleeding controlled) HEAD & SCALP: normocephalic; not atraumatic (Small 1 cm laceration forehead bleeding controlled) NOSE: Normal external nose present EXTERNAL EAR: Yes external ears normal Eye: COMMON NORMALS: Equal, round and reactive pupils present, EOMs intact bilaterally, conjunctivae normal and no scleral icterus CONJUNCTIVA: Yes conjunctivae normal PUPIL: Yes Equal, round and reactive pupils present Neck/C-Spine: COMMON NORMALS: full ROM, no lymphadenopathy, supple, no meningeal signs, no JVD and Thyroid normal THYROID: Thyroid normal Lymph: LYMPHATIC: no lymphadenopathy noted Chest: COMMONS NORMALS: normal inspection of the chest and normal palpation of entire chest wall Resp: COMMON NORMALS: normal respiratory effort, No retractions and No use of accessory muscles Cardio: COMMON NORMALS: no JVD, regular rate, regular rhythm, S1 normal heart sound present, S2 normal heart sound present, No gallops present (Cardio), No clicks present (Cardio), No murmurs present (Cardio) and No rub (Cardio) RATE: regular rate RHYTHM: regular rhythm HEART SOUNDS: S1 normal heart sound present and S2 normal heart sound present GI: COMMON NORMALS: Normal to inspection, nondistended, normoactive bowel sounds present, Soft to palpation, non-tender, No hepatosplenomegaly present and no masses PALPATION: Yes Soft to palpation and Yes No hepatosplenomegaly present : COMMON NORMALS: Yes no CVA tenderness BLADDER/KIDNEY EXAM: Yes no CVA tenderness Back/Pelvis: COMMON NORMALS: no CVA tenderness Neuro: COMMON NORMALS: patient oriented x3 SENSORIUM/ORIENTATION: Yes alert MENINGEAL SIGNS: Yes no meningeal signs Course Vital Signs: Vital signs: Vital Signs Temperature 97.6 F 02/03/23 20:37 Pulse Rate 54 L 02/03/23 22:22 Respiratory Rate 16 02/03/23 22:22 Blood Pressure 118/87 02/03/23 20:37 Pulse Oximetry 98 02/03/23 22:22 Oxygen Delivery Me thod Room Air 02/03/23 20:37 MDM - Headache Medical Decision Making Patient presents to the ER with complaints of a migraine and getting hit in the head with a stapler. Bleeding is controlled incision is very small and will be closed with a Band-Aid. Patient was given Reglan 10 mg Toradol 30 mg and Benadryl 50 mg along with a 1 L bolus of normal saline for headache and it has totally resolved. Patient be discharged home to follow-up with her PCP on an as-needed basis. Differential Diagnosis Likely migraine and headache; Unlikely tension headache, subarachnoid hemorrhage, meningitis, sinusitis or postconcussion syndrome Medical Records I reviewed the patient's medical records. Lab Data I reviewed the patient's lab results. No radiology studies performed this visit Discharge Plan Discharge Patient Disposition: Home Clinical Impression: Headache Qualifiers: Headache type: unspecified Headache chronicity pattern: acute headache Intractability: not intractable Qualified Code(s): R51.9 - Headache, unspecified Forehead laceration Qualifiers: Encounter type: initial encounter Qualified Code(s): S01.81XA - Laceration without foreign body of other part of head, initial encounter Condition: Stable Prescriptions: No Action ibuprofen 200 mg Tablet 600 mg PO Q6H PRN (Reason: Pain) ceftriaxone 2 gram Recon Soln 2 g IV DAILY famotidine 20 mg Tablet 20 mg PO BID Qty: 60 0RF Valtrex 1 gram tablet 1,000 mg PO Q12H 14 Days Qty: 28 0RF Discharge Orders: Discharge ED (Routine); Ordered 02/03/23 Ordered By: Kristofer Sullivan Referrals: Steven Del Rio MD [Primary Care Provider] - 1 week Patient Instructions: Headache - Migraine (Adult), Head Laceration (ED) Coding Level of Care Code ED [facility] [employer] for Abad Ely
[2023-02-03] MEDS: sodium chloride 0.9% 1,000 ML 999 ML IV (21:21)
[2023-02-03] MEDS: ketorolac 30 mg/mL INJ IVP (21:22)
[2023-02-03] MEDS: diphenhydrAMINE 50 mg/mL SDV 1mL IVP (21:24)
[2023-02-03] MEDS: metoclopramide 5 mg/mL SDV 2 mL 10 MG IVP (21:25)
[2023-02-03 21:27] VITALS: PULSE 78; RESP 16; O2SAT 98
[2023-02-03 22:22] VITALS: PULSE 54; RESP 16; O2SAT 98
[2023-02-03 22:46] VITALS: BP 118/87; PULSE 54; RESP 16; TEMP 36.4; O2SAT 98
== END 2023-02-03 22:47 | disposition home or self-care (01) ==
PROVIDERS: Emergency Provider Emergency Medicine; PCP Family Medicine
DX: R51.9 Headache, unspecified (principal); S01.81XA Laceration without foreign body of other part of head, initial encounter; F17.290 Nicotine dependence, other tobacco product, uncomplicated; W22.8XXA Striking against or struck by other objects, initial encounter
CPT/HCPCS: 96361; 96374; 96375; 99284; J1200; J1885; J2765; J7030

== ENCOUNTER 2023-02-07 12:19 | Outpatient (RCR) | payer MEDICAID, SELFPAY ==
[2023-02-03] MEDS: cefTRIAXone 2,000 MG in sodium chloride 0.9% (plus) 50 ML 100 MG IV (11:20)
[2023-02-03 11:31] VITALS: BP 116/77; PULSE 85; RESP 16; TEMP 36.3; O2SAT 99
--- NOTE | 2023-02-03 11:34 | PC.NURSE ---
Pt. arrived in OPS with an IV in her left forearm. Iv dc'd because it would not flush and was painful. another Iv was placed in her right ac and infusion started.
--- NOTE | 2023-02-03 12:08 | PC.NURSE ---
Iv start was charted as left ac but was placed in right ac.. medication was scanned in mar before giving to pt but i had to undo that charting in order to try and correct iv placement previously charted. i then had to manually add in medication in mar to show it was infused.
[2023-02-04] MEDS: cefTRIAXone 2,000 MG in sodium chloride 0.9% (plus) 50 ML 100 MG IV (10:55)
[2023-02-04 11:23] VITALS: BP 127/81; PULSE 72; RESP 18; TEMP 36.2; O2SAT 99
[2023-02-05] MEDS: cefTRIAXone 2,000 MG in sodium chloride 0.9% (plus) 50 ML 100 MG IV (08:38)
[2023-02-05 08:40] VITALS: BP 120/82; PULSE 79; RESP 18; TEMP 36.1; O2SAT 100
[2023-02-06] MEDS: cefTRIAXone 2,000 MG in sodium chloride 0.9% (plus) 50 ML 100 MG IV (08:30)
[2023-02-06 08:38] VITALS: BP 127/81; PULSE 89; RESP 18; TEMP 36.1; O2SAT 100
--- NOTE | 2023-02-07 10:09 | PC.NURSE ---
Pt was a no call, no show for appointment. Attempted to reach patient via phone. No answer and unable to leave message.
[2023-02-07 12:30] VITALS: BP 113/80; PULSE 80; RESP 16; TEMP 36.5; O2SAT 97; BMI 25.8
--- NOTE | 2023-02-07 12:30 | PC.NURSE ---
Pt states she got caught at work and called [facility]PS letting them know she would be late. Pt did receive antibiotic as scheduled.
[2023-02-07] MEDS: cefTRIAXone 2,000 MG in sodium chloride 0.9% (plus) 50 ML 100 MG IV (12:44)
--- NOTE | 2023-02-08 12:36 | PC.NURSE ---
Pt called this nurse stating she would be unable to make it to her appointment today due to work issues. Today is her last dose. Dr. Lange notified. Orders received to discontinue Ceftriaxone. Pt does not need to reschedule appointment.
== END 2023-02-09 23:59 | disposition home or self-care (01) ==
LOC: GILAB 12:19
PROVIDERS: PCP Family Medicine; Visit Provider Student in an Organized Health Care Education/Training Program
DX: G03.9 Meningitis, unspecified (principal)
CPT/HCPCS: 96365; J0696

== ENCOUNTER 2023-05-28 08:31 | Emergency (ER) | payer MEDICAID, SELFPAY ==
[2023-05-28] VITALS (8 sets, daily range): BP systolic 107–143; BP diastolic 67–89; PULSE 106–119; RESP 12–18; TEMP 37.1; O2SAT 96–99; BMI 29.6
--- NOTE | 2023-05-28 08:50 | ED_ITS ---
HPI - Female Genitourinary 2 General: Chief complaint: Urogenital-Female Stated complaint: urine issues Time Seen by Provider: 05/28/23 08:33 Source: patient Mode of arrival: ambulatory History of Present Illness: 28-year-old female presents emergency ro om with complaint of recurrent UTIs history of nephrolithiasis and medullary sponge kidney. Over the last days she has noticed onset of dysuria urgency and frequency as well as left flank pain. She has not noticed any hematuria. No fever sweats or chills. No vomiting or diarrhea. He has not noticed anything that exacerbates or relieves her symptoms. MD elicited complaint: dysuria and UTI Pertinent past history: recurrent UTIs Onset (ago): day(s) (1) Location of symptoms: flank (R) Severity: moderate Quality of pain: sharp Exacerbating factors: none Relieving factors: none Associated symptoms: Reports abdominal pain; Deny short of breath, fevers/chills, headache(s), nausea, rash, seizures, syncope, vaginal bleeding, vaginal discharge, weakness or other Treatment prior to arrival: none Review of Systems 2 Const: Denies: fever(s) or chills Card: Denies: chest pain or syncope Resp: Denies: dyspnea GI: Reports: abdominal pain; Denies: nausea : Reports: flank pain, dysuria, urinary frequency and urinary urgency; Denies: vaginal discharge Musc: Denies: neck pain or back pain Skin/Breast: Denies: rash Neuro: Denies: headache(s) PFSH ED 2 PFSH: Medical History Bilateral ureteral calculi Yeast vaginitis History of recurrent UTI (urinary tract infection) Chronic cystitis Urolithiasis Medullary sponge kidney Recurrent UTI Pyelonephritis Surgical History Hx of cholecystectomy Status post laser lithotripsy of ureteral calculus History of wisdom tooth extraction Hx of tonsillectomy H/O tubal ligation Family History Father , AT AGE 24 Electric injury Social History Smoking and tobacco/nicotine status: current every day tobacco/nicotine user e- cigarettes Alcohol intake: current Alcohol intake frequency: few times a month Substance/Drug Use: never Marital status: Current occupational status: employed Physical Exam 2 Const: COMMON NORMALS: no acute distress GENERAL APPEARANCE: cooperative and comfortable ORIENTATION/CONSCIOUSNESS: Yes awake, Yes oriented to person, Yes oriented to place and Yes oriented to time HENMT: COMMON NORMALS: normocephalic, atraumatic and hearing grossly normal bilaterally HEAD & SCALP: normocephalic and atraumatic Resp: COMMON NORMALS: normal respiratory effort, No retractions, No use of accessory muscles and clear to auscultation bilaterally AUSCULTATION: clear to auscultation bilaterally Cardio: COMMON NORMALS: regular rate, regular rhythm and No murmurs present (Cardio) RATE: regular rate RHYTHM: regular rhythm GI: COMMON NORMALS: Soft to palpation and No hepatosplenomegaly present A USCULTATION: Yes normoactive bowel sounds PALPATION: Yes Soft to palpation, No Tenderness to palpation present (GI), No Guarding due to palpation present (GI) and Yes No hepatosplenomegaly present : SPECULUM EXAM - VAGINA: No vaginal bleeding OB/EXTERNAL & SPECULUM: No vaginal bleeding Extremity: COMMON NORMALS: normal to inspection, capillary refill normal, no clubbing, cyanosis or edema, no calf tenderness and no pedal edema Neuro: SENSORIUM/ORIENTATION: Yes oriented to person, Yes oriented to place and Yes oriented to time Skin: COMMON NORMALS: no rashes or lesions noted GENERAL SKIN EXAM: no rashes or lesions noted Course 2 Vital Signs: Vital signs: Vital Signs Temperature 98.7 F 05/28/23 08:39 Pulse Rate 114 H 05/28/23 08:39 Respiratory Rate 12 05/28/23 09:10 Blood Pressure 107/67 05/28/23 09:13 Pulse Oximetry 96 05/28/23 09:13 Oxygen Delivery Me thod Room Air 05/28/23 09:13 MDM - Female Medical Decision Making Obstructive pyelonephritis with a white count of 18 6 with a left shift lactate is normal. Patient be given IV fluid bolus cultures have been done and started patient on IV antibiotics. We do not have urology available here. [facility] transfer [facility] in [place] ER to ER. Further complicating is the patient's history of medullary sponge kidney Medical Records I reviewed the patient's medical records. Lab Data I reviewed the patient's lab results. 05/28/23 09:39 05/28/23 09:39 Laboratory Results WBC 18.66 10^3/uL (3.29-11.43) H 05/28/23 09:39 RBC 4.06 10^6/uL (3.85-5.65) 05/28/23 09:39 Hgb 11.10 g/dL (11.27-16.99) L 05/28/23 09:39 Hct 34.4 % (36-47) L 05/28/23 09:39 MCV 84.7 fl (85-98) L 05/28/23 09:39 MCH 27.3 pg (27-33) 05/28/23 09:39 MCHC 32.3 g/dL (30-55) 05/28/23 09:39 RDW 13.9 % (12.1-15.1) 05/28/23 09:39 Plt Count 258 10^3/cmm (157-399) 05/28/23 09:39 MPV 9.9 fL (7.4-10.4) 05/28/23 09:39 Neut % (Auto) 89.0 % 05/28/23 09:39 Lymph % (Auto) 4.5 % 05/28/23 09:39 [place] % (Auto) 5.4 % 05/28/23 09:39 Eos % (Auto) 0.1 % 05/28/23 09:39 Baso % (Auto) 0.4 % 05/28/23 09:39 Neut # (Auto) 16.60 10^3/uL (1.8-7.7) H 05/28/23 09:39 Lymph # (Auto) 0.8 10^3/uL (0.8-4.8) 05/28/23 09:39 [place] # (Auto) 1.0 10^3/uL (0.2-0.9) H 05/28/23 09:39 Eos # (Auto) 0.0 10^3/uL (0.0-0.8) 05/28/23 09:39 Baso # (Auto) 0.1 10^3/uL (0.0-0.1) 05/28/23 09:39 Nucleated RBC % (auto) 0 % 05/28/23 09:39 Nucleated RBCs # 0.0 /100WBC 05/28/23 09:39 Sodium 138 mmol/L (136-145) 05/28/23 09:39 Potassium 3.8 mmol/L (3.5-5.1) 05/28/23 09:39 Chloride 109 mmol/L (98-107) H 05/28/23 09:39 Carbon Dioxide 22 mmol/L (22-29) 05/28/23 09:39 Anion Gap 10.8 (5-19) 05/28/23 09:39 BUN 8 mg/dL (6-20) 05/28/23 09:39 Creatinine 0.6 mg/dL (0.5-0.9) 05/28/23 09:39 GFR Calculation 120.8 mL/min (90-130) 05/28/23 09:39 Glucose 111 mg/dL (65-115) 05/28/23 09:39 Calculated Osmolality 285 mOsm/kg (285-295) 05/28/23 09:39 Lactic Acid 1.2 mmol/L (0.5-2.2) 05/28/23 09:39 Calcium 9.9 mg/dL (8.5-10.5) 05/28/23 09:39 Total Bilirubin 1.1 mg/dL (0.15-1.2) 05/28/23 09:39 AST 50 U/L (0-32) H 05/28/23 09:39 ALT 57 U/L (0-33) H 05/28/23 09:39 Alkaline Phosphatase 152 U/L (35-105) H 05/28/23 09:39 Total Protein 6.3 g/dL (6.6-8.7) L 05/28/23 09:39 Albumin 3.5 g/dL (3.5-5.2) 05/28/23 09:39 Globulin 2.8 g/dL (1.3-4.6) 05/28/23 09:39 HCG, Qual Negative (Negative) 05/28/23 09:39 Urine Color Yellow (Yellow) 05/28/23 09:30 Urine Appearance Cloudy (CLEAR) A 05/28/23 09:30 Urine pH 8 (5-7) H 05/28/23 09:30 Ur Specific Mineral 1.015 (1.005-1.030) 05/28/23 09:30 Urine Protein Neg (Negative) 05/28/23 09:30 Urine Glucose (UA) Norm (Normal) 05/28/23 09:30 Urine Ketones Negative (Negative) 05/28/23 09:30 Urine Blood 2+ (Negative) H 05/28/23 09:30 Urine Nitrate Positive (Negative) H 05/28/23 09:30 Urine Bilirubin Neg (Negative) 05/28/23 09:30 Urine Urobilinogen Norm mg/dL (Negative) 05/28/23 09:30 Ur Leukocyte Esterase 2+ (Negative) H 05/28/23 09:30 Urine RBC 0-4 /hpf (0-2) H 05/28/23 09:30 Urine WBC 40-55 /hpf (0-5) H 05/28/23 09:30 Ur Squamous Epith Cells 0-4 /hpf (0-5) H 05/28/23 09:30 Ur Transition Epith Cell 0-4 /hpf 05/28/23 09:30 Amorphous Sediment Not Reportable 05/28/23 09:30 Urine Bacteria 2+ /hpf (NONE) H 05/28/23 09:30 Urine Mucus Trace /hpf 05/28/23 09:30 All radiology interpretation(s) finalized by discharge Discharge Plan Discharge Patient Disposition: Transfer to ED Clinical Impression: Obstructive pyelonephritis, Left nephrolithiasis, Congenital medullary sponge kidney Condition: Stable Prescriptions: No Action ibuprofen 200 mg Tablet 1,000 mg PO Q6H PRN (Reason: Pain) Macrobid 100 mg Capsule 100 mg PO BID Rx Instructions: must administer with a meal/food Referrals: Steven Del Rio MD [Primary Care Provider] - Coding Level of Care Code ED [employer] for Abad Ely
--- NOTE | 2023-05-28 08:54 | CT_ITS ---
WS: [id number] CT ABDOMEN AND PELVIS NONCONTRAST HISTORY: L flank pain TECHNIQUE: Imaging performed through the abdomen and pelvis. Coronal and sagittal reformats are submi tted. All CT scans at [facility] use at least one of these dose optimization techniques: auto mated exposure control; mA and/or kV adjustment per patient size (includes targeted exams where dose is matched to clinical indication); or iterative reconstruction. DLP: 708.17 mGy.cm COMPARISON: 01/30/2023 Lower thorax: Lung bases are clear. Visualized heart is normal. Small hiatal hernia. Liver: Normal size liver. No mass or bile duct dilatation. Gallbladder: Prior cholecystectomy. No bile duct dilatation. Pancreas: Normal size and attenuation. Normal pancreatic duct. No pancreatitis or mass. Spleen: Normal. Adrenal glands: Normal. No mass. Right kidney: Normal size kidney. There is extensive medullary nephrocalcinosis throughout the kidney . No obstruction. Left kidney: Normal size kidney. Extensive medullary nephrocalcinosis. There is mild to moderate john nephric stranding surrounding the LEFT kidney which is new. There is dilatation of the renal pelvis a nd proximal ureter. The mid to distal ureter is more difficult to follow. High density foci in the tr ue pelvis but the patient also has a history of tubal ligation. The 6 mm calcification in the LEFT pe lvis may potentially be within the ureter. Aorta: Normal abdominal aorta, no aneurysm or atherosclerosis. No free fluid, intraperitoneal air or significant lymphadenopathy. GI tract: Normal noncontrast imaging of the stomach, small bowel and colon. No obstruction or wall th ickening. Normal appendix. Abdominal wall: Negative. No hernia. Pelvis: Small amount of free fluid in the pelvis. Osseous structures: Unremarkable. IMPRESSION: 1. Mild to moderate LEFT hydroureteronephrosis. LEFT kidney is enlarged and edematous with new perin ephric stranding. It is difficult to follow the course of the distal LEFT ureter but there is a calci fic density in the expected location of the distal LEFT ureter. With the secondary findings of a jennifer l and ureteral obstruction I believe this is probably a ureteral calcification. 2. There is extensive bilateral medullary nephrocalcinosis. 3. Normal appendix. 4. Prior cholecystectomy.
[2023-05-28] MEDS: sodium chloride 0.9% 1,000 ML 999 ML IV (09:05)
[2023-05-28] MEDS: ondansetron 2 mg/ML SDV 2 mL 4 MG IVP (09:10)
[2023-05-28] MEDS: morphine 4 mg/mL SDV 1 mL IVP ×3 (09:10→13:24)
[2023-05-28 09:52] LABS: Add Urine Microscopic? YES; Bilirubin Urine Neg (Negative); Blood Urine 2+ (Negative); Glucose Urine UA Norm (Normal); Ketones Urine Negative (Negative); Leukocyte Esterase Urine 2+ (Negative); Nitrate Urine Positive (Negative); Protein Urine Neg (Negative); Specific Gravity, Urine 1.015 (1.005-1.030); Urine Appearance Cloudy (CLEAR); Urine Color Yellow (Yellow); Urobilinogen Urine Norm (Negative); pH Urine 8 (5-7)
[2023-05-28 10:03] LABS: Add Urine Culture? Yes; Bacteria Urine 2+ /hpf; Mucus Urine TRACE /hpf; RBC Urine 0-4 /hpf (0-2); Squamous Epithelial Cell Urine 0-4 /hpf (0-5); Transitional Epi Cells Urine 0-4 /hpf; WBC Urine 40-55 /hpf (0-5)
[2023-05-28 10:11] LABS: HCG, Serum Qual Negative (Negative)
[2023-05-28 10:27] LABS: Lactic Sepsis W/Reflex 1.2 mmol/L (0.5-2.2)
[2023-05-28] MEDS: cefTRIAXone 1,000 MG in sodium chloride 0.9% (plus) 50 ML 100 MG IV (10:42)
[2023-05-28 11:02] LABS: Basophils # 0.1 10^3/uL (0.0-0.1); Basophils % 0.4 %; Eosinophils % 0.1 %; Hematocrit 34.4 % (36-47); Lymphocytes # 0.8 10^3/uL (0.8-4.8); Lymphocytes % 4.5 %; Mean Corpuscular HGB Conc 32.3 g/dL (30-55); Mean Corpuscular Hemoglobin 27.3 pg (27-33); Mean Corpuscular Volume 84.7 fl (85-98); Mean Platelet Volume 9.9 fL (7.4-10.4); Monocytes % 5.4 %; Nucleated Red Blood Cells % 0 %; Platelet Count 258 10^3/cmm (157-399); Red Blood Count 4.06 10^6/uL (3.85-5.65); Red Cell Distribution Width 13.9 % (12.1-15.1); White Blood Count 18.66 10^3/uL (3.29-11.43)
[2023-05-28 11:14] LABS: Alanine Aminotransferase 57 U/L (0-33); Albumin Level 3.5 g/dL (3.5-5.2); Alkaline Phosphatase 152 U/L (35-105); Anion Gap 10.8 (5-19); Aspartate Amino Transferase 50 U/L (0-32); Blood Urea Nitrogen 8 mg/dL (6-20); Calcium 9.9 mg/dL (8.5-10.5); Carbon Dioxide 22 mmol/L (22-29); Chloride 109 mmol/L (98-107); Creatinine Clr Calc Pharmacy 149.1533; Globulin 2.8 g/dL (1.3-4.6); Glomerular Filtration Rate 120.8 mL/min (90-130); Glucose 111 mg/dL (65-115); Osmolality Calculated 285 mOsm/kg (285-295); Potassium 3.8 mmol/L (3.5-5.1); Sodium 138 mmol/L (136-145); Total Bilirubin 1.1 mg/dL (0.15-1.2); Total Protein 6.3 g/dL (6.6-8.7)
[2023-05-28] MEDS: sodium chloride 0.9% 1,000 ML 125 ML IV (12:50)
== END 2023-05-28 13:33 ==
PROVIDERS: Emergency Provider Family Medicine; PCP Family Medicine
DX: N11.1 Chronic obstructive pyelonephritis (principal); N20.0 Calculus of kidney; Q61.5 Medullary cystic kidney; Z87.442 Personal history of urinary calculi
CPT/HCPCS: 36415; 74176; 80053; 81001; 83605; 84703; 85025; 87040; 87077; 87086; 87186; 96365; 96366; 96375; 96376; 99285; J0696; J2270; J2405; J7030

== ENCOUNTER 2023-06-08 17:19 | Emergency (ER) | payer MEDICAID, SELFPAY ==
[2023-06-08 17:27] VITALS: BP 143/83; PULSE 148; RESP 20; TEMP 38.8; O2SAT 97
--- NOTE | 2023-06-08 17:49 | ED_ITS ---
Documented by User: [email or web address] Lamar 06/09/23 01:34 HPI - Abdominal Pain 2 General: Chief Complaint: Abdominal Pain Stated Complaint: abd pain Time Seen by Provider: 06/08/23 17:35 Source: patient Mode of arrival: ambulatory Limitations: no limitations History of Present Illness: Patient presents emergency department today for evaluation and treatment of worsening urinary symptoms. Patient has a long history of chronic urinary tract infections and nephrolithiasis/ureteral calculi. Patient had previously been followed by Dr. Benitez but, was put on a waiting list to be seen by a urologist after the physician retired. She indicated her weight was going to be approximately 1 year. Patient was originally seen and evaluated here in the emergency department for urinary symptoms back on 05/28. Patient was found to have elevated white blood cell count and an obstructive pyelonephritis. Patient had a stone in the left urinary tract. Patient also has a complication of congenital medullary sponge kidneys. Patient was transferred to [facility] at that time and reports she was seen by Dr. Abad and received a urinary stent. Patient states she was discharged from the hospital several days ago but, there have been multiple issues and trying to get outpatient antibiotics. She reports the pharmacies indicate they have not received electronic prescriptions or, when she was notified prescriptions were available, the pharmacies did not have them at that time. Patient has not had antibiotics since she discharged from hospital. Patient continues to have left flank and left CVA pain. Patient is now febrile and tachycardic. She denies vomiting. Patient urine culture obtained here in the emergency department from her original evaluation on the showed growth of E. coli however, it was found to be resistant to some penicillins, Cipro and levo, and Macrobid. Review of Systems 2 General: Reports: 10 or more systems reviewed and unremarkable except in HPI and below PFSH ED 2 PFSH: Medical History Bilateral ureteral calculi Yeast vaginitis History of recurrent UTI (urinary tract infection) Chronic cystitis Urolithiasis Medullary sponge kidney Recurrent UTI Pyelonephritis Surgical History Hx of cholecystectomy Status post laser lithotripsy of ureteral calculus History of wisdom tooth extraction Hx of tonsillectomy H/O tubal ligation Family History Father , AT AGE 24 Electric injury Social History Smoking and tobacco/nicotine status: current every day tobacco/nicotine user e- cigarettes Alcohol intake: current Alcohol intake frequency: few times a month Substance/Drug Use: never Marital status: Current occupational status: employed Physical Exam 2 Const: COMMON NORMALS: average body habitus, patient oriented x3 and alert OTHER: Patient is ill-appearing. She does answer her own history. She presents febrile and tachycardic. HENMT: COMMON NORMALS: normocephalic, atraumatic, hearing grossly normal bilaterally and moist oral mucous membranes HEAD & SCALP: normocephalic and atraumatic Eye: COMMON NORMALS: Equal, round and reactive pupils present, EOMs intact bilaterally and conjunctivae normal CONJUNCTIVA: Yes conjunctivae normal P UPIL: Yes Equal, round and reactive pupils present Lymph: LYMPHATIC: no lymphadenopathy noted Resp: COMMON NORMALS: normal respiratory effort, No retractions and No use of accessory muscles OTHER: Patient is slightly tachypneic Cardio: COMMON NORMALS: regular rhythm RHYTHM: regular rhythm OTHER: Patient is tachycardic GI: OTHER: Normoactive bowel sounds. Abdomen is soft. Back/Pelvis: OTHER: Patient has profuse left CVA tenderness Extremity: COMMON NORMALS: normal to inspection, full ROM and capillary refill normal Neuro: COMMON NORMALS: patient oriented x3 SENSORIUM/ORIENTATION: Yes alert Psych: COMMON NORMALS: mental status grossly normal, cooperative, normal affect, speech normal and activity/motor behavior normal SPEECH: Yes normal speech Course 2 Vital Signs: Vital signs: Vital Signs Temperature 102 F H 06/09/23 00:40 Pulse Rate 122 H 06/09/23 00:40 Respiratory Rate 20 H 06/09/23 00:40 Blood Pressure 125/71 06/09/23 00:40 Pulse Oximetry 98 06/09/23 00:40 Oxygen Delivery Me thod Room Air 06/08/23 18:46 MDM - Abdominal Pain Medical Decision Making Patient presents to the ER today with continued left-sided flank pain. After reviewing her chart, it does appear that her urine culture grew E. coli with resistance to several different types of antibiotics. Given that she is febrile and tachycardic with known urinary infection, we will treat for potential sepsis. Lab work was obtained including blood cultures. Patient was started on fluids, Rocephin, given IV Tylenol. Patient was found to have a white count of 25. Procalcitonin and lactic were within normal limits. Patient's kidney function was actually not significantly abnormal. Still, with the patient having a stent in place and procedure performed in [place], highly doubt that our hospital services will keep the patient here as she will most likely need intervention by her urologist. Consulted with Dr Quiroz regarding the need for admission/transfer for which he was in agreement. I reached out to [facility] and was able to speak with Dr. Page with urology group. He is requesting the patient be an ER to ER transfer as he would like to do further imaging on this patient and would like to continue treatment for her infection in [place]. I was able to speak with the ER physician, Dr. He who agrees to take this patient as an ER to ER transfer. Patient was notified of the transfer and is in agreement. Patient was continued to be monitored here while waiting for transport. She was given maintenance fluids, continued cardiac monitoring, pain medications and antipyretics. Differential Diagnosis Likely abdominal pain and calculus of kidney; Unlikely acute appendicitis, constipation, diverticulitis, gastroenteritis, pancreatitis or small bowel obstruction Lab Data 06/08/23 18:00 06/08/23 18:00 Labs/Radiology: Laboratory Results WBC 25.03 10^3/uL (3.29-11.43) H 06/08/23 18:00 RBC 4.70 10^6/uL (3.85-5.65) 06/08/23 18:00 Hgb 12.90 g/dL (11.27-16.99) 06/08/23 18:00 Hct 39.3 % (36-47) 06/08/23 18:00 MCV 83.6 fl (85-98) L 06/08/23 18:00 MCH 27.4 pg (27-33) 06/08/23 18:00 MCHC 32.8 g/dL (30-55) 06/08/23 18:00 RDW 13.6 % (12.1-15.1) 06/08/23 18:00 Plt Count 319 10^3/cmm (157-399) 06/08/23 18:00 MPV 9.2 fL (7.4-10.4) 06/08/23 18:00 Neut % (Auto) 91.0 % 06/08/23 18:00 Lymph % (Auto) 3.2 % 06/08/23 18:00 [place] % (Auto) 4.7 % 06/08/23 18:00 Eos % (Auto) 0.1 % 06/08/23 18:00 Baso % (Auto) 0.4 % 06/08/23 18:00 Neut # (Auto) 22.77 10^3/uL (1.8-7.7) H 06/08/23 18:00 Lymph # (Auto) 0.8 10^3/uL (0.8-4.8) 06/08/23 18:00 [place] # (Auto) 1.2 10^3/uL (0.2-0.9) H 06/08/23 18:00 Eos # (Auto) 0.0 10^3/uL (0.0-0.8) 06/08/23 18:00 Baso # (Auto) 0.1 10^3/uL (0.0-0.1) 06/08/23 18:00 Nucleated RBC % (auto) 0 % 06/08/23 18:00 Nucleated RBCs # 0.0 /100WBC 06/08/23 18:00 Sodium 137 mmol/L (136-145) 06/08/23 18:00 Potassium 3.9 mmol/L (3.5-5.1) 06/08/23 18:00 Chloride 102 mmol/L (98-107) 06/08/23 18:00 Carbon Dioxide 22 mmol/L (22-29) 06/08/23 18:00 Anion Gap 16.9 (5-19) 06/08/23 18:00 BUN 9 mg/dL (6-20) 06/08/23 18:00 Creatinine 0.8 mg/dL (0.5-0.9) 06/08/23 18:00 GFR Calculation 86.7 mL/min (90-130) L 06/08/23 18:00 Glucose 107 mg/dL (65-115) 06/08/23 18:00 Calculated Osmolality 283 mOsm/kg (285-295) L 06/08/23 18:00 Lactic Acid 1.6 mmol/L (0.5-2.2) 06/08/23 18:00 Calcium 11.4 mg/dL (8.5-10.5) H 06/08/23 18:00 Total Bilirubin 0.9 mg/dL (0.15-1.2) 06/08/23 18:00 AST 82 U/L (0-32) H 06/08/23 18:00 ALT 110 U/L (0-33) H 06/08/23 18:00 Alkaline Phosphatase 273 U/L (35-105) H 06/08/23 18:00 Total Protein 8.1 g/dL (6.6-8.7) 06/08/23 18:00 Albumin 4.3 g/dL (3.5-5.2) 06/08/23 18:00 Globulin 3.8 g/dL (1.3-4.6) 06/08/23 18:00 Procalcitonin 0.16 ng/mL (0-0.5) 06/08/23 18:00 HCG, Qual Negative (Negative) 06/08/23 18:10 Urine Color Tammy (Yellow) 06/08/23 18:10 Urine Appearance Cloudy (CLEAR) A 06/08/23 18:10 Urine pH 7 (5-7) 06/08/23 18:10 Ur Specific [place] [employer] 1.005 (1.005-1.030) 06/08/23 18:10 Urine Protein 2+ (Negative) H 06/08/23 18:10 Urine Glucose (UA) Norm (Normal) 06/08/23 18:10 Urine Ketones Negative (Negative) 06/08/23 18:10 Urine Blood 3+ (Negative) H 06/08/23 18:10 Urine Nitrate Positive (Negative) H 06/08/23 18:10 Urine Bilirubin Neg (Negative) 06/08/23 18:10 Urine Urobilinogen Norm mg/dL (Negative) 06/08/23 18:10 Ur Leukocyte Esterase 2+ (Negative) H 06/08/23 18:10 Urine RBC >100 /hpf (0-2) H 06/08/23 18:10 Urine WBC 15-25 /hpf (0-5) H 06/08/23 18:10 Ur Squamous Epith Cells 0-4 /hpf (0-5) H 06/08/23 18:10 Amorphous Sediment Not Reportable 06/08/23 18:10 Urine Bacteria 1+ /hpf (NONE) H 06/08/23 18:10 No radiology studies performed this visit Discharge Plan Discharge Patient Disposition: Transfer to ED Clinical Impression: UTI (urinary tract infection), History of renal stent, Fever Condition: Stable Prescriptions: No Action ibuprofen 200 mg Tablet 1,000 mg PO Q6H PRN (Reason: Pain) Macrobid 100 mg Capsule 100 mg PO BID Rx Instructions: must administer with a meal/food Referrals: Steven Del Rio MD [Primary Care Provider] - Coding Level of Care Code ED Commissioning Manager for Chg Fwd Documented by User: Uriel Quiroz DO 06/09/23 14:36 HPI - Abdominal Pain 2 General: Chief Complaint: Abdominal Pain Stated Complaint: abd pain Time Seen by Provider: 06/08/23 17:35 PFSH ED 2 PFSH: Medical History Bilateral ureteral calculi Yeast vaginitis History of recurrent UTI (urinary tract infection) Chronic cystitis Urolithiasis Medullary sponge kidney Recurrent UTI Pyelonephritis Surgical History Hx of cholecystectomy Status post laser lithotripsy of ureteral calculus History of wisdom tooth extraction Hx of tonsillectomy H/O tubal ligation Family History Father , AT AGE 24 Electric injury Social History Smoking and tobacco/nicotine status: current every day tobacco/nicotine user e- cigarettes Alcohol intake: current Alcohol intake frequency: few times a month Substance/Drug Use: never Marital status: Current occupational status: employed Course 2 Vital Signs: Vital signs: Vital Signs Temperature 102 F H 06/09/23 00:40 Pulse Rate 122 H 06/09/23 00:40 Respiratory Rate 20 H 06/09/23 00:40 Blood Pressure 125/71 06/09/23 00:40 Pulse Oximetry 98 06/09/23 00:40 Oxygen Delivery Me thod Room Air 06/08/23 18:46 MDM - Abdominal Pain Medical Decision Making Patient presents to the ER today with continued left-sided flank pain. After reviewing her chart, it does appear that her urine culture grew E. coli with resistance to several different types of antibiotics. Given that she is febrile and tachycardic with known urinary infection, we will treat for potential sepsis. Lab work was obtained including blood cultures. Patient was started on fluids, Rocephin, given IV Tylenol. Patient was found to have a white count of 25. Procalcitonin and lactic were within normal limits. Patient's kidney function was actually not significantly abnormal. Still, with the patient having a stent in place and procedure performed in [place], highly doubt that our hospital services will keep the patient here as she will most likely need intervention by her urologist. Consulted with Dr Quiroz regarding the need for admission/transfer for which he was in agreement. I reached out to [facility] and was able to speak with Dr. Page with urology group. He is requesting the patient be an ER to ER transfer as he would like to do further imaging on this patient and would like to continue treatment for her infection in [place]. I was able to speak with the ER physician, Dr. He who agrees to take this patient as an ER to ER transfer. Patient was notified of the transfer and is in agreement. Patient was continued to be monitored here while waiting for transport. She was given maintenance fluids, continued cardiac monitoring, pain medications and antipyretics. This patient was originally seen by Mrs. Tr PA-C. I agree with her history, evaluation, and management. Lab Data 06/08/23 18:00 06/08/23 18:00 Labs/Radiology: Laboratory Results WBC 25.03 10^3/uL (3.29-11.43) H 06/08/23 18:00 RBC 4.70 10^6/uL (3.85-5.65) 06/08/23 18:00 Hgb 12.90 g/dL (11.27-16.99) 06/08/23 18:00 Hct 39.3 % (36-47) 06/08/23 18:00 MCV 83.6 fl (85-98) L 06/08/23 18:00 MCH 27.4 pg (27-33) 06/08/23 18:00 MCHC 32.8 g/dL (30-55) 06/08/23 18:00 RDW 13.6 % (12.1-15.1) 06/08/23 18:00 Plt Count 319 10^3/cmm (157-399) 06/08/23 18:00 MPV 9.2 fL (7.4-10.4) 06/08/23 18:00 Neut % (Auto) 91.0 % 06/08/23 18:00 Lymph % (Auto) 3.2 % 06/08/23 18:00 [place] % (Auto) 4.7 % 06/08/23 18:00 Eos % (Auto) 0.1 % 06/08/23 18:00 Baso % (Auto) 0.4 % 06/08/23 18:00 Neut # (Auto) 22.77 10^3/uL (1.8-7.7) H 06/08/23 18:00 Lymph # (Auto) 0.8 10^3/uL (0.8-4.8) 06/08/23 18:00 [place] # (Auto) 1.2 10^3/uL (0.2-0.9) H 06/08/23 18:00 Eos # (Auto) 0.0 10^3/uL (0.0-0.8) 06/08/23 18:00 Baso # (Auto) 0.1 10^3/uL (0.0-0.1) 06/08/23 18:00 Nucleated RBC % (auto) 0 % 06/08/23 18:00 Nucleated RBCs # 0.0 /100WBC 06/08/23 18:00 Sodium 137 mmol/L (136-145) 06/08/23 18:00 Potassium 3.9 mmol/L (3.5-5.1) 06/08/23 18:00 Chloride 102 mmol/L (98-107) 06/08/23 18:00 Carbon Dioxide 22 mmol/L (22-29) 06/08/23 18:00 Anion Gap 16.9 (5-19) 06/08/23 18:00 BUN 9 mg/dL (6-20) 06/08/23 18:00 Creatinine 0.8 mg/dL (0.5-0.9) 06/08/23 18:00 GFR Calculation 86.7 mL/min (90-130) L 06/08/23 18:00 Glucose 107 mg/dL (65-115) 06/08/23 18:00 Calculated Osmolality 283 mOsm/kg (285-295) L 06/08/23 18:00 Lactic Acid 1.6 mmol/L (0.5-2.2) 06/08/23 18:00 Calcium 11.4 mg/dL (8.5-10.5) H 06/08/23 18:00 Total Bilirubin 0.9 mg/dL (0.15-1.2) 06/08/23 18:00 AST 82 U/L (0-32) H 06/08/23 18:00 ALT 110 U/L (0-33) H 06/08/23 18:00 Alkaline Phosphatase 273 U/L (35-105) H 06/08/23 18:00 Total Protein 8.1 g/dL (6.6-8.7) 06/08/23 18:00 Albumin 4.3 g/dL (3.5-5.2) 06/08/23 18:00 Globulin 3.8 g/dL (1.3-4.6) 06/08/23 18:00 Procalcitonin 0.16 ng/mL (0-0.5) 06/08/23 18:00 HCG, Qual Negative (Negative) 06/08/23 18:10 Urine Color Tammy (Yellow) 06/08/23 18:10 Urine Appearance Cloudy (CLEAR) A 06/08/23 18:10 Urine pH 7 (5-7) 06/08/23 18:10 Ur Specific [place] [employer] 1.005 (1.005-1.030) 06/08/23 18:10 Urine Protein 2+ (Negative) H 06/08/23 18:10 Urine Glucose (UA) Norm (Normal) 06/08/23 18:10 Urine Ketones Negative (Negative) 06/08/23 18:10 Urine Blood 3+ (Negative) H 06/08/23 18:10 Urine Nitrate Positive (Negative) H 06/08/23 18:10 Urine Bilirubin Neg (Negative) 06/08/23 18:10 Urine Urobilinogen Norm mg/dL (Negative) 06/08/23 18:10 Ur Leukocyte Esterase 2+ (Negative) H 06/08/23 18:10 Urine RBC >100 /hpf (0-2) H 06/08/23 18:10 Urine WBC 15-25 /hpf (0-5) H 06/08/23 18:10 Ur Squamous Epith Cells 0-4 /hpf (0-5) H 06/08/23 18:10 Amorphous Sediment Not Reportable 06/08/23 18:10 Urine Bacteria 1+ /hpf (NONE) H 06/08/23 18:10 Discharge Plan Discharge Patient Disposition: Transfer to ED Clinical Impression: UTI (urinary tract infection), History of renal stent, Fever Condition: Stable Prescriptions: No Action ibuprofen 200 mg Tablet 1,000 mg PO Q6H PRN (Reason: Pain) Macrobid 100 mg Capsule 100 mg PO BID Rx Instructions: must administer with a meal/food Referrals: Steven Del Rio MD [Primary Care Provider] - Coding Level of Care Code ED Commissioning Manager for Abad Ely
[2023-06-08] MEDS: sodium chloride 0.9% 1,000 ML 999 ML IV ×2 (18:02→20:01)
[2023-06-08] MEDS: cefTRIAXone 1,000 MG in sodium chloride 0.9% (plus) 50 ML 100 MG IV (18:05)
[2023-06-08 18:21] LABS: HCG Qualitative Urine. Negative (Negative)
[2023-06-08 18:31] LABS: Basophils # 0.1 10^3/uL (0.0-0.1); Basophils % 0.4 %; Eosinophils % 0.1 %; Hematocrit 39.3 % (36-47); Lymphocytes # 0.8 10^3/uL (0.8-4.8); Lymphocytes % 3.2 %; Mean Corpuscular HGB Conc 32.8 g/dL (30-55); Mean Corpuscular Hemoglobin 27.4 pg (27-33); Mean Corpuscular Volume 83.6 fl (85-98); Mean Platelet Volume 9.2 fL (7.4-10.4); Monocytes # 1.2 10^3/uL (0.2-0.9); Monocytes % 4.7 %; Neutrophils # 22.77 10^3/uL (1.8-7.7); Nucleated Red Blood Cells % 0 %; Platelet Count 319 10^3/cmm (157-399); Red Cell Distribution Width 13.6 % (12.1-15.1); White Blood Count 25.03 10^3/uL (3.29-11.43)
[2023-06-08 18:32] LABS: Glucose Urine UA Norm (Normal); Ketones Urine Negative (Negative); Protein Urine 2+ (Negative); Specific Gravity, Urine 1.005 (1.005-1.030); Urine Appearance Cloudy (CLEAR); Urine Color Amber (Yellow); pH Urine 7 (5-7)
[2023-06-08 18:33] LABS: Add Urine Microscopic? YES; Bilirubin Urine Neg (Negative); Blood Urine 3+ (Negative); Leukocyte Esterase Urine 2+ (Negative); Nitrate Urine Positive (Negative); Urobilinogen Urine Norm (Negative)
[2023-06-08 18:37] LABS: Add Urine Culture? Yes; Bacteria Urine 1+ /hpf; RBC Urine >100 /hpf (0-2); Squamous Epithelial Cell Urine 0-4 /hpf (0-5); WBC Urine 15-25 /hpf (0-5)
[2023-06-08] MEDS: acetaminophen 1,000 MG/100 ML PIGGYBACK 400 MG IV (18:39)
[2023-06-08 18:46] VITALS: BP 124/75; PULSE 125; O2SAT 95
[2023-06-08 18:55] LABS: Alanine Aminotransferase 110 U/L (0-33); Albumin Level 4.3 g/dL (3.5-5.2); Alkaline Phosphatase 273 U/L (35-105); Anion Gap 16.9 (5-19); Aspartate Amino Transferase 82 U/L (0-32); Blood Urea Nitrogen 9 mg/dL (6-20); Calcium 11.4 mg/dL (8.5-10.5); Carbon Dioxide 22 mmol/L (22-29); Chloride 102 mmol/L (98-107); Globulin 3.8 g/dL (1.3-4.6); Glomerular Filtration Rate 86.7 mL/min (90-130); Glucose 107 mg/dL (65-115); Osmolality Calculated 283 mOsm/kg (285-295); Potassium 3.9 mmol/L (3.5-5.1); Sodium 137 mmol/L (136-145); Total Bilirubin 0.9 mg/dL (0.15-1.2); Total Protein 8.1 g/dL (6.6-8.7)
[2023-06-08 18:56] LABS: Lactic Sepsis W/Reflex 1.6 mmol/L (0.5-2.2)
[2023-06-08 19:00] LABS: Procalcitonin 0.16 ng/mL (0-0.5)
[2023-06-08] MEDS: morphine 4 mg/mL SDV 1 mL IVP (20:01)
[2023-06-08 20:52] VITALS: BP 103/68; PULSE 127; RESP 20; O2SAT 98
[2023-06-08 21:00] VITALS: TEMP 37.2
[2023-06-08] MEDS: sodium chloride 0.9% 1,000 ML 125 ML IV (22:58)
[2023-06-09] MEDS: morphine 4 mg/mL SDV 1 mL IVP (00:02)
[2023-06-09] MEDS: ketorolac 30 mg/mL INJ IVP (00:20)
[2023-06-09 00:25] VITALS: TEMP 38.8
[2023-06-09 00:40] VITALS: BP 125/71; PULSE 122; RESP 20; TEMP 38.8; O2SAT 98
== END 2023-06-09 00:42 ==
PROVIDERS: Emergency Provider Physician Assistant; PCP Family Medicine
DX: N39.0 Urinary tract infection, site not specified (principal); R50.9 Fever, unspecified; Z96.0 Presence of urogenital implants; Z87.440 Personal history of urinary (tract) infections; F17.290 Nicotine dependence, other tobacco product, uncomplicated
CPT/HCPCS: 36415; 80053; 81001; 81025; 83605; 84145; 85025; 87040; 87077; 87086; 87186; 96365; 96367; 96375; 96376; 99285; J0131; J0696; J1885; J2270; J7030

== ENCOUNTER 2024-01-09 19:45 | Emergency (ER) | payer MEDICAID, SELFPAY ==
[2024-01-09 19:57] VITALS: BP 120/81; PULSE 127; RESP 22; TEMP 38.8; O2SAT 100; BMI 32.1
--- NOTE | 2024-01-09 20:13 | XRR_ITS ---
PROCEDURE INFORMATION: Exam: XR Chest Exam date and time: 01/09/2024 8:17 PM Age: 28 years old Clinical indication: Fever TECHNIQUE: Imaging protocol: Radiologic exam of the chest. Views: 1 view. COMPARISON: CR XR chest 2V* [id number] 10/25/2021 1:27 PM FINDINGS: Lungs: Unremarkable. No consolidation. Pleural spaces: Unremarkable. No pleural effusion. No pneumothorax. Heart/Mediastinum: Unremarkable. No cardiomegaly. Bones/joints: Unremarkable. XR/XR chest 1V portable [id number] IMPRESSION: No acute findings.
[2024-01-09] MEDS: acetaminophen 500 mg Tablet 1000 MG PO (20:22)
--- NOTE | 2024-01-09 20:33 | W.ED.URI ---
HPI - URI/Sore Throat General: Chief Complaint: Upper Respiratory Infection Stated Complaint: sob, ear aches, chills, body aches Time Seen by Provider: 01/09/24 20:33 History of Present Illness: 28-year-old female comes in today for complaints of cough, shortness of breath, body aches and bilateral ear pain. Patient been ill for about 2 days. Patient appears unwell but not toxic. Patient denies any urinary difficulty. Patient reports exposure to coworkers that have been ill with upper respiratory infections. Patient does have children at home. Associated symptoms: Reports fever(s) Related Data Home Medications Medication Instructions Recorded Confirmed ibuprofen 200 mg tablet 1,000 mg PO Q6H PRN Pain 05/28/23 05/28/23 nitrofurantoin 100 mg PO BID 05/28/23 05/28/23 monohydrate/macrocrystals 100 mg capsule (Macrobid) Allergies Allergy/AdvReac Type Severity Reaction Status Date / Time No Known Allergies Allergy Verified 05/28/23 09:02 Review of Systems General: Reports: 10 or more systems reviewed and unremarkable except in HPI and below Const: Reports: fever(s) and body aches ENMT: Reports: throat pain Resp: Reports: dyspnea and non-productive cough PFSH ED PFSH: Medical History Bilateral ureteral calculi Yeast vaginitis History of recurrent UTI (urinary tract infection) Chronic cystitis Urolithiasis Medullary sponge kidney Recurrent UTI Pyelonephritis Surgical History Hx of cholecystectomy Status post laser lithotripsy of ureteral calculus History of wisdom tooth extraction Hx of tonsillectomy H/O tubal ligation Family History Father , AT AGE 24 Electric injury Social History Smoking and tobacco/nicotine status: current every day tobacco/nicotine user e-cigarettes Alcohol intake: current Alcohol intake frequency: few times a month Substance/Drug Use: never Marital status: Current occupational status: employed Physical Exam Const: COMMON NORMALS: alert HENMT: COMMON NORMALS: normocephalic HEAD & SCALP: normocephalic MOUTH: Normal oral and palatal mucosa present THROAT: posterior oropharynx normal Neck/C-Spine: COMMON NORMALS: full ROM Resp: COMMON NORMALS: normal respiratory effort and clear to auscultation bilaterally AUSCULTATION: clear to auscultation bilaterally Cardio: COMMON NORMALS: regular rate RATE: regular rate GI: COMMON NORMALS: non-tender Back/Pelvis: COMMON NORMALS: thoracic and lumbar spine normal to inspection Extremity: COMMON NORMALS: full ROM Neuro: SENSORIUM/ORIENTATION: Yes alert Skin: COMMON NORMALS: turgor normal GENERAL SKIN EXAM: turgor normal Course Vital Signs: Vital signs: Vital Signs Temperature 101.8 F H 01/09/24 19:57 Pulse Rate 114 H 01/09/24 20:34 Respiratory Rate 20 H 01/09/24 20:34 Blood Pressure 116/87 01/09/24 20:34 Pulse Oximetry 97 01/09/24 20:34 Oxygen Delivery Me thod Room Air 01/09/24 20:34 MDM - URI/Sore Throat Medical Decision Making 28-year-old female comes in today for complaints of illness x 2 days. Patient appears nontoxic. Patient appears mildly unwell. Vital signs note normal blood pressure but a temperature of 101.8 with increased respirations and pulse. Differential diagnosis upper respiratory infection, pneumonia, strep pharyngitis, viral syndrome. Chest x-ray was normal. COVID and strep test were negative. Reviewed exam with patient recommended treatment for flulike syndrome. Patient reported understanding and agreed to plan. Lab Data Laboratory Results SARS-CoV-2 Ag (Rapid) Negative (Negative) 01/09/24 20:29 Group A Strep Rapid Negative (Negative) 01/09/24 20:45 XR interpretation done by ED provider, pending radiology final review Discharge Plan Discharge Patient Disposition: Home Clinical Impression: Flu syndrome Condition: Stable Prescriptions: No Action ibuprofen 200 mg Tablet 1,000 mg PO Q6H PRN (Reason: Pain) Macrobid 100 mg Capsule 100 mg PO BID Rx Instructions: must administer with a meal/food Discharge Orders: Discharge ED (Routine); Ordered 01/09/24 Ordered By: Dale Stanford Referrals: Steven Del Rio MD [Primary Care Provider] - Discharge Diet: Usual diet Discharge Activity: Increase activity as tolerated Patient Instructions: Viral Syndrome (ED) Activity Restrictions/Additional Instructions: Home and rest. Drink plenty of water and fluids. Follow-up with primary care for further instructions. Return to ED for new concerns. Stand Alone Forms: Work/School Release Coding Level of Care Code ED Flat Bed Knitter for Abad Ely
[2024-01-09 20:34] VITALS: BP 116/87; PULSE 114; RESP 20; O2SAT 97
[2024-01-09 20:58] LABS: SARS Covid-2 Antigen Negative (Negative)
[2024-01-09 21:01] LABS: Rapid Strep A Test Negative (Negative)
[2024-01-09 21:36] VITALS: BP 106/75; PULSE 114; RESP 16; O2SAT 97
== END 2024-01-09 21:37 | disposition home or self-care (01) ==
PROVIDERS: Emergency Medicine; Emergency Provider Nurse Practitioner Family; PCP Family Medicine
DX: J11.1 Influenza due to unidentified influenza virus with other respiratory manifestations (principal); Z11.52 Encounter for screening for COVID-19; F17.290 Nicotine dependence, other tobacco product, uncomplicated
CPT/HCPCS: 71045; 87081; 87426; 87880; 99284

== ENCOUNTER 2024-05-29 01:04 | Emergency (ER) | payer SELFPAY ==
[2024-05-29 01:08] VITALS: BP 142/98; PULSE 91; RESP 24; TEMP 36.6; O2SAT 98; BMI 31.4
--- NOTE | 2024-05-29 01:23 | CTR_ITS ---
PROCEDURE INFORMATION: Exam: CT Abdomen And Pelvis Without Contrast Exam date and time: 05/29/2024 1:57 AM Age: 29 years old Clinical indication: Abdominal pain; Localized; Right; Prior surgery; Surgery date: 6+ months; Surgery type: Tubal, choley, lithotripsy; Additional info: Right flank pain, medullary sponge kidneys TECHNIQUE: Imaging protocol: Computed tomography of the abdomen and pelvis without contrast. Radiation optimization: All CT scans at this facility use at least one of these dose optimization techniques: automated exposure control; mA and/or kV adjustment per patient size (includes targeted exams where dose is matched to clinical indication); or iterative reconstruction. COMPARISON: CT kidney stone [id number] 05/28/2023 10:18 AM RADIATION DOSE METRICS: Total DLP (mGy-cm): 914.07 FINDINGS: Liver: Normal. No mass. Gallbladder and biliary ducts: Normal. No calcified stones. No ductal dilation. Pancreas: Normal. No ductal dilation. Spleen: Normal. No splenomegaly. Adrenal glands: Normal. No mass. Kidneys and ureters: Prominent renal medullary calcifications are seen in the pattern suggesting medullary sponge kidneys. There is hydronephrosis seen within the right kidney. Some strandy opacities are seen adjacent to the right renal pelvis and proximal right ureter possibly representing some inflammatory changes. There is a partially obstructing 3.5 mm calculus in the proximal right ureter. Stomach and bowel: Unremarkable. No obstruction. No mucosal thickening. Appendix: The appendix is visualized and is normal in configuration. Intraperitoneal space: Unremarkable. No free air. No significant fluid collection. Vasculature: Unremarkable. No abdominal aortic aneurysm. Lymph nodes: Unremarkable. No enlarged lymph nodes. Urinary bladder: Unremarkable as visualized. Reproductive: Unremarkable as visualized. Bones/joints: Unremarkable. No acute fracture. Soft tissues: Unremarkable. CT/CT kidney stone [id number] IMPRESSION: 1. Partially obstructing 3.5 mm calculus in the proximal right ureter. 2. Findings compatible with medullary sponge kidneys. 3. Normal appendix
--- NOTE | 2024-05-29 01:30 | W.ED.FEMALGU ---
HPI - Female Genitourinary General: Chief complaint: Urogenital-Female Stated complaint: R kidney Pain Time Seen by Provider: 05/29/24 01:07 History of Present Illness: Patient presents to the ER with complaints of cramping on her right flank. Radiates up into her back and chest. Patient does have medullary sponge kidney and is a high senior producer of kidney stones. She is on potassium citrate by her urologist in [place]. Patient denies any painful or difficult urination fevers chills nausea vomiting or diarrhea. But she says she gets septic very easy and is usually from her kidneys. Related Data Home Medications Medication Instructions Recorded Confirmed ibuprofen 200 mg tablet 1,000 mg PO Q6H PRN Pain 05/28/23 05/28/23 nitrofurantoin 100 mg PO BID 05/28/23 05/28/23 monohydrate/macrocrystals 100 mg capsule (Macrobid) Previous Rx's Medication Instructions Recorded ciprofloxacin HCl 500 mg tablet 500 mg PO Q12H #20 tabs 05/29/24 ketorolac 10 mg tablet 10 mg PO Q6H PRN Kidney stone pain 05/29/24 #14 tabs Allergies Allergy/AdvReac Type Severity Reaction Status Date / Time No Known Allergies Allergy Verified 05/29/24 01:16 Review of Systems General: Reports: 10 or more systems reviewed and unremarkable except in HPI and below PFSH ED PFSH: Medical History Bilateral ureteral calculi Yeast vaginitis History of recurrent UTI (urinary tract infection) Chronic cystitis Urolithiasis Medullary sponge kidney Recurrent UTI Pyelonephritis Surgical History Hx of cholecystectomy Status post laser lithotripsy of ureteral calculus History of wisdom tooth extraction Hx of tonsillectomy H/O tubal ligation Family History Father , AT AGE 24 Electric injury Social History Smoking and tobacco/nicotine status: current every day tobacco/nicotine user e-cigarettes Alcohol intake: current Alcohol intake frequency: few times a month Substance/Drug Use: never Marital status: Current occupational status: employed Physical Exam Const: COMMON NORMALS: no acute distress, average body habitus, patient oriented x3, no limitations, healthy appearing, alert and well nourished HENMT: COMMON NORMALS: normocephalic, atraumatic, hearing grossly normal bilaterally, external ears normal, Normal external nose present and moist oral mucous membranes HEAD & SCALP: normocephalic and atraumatic NOSE: Normal external nose present EXTERNAL EAR: Yes external ears normal Neck/C-Spine: COMMON NORMALS: no JVD Chest: COMMONS NORMALS: normal inspection of the chest and normal palpation of entire chest wall Resp: COMMON NORMALS: normal respiratory effort, No retractions, No use of accessory muscles and clear to auscultation bilaterally AUSCULTATION: clear to auscultation bilaterally Cardio: COMMON NORMALS: no JVD, regular rate, regular rhythm, S1 normal heart sound present, S2 normal heart sound present, No gallops present (Cardio), No clicks present (Cardio), No murmurs present (Cardio) and No rub (Cardio) RATE: regular rate RHYTHM: regular rhythm HEART SOUNDS: S1 normal heart sound present and S2 normal heart sound present GI: COMMON NORMALS: Normal to inspection, nondistended, normoactive bowel sounds present, Soft to palpation, non-tender, No hepatosplenomegaly present and no masses PALPATION: Yes Soft to palpation and Yes No hepatosplenomegaly present Neuro: COMMON NORMALS: patient oriented x3 SENSORIUM/ORIENTATION: Yes alert Course Vital Signs: Vital signs: Vital Signs Temperature 97.9 F 05/29/24 01:08 Pulse Rate 82 05/29/24 02:04 Respiratory Rate 24 H 05/29/24 01:08 Blood Pressure 125/87 05/29/24 02:04 Pulse Oximetry 96 05/29/24 02:04 Oxygen Delivery Me thod Room Air 05/29/24 01:08 MDM - Female Medical Decision Making His exam performed lab work was obtained which showed a white count of 13,000, urinalysis showed 3+ blood, 2+ leukocyte Estrace greater than 100 white cells and red cells. 1+ bacteria, abdomen pelvis CT scan showed a 3 mm proximal right ureteral stone partially obstructing. Patient will be given pain medicine, antibiotics, and discharged home to follow-up with her urologist JESSE. Medical Records I reviewed the patient's medical records. Lab Data I reviewed the patient's lab results. 05/29/24 01:24 05/29/24 01:24 Radiology Impressions Abdomen/Pelvis CT 05/29/24 01:23 IMPRESSION: 1. Partially obstructing 3.5 mm calculus in the proximal right ureter. 2. Findings compatible with medullary sponge kidneys. 3. Normal appendix Laboratory Results WBC 13.02 10^3/uL (3.29-11.43) H 05/29/24 01:24 RBC 4.75 10^6/uL (3.85-5.65) 05/29/24 01:24 Hgb 12.90 g/dL (11.27-16.99) 05/29/24 01:24 Hct 39.5 % (36-47) 05/29/24 01:24 MCV 83.2 fl (85-98) L 05/29/24 01:24 MCH 27.2 pg (27-33) 05/29/24 01:24 MCHC 32.7 g/dL (30-55) 05/29/24 01:24 RDW 13.0 % (12.1-15.1) 05/29/24 01:24 Plt Count 380 10^3/cmm (157-399) 05/29/24 01:24 MPV 9.4 fL (7.4-10.4) 05/29/24 01:24 Neut % (Auto) 65.0 % 05/29/24 01:24 Lymph % (Auto) 24.3 % 05/29/24 01:24 [place] % (Auto) 7.0 % 05/29/24 01:24 Eos % (Auto) 2.2 % 05/29/24 01:24 Baso % (Auto) 1.0 % 05/29/24 01:24 Neut # (Auto) 8.46 10^3/uL (1.8-7.7) H 05/29/24 01:24 Lymph # (Auto) 3.2 10^3/uL (0.8-4.8) 05/29/24 01:24 [place] # (Auto) 0.9 10^3/uL (0.2-0.9) 05/29/24 01:24 Eos # (Auto) 0.3 10^3/uL (0.0-0.8) 05/29/24 01:24 Baso # (Auto) 0.1 10^3/uL (0.0-0.1) 05/29/24 01:24 Nucleated RBC % (auto) 0 % 05/29/24 01:24 Nucleated RBCs # 0.0 /100WBC 05/29/24 01:24 Sodium 138 mmol/L (136-145) 05/29/24 01:24 Potassium 3.7 mmol/L (3.5-5.1) 05/29/24 01:24 Chloride 101 mmol/L (98-107) 05/29/24 01:24 Carbon Dioxide 24 mmol/L (22-29) 05/29/24 01:24 Anion Gap 16.7 (5-19) 05/29/24 01:24 BUN 12 mg/dL (6-20) 05/29/24 01:24 Creatinine 0.9 mg/dL (0.5-0.9) 05/29/24 01:24 GFR Calculation 75.1 mL/min (90-130) L 05/29/24 01:24 Glucose 112 mg/dL (65-115) 05/29/24 01:24 Calculated Osmolality 287 mOsm/kg (285-295) 05/29/24 01:24 Lactic Acid 1.4 mmol/L (0.5-2.2) 05/29/24 01:24 Calcium 11.1 mg/dL (8.5-10.5) H 05/29/24 01:24 Total Bilirubin 0.5 mg/dL (0.15-1.2) 05/29/24 01:24 AST 27 U/L (0-32) 05/29/24 01:24 ALT 38 U/L (0-33) H 05/29/24 01:24 Alkaline Phosphatase 196 U/L (35-105) H 05/29/24 01:24 Total Protein 7.5 g/dL (6.6-8.7) 05/29/24 01:24 Albumin 4.3 g/dL (3.5-5.2) 05/29/24 01:24 Globulin 3.2 g/dL (1.3-4.6) 05/29/24 01:24 HCG, Qual Negative (Negative) 05/29/24 01:24 Urine Color Yellow (Yellow) 05/29/24 01:24 Urine Appearance Slightly cloudy (CLEAR) 05/29/24 01:24 Urine pH 6.0 (5-7) 05/29/24 01:24 Ur Specific [place] 1.014 (1.005-1.030) 05/29/24 01:24 Urine Protein 1+ (Negative) A 05/29/24 01:24 Urine Glucose (UA) Negative (Normal) 05/29/24 01:24 Urine Ketones Negative (Negative) 05/29/24 01:24 Urine Blood 3+ (Negative) A 05/29/24 01:24 Urine Nitrate Negative (Negative) 05/29/24 01:24 Urine Bilirubin Negative (Negative) 05/29/24 01:24 Urine Urobilinogen 1.0 mg/dL (Negative) 05/29/24 01:24 Ur Leukocyte Esterase 2+ (Negative) A 05/29/24 01:24 Urine RBC >100 /hpf (0-2) H 05/29/24 01:24 Urine WBC >100 /hpf (0-5) H 05/29/24 01:24 Ur Squamous Epith Cells 0-5 /hpf (0-5) 05/29/24 01:24 Amorphous Sediment Not Reportable 05/29/24 01:24 Urine Bacteria 1+ /hpf (NONE) H 05/29/24 01:24 Hyaline Casts 0.81 /lpf 05/29/24 01:24 All radiology interpretation(s) finalized by discharge Discharge Plan Discharge Patient Disposition: Home Clinical Impression: Urolithiasis Qualifiers: Urinary calculus location: ureter Qualified Code(s): N20.1 - Calculus of ureter Condition: Stable Prescriptions: New ciprofloxacin HCl 500 mg tablet 500 mg PO Q12H Qty: 20 0RF ketorolac 10 mg tablet 10 mg PO Q6H PRN (Reason: Kidney stone pain) Qty: 14 0RF No Action ibuprofen 200 mg Tablet 1,000 mg PO Q6H PRN (Reason: Pain) Macrobid 100 mg Capsule 100 mg PO BID Rx Instructions: must administer with a meal/food Discharge Orders: Discharge ED (Routine); Ordered 05/29/24 Ordered By: Kristofer Sullivna Referrals: Steven Del Rio MD [Primary Care Provider] - 1 week Patient Instructions: Kidney Stones Activity Restrictions/Additional Instructions: Take your antibiotics and pain medicine as directed. Please follow-up with your urologist at your previously scheduled appointment next Saturday. Thank you for choosing [facility] for your healthcare needs today. Please realize that you were seen in the emergency department and that we are providing you with an emergency medical screening exam and this may not be a complete and all exclusive of all testing and/or medical workup we may need to determine your element or severity of your illness. It is very important that you follow-up as instructed with your primary care provider or specialist for the additional evaluation and to discuss your medical treatment plan. You may return to the emergency department should you have concerns or if your condition changes or worsens in any way. Coding Level of Care Code ED Classification Control Clerk for Abad Ely
[2024-05-29 01:31] LABS: Basophils # 0.1 10^3/uL (0.0-0.1); Eosinophils # 0.3 10^3/uL (0.0-0.8); Eosinophils % 2.2 %; Hematocrit 39.5 % (36-47); Lymphocytes # 3.2 10^3/uL (0.8-4.8); Lymphocytes % 24.3 %; Mean Corpuscular HGB Conc 32.7 g/dL (30-55); Mean Corpuscular Hemoglobin 27.2 pg (27-33); Mean Corpuscular Volume 83.2 fl (85-98); Mean Platelet Volume 9.4 fL (7.4-10.4); Monocytes # 0.9 10^3/uL (0.2-0.9); Neutrophils # 8.46 10^3/uL (1.8-7.7); Nucleated Red Blood Cells % 0 %; Platelet Count 380 10^3/cmm (157-399); Red Blood Count 4.75 10^6/uL (3.85-5.65); White Blood Count 13.02 10^3/uL (3.29-11.43)
[2024-05-29 01:33] LABS: Bilirubin Urine Negative (Negative); Blood Urine 3+ (Negative); Glucose Urine UA Negative (Normal); Ketones Urine Negative (Negative); Leukocyte Esterase Urine 2+ (Negative); Nitrate Urine Negative (Negative); Protein Urine 1+ (Negative); Specific Gravity, Urine 1.014 (1.005-1.030); Urine Color Yellow (Yellow)
[2024-05-29 01:38] LABS: Add Urine Microscopic? YES; Bacteria Urine 1+ /hpf; Hyaline Casts Urine 0.81 /lpf; RBC Urine >100 /hpf (0-2); Squamous Epithelial Cell Urine 0-5 /hpf (0-5); WBC Urine >100 /hpf (0-5)
[2024-05-29 01:44] LABS: HCG, Serum Qual Negative (Negative)
[2024-05-29 01:45] LABS: Add Urine Culture? Yes; Urine Appearance Slightly Cloudy (CLEAR)
[2024-05-29 01:47] LABS: Alanine Aminotransferase 38 U/L (0-33); Albumin Level 4.3 g/dL (3.5-5.2); Alkaline Phosphatase 196 U/L (35-105); Anion Gap 16.7 (5-19); Aspartate Amino Transferase 27 U/L (0-32); Blood Urea Nitrogen 12 mg/dL (6-20); Calcium 11.1 mg/dL (8.5-10.5); Carbon Dioxide 24 mmol/L (22-29); Chloride 101 mmol/L (98-107); Creatinine Clr Calc Pharmacy 105.1813; Globulin 3.2 g/dL (1.3-4.6); Glomerular Filtration Rate 75.1 mL/min (90-130); Glucose 112 mg/dL (65-115); Osmolality Calculated 287 mOsm/kg (285-295); Potassium 3.7 mmol/L (3.5-5.1); Sodium 138 mmol/L (136-145); Total Bilirubin 0.5 mg/dL (0.15-1.2); Total Protein 7.5 g/dL (6.6-8.7)
[2024-05-29 01:48] LABS: Lactic Sepsis W/Reflex 1.4 mmol/L (0.5-2.2)
[2024-05-29 02:04] VITALS: BP 125/87; PULSE 82; O2SAT 96
[2024-05-29] MEDS: ketorolac 30 mg/mL INJ IVP (02:58)
[2024-05-29 03:15] VITALS: RESP 20
[2024-05-29] MEDS: ondansetron 2 mg/ML SDV 2 mL 4 MG IVP (03:15)
[2024-05-29] MEDS: morphine 4 mg/mL SDV 1 mL IVP (03:15)
[2024-05-29] MEDS: ciprofloxacin 500 mg Tablet PO (03:16)
[2024-05-29 03:21] VITALS: PULSE 70; O2SAT 97
--- NOTE | 2024-05-29 03:25 | PC.NURSE ---
Dr Sullivan instructed this nurse to put in order for 2 [place] tablets for patient to take home for severe pain and take as instructed per JUL.
[2024-05-29 03:43] VITALS: BP 120/75; PULSE 84; O2SAT 93
[2024-05-29] MEDS: HYDROcodone-acetaminophen 5-325 mg Tablet 2 TAB PO (03:43)
== END 2024-05-29 03:45 | disposition home or self-care (01) ==
PROVIDERS: Emergency Provider Emergency Medicine; PCP Family Medicine
DX: N20.1 Calculus of ureter (principal); F17.290 Nicotine dependence, other tobacco product, uncomplicated
CPT/HCPCS: 74176; 80053; 81001; 83605; 84703; 85025; 87077; 87086; 87186; 96374; 96375; 99285; J1885; J2270; J2405

== ENCOUNTER 2024-06-01 12:09 | Emergency (ER) | payer SELFPAY ==
[2024-06-01 12:15] VITALS: BP 134/91; PULSE 98; TEMP 37.1; O2SAT 98; BMI 30.7
--- NOTE | 2024-06-01 12:47 | ED_ITS ---
HPI - Female Genitourinary 2 General: Chief complaint: Urogenital-Female Stated complaint: still having problems w/ kidney stone Time Seen by Provider: 06/01/24 12:40 History of Present Illness: 29-year-old female presents emergency ro om with complaint of flank pain. She was seen 3 days ago with ureterolithiasis with right flank pain patient's had a proximal ureteral stone she was treated as an outpatient with ciprofloxacin she is also given ketorolac. Returns today stating pain is not adequately controlled. Associated symptoms: Deny abdominal pain Related Data Home Medications Medication Instructions Recorded Confirmed ibuprofen 200 mg tablet 1,000 mg PO Q6H PRN Pain 05/28/23 06/01/24 potassium citrate-citric acid 10 ml PO QAM 06/01/24 06/01/24 1,100 mg-334 mg/5 mL oral solution Previous Rx's Medication Instructions Recorded ciprofloxacin HCl 500 mg tablet 500 mg PO Q12H #20 tabs 05/29/24 ketorolac 10 mg tablet 10 mg PO Q6H PRN Kidney stone pain 05/29/24 #14 tabs hydrocodone 5 mg-acetaminophen 325 1 tab PO Q6H PRN pain #20 tabs 06/01/24 mg tablet promethazine 25 mg tablet 25 mg PO Q6H PRN nausea and 06/01/24 vomiting #20 tabs tamsulosin 0.4 mg capsule 0.4 mg PO DAILY #20 caps 06/01/24 Allergies Allergy/AdvReac Type Severity Reaction Status Date / Time No Known Allergies Allergy Verified 06/01/24 12:20 Review of Systems 2 Const: Denies: fever(s) or chills Card: Denies: chest pain Resp: Denies: dyspnea GI: Denies: abdominal pain : Denies: dysuria, urinary frequency or urinary urgency Musc: Denies: neck pain or back pain Skin/Breast: Denies: rash PFSH ED 2 PFSH: Medical History Bilateral ureteral calculi Yeast vaginitis History of recurrent UTI (urinary tract infection) Chronic cystitis Urolithiasis Medullary sponge kidney Recurrent UTI Pyelonephritis Surgical History Hx of cholecystectomy Status post laser lithotripsy of ureteral calculus History of wisdom tooth extraction Hx of tonsillectomy H/O tubal ligation Family History Father , AT AGE 24 Electric injury Social History Smoking and tobacco/nicotine status: current every day tobacco/nicotine user e- cigarettes Alcohol intake: current Alcohol intake frequency: few times a month Substance/Drug Use: never Marital status: Current occupational status: employed Physical Exam 2 Const: COMMON NORMALS: no acute distress GENERAL APPEARANCE: cooperative and comfortable ORIENTATION/CONSCIOUSNESS: Yes awake, Yes oriented to person, Yes oriented to place and Yes oriented to time HENMT: COMMON NORMALS: normocephalic, atraumatic and hearing grossly normal bilaterally HEAD & SCALP: normocephalic and atraumatic Resp: COMMON NORMALS: normal respiratory effort, No retractions, No use of accessory muscles and clear to auscultation bilaterally AUSCULTATION: clear to auscultation bilaterally Cardio: COMMON NORMALS: regular rate, regular rhythm and No murmurs present (Cardio) RATE: regular rate RHYTHM: regular rhythm GI: COMMON NORMALS: Soft to palpation and No hepatosplenomegaly present A USCULTATION: Yes normoactive bowel sounds PALPATION: Yes Soft to palpation, No Tenderness to palpation present (GI), No Guarding due to palpation present (GI) and Yes No hepatosplenomegaly present Extremity: COMMON NORMALS: normal to inspection, capillary refill normal, no clubbing, cyanosis or edema, no calf tenderness and no pedal edema Neuro: SENSORIUM/ORIENTATION: Yes oriented to person, Yes oriented to place and Yes oriented to time Skin: COMMON NORMALS: no rashes or lesions noted GENERAL SKIN EXAM: no rashes or lesions noted Course 2 Vital Signs: Vital signs: Vital Signs Temperature 98.8 F 06/01/24 12:15 Pulse Rate 78 06/01/24 13:22 Blood Pressure 128/91 06/01/24 13:22 Pulse Oximetry 96 06/01/24 13:22 Oxygen Delivery Me thod Room Air 06/01/24 12:15 MDM - Female Medical Decision Making Kidney stone still in place has descended some based on the CT findings. Discharge patient home strain urine gave hydrocodone for pain pain is relatively well-controlled while she was here could not complete the course of antibiotics she was given previously also use promethazine as needed and started on tamsulosin on the left case management make arrangements for follow-up with urology. Follow-up may be a little challenging due to the fact patient is having insurance logistical issues Medical Records I reviewed the patient's medical records. Lab Data I reviewed the patient's lab results. 06/01/24 13:19 06/01/24 13:19 Radiology Impressions Abdomen/Pelvis CT 06/01/24 12:53 IMPRESSION: 1. Recently described 3.5 mm calcification in the proximal RIGHT ureter has migrated 8 cm distally. Continued mild hydroureteronephrosis. 2. Extensive bilateral nephrocalcinosis. 3. Normal appendix. Laboratory Results WBC 9.53 10^3/uL (3.29-11.43) 06/01/24 13:19 RBC 4.77 10^6/uL (3.85-5.65) 06/01/24 13:19 Hgb 12.80 g/dL (11.27-16.99) 06/01/24 13:19 Hct 40.6 % (36-47) 06/01/24 13:19 MCV 85.1 fl (85-98) 06/01/24 13:19 MCH 26.8 pg (27-33) L 06/01/24 13:19 MCHC 31.5 g/dL (30-55) 06/01/24 13:19 RDW 13.0 % (12.1-15.1) 06/01/24 13:19 Plt Count 345 10^3/cmm (157-399) 06/01/24 13:19 MPV 9.3 fL (7.4-10.4) 06/01/24 13:19 Neut % (Auto) 71.2 % 06/01/24 13:19 Lymph % (Auto) 18.9 % 06/01/24 13:19 [place] % (Auto) 6.0 % 06/01/24 13:19 Eos % (Auto) 2.3 % 06/01/24 13:19 Baso % (Auto) 0.9 % 06/01/24 13:19 Neut # (Auto) 6.78 10^3/uL (1.8-7.7) 06/01/24 13:19 Lymph # (Auto) 1.8 10^3/uL (0.8-4.8) 06/01/24 13:19 [place] # (Auto) 0.6 10^3/uL (0.2-0.9) 06/01/24 13:19 Eos # (Auto) 0.2 10^3/uL (0.0-0.8) 06/01/24 13:19 Baso # (Auto) 0.1 10^3/uL (0.0-0.1) 06/01/24 13:19 Nucleated RBC % (auto) 0 % 06/01/24 13:19 Nucleated RBCs # 0.0 /100WBC 06/01/24 13:19 Sodium 135 mmol/L (136-145) L 06/01/24 13:19 Potassium 4.4 mmol/L (3.5-5.1) 06/01/24 13:19 Chloride 101 mmol/L (98-107) 06/01/24 13:19 Carbon Dioxide 24 mmol/L (22-29) 06/01/24 13:19 Anion Gap 14.4 (5-19) 06/01/24 13:19 BUN 8 mg/dL (6-20) 06/01/24 13:19 Creatinine 0.6 mg/dL (0.5-0.9) 06/01/24 13:19 GFR Calculation 119.9 mL/min (90-130) 06/01/24 13:19 Glucose 103 mg/dL (65-115) 06/01/24 13:19 Calculated Osmolality 279 mOsm/kg (285-295) L 06/01/24 13:19 Calcium 10.9 mg/dL (8.5-10.5) H 06/01/24 13:19 Total Bilirubin 0.7 mg/dL (0.15-1.2) 06/01/24 13:19 AST 100 U/L (0-32) H 06/01/24 13:19 ALT 127 U/L (0-33) H 06/01/24 13:19 Alkaline Phosphatase 214 U/L (35-105) H 06/01/24 13:19 Total Protein 7.2 g/dL (6.6-8.7) 06/01/24 13:19 Albumin 4.1 g/dL (3.5-5.2) 06/01/24 13:19 Globulin 3.1 g/dL (1.3-4.6) 06/01/24 13:19 Lipase 16 U/L (13-60) 06/01/24 13:19 HCG, Qual Negative (Negative) 06/01/24 13:19 Urine Color Dark yellow (Yellow) A 06/01/24 12:45 Urine Appearance Clear (CLEAR) 06/01/24 12:45 Urine pH 6.5 (5-7) 06/01/24 12:45 Ur Specific [place] 1.016 (1.005-1.030) 06/01/24 12:45 Urine Protein 1+ (Negative) A 06/01/24 12:45 Urine Glucose (UA) Negative (Normal) 06/01/24 12:45 Urine Ketones Negative (Negative) 06/01/24 12:45 Urine Blood Non-haemolysed trace (Negative) 06/01/24 12:45 Urine Nitrate Positive (Negative) A 06/01/24 12:45 Urine Bilirubin Negative (Negative) 06/01/24 12:45 Urine Urobilinogen 1.0 mg/dL (Negative) 06/01/24 12:45 Ur Leukocyte Esterase 1+ (Negative) A 06/01/24 12:45 Urine RBC 11-20 /hpf (0-2) H 06/01/24 12:45 Urine WBC 21-50 /hpf (0-5) H 06/01/24 12:45 Ur Squamous Epith Cells 11-20 /hpf (0-5) H 06/01/24 12:45 Amorphous Sediment Not Reportable 06/01/24 12:45 Urine Bacteria 2+ /hpf (NONE) H 06/01/24 12:45 Hyaline Casts 0.81 /lpf 06/01/24 12:45 All radiology interpretation(s) finalized by discharge Discharge Plan Discharge Patient Disposition: Home Clinical Impression: Nephrolithiasis Condition: Stable Prescriptions: New tamsulosin 0.4 mg capsule 0.4 mg PO DAILY Qty: 20 0RF hydrocodone-acetaminophen 5-325 mg tablet 1 tab PO Q6H PRN (Reason: pain) Qty: 20 0RF promethazine 25 mg tablet 25 mg PO Q6H PRN (Reason: nausea and vomiting) Qty: 20 0RF No Action ibuprofen 200 mg Tablet 1,000 mg PO Q6H PRN (Reason: Pain) potassium citrate-citric acid 1,100-334 mg/5 mL solution 10 ml PO QAM ciprofloxacin HCl 500 mg tablet 500 mg PO Q12H Qty: 20 0RF ketorolac 10 mg tablet 10 mg PO Q6H PRN (Reason: Kidney stone pain) Qty: 14 0RF Discharge Orders: Discharge ED (Routine); Ordered 06/01/24 Ordered By: Florentin Floyd Referrals: Steven Del Rio MD [Primary Care Provider] - Discharge Diet: Usual diet Discharge Activity: Increase activity as tolerated Patient Instructions: Opioid Safety, Pain Management Activity Restrictions/Additional Instructions: Thank you for choosing [facility] for your healthcare needs today. It is very important that you follow up as instructed or that you return to the Emergency Department should you have concerns or if your condition changes or worsens in any way. You are seen in the emergency room for persistent right flank pain. The stone has moved down the ureter some but does have some to go before making it to the bladder. Recommend straining your urine. Discharge you home with hydrocodone and tamsulosin. You can also use promethazine for nausea vomiting case management will try to make you an appointment with a urologist. Coding Level of Care Code ED Hardware Engineering Manager for Abad Ely
--- NOTE | 2024-06-01 12:53 | CT_ITS ---
WS: [id number] CT ABDOMEN AND PELVIS NONCONTRAST HISTORY: flank pain, RIGHT for 2 to 3 days. TECHNIQUE: Imaging performed through the abdomen and pelvis. Coronal and sagittal reformats are submi tted. All CT scans at [facility] use at least one of these dose optimization techniques: auto mated exposure control; mA and/or kV adjustment per patient size (includes targeted exams where dose is matched to clinical indication); or iterative reconstruction. DLP: 921.93 mGy.cm COMPARISON: 05/29/2024 Lower thorax: Lung bases are clear. Visualized heart is normal. No hiatal hernia. Liver: Normal size liver. No mass or bile duct dilatation. Gallbladder: Prior cholecystectomy. No bile duct dilatation. Pancreas: Normal size and attenuation. Normal pancreatic duct. No pancreatitis or mass. Spleen: Normal. Adrenal glands: Normal. No mass. Right kidney: Normal size kidney. Medullary sponge kidney. Extensive calcifications in the medullary pyramids and calyces. Mild dilatation of the RIGHT renal pelvis and RIGHT ureter. Recently described 3.5 mm calcification in the proximal RIGHT ureter has migrated distally 8 cm and is now at the level of the pelvic brim. Left kidney: Medullary sponge kidney. No obstruction. Aorta: Normal abdominal aorta, no aneurysm or atherosclerosis. No free fluid, intraperitoneal air or significant lymphadenopathy. GI tract: Normally distended stomach. No small bowel obstruction. Mild constipation. Normal appendix. Abdominal wall: Small umbilical hernia contains fat only. Pelvis: Uterus is present and midline. No free fluid or adenopathy. No calcifications in the urinary bladder. Osseous structures: Unremarkable. CT/CT kidney stone [id number] IMPRESSION: 1. Recently described 3.5 mm calcification in the proximal RIGHT ureter has mi grated 8 cm distally. Continued mild hydroureteronephrosis. 2. Extensive bilateral nephrocalcinosis. 3. Normal appendix.
[2024-06-01 12:55] LABS: Bilirubin Urine Negative (Negative); Blood Urine Non-haemolysed trace (Negative); Glucose Urine UA Negative (Normal); Ketones Urine Negative (Negative); Leukocyte Esterase Urine 1+ (Negative); Nitrate Urine Positive (Negative); Protein Urine 1+ (Negative); Specific Gravity, Urine 1.016 (1.005-1.030); Urine Appearance Clear (CLEAR); Urine Color Dark Yellow (Yellow); pH Urine 6.5 (5-7)
[2024-06-01 12:58] LABS: Add Urine Microscopic? YES; Bacteria Urine 2+ /hpf; Hyaline Casts Urine 0.81 /lpf; WBC Urine 21-50 /hpf (0-5)
[2024-06-01 13:11] LABS: Add Urine Culture? Yes
[2024-06-01] MEDS: ondansetron 2 mg/ML SDV 2 mL 4 MG IVP (13:17)
[2024-06-01] MEDS: morphine 4 mg/mL SDV 1 mL IVP (13:18)
[2024-06-01 13:22] VITALS: BP 128/91; PULSE 78; O2SAT 96
[2024-06-01 13:25] LABS: Basophils # 0.1 10^3/uL (0.0-0.1); Basophils % 0.9 %; Eosinophils # 0.2 10^3/uL (0.0-0.8); Eosinophils % 2.3 %; Hematocrit 40.6 % (36-47); Lymphocytes # 1.8 10^3/uL (0.8-4.8); Lymphocytes % 18.9 %; Mean Corpuscular HGB Conc 31.5 g/dL (30-55); Mean Corpuscular Hemoglobin 26.8 pg (27-33); Mean Corpuscular Volume 85.1 fl (85-98); Mean Platelet Volume 9.3 fL (7.4-10.4); Monocytes # 0.6 10^3/uL (0.2-0.9); Neutrophils # 6.78 10^3/uL (1.8-7.7); Neutrophils % 71.2 %; Nucleated Red Blood Cells % 0 %; Platelet Count 345 10^3/cmm (157-399); Red Blood Count 4.77 10^6/uL (3.85-5.65); White Blood Count 9.53 10^3/uL (3.29-11.43)
[2024-06-01 13:34] LABS: HCG, Serum Qual Negative (Negative)
[2024-06-01 13:41] LABS: Alanine Aminotransferase 127 U/L (0-33); Albumin Level 4.1 g/dL (3.5-5.2); Alkaline Phosphatase 214 U/L (35-105); Anion Gap 14.4 (5-19); Aspartate Amino Transferase 100 U/L (0-32); Blood Urea Nitrogen 8 mg/dL (6-20); Calcium 10.9 mg/dL (8.5-10.5); Carbon Dioxide 24 mmol/L (22-29); Chloride 101 mmol/L (98-107); Creatinine Clr Calc Pharmacy 155.7549; Globulin 3.1 g/dL (1.3-4.6); Glomerular Filtration Rate 119.9 mL/min (90-130); Glucose 103 mg/dL (65-115); Lipase 16 U/L (13-60); Osmolality Calculated 279 mOsm/kg (285-295); Potassium 4.4 mmol/L (3.5-5.1); Sodium 135 mmol/L (136-145); Total Bilirubin 0.7 mg/dL (0.15-1.2); Total Protein 7.2 g/dL (6.6-8.7)
[2024-06-01 15:37] VITALS: BP 118/79; PULSE 88; O2SAT 99
--- NOTE | 2024-06-05 09:49 | DCPLANNER ---
faxed referral packet to [facility]
== END 2024-06-01 15:48 | disposition home or self-care (01) ==
PROVIDERS: Emergency Medicine; Emergency Provider Family Medicine; PCP Family Medicine
DX: N20.0 Calculus of kidney (principal); F17.290 Nicotine dependence, other tobacco product, uncomplicated
CPT/HCPCS: 36415; 74176; 80053; 81001; 83690; 84703; 85025; 87086; 96374; 96375; 99285; J2270; J2405

== ENCOUNTER 2025-02-03 10:27 | Emergency (ER) | payer SELFPAY ==
[2025-02-03 10:44] VITALS: BP 127/89; PULSE 109; TEMP 37.2; O2SAT 98
--- NOTE | 2025-02-03 11:03 | W.ED.FEMALGU ---
HPI - Female Genitourinary General: Chief complaint: Urogenital-Female Stated complaint: Lower back pain Time Seen by Provider: 02/03/25 10:52 History of Present Illness: 29-year-old female who presents emergency room with low back pain and concern for possible urinary tract infection. She has these frequently. She says urine smells different and she has an achy low back pain. This is similar to previous urinary tract infections. No fever. No dysuria. No vomiting. Related Data Home Medications ?Medication ?Instructions ?Recorded ?Confirmed ibuprofen 200 mg tablet 1,000 mg PO Q6H PRN Pain 05/28/23 06/01/24 potassium citrate-citric acid 10 ml PO QAM 06/01/24 06/01/24 1,100 mg-334 mg/5 mL oral solution Previous Rx's ?Medication ?Instructions ?Recorded ciprofloxacin HCl 500 mg tablet 500 mg PO Q12H #20 tabs 05/29/24 ketorolac 10 mg tablet 10 mg PO Q6H PRN Kidney stone pain 05/29/24 #14 tabs hydrocodone 5 mg-acetaminophen 325 1 tab PO Q6H PRN pain #20 tabs 06/01/24 mg tablet promethazine 25 mg tablet 25 mg PO Q6H PRN nausea and 06/01/24 vomiting #20 tabs tamsulosin 0.4 mg capsule 0.4 mg PO DAILY #20 caps 06/01/24 cefdinir 300 mg capsule 300 mg PO BID 10 days #20 caps 02/03/25 Allergies Allergy/AdvReac Type Severity Reaction Status Date / Time No Known Allergies Allergy Verified 02/03/25 10:49 Review of Systems Narrative: Constitutional symptoms: Negative except as documented in HPI. Skin symptoms: Negative except as documented in HPI. Eye symptoms: Negative except as documented in HPI. ENMT symptoms: Negative except as documented in HPI. Respiratory symptoms: Negative except as documented in HPI. Cardiovascular symptoms: Negative except as documented in HPI. Gastrointestinal symptoms: Negative except as documented in HPI. Genitourinary symptoms: Negative except as documented in HPI. Musculoskeletal symptoms: Negative except as documented in HPI. Neurologic symptoms: Negative except as documented in HPI. Psychiatric symptoms: Negative except as documented in HPI. Endocrine symptoms: Negative except as documented in HPI. [facility] ED PFSH: Medical History (Updated 02/03/25 @ 12:11 by Tiffanie Gasca MD) Bilateral ureteral calculi Yeast vaginitis History of recurrent UTI (urinary tract infection) Chronic cystitis Urolithiasis Medullary sponge kidney Recurrent UTI Pyelonephritis Surgical History Hx of cholecystectomy Status post laser lithotripsy of ureteral calculus History of wisdom tooth extraction Hx of tonsillectomy H/O tubal ligation Family History Father , AT AGE 24 Electric injury Social History Smoking and tobacco/nicotine status: current every day tobacco/nicotine user e-cigarettes Alcohol intake: current Alcohol intake frequency: few times a month Substance/Drug Use: never Marital status: Current occupational status: employed Physical Exam Narrative: EXAM NARRATIVE: General: Alert, no acute distress. Skin: warm and dry Head: Normocephalic Neck: Trachea midline Eye: Extraocular movements are intact. Ears, nose, mouth and throat: Oral mucosa moist Respiratory: Respirations are non-labored Musculoskeletal: Normal ROM Gastrointestinal: Abdomen does not appear distended Neurological: Alert and oriented, No focal neurological deficit observed. Psychiatric: Cooperative, appropriate mood & affect. Course Vital Signs: Vital signs: Vital Signs Temperature 99.0 F 02/03/25 10:44 Pulse Rate 93 02/03/25 11:34 Respiratory Rate 16 02/03/25 11:34 Blood Pressure 118/78 02/03/25 12:02 Pulse Oximetry 99 02/03/25 12:02 Oxygen Delivery Me thod Room Air 02/03/25 11:34 MDM - Female Medical Decision Making Medical decision making: Differential diagnosis including but not limited to and based on the above HPI, review of systems and physical exam: Differential diagnosis for patient with foul-smelling urine and low back pain: Ureterolithiasis. Urinary tract infection. Cystitis. With the possibility of sepsis, pyelonephritis and renal failure. Orders placed to evaluate differential diagnosis based on the above differential, HPI and physical exam Lab Review: Laboratory results were reviewed and interpreted by myself the emergency room physician. Mild leukocytosis. No anemia. No renal failure. No evidence of sepsis. She was slightly tachycardic initially but this improved without treatment. Urine does show signs of infection. Greater than 100 whites. 4+ bacteria. Leukocyte esterase positive. Negative nitrate I reviewed the patient's medical record. Reexamination: Patient remained stable. No increased work of breathing. No altered mental status. No focal motor deficits. Assessment and plan: Urinary tract infection ?BERT Mansfield in the emergency room. - Discharged home - Discussed plan with patient. Answered any questions. - Evaluation and treatment of this problem were appropriate in the emergency setting. Lab Data 02/03/25 11:25 02/03/25 11:25 Laboratory Results WBC 13.99 10^3/uL (3.29-11.43) H 02/03/25 11:25 RBC 4.64 10^6/uL (3.85-5.65) 02/03/25 11:25 Hgb 12.80 g/dL (11.27-16.99) 02/03/25 11:25 Hct 39.0 % (36-47) 02/03/25 11:25 MCV 84.1 fl (85-98) L 02/03/25 11:25 MCH 27.6 pg (27-33) 02/03/25 11:25 MCHC 32.8 g/dL (30-55) 02/03/25 11:25 RDW 13.3 % (12.1-15.1) 02/03/25 11:25 Plt Count 289 10^3/cmm (157-399) 02/03/25 11:25 MPV 9.6 fL (7.4-10.4) 02/03/25 11:25 Neut % (Auto) 70.8 % 02/03/25 11:25 Lymph % (Auto) 18.2 % 02/03/25 11:25 [place] % (Auto) 8.5 % 02/03/25 11:25 Eos % (Auto) 0.9 % 02/03/25 11:25 Baso % (Auto) 0.8 % 02/03/25 11:25 Neut # (Auto) 9.92 10^3/uL (1.8-7.7) H 02/03/25 11:25 Lymph # (Auto) 2.5 10^3/uL (0.8-4.8) 02/03/25 11:25 [place] # (Auto) 1.2 10^3/uL (0.2-0.9) H 02/03/25 11:25 Eos # (Auto) 0.1 10^3/uL (0.0-0.8) 02/03/25 11:25 Baso # (Auto) 0.1 10^3/uL (0.0-0.1) 02/03/25 11:25 Nucleated RBC % (auto) 0 % 02/03/25 11:25 Nucleated RBCs # 0.0 /100WBC 02/03/25 11:25 Sodium 135 mmol/L (136-145) L 02/03/25 11:25 Potassium 3.8 mmol/L (3.5-5.1) 02/03/25 11:25 Chloride 101 mmol/L (98-107) 02/03/25 11:25 Carbon Dioxide 23 mmol/L (22-29) 02/03/25 11:25 Anion Gap 14.8 (5-19) 02/03/25 11:25 BUN 6 mg/dL (6-20) 02/03/25 11:25 Creatinine 0.6 mg/dL (0.5-0.9) 02/03/25 11:25 GFR Calculation 119.9 mL/min (90-130) 02/03/25 11:25 Glucose 101 mg/dL (65-115) 02/03/25 11:25 Calculated Osmolality 278 mOsm/kg (285-295) L 02/03/25 11:25 Calcium 10.9 mg/dL (8.5-10.5) H 02/03/25 11:25 Total Bilirubin 1.2 mg/dL (0.15-1.2) 02/03/25 11:25 AST 58 U/L (0-32) H 02/03/25 11:25 ALT 65 U/L (0-33) H 02/03/25 11:25 Alkaline Phosphatase 194 U/L (35-105) H 02/03/25 11:25 C-Reactive Protein 55.6 mg/L (0.0-4.9) H 02/03/25 11:25 Total Protein 8.0 g/dL (6.6-8.7) 02/03/25 11:25 Albumin 4.3 g/dL (3.5-5.2) 02/03/25 11:25 Globulin 3.7 g/dL (1.3-4.6) 02/03/25 11:25 HCG, Qual Negative (Negative) 02/03/25 11:25 Urine Color Yellow (Yellow) 02/03/25 10:56 Urine Appearance Cloudy (CLEAR) A 02/03/25 10:56 Urine pH 7.0 (5-7) 02/03/25 10:56 Ur Specific [place] 1.012 (1.005-1.030) 02/03/25 10:56 Urine Protein Trace (Negative) A 02/03/25 10:56 Urine Glucose (UA) Negative (Normal) 02/03/25 10:56 Urine Ketones Negative (Negative) 02/03/25 10:56 Urine Blood Trace (Negative) A 02/03/25 10:56 Urine Nitrate Negative (Negative) 02/03/25 10:56 Urine Bilirubin Negative (Negative) 02/03/25 10:56 Urine Urobilinogen 1.0 mg/dL (Negative) 02/03/25 10:56 Ur Leukocyte Esterase 3+ (Negative) A 02/03/25 10:56 Urine RBC 0-2 /hpf (0-2) 02/03/25 10:56 Urine WBC >100 /hpf (0-5) H 02/03/25 10:56 Ur Squamous Epith Cells 11-20 /hpf (0-5) H 02/03/25 10:56 Amorphous Sediment Not Reportable 02/03/25 10:56 Urine Bacteria 4+ /hpf (NONE) H 02/03/25 10:56 Hyaline Casts 1.21 /lpf 02/03/25 10:56 No radiology studies performed this visit Discharge Plan Discharge Patient Disposition: Home Clinical Impression: Urinary tract infection Condition: Stable Prescriptions: New cefdinir 300 mg capsule 300 mg PO BID 10 Days Qty: 20 0RF No Action ibuprofen 200 mg Tablet 1,000 mg PO Q6H PRN (Reason: Pain) potassium citrate-citric acid 1,100-334 mg/5 mL solution 10 ml PO QAM tamsulosin 0.4 mg capsule 0.4 mg PO DAILY Qty: 20 0RF hydrocodone-acetaminophen 5-325 mg tablet 1 tab PO Q6H PRN (Reason: pain) Qty: 20 0RF promethazine 25 mg tablet 25 mg PO Q6H PRN (Reason: nausea and vomiting) Qty: 20 0RF ciprofloxacin HCl 500 mg tablet 500 mg PO Q12H Qty: 20 0RF ketorolac 10 mg tablet 10 mg PO Q6H PRN (Reason: Kidney stone pain) Qty: 14 0RF Discharge Orders: Discharge ED (Routine); Ordered 02/03/25 Ordered By: Tiffanie Gasca Referrals: Steven Del Rio MD [Primary Care Provider, Family Practice] Discharge Diet: Usual diet Discharge Activity: Increase activity as tolerated Patient Instructions: Urinary Tract Infection in Women (ED), Opioid Safety, Pain Management, Patient Portal & Mirna Instructions Activity Restrictions/Additional Instructions: Thank you for choosing [facility] for your healthcare needs today. You have been screened and evaluated and felt safe for discharge. Health conditions do change or evolve sometimes and as such it is important that you follow up with your Primary Doctor to be re checked, 3-5 days is a general good time frame for follow up. 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
[2025-02-03 11:10] LABS: Glucose Urine UA Negative (Normal); Nitrate Urine Negative (Negative); Specific Gravity, Urine 1.012 (1.005-1.030)
[2025-02-03] MEDS: cefTRIAXone 1,000 MG in water for injection-sterile 2.1 ML 2.1 MG IM (11:32)
[2025-02-03 11:33] LABS: Hematocrit 39.0 % (36-47); Hemoglobin 12.80 g/dL (11.27-16.99); Mean Corpuscular HGB Conc 32.8 g/dL (30-55); Mean Corpuscular Hemoglobin 27.6 pg (27-33); Mean Corpuscular Volume 84.1 fl (85-98); Nucleated Red Blood Cells % 0 %; Platelet Count 289 10^3/cmm (157-399); Red Blood Count 4.64 10^6/uL (3.85-5.65); White Blood Count 13.99 10^3/uL (3.29-11.43)
[2025-02-03 11:34] VITALS: BP 117/91; PULSE 93; RESP 16; O2SAT 100
[2025-02-03 11:52] LABS: HCG, Serum Qual Negative (Negative)
[2025-02-03 12:02] VITALS: BP 118/78; O2SAT 99
[2025-02-03 12:04] LABS: Alanine Aminotransferase 65 U/L (0-33); Albumin Level 4.3 g/dL (3.5-5.2); Alkaline Phosphatase 194 U/L (35-105); Anion Gap 14.8 (5-19); Aspartate Amino Transferase 58 U/L (0-32); Blood Urea Nitrogen 6 mg/dL (6-20); Calcium 10.9 mg/dL (8.5-10.5); Carbon Dioxide 23 mmol/L (22-29); Chloride 101 mmol/L (98-107); Creatinine Clr Calc Pharmacy 159.7881; Globulin 3.7 g/dL (1.3-4.6); Glucose 101 mg/dL (65-115); Osmolality Calculated 278 mOsm/kg (285-295); Potassium 3.8 mmol/L (3.5-5.1); Sodium 135 mmol/L (136-145); Total Protein 8.0 g/dL (6.6-8.7)
[2025-02-03 12:19] VITALS: BP 118/78; PULSE 77; RESP 17; O2SAT 97
== END 2025-02-03 12:20 | disposition home or self-care (01) ==
PROVIDERS: Emergency Provider Emergency Medicine; PCP Family Medicine
DX: N39.0 Urinary tract infection, site not specified (principal); F17.290 Nicotine dependence, other tobacco product, uncomplicated
CPT/HCPCS: 36415; 80053; 81001; 84703; 85025; 86140; 87077; 87086; 87186; 96372; 99284; J0696

== ENCOUNTER 2025-03-31 11:35 | Emergency (ER) | payer SELFPAY ==
[2025-03-31 11:37] VITALS: BP 130/84; PULSE 92; RESP 16; TEMP 37.1; O2SAT 98; BMI 32.3
--- NOTE | 2025-03-31 11:56 | W.ED.ABDPA2 ---
HPI - Abdominal Pain General: Chief Complaint: Abdominal Pain Stated Complaint: Lower back pain and abd pain Time Seen by Provider: 03/31/25 11:54 History of Present Illness: 29-year-old female with a history of kidney stones who presents emergency room with right flank pain, abdominal pain and foul-smelling urine. No fever. No altered mental status. Some nausea but no vomiting. Related Data Home Medications ?Medication ?Instructions ?Recorded ?Confirmed ibuprofen 200 mg tablet 1,000 mg PO Q6H PRN Pain 05/28/23 06/01/24 potassium citrate-citric acid 10 ml PO QAM 06/01/24 06/01/24 1,100 mg-334 mg/5 mL oral solution Previous Rx's ?Medication ?Instructions ?Recorded ciprofloxacin HCl 500 mg tablet 500 mg PO Q12H #20 tabs 05/29/24 ketorolac 10 mg tablet 10 mg PO Q6H PRN Kidney stone pain 05/29/24 #14 tabs hydrocodone 5 mg-acetaminophen 325 1 tab PO Q6H PRN pain #20 tabs 06/01/24 mg tablet promethazine 25 mg tablet 25 mg PO Q6H PRN nausea and 06/01/24 vomiting #20 tabs tamsulosin 0.4 mg capsule 0.4 mg PO DAILY #20 caps 06/01/24 cefdinir 300 mg capsule 300 mg PO BID 10 days #20 caps 03/31/25 hydrocodone 5 mg-acetaminophen 325 1 tab PO Q6H PRN pain #20 tabs 03/31/25 mg tablet Allergies Allergy/AdvReac Type Severity Reaction Status Date / Time No Known Allergies Allergy Verified 02/03/25 10:49 Review of Systems Narrative: Constitutional symptoms: Negative except as documented in HPI. Skin symptoms: Negative except as documented in HPI. Eye symptoms: Negative except as documented in HPI. ENMT symptoms: Negative except as documented in HPI. Respiratory symptoms: Negative except as documented in HPI. Cardiovascular symptoms: Negative except as documented in HPI. Gastrointestinal symptoms: Negative except as documented in HPI. Genitourinary symptoms: Negative except as documented in HPI. Musculoskeletal symptoms: Negative except as documented in HPI. Neurologic symptoms: Negative except as documented in HPI. Psychiatric symptoms: Negative except as documented in HPI. Endocrine symptoms: Negative except as documented in HPI. [facility] ED PFSH: Medical History (Updated 11/19/25 @ 14:24 by Tiffanie Gasca MD) Bilateral ureteral calculi Yeast vaginitis History of recurrent UTI (urinary tract infection) Chronic cystitis Urolithiasis Medullary sponge kidney Recurrent UTI Pyelonephritis Surgical History Hx of cholecystectomy Status post laser lithotripsy of ureteral calculus History of wisdom tooth extraction Hx of tonsillectomy H/O tubal ligation Family History Father , AT AGE 24 Electric injury Social History Smoking and tobacco/nicotine status: current every day tobacco/nicotine user e-cigarettes Alcohol intake: current Alcohol intake frequency: few times a month Substance/Drug Use: never Marital status: Current occupational status: employed Physical Exam Narrative: EXAM NARRATIVE: General: Alert, no acute distress. Skin: Warm, dry. Head: Normocephalic, atraumatic. Neck: Supple, trachea midline. Eye: Extraocular movements are intact. Ears, nose, mouth and throat: mucosa moist. Cardiovascular: Regular, Normal peripheral perfusion. Respiratory: Lungs are clear to auscultation, respirations are non-labored, breath sounds are equal, Symmetrical chest wall expansion. Gastrointestinal: Soft, Nontender, Non distended Musculoskeletal: Normal ROM, no deformity. Neurological: Alert and oriented, No focal neurological deficit observed. Psychiatric: Cooperative, appropriate mood & affect. Course Vital Signs: Vital signs: Vital Signs Temperature 98.7 F 03/31/25 11:37 Pulse Rate 81 03/31/25 14:00 Respiratory Rate 16 03/31/25 11:37 Blood Pressure 116/86 03/31/25 14:00 Pulse Oximetry 100 03/31/25 14:00 Oxygen Delivery Me thod Room Air 03/31/25 12:42 MDM - Abdominal Pain Medical Decision Making Medical decision making Patient's reason for coming to the emergency room: Social determinants: Patient is employed I reviewed the patient's medical record. Last seen here in January for urinary tract infection. In May she had a kidney stone. I reviewed the patient's current home meds No chronic medications. Alternate historians: None Differential diagnosis including but not limited to and based on the above HPI, review of systems and physical exam: In this patient with flank pain would have concern for: Ureterolithiasis. Urinary tract infection. Appendicitis. Cholecystitis. Musculoskeletal / back pain. Pyelonephritis. Orders placed to evaluate differential diagnosis based on the above differential, HPI and physical exam Lab Review: Laboratory results were reviewed and interpreted by myself the emergency room physician. Mild leukocytosis. No anemia. No renal failure. Urinary tract infection is present in the urine. Greater than 100 whites. Nitrite positive. 4+ bacteria. Patient is still quite concerned she might have a kidney stone so CT is being done CT of the abdomen pelvis: Medullary sponge kidney with multiple stones but no stones in the ureters. This was reviewed and interpreted by myself the emergency room physician. I also reviewed the radiology report. Reexamination: Patient remained stable. No increased work of breathing. No altered mental status. No focal motor deficits. Assessment and plan: urinary tract infection ?BERT Mansfield p.o. Doug - Discharged home - Discussed plan with patient. Answered any questions. - Evaluation and treatment of this problem were appropriate in the emergency setting. Lab Data 03/31/25 12:09 03/31/25 12:09 Labs/Radiology: Radiology Impressions Abdomen/Pelvis CT 03/31/25 13:50 IMPRESSION: 1. Nonobstructive bilateral kidney stones measure as large as 5 mm in the right renal pelvis. 2. Hyperdense medullary pyramids again noted bilaterally, compatible with medullary sponge kidney. 3. Probable 2 cm left ovarian cyst. Laboratory Results WBC 12.78 10^3/uL (3.29-11.43) H 03/31/25 12:09 RBC 4.73 10^6/uL (3.85-5.65) 03/31/25 12:09 Hgb 12.70 g/dL (11.27-16.99) 03/31/25 12:09 Hct 39.4 % (36-47) 03/31/25 12:09 MCV 83.3 fl (85-98) L 03/31/25 12:09 MCH 26.8 pg (27-33) L 03/31/25 12:09 MCHC 32.2 g/dL (30-55) 03/31/25 12:09 RDW 13.2 % (12.1-15.1) 03/31/25 12:09 Plt Count 340 10^3/cmm (157-399) 03/31/25 12:09 MPV 9.6 fL (7.4-10.4) 03/31/25 12:09 Neut % (Auto) 64.7 % 03/31/25 12:09 Lymph % (Auto) 21.7 % 03/31/25 12:09 [place] % (Auto) 7.2 % 03/31/25 12:09 Eos % (Auto) 4.7 % 03/31/25 12:09 Baso % (Auto) 1.1 % 03/31/25 12:09 Neut # (Auto) 8.27 10^3/uL (1.8-7.7) H 03/31/25 12:09 Lymph # (Auto) 2.8 10^3/uL (0.8-4.8) 03/31/25 12:09 [place] # (Auto) 0.9 10^3/uL (0.2-0.9) 03/31/25 12:09 Eos # (Auto) 0.6 10^3/uL (0.0-0.8) 03/31/25 12:09 Baso # (Auto) 0.1 10^3/uL (0.0-0.1) 03/31/25 12:09 Nucleated RBC % (auto) 0 % 03/31/25 12:09 Nucleated RBCs # 0.0 /100WBC 03/31/25 12:09 Sodium 140 mmol/L (136-145) 03/31/25 12:09 Potassium 4.3 mmol/L (3.5-5.1) 03/31/25 12:09 Chloride 106 mmol/L (98-107) 03/31/25 12:09 Carbon Dioxide 26 mmol/L (22-29) 03/31/25 12:09 Anion Gap 12.3 (5-19) 03/31/25 12:09 BUN 7 mg/dL (6-20) 03/31/25 12:09 Creatinine 0.6 mg/dL (0.5-0.9) 03/31/25 12:09 GFR Calculation 119.9 mL/min (90-130) 03/31/25 12:09 Glucose 101 mg/dL (65-115) 03/31/25 12:09 Calculated Osmolality 288 mOsm/kg (285-295) 03/31/25 12:09 Calcium 11.2 mg/dL (8.5-10.5) H 03/31/25 12:09 Total Bilirubin 0.3 mg/dL (0.15-1.2) 03/31/25 12:09 AST 21 U/L (0-32) 03/31/25 12:09 ALT 23 U/L (0-33) 03/31/25 12:09 Alkaline Phosphatase 175 U/L (35-105) H 03/31/25 12:09 Total Protein 7.4 g/dL (6.6-8.7) 03/31/25 12:09 Albumin 4.3 g/dL (3.5-5.2) 03/31/25 12:09 Globulin 3.1 g/dL (1.3-4.6) 03/31/25 12:09 Lipase 22 U/L (13-60) 03/31/25 12:09 HCG, Qual Negative (Negative) 03/31/25 12:09 Urine Color Yellow (Yellow) 03/31/25 12:15 Urine Appearance Cloudy (CLEAR) A 03/31/25 12:15 Urine pH 6.5 (5-7) 03/31/25 12:15 Ur Specific [place] 1.013 (1.005-1.030) 03/31/25 12:15 Urine Protein Negative (Negative) 03/31/25 12:15 Urine Glucose (UA) Negative (Normal) 03/31/25 12:15 Urine Ketones Negative (Negative) 03/31/25 12:15 Urine Blood 1+ (Negative) A 03/31/25 12:15 Urine Nitrate Positive (Negative) A 03/31/25 12:15 Urine Bilirubin Negative (Negative) 03/31/25 12:15 Urine Urobilinogen 1.0 mg/dL (Negative) 03/31/25 12:15 Ur Leukocyte Esterase 2+ (Negative) A 03/31/25 12:15 Urine RBC 3-5 /hpf (0-2) 03/31/25 12:15 Urine WBC >100 /hpf (0-5) H 03/31/25 12:15 Ur Squamous Epith Cells 11-20 /hpf (0-5) H 03/31/25 12:15 Amorphous Sediment Not Reportable 03/31/25 12:15 Urine Bacteria 4+ /hpf (NONE) H 03/31/25 12:15 Hyaline Casts 1.21 /lpf 03/31/25 12:15 All radiology interpretation(s) finalized by discharge Discharge Plan Discharge Patient Disposition: Home Clinical Impression: Urinary tract infection, Medullary sponge kidney Condition: Stable Prescriptions: New hydrocodone-acetaminophen 5-325 mg tablet 1 tab PO Q6H PRN (Reason: pain) Qty: 20 0RF cefdinir 300 mg capsule 300 mg PO BID 10 Days Qty: 20 0RF No Action ibuprofen 200 mg Tablet 1,000 mg PO Q6H PRN (Reason: Pain) potassium citrate-citric acid 1,100-334 mg/5 mL solution 10 ml PO QAM tamsulosin 0.4 mg capsule 0.4 mg PO DAILY Qty: 20 0RF hydrocodone-acetaminophen 5-325 mg tablet 1 tab PO Q6H PRN (Reason: pain) Qty: 20 0RF promethazine 25 mg tablet 25 mg PO Q6H PRN (Reason: nausea and vomiting) Qty: 20 0RF ciprofloxacin HCl 500 mg tablet 500 mg PO Q12H Qty: 20 0RF ketorolac 10 mg tablet 10 mg PO Q6H PRN (Reason: Kidney stone pain) Qty: 14 0RF Discharge Orders: Discharge ED (Routine); Ordered 03/31/25 Ordered By: Tiffanie Gasca Referrals: Steven Del Rio MD [Primary Care Provider, Family Practice] Discharge Diet: Usual diet Discharge Activity: Increase activity as tolerated Patient Instructions: Urinary Tract Infection in Women (ED), Opioid Safety, Pain Management, Patient Portal & Mirna Instructions Activity Restrictions/Additional Instructions: Thank you for choosing [facility] for your healthcare needs today. You have been screened and evaluated and felt safe for discharge. Health conditions do change or evolve sometimes and as such it is important that you follow up with your Primary Doctor to be re checked, 3-5 days is a general good time frame for follow up. 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
[2025-03-31 12:25] LABS: Hematocrit 39.4 % (36-47); Hemoglobin 12.70 g/dL (11.27-16.99); Mean Corpuscular HGB Conc 32.2 g/dL (30-55); Mean Corpuscular Hemoglobin 26.8 pg (27-33); Mean Corpuscular Volume 83.3 fl (85-98); Nucleated Red Blood Cells % 0 %; Platelet Count 340 10^3/cmm (157-399); Red Blood Count 4.73 10^6/uL (3.85-5.65); White Blood Count 12.78 10^3/uL (3.29-11.43)
[2025-03-31 12:28] LABS: Glucose Urine UA Negative (Normal); Nitrate Urine Positive (Negative); Specific Gravity, Urine 1.013 (1.005-1.030)
[2025-03-31 12:42] VITALS: BP 113/69; PULSE 83; O2SAT 97
[2025-03-31 12:42] LABS: HCG, Serum Qual Negative (Negative)
[2025-03-31 12:49] LABS: Alanine Aminotransferase 23 U/L (0-33); Albumin Level 4.3 g/dL (3.5-5.2); Alkaline Phosphatase 175 U/L (35-105); Anion Gap 12.3 (5-19); Aspartate Amino Transferase 21 U/L (0-32); Blood Urea Nitrogen 7 mg/dL (6-20); Calcium 11.2 mg/dL (8.5-10.5); Carbon Dioxide 26 mmol/L (22-29); Chloride 106 mmol/L (98-107); Creatinine Clr Calc Pharmacy 159.7881; Globulin 3.1 g/dL (1.3-4.6); Glucose 101 mg/dL (65-115); Lipase 22 U/L (13-60); Osmolality Calculated 288 mOsm/kg (285-295); Potassium 4.3 mmol/L (3.5-5.1); Sodium 140 mmol/L (136-145); Total Protein 7.4 g/dL (6.6-8.7)
--- NOTE | 2025-03-31 13:50 | CTR_ITS ---
PROCEDURE INFORMATION: Exam: CT Abdomen And Pelvis Without Contrast Exam date and time: 03/31/2025 1:54 PM Age: 29 years old Clinical indication: Abdominal pain; Additional info: Flank pain TECHNIQUE: Imaging protocol: Computed tomography of the abdomen and pelvis without contrast. Radiation optimization: All CT scans at this facility use at least one of these dose optimization techniques: automated exposure control; mA and/or kV adjustment per patient size (includes targeted exams where dose is matched to clinical indication); or iterative reconstruction. COMPARISON: CT kidney stone [id number] 06/01/2024 1:56 PM RADIATION DOSE METRICS: Total DLP (mGy-cm): 929.43 FINDINGS: Lungs: 3 mm calcified granuloma in the left lower lobe. Unchanged subpleural nodule laterally in the left lower lobe, requiring no follow-up. Small amount of bibasilar atelectasis. Diaphragm: There is a small hiatal hernia. Liver: Normal. No mass. Gallbladder and biliary ducts: Post cholecystectomy. There is no evidence of biliary ductal dilation. Pancreas: Normal. No ductal dilation. Spleen: Normal. No splenomegaly. Adrenal glands: The adrenal glands are normal. Kidneys and ureters: Nonobstructive bilateral kidney stones measure as large as 5 mm in the right renal pelvis. No ureteral calculi. No hydronephrosis. Hyperdense medullary pyramids again noted bilaterally, compatible with medullary sponge kidney. Stomach and bowel: Bowel caliber is normal. No paracolonic inflammatory changes. Appendix: Normal appendix. Intraperitoneal space: Unremarkable. No free air. No significant fluid collection. Vasculature: Aortic caliber is normal. Lymph nodes: Unremarkable. No enlarged lymph nodes. Urinary bladder: No focal wall thickening of the urinary bladder. Reproductive: Uterus is unremarkable. No suspicious adnexal lesion seen. Probable 2 cm left ovarian cyst. Bones/joints: Unchanged L1 hemangioma. No acute osseous abnormality. Soft tissues: Unremarkable. CT/CT kidney stone [id number] IMPRESSION: 1. Nonobstructive bilateral kidney stones measure as large as 5 mm in the right renal pelvis. 2. Hyperdense medullary pyramids again noted bilaterally, compatible with medullary sponge kidney. 3. Probable 2 cm left ovarian cyst.
[2025-03-31 14:00] VITALS: BP 116/86; PULSE 81; O2SAT 100
[2025-03-31] MEDS: HYDROcodone-acetaminophen 5-325 mg Tablet 1 TAB PO (14:03)
[2025-03-31] MEDS: cefTRIAXone 1,000 MG in water for injection-sterile 2.1 ML 1 MG IM (14:04)
[2025-03-31 14:41] VITALS: BP 103/63; PULSE 97; O2SAT 98
--- OUTSIDE RECORDS SUMMARY | 2025-03-31 14:51 | XMS_ITS | Data Portability ---
Author Organization [facility] [place] Address [address] [address] Care Team Providers Care Direct Chill Caster Name Role Phone ROB DEL RIO Primary Care Provider Unavailabl e Assessment No assessment recorded. Plan of Treatment Reminders Order Date Submit Date Provider Last Modified By Organization Details Last Modified Time Details Appointments None recorded. Lab None recorded. Referral None recorded. Procedures None recorded. Surgeries None recorded. Imaging None recorded. Medication Orders prednisone 20 mg tablet 2024 025 [facility], [address], [place], [address], 5 05:01:10 doxycycline hyclate 100 mg capsule 2024 025 [facility], [address], [place], [address], 5 05:01:36 benzonatate 200 mg capsule 2024 025 [facility], [address], [place], [address], 5 15:08:50 Polytrim 10,000 unit-1 mg/mL eye drops 2023 024 [id number], [address], [place], [place], [id number], 14:40:34 Augmentin 875 mg-125 mg tablet 2023 024 [facility] #[id number], [address], [place], [place], [id number], 4 14:44:45 trazodone 50 mg tablet 2022 023 [id number], [address], [place], [place], [phone], 13:04:25 Patient TargetsNo targets recorded. Patient InstructionsNo instructions recorded. Reason for Referral None Reported. Problems Name Problem SNOMED Code Status Onset Date Resolution Date Notes Provider Name and Address Organization Details Recorded Time Anemia 515622520 Active 2020 Anemia; 021 11:43AM by Rosa Li LPN, Office Visit; Promote d; acuity set as *; Not Available [facility] 3 03:14:45 Viral meningitis 00240270 Active 2022 Rob Del Rio MD [address] [place] [address], [phone] , [facility] 3 10:03:45 Insomnia 430319678 Active 2022 Rob Del Rio MD [address] [place] [address], [phone] , [facility] 3 10:03:53 Problem Notes None recorded. Procedures Surgical History Date Name Laterality Status Provider Name and Address Organization Details Recorded Time Cholecystectomy completed [facility] 08/29/2023 14:45:57 procedure on kidney completed Jerald y [facility] 08/29/2023 14:46:11 Tubal Ligation completed [facility] 08/29/2023 14:46:15 Imaging Results None recorded. Procedure Notes None recorded. Medical Equipment None Reported. Allergies Allergen ID Allergen Name Allergen Category Reaction Reaction Severity Criticality Documentation Date Start Date Code Code System Note Provider Name and Address Organization Details Recorded Time 4424 Non-stero idal anti-infl ammatory agent (substanc e) medicatio n edema Not available Not available 10/26/2022 29955 5008 [facility] 09:28:13 4425 ciproflox acin medicatio n edema mild Not available 10/26/2022 2551 RxNorm [facility] 3 09:28:52 Medications Name Sig Start Date Stop Date Status Note LastModified by Organization Details LastModified Time Augmentin 875 mg-125 mg tablet Take 1 tablet every 12 hours by oral route for 7 days. 08/28 completed Not Available Not Available Not Available doxycycline hyclate 100 mg capsule Take 1 capsule twice a day by oral route for 7 days. 01/04 completed Not Available Not Available Not Available trazodone 50 mg tablet TAKE 2 TABLETS BY MOUTH EVERY DAY AT BEDTIME 07/18 completed Not Available Not Available Not Available oxybutynin chloride ER 10 mg tablet,exte nded release 24 hr TAKE 1 TABLET BY MOUTH DAILY 07/18 completed Not Available Not Available Not Available benzonatate 200 mg capsule Take 1 capsule 3 times a day by oral route as needed, for cough. 2024 active Not Available Not Available Not Avai lable valacyclovi r 1 gram tablet TAKE 1 TABLET BY MOUTH EVERY 12 HOURS FOR 14 DAYS 07/18 completed Not Available Not Available Not Available hydrocodone 5 mg-acetamin ophen 325 mg tablet TAKE 1 TABLET BY MOUTH EVERY 6 HOURS NEEDED FOR PAIN active Not Available Not Available No t Available prednisone 20 mg tablet Take 2 tablets every day by oral route for 6 days. 01/03 completed Not Available Not Available Not Available ciprofloxac in 500 mg tablet TAKE 1 TABLET BY MOUTH TWICE DAILY 02/19 completed Not Available Not Available Not Available sulfamethox azole 800 mg-trimetho prim 160 mg tablet TAKE 1 TABLET BY MOUTH TWICE DAILY FOR 7 DAYS active Not Available Not Available No t Available ketorolac 10 mg tablet TAKE 1 TABLET BY MOUTH EVERY 6 HOURS NEEDED FOR KIDNEY STONE PAIN active Not Available Not Available No t Available potassium citrate-cit shanthi acid 1,100 mg-334 mg/5 mL oral solution TAKE 10 ML BY MOUTH TWICE DAILY 12/21 completed Not Available Not Available Not Available famotidine 20 mg tablet TAKE 1 TABLET BY MOUTH TWICE DAILY 07/18 completed Not Available Not Available Not Available potassium citrate ER 10 mEq (1,080 mg) tablet,exte nded release Take 1 tablet twice a day by oral route. 2024 active Not Available Not Available Not Avai lable cephalexin 500 mg capsule TAKE 1 CAPSULE BY MOUTH THREE TIMES DAILY 02/19 completed Not Available Not Available Not Available promethazin e 25 mg tablet TAKE 1 TABLET BY MOUTH 4 TIMES DAILY 07/18 completed Not Available Not Available Not Available polymyxin B sulfate 10,000 unit-trimet hoprim 1 mg/mL eye drops INSTILL 1 DROP INTO AFFECTED EYE(S) BY OPHTHALMI C ROUTE TID x 7 days 12/21 completed Not Available Not Available Not Available ondansetron 4 mg disintegrat ing tablet TAKE 1 TABLET BY MOUTH EVERY 6 HOURS NEEDED FORNAUSEA AND VOMITING 07/18 completed Not Available Not Available Not Available cefdinir 300 mg capsule Take 1 capsule twice a day by oral route. 02/19 completed Not Available Not Available Not Available nitrofurant oin monohydrate /macrocryst als 100 mg capsule TAKE 1 CAPSULE BY MOUTH TWICE DAILY MUST TAKE WITH A MEAL/FOOD 07/18 completed Not Available Not Available Not Available Vitals Date Recorded Body height Body mass index (BMI) Body weight Oxygen saturation Oxygen saturation in Arterial blood by Pulse oximetry Heart rate Respiratory rate Body temperature Systolic And Diastolic Provider Name and Address Organization Details Last Updated DateTime 4 167.64 cm 29.6 kg/m2 35605.8 g 98 % 98 % 76 /min 16 /min 97.3 [degF] 128/80 mm[Hg] Lexis Tinsley [facility] 4 13:03:17 Date Recorded Body height Body mass index (BMI) Body weight Oxygen saturation Oxygen saturation in Arterial blood by Pulse oximetry Heart rate Respiratory rate Body temperature Systolic And Diastolic Provider Name and Address Organization Details Last Updated DateTime 4 167.64 cm 29.9 kg/m2 28071.3 1 g 97 % 97 % 95 /min 15 /min 98 [degF] 108/72 mm[Hg] Saratonie Carranza [facility] 4 14:50:06 Date Recorded Body height Body mass index (BMI) Body weight Oxygen saturation Oxygen saturation in Arterial blood by Pulse oximetry Heart rate Respiratory rate Body temperature Systolic And Diastolic Provider Name and Address Organization Details Last Updated DateTime 5 167.64 cm 32.9 kg/m2 70909.8 4 g 98 % 98 % 84 /min 16 /min 99.4 [degF] 134/80 mm[Hg] Lexis Tinsley [facility] 5 14:42:34 Date Recorded Body height Body mass index (BMI) Body weight Oxygen saturation Oxygen saturation in Arterial blood by Pulse oximetry Heart rate Systolic And Diastolic Provider Name and Address Organization Details Last Updated DateTime 3 167.64 cm 27.9 kg/m2 44668.4 8 g 100 % 100 % 84 /min 122/80 mm[Hg] MIRANDA CASTILLO [facility] 3 09:46:53 Social History Question Answer Notes LastModified by ONE Change Details LastModified Time Tobacco Smoking Status Never Smoker MIRANDA CASTILLO [facility] 02/19/2023 09:42:01 What Was The Date Of Your Most Recent Tobacco Screening? 12/21/2024 [email or web address] Information not available 12/21/2024 Sex: Unknown Functional Status Question Answer Note LastModified by ONE Change Details LastModified Time Do you use any illicit or recreational drugs? No Information not available 08/29/2023 Do you or have you ever used any other forms of tobacco or nicotine? Yes [email or web address] Information not available 02/19/2023 What is your level of alcohol consumption? Occasional Information not available 08/29/2023 Do you or have you ever used e-cigarettes or vape? Current user of electronic cigarettes VAPES [email or web address] Information not available 02/19/2023 Mental Status None recorded. Family History Nothing Reported. Medical History Condition Response Coronary Artery Disease N Other N Gout N Kidney Stones Y Blood Diseases N Hyperthyroidism N Blood Transfusion N Breast Cancer N Depression N Hypothyroidism N Lung Disease N COPD N Defects or Inherited Disease N Developmental or Behavioral Disorders N Breast Problem N Difficulty Swallowing N Anesthesia Complications N Meniere's disease N Anxiety Disorder N Muscle, Joint, or Bone Problems N Vision or Eye Problems N Arthritis N Polyps N Infertility N Cancer N Varicosities N Stroke N Endometriosis N Bladder or Kidney Problems N High Cholesterol N Liver Disease N Fibromyalgia N Headaches N Kidney Disease N Allergies/Hayfever N Heart Problems N Ear or Hearing Problems N Hospitalizations N Thyroid Problems N GI Problems N ADD/ADHD N Skin Problems N Eating Disorder N Anemia N Constipation N Mental Illness N Ovarian Cancer N Diabetes N Bedwetting N Seizures/Epilepsy N Tuberculosis N Eczema N Diverticulitis N Abuse/Domestic Violence N Asthma N Reflux/GERD N Hepatitis N Heart Disease N Pulmonary Embolism N Pre-Eclampsia N Hypertension N Chronic Ear Infections N Osteoporosis N Chicken Pox N Autism Spectrum Disorder (ASD) N Thrombophilias N Gynecological HistoryNo gynecological history recorded. Obstetrics History GPAL:G 0 P 0 0 0 0 Immunizations Vaccine Type Date Status Note Provider Nam e and Address Organization Details Recorded Time MMR 8 completed MIRANDA snider [facility] 02/19/2023 09:38:27 MMR 9 ahsan snider [facility] 02/19/2023 09:38:27 Influenza, split virus, trivalent, preservative 9 ahsan snider [facility] 02/19/2023 09:38:28 pneumococcal polysaccharide PPV23 9 ahsan snider [facility] 02/19/2023 09:38:27 Influenza, split virus, trivalent, preservative 8 completed MIRANDA CASTILLO null, [facility] 02/19/2023 09:38:28 pneumococcal polysaccharide PPV23 8 completed MIRANDA CASTILLO null, [facility] 02/19/2023 09:38:27 pneumococcal polysaccharide PPV23 9 completed MIRANDA CASTILLO null, [facility] 02/19/2023 09:38:27 Hib, unspecified formulation 8 completed MIRANDA CASTILLO null, [facility] 02/19/2023 09:38:27 Hib, unspecified formulation 8 completed MIRANDA CASTILLO null, [facility] 02/19/2023 09:38:27 IPV 8 completed MIRANDA CASTILLO null, [facility] 02/19/2023 09:38:27 IPV 4 completed MIRANDA CASTILLO null, [facility] 02/19/2023 09:38:27 IPV 3 completed MIRANDA CASTILLO null, [facility] 02/19/2023 09:38:27 IPV 8 completed MIRANDA CASTILLO null, [facility] 02/19/2023 09:38:27 IPV 3 completed MIRANDA CASTILLO null, [facility] 02/19/2023 09:38:27 MMR 4 completed MIRANDA CASTILLO null, [facility] 02/19/2023 09:38:27 MMR 4 completed MIRANDA CASTILLO null, [facility] 02/19/2023 09:38:27 Tdap 0 completed MIRANDA CASTILLO null, [facility] 02/19/2023 09:38:27 varicella 4 completed MIRANDA CASTILLO null, [facility] 02/19/2023 09:38:27 varicella 9 completed MIRANDA PINARIS null, [facility] 02/19/2023 09:38:27 Hep B, unspecified formulation 4 completed MIRANDA CASTILLO null, [facility] 02/19/2023 09:38:27 Hep B, unspecified formulation 3 completed MIRANDA PINARIS null, [facility] 02/19/2023 09:38:27 Hep B, unspecified formulation 3 completed MIRANDA PINARIS null, [facility] 02/19/2023 09:38:28 HPV, quadrivalent 1 completed MIRANDA PINARIS null, [facility] 02/19/2023 09:38:28 HPV, quadrivalent 0 completed MIRANDA CASTILLO null, [facility] 02/19/2023 09:38:28 HPV, quadrivalent 0 completed MIRANDA PINARIS [facility], [facility] 02/19/2023 09:38:28 Hep A, ped/adol, 2 dose 0 completed MIRANDA CASTILLO null, [facility] 02/19/2023 09:38:28 meningococcal MCV4P 0 completed MIRANDA PINARIS null, [facility] 02/19/2023 09:38:28 DTaP 4 completed MIRANDA CASTILLO null, [facility] 02/19/2023 09:38:28 DTaP 9 completed MIRANDA PINARIS null, [facility] 02/19/2023 09:38:28 DTaP 8 completed MIRANDA PINARIS null, [facility] 02/19/2023 09:38:28 DTaP 4 completed MIRANDA PINARIS null, [facility] 02/19/2023 09:38:28 DTaP 3 completed MIRANDA PINARIS null, [facility] 02/19/2023 09:38:28 DTaP 8 completed MIRANDA PINARIS null, [facility] 02/19/2023 09:38:28 Past Encounters Encounter ID Performer Location Encounter Start Date Encounter Closed Date Diagnosis/Indication Diagnosis SNOMED-CT Code Diagnosis ICD10 Code Diagnosis IMO Codes Diagnosis Note Edgardo Velazquez MD [facility]) [address] [place] [phone] 10/26/2022 08:41:41 11/07/2022 11:45:05 Acute pyelonephritis 97188139 N10 Allergic reaction 209388 005 T78.40XA [id number] Rob Del Rio MD [facility]) [address] [place] [id number] 5 02/05/2023 16:00:25 02/05/2023 17:06:17 [id number] Rob Del Rio MD [facility]) [address] [place] [id number] 5 02/19/2023 09:37:07 02/19/2023 13:58:26 Aftercare 039699679 Z51.89 Insomnia 677963244 G47.0 0 Viral meningitis 4979255 7 A87.9 clinically resolved. [id number] KATLYN CAVAZOS [facility]) [address] [place] [id number] 5 07/19/2023 12:36:28 07/19/2023 15:03:22 Acute pansinusitis 5414282 J01.40 Discussed use of antibiotic s. May use otc decongesta nts and nasal spray. Push oral fluids.If you develop worsening s/s then return. [id number] KATLYN CAVAZOS [facility] ([facility]) [address] [place] [id number] 5 08/29/2023 14:42:21 08/29/2023 15:09:37 Abrasion of right cornea 7078127116 6681899 S05.01XA Discussed use of eye drops. wear sunglasses when outside to help with light sensitivit y.If you develop increased pain, vision changes, or concerns arise then f/u for re-evaluat ion [id number] KATLYN CAVAZOS [facility] ([facility]) [address] [place] [id number] 5 12/21/2024 14:36:39 12/21/2024 16:43:23 Acute bacterial bronchitis 131786667 J20.8 B96.89 8235672 Discussed use of otc medication s for symptom management .Push oral fluids and rest.If you develop fever, sob, or start feeling worse then return for re-evaluat ion. Health Concerns Section Related Observation LastModified by Organization Detai ls LastModified Time None Recorded Concern Status LastModified by Organization Details LastModified Time None Recorded Advance Directives Directive None Recorded Payers Insurance Date Sequence Insurance Name Policy Number Policy Lopez Covered Member ID Lopez Member ID Guarantor Name 12/28/2024 1 *SELF PAY* Marvin Day 12/28/2024 1 [id number] (MEDICAID REPLACEMENT - HMO) CHRISTINE Day [id number] [place] Day Notes Date Note Type Note Provider Name and Address Organization Details Recorded Time 02/19/2023 text/html HeadacheReported by PatientHPIFor quality, patient reportsworst headache ever. For associated symptoms, patient reportsfever. For severity, patient reportsbetter. For duration, patient reportsconstant. For onset/timing, patient reportsabrupt onset.probable viral meningitis. Negative cultures. Completely asymptomatic now. Sleep ProblemsReported by PatientSleep HPIFor insomnia, patient reportsdifficulty falling asleep,awakening in the middle of the night, andexcessive sleepiness during the day (daytime somnolence). For severity, patient reportslimits daily activitiesandinterferen ce with work. For onset/timing, patient reportsgradual onset. For prescribed sleep medications, patient reportsnot taking medication to help sleep. Was admitted for meningitis.Stayed in the hospital for 5 days. Rob Del Rio MD [address] [place], [address], [facility] 02/19/2023 10:07:23 07/19/2023 text/html Ear Pain Brief HPIReported by PatientHPIFor location, patient reportspain radiates to templebut reportsbilateral. For quality, patient reportsaching pain. For onset/timing, patient reportsnew onsetandstarted 3days ago. For severity, patient reportsgetting worse. For context, patient reportsno recent ear infection.benadryl, aleve, advil, tylenol for rose. no runny nose. throat hurts in mornings. occasional cough. both ears hurt.ROS as noted in the HPI KATLYN CAVAZOS [address] [place], [phone], [facility] 07/20/2023 12:21:56 08/29/2023 text/html Eye PainReported by PatientHPIFor quality, patient reportssharp,aching, andforeign body sensation. For associated symptoms, patient reportssensitivity to light,pain worse with eye movement,redness,blurre d vision, andwatery dischargebut reportsno headache. For location, patient reportsright. For severity, patient reportsmildandmoderate. For duration, patient reportsconstant. For onset/timing, patient reportsfirst episodeand2 hours ago. For context, patient reportscontact lens wearer. For alleviating factors, patient reportsartificial tears. For aggravating factors, patient reportsbright light,looking down, andlooking up.ROS as noted in the HPI Patient reports having something in her right eye. Has tried flushing it and it will not come out. States she walked out of a store and she felt like her eye was on fire. KATLYN CAVAZOS [address] [place], [address], [facility] 08/29/2023 15:00:33 12/21/2024 text/html CoughReported by PatientROS as noted in the HPI walk in patientpatient is here today for cough, congestion and vomiting from cough so hard, patient said that this started 2 weeks ago and is getting worse. Non productive other family members were ill but their symptoms resolved. KATLYN CAVAZOS [address] [place], [address], [facility] 12/21/2024 16:22:06 OBGyn Episode No OBEpisode recorded.
== END 2025-03-31 14:42 | disposition home or self-care (01) ==
PROVIDERS: Emergency Medicine; Emergency Provider Emergency Medicine; PCP Family Medicine
DX: N39.0 Urinary tract infection, site not specified (principal); Q61.5 Medullary cystic kidney; F17.290 Nicotine dependence, other tobacco product, uncomplicated
CPT/HCPCS: 36415; 74176; 80053; 81001; 83690; 84703; 85025; 87077; 87086; 87186; 96372; 99284; J0696; J9999

== ENCOUNTER 2025-04-16 20:56 | Emergency (ER) | payer SELFPAY ==
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
[2025-04-16 21:05] VITALS: BP 128/80; PULSE 130; RESP 16; TEMP 37.4; O2SAT 96; BMI 33.3
--- NOTE | 2025-04-16 21:23 | ECG_ITS ---
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
--- NOTE | 2025-04-16 22:09 | W.ED.FEMALGU ---
Documented by User: BLAZE Aldridge 04/17/25 00:40 HPI - Female Genitourinary General: Chief complaint: Urogenital-Female Stated complaint: back stomach pain fever Time Seen by Provider: 04/16/25 20:59 History of Present Illness: 29-year-old female with history of medullary nephrocalcinosis with worsening dysuria over the last 1 days, in association with left flank pain. Patient stated this was much quicker with having symptoms than normal. Her typical prodrome is fever, chills, nausea, flank pain, dysuria over the period of several days. Today, she laid down, felt a little bit of chills, and then had this suprapubic pain and flank tenderness. Patient has nausea without emesis. She has a headache, photophobia, phonophobia. She discomforts of dysuria: Flank pain. No reported fever. Associated symptoms: Reports abdominal pain and nausea Related Data Home Medications ?Medication ?Instructions ?Recorded ?Confirmed ibuprofen 200 mg tablet 1,000 mg PO Q6H PRN Pain 05/28/23 06/01/24 potassium citrate-citric acid 10 ml PO QAM 06/01/24 06/01/24 1,100 mg-334 mg/5 mL oral solution Previous Rx's ?Medication ?Instructions ?Recorded ciprofloxacin HCl 500 mg tablet 500 mg PO Q12H #20 tabs 05/29/24 ketorolac 10 mg tablet 10 mg PO Q6H PRN Kidney stone pain 05/29/24 #14 tabs hydrocodone 5 mg-acetaminophen 325 1 tab PO Q6H PRN pain #20 tabs 06/01/24 mg tablet promethazine 25 mg tablet 25 mg PO Q6H PRN nausea and 06/01/24 vomiting #20 tabs tamsulosin 0.4 mg capsule 0.4 mg PO DAILY #20 caps 06/01/24 hydrocodone 5 mg-acetaminophen 325 1 tab PO Q6H PRN pain #20 tabs 03/31/25 mg tablet Allergies Allergy/AdvReac Type Severity Reaction Status Date / Time No Known Allergies Allergy Verified 04/16/25 21:13 Review of Systems Const: Denies: fever(s) or chills Card: Denies: chest pain or palpitations Resp: Denies: dyspnea GI: Reports: abdominal pain, nausea and vomiting : Reports: flank pain, difficulty voiding, dysuria, urinary frequency, urinary urgency, urinary hesitancy and oliguria Musc: Denies: neck pain or back pain Skin/Breast: Denies: rash PFSH ED PFSH: Medical History (Updated 04/16/25 @ 23:53 by BLAZE Aldridge) Bilateral ureteral calculi Yeast vaginitis History of recurrent UTI (urinary tract infection) Chronic cystitis Urolithiasis Medullary sponge kidney Recurrent UTI Pyelonephritis Surgical History Hx of cholecystectomy Status post laser lithotripsy of ureteral calculus History of wisdom tooth extraction Hx of tonsillectomy H/O tubal ligation Family History Father , AT AGE 24 Electric injury Social History Smoking and tobacco/nicotine status: current every day tobacco/nicotine user e-cigarettes Alcohol intake: current Alcohol intake frequency: few times a month Substance/Drug Use: never Marital status: Current occupational status: employed Physical Exam Const: COMMON NORMALS: no acute distress GENERAL APPEARANCE: cooperative and comfortable ORIENTATION/CONSCIOUSNESS: Yes awake, Yes oriented to person, Yes oriented to place and Yes oriented to time HENMT: COMMON NORMALS: normocephalic, atraumatic and hearing grossly normal bilaterally HEAD & SCALP: normocephalic and atraumatic Resp: COMMON NORMALS: normal respiratory effort, No retractions, No use of accessory muscles and clear to auscultation bilaterally AUSCULTATION: clear to auscultation bilaterally Cardio: COMMON NORMALS: regular rate, regular rhythm and No murmurs present (Cardio) RATE: regular rate RHYTHM: regular rhythm GI: COMMON NORMALS: Soft to palpation and No hepatosplenomegaly present AUSCULTATION: Yes normoactive bowel sounds PALPATION: Yes Soft to palpation, Yes Tenderness to palpation present (GI) Details: LLQ, No Guarding due to palpation present (GI) and Yes No hepatosplenomegaly present : BLADDER/KIDNEY EXAM: Yes CVA tenderness on the left Back/Pelvis: GENERAL BACK: Yes CVA tenderness Extremity: COMMON NORMALS: normal to inspection, capillary refill normal, no clubbing, cyanosis or edema, no calf tenderness and no pedal edema Neuro: SENSORIUM/ORIENTATION: Yes oriented to person, Yes oriented to place and Yes oriented to time Skin: COMMON NORMALS: no rashes or lesions noted GENERAL SKIN EXAM: no rashes or lesions noted Course Reevaluation(s): Reevaluation #1: [id number] improvement noted. Consultations: Consultation #1: Discussed with Dr. Choi at [facility] then has accepted patient. N.p.o. for now. Vital Signs: Vital signs: Vital Signs Temperature 99.3 F 04/16/25 21:05 Pulse Rate 117 H 04/17/25 00:46 Respiratory Rate 16 04/17/25 00:46 Blood Pressure 117/74 04/17/25 00:46 Pulse Oximetry 96 04/17/25 00:46 Oxygen Delivery Me thod Room Air 04/17/25 00:46 MDM - Female Medical Decision Making - CT scan reviewed. Appears to have obstructing stone, and most likely a nonobstructing stone. Will call [facility] for transfer for urology. Urinalysis also shows pyuria. Rocephin ordered. Discussed with Dr. Choi at [facility], accepted admission. Patient had sinus tachycardia with EKG noting same. Plan is 1 L bolus carefully with concern of systemic reactions, pyuria, leukocytosis, and early sepsis. Patient also has nephrolithiasis, and associated hydronephrosis therefore fluid management will need to be carefully done. Blood pressure stable. Medical Records I reviewed the patient's medical records. Lab Data I reviewed the patient's lab results. 04/17/25 00:19 04/17/25 00:19 Radiology Impressions Abdomen/Pelvis CT 04/16/25 23:17 IMPRESSION: 1. Obstructing 5 mm right proximal ureter stone. Mild hydronephrosis of the right kidney. 2. Obstructing 8 mm left mid ureter stone. Mild hydronephrosis of the left kidney. 3. Extensive bilateral medullary nephrocalcinosis. Laboratory Results WBC 16.74 10^3/uL (3.29-11.43) H 04/17/25 00:19 RBC 4.36 10^6/uL (3.85-5.65) 04/17/25 00:19 Hgb 11.70 g/dL (11.27-16.99) 04/17/25 00:19 Hct 35.6 % (36-47) L 04/17/25 00:19 MCV 81.7 fl (85-98) L 04/17/25 00:19 MCH 26.8 pg (27-33) L 04/17/25 00:19 MCHC 32.9 g/dL (30-55) 04/17/25 00:19 RDW 13.3 % (12.1-15.1) 04/17/25 00:19 Plt Count 268 10^3/cmm (157-399) 04/17/25 00:19 MPV 9.3 fL (7.4-10.4) 04/17/25 00:19 Neut % (Auto) 80.3 % 04/17/25 00:19 Lymph % (Auto) 10.4 % 04/17/25 00:19 [place] % (Auto) 6.4 % 04/17/25 00:19 Eos % (Auto) 1.8 % 04/17/25 00:19 Baso % (Auto) 0.7 % 04/17/25 00:19 Neut # (Auto) 13.45 10^3/uL (1.8-7.7) H 04/17/25 00:19 Lymph # (Auto) 1.7 10^3/uL (0.8-4.8) 04/17/25 00:19 [place] # (Auto) 1.1 10^3/uL (0.2-0.9) H 04/17/25 00:19 Eos # (Auto) 0.3 10^3/uL (0.0-0.8) 04/17/25 00:19 Baso # (Auto) 0.1 10^3/uL (0.0-0.1) 04/17/25 00:19 Nucleated RBC % (auto) 0 % 04/17/25 00:19 Nucleated RBCs # 0.0 /100WBC 04/17/25 00:19 Sodium 135 mmol/L (136-145) L 04/17/25 00:19 Potassium 3.6 mmol/L (3.5-5.1) 04/17/25 00:19 Chloride 102 mmol/L (98-107) 04/17/25 00:19 Carbon Dioxide 23 mmol/L (22-29) 04/17/25 00:19 Anion Gap 13.6 (5-19) 04/17/25 00:19 BUN 11 mg/dL (6-20) 04/17/25 00:19 Creatinine 0.7 mg/dL (0.5-0.9) 04/17/25 00:19 GFR Calculation 100.4 mL/min (90-130) 04/17/25 00:19 Glucose 123 mg/dL (65-115) H 04/17/25 00:19 Calculated Osmolality 281 mOsm/kg (285-295) L 04/17/25 00:19 Calcium 10.4 mg/dL (8.5-10.5) 04/17/25 00:19 Total Bilirubin 0.6 mg/dL (0.15-1.2) 04/17/25 00: AST 54 U/L (0-32) H 04/17/25 00:19 ALT 55 U/L (0-33) H 04/17/25 00:19 Alkaline Phosphatase 200 U/L (35-105) H 04/17/25 00:19 Total Protein 7.0 g/dL (6.6-8.7) 04/17/25 00:19 Albumin 4.0 g/dL (3.5-5.2) 04/17/25 00:19 Globulin 3.0 g/dL (1.3-4.6) 04/17/25 00:19 Urine Color [place] (Yellow) A 04/16/25 22:24 Urine Appearance Cloudy (CLEAR) A 04/16/25 22:24 Urine pH 7.5 (5-7) 04/16/25 22:24 Ur Specific [place] 1.011 (1.005-1.030) 04/16/25 22:24 Urine Protein 2+ (Negative) A 04/16/25 22:24 Urine Glucose (UA) Negative (Normal) 04/16/25 22:24 Urine Ketones Negative (Negative) 04/16/25 22:24 Urine Blood 3+ (Negative) A 04/16/25 22:24 Urine Nitrate Positive (Negative) A 04/16/25 22:24 Urine Bilirubin Negative (Negative) 04/16/25 22:24 Urine Urobilinogen 1.0 mg/dL (Negative) 04/16/25 22:24 Ur Leukocyte Esterase 3+ (Negative) A 04/16/25 22:24 Urine RBC 51-100 /hpf (0-2) H 04/16/25 22:24 Urine WBC >100 /hpf (0-5) H 04/16/25 22:24 Ur Squamous Epith Cells 0-5 /hpf (0-5) 04/16/25 22:24 Amorphous Sediment Not Reportable 04/16/25 22:24 Urine Bacteria 4+ /hpf (NONE) H 04/16/25 22:24 Hyaline Casts 2.05 /lpf 04/16/25 22:24 XR interpretation done by ED provider, pending radiology final review EKG Data EKG 1: Interpretation: Sinus tachycardia, Q waves lead III, aVF, no ST segment elevation Discharge Plan Discharge Patient Disposition: Xfer Short-Term Hosp Clinical Impression: Urolithiasis Qualifiers: Urinary calculus location: ureter Qualified Code(s): N20.1 - Calculus of ureter Urinary tract infection Qualifiers: Urinary tract infection type: acute cystitis Hematuria presence: with hematuria Qualified Code(s): N30.01 - Acute cystitis with hematuria Condition: Stable Referrals: Steven Del Rio MD [Primary Care Provider, [facility]] Discharge Diet: As Directed Discharge Activity: Resume usual activity Print Language: Slovak Coding Level of Care Code ED Disposal Plant Operator for Chg Fwd Documented by User: Uriel Quiroz DO 04/17/25 01:17 HPI - Female Genitourinary General: Chief complaint: Urogenital-Female Stated complaint: back stomach pain fever Time Seen by Provider: 04/16/25 20:59 Related Data Home Medications ?Medication ?Instructions ?Recorded ?Confirmed ibuprofen 200 mg tablet 1,000 mg PO Q6H PRN Pain 05/28/23 06/01/24 potassium citrate-citric acid 10 ml PO QAM 06/01/24 06/01/24 1,100 mg-334 mg/5 mL oral solution Previous Rx's ?Medication ?Instructions ?Recorded ciprofloxacin HCl 500 mg tablet 500 mg PO Q12H #20 tabs 05/29/24 ketorolac 10 mg tablet 10 mg PO Q6H PRN Kidney stone pain 05/29/24 #14 tabs hydrocodone 5 mg-acetaminophen 325 1 tab PO Q6H PRN pain #20 tabs 06/01/24 mg tablet promethazine 25 mg tablet 25 mg PO Q6H PRN nausea and 06/01/24 vomiting #20 tabs tamsulosin 0.4 mg capsule 0.4 mg PO DAILY #20 caps 06/01/24 hydrocodone 5 mg-acetaminophen 325 1 tab PO Q6H PRN pain #20 tabs /19/25 mg tablet Allergies Allergy/AdvReac Type Severity Reaction Status Date / Time No Known Allergies Allergy Verified 04/16/25 21:13 PFSH ED PFSH: Medical History (Updated 04/16/25 @ 23:53 by BLAZE Aldridge) Bilateral ureteral calculi Yeast vaginitis History of recurrent UTI (urinary tract infection) Chronic cystitis Urolithiasis Medullary sponge kidney Recurrent UTI Pyelonephritis Surgical History Hx of cholecystectomy Status post laser lithotripsy of ureteral calculus History of wisdom tooth extraction Hx of tonsillectomy H/O tubal ligation Family History Father , AT AGE 24 Electric injury Social History Smoking and tobacco/nicotine status: current every day tobacco/nicotine user e-cigarettes Alcohol intake: current Alcohol intake frequency: few times a month Substance/Drug Use: never Marital status: Current occupational status: employed Course Vital Signs: Vital signs: Vital Signs Temperature 99.3 F 04/16/25 21:05 Pulse Rate 117 H 04/17/25 00:46 Respiratory Rate 16 04/17/25 00:46 Blood Pressure 117/74 04/17/25 00:46 Pulse Oximetry 96 04/17/25 00:46 Oxygen Delivery Me thod Room Air 04/17/25 00:46 MDM - Female Medical Decision Making - CT scan reviewed. Appears to have obstructing stone, and most likely a nonobstructing stone. Will call [facility] for transfer for urology. Urinalysis also shows pyuria. Rocephin ordered. Discussed with Dr. Choi at [facility], accepted admission. Patient had sinus tachycardia with EKG noting same. Plan is 1 L bolus carefully with concern of systemic reactions, pyuria, leukocytosis, and early sepsis. Patient also has nephrolithiasis, and associated hydronephrosis therefore fluid management will need to be carefully done. Blood pressure stable. This patient was originally seen by Ms. Isabel PA-C. I agree with her history, evaluation, and management. Lab Data 04/17/25 00:19 04/17/25 00:19 Radiology Impressions Abdomen/Pelvis CT 04/16/25 23:17 IMPRESSION: 1. Obstructing 5 mm right proximal ureter stone. Mild hydronephrosis of the right kidney. 2. Obstructing 8 mm left mid ureter stone. Mild hydronephrosis of the left kidney. 3. Extensive bilateral medullary nephrocalcinosis. Laboratory Results WBC 16.74 10^3/uL (3.29-11.43) H 04/17/25 00:19 RBC 4.36 10^6/uL (3.85-5.65) 04/17/25 00:19 Hgb 11.70 g/dL (11.27-16.99) 04/17/25 00:19 Hct 35.6 % (36-47) L 04/17/25 00:19 MCV 81.7 fl (85-98) L 04/17/25 00:19 MCH 26.8 pg (27-33) L 04/17/25 00:19 MCHC 32.9 g/dL (30-55) 04/17/25 00:19 RDW 13.3 % (12.1-15.1) 04/17/25 00:19 Plt Count 268 10^3/cmm (157-399) 04/17/25 00:19 MPV 9.3 fL (7.4-10.4) 04/17/25 00:19 Neut % (Auto) 80.3 % 04/17/25 00:19 Lymph % (Auto) 10.4 % 04/17/25 00:19 [place] % (Auto) 6.4 % 04/17/25 00:19 Eos % (Auto) 1.8 % 04/17/25 00:19 Baso % (Auto) 0.7 % 04/17/25 00:19 Neut # (Auto) 13.45 10^3/uL (1.8-7.7) H 04/17/25 00:19 Lymph # (Auto) 1.7 10^3/uL (0.8-4.8) 04/17/25 00:19 [place] # (Auto) 1.1 10^3/uL (0.2-0.9) H 04/17/25 00:19 Eos # (Auto) 0.3 10^3/uL (0.0-0.8) 04/17/25 00:19 Baso # (Auto) 0.1 10^3/uL (0.0-0.1) 04/17/25 00:19 Nucleated RBC % (auto) 0 % 04/17/25 00: Nucleated RBCs # 0.0 /100WBC 04/17/25 00:19 Sodium 135 mmol/L (136-145) L 04/17/25 00:19 Potassium 3.6 mmol/L (3.5-5.1) 04/17/25 00:19 Chloride 102 mmol/L (98-107) 04/17/25 00:19 Carbon Dioxide 23 mmol/L (22-29) 04/17/25 00:19 Anion Gap 13.6 (5-19) 04/17/25 00:19 BUN 11 mg/dL (6-20) 04/17/25 00:19 Creatinine 0.7 mg/dL (0.5-0.9) 04/17/25 00:19 GFR Calculation 100.4 mL/min (90-130) 04/17/25 00: Glucose 123 mg/dL (65-115) H 04/17/25 00:19 Calculated Osmolality 281 mOsm/kg (285-295) L 04/17/25 00:19 Calcium 10.4 mg/dL (8.5-10.5) 04/17/25 00:19 Total Bilirubin 0.6 mg/dL (0.15-1.2) 04/17/25 00:19 AST 54 U/L (0-32) H 04/17/25 00:19 ALT 55 U/L (0-33) H 04/17/25 00:19 Alkaline Phosphatase 200 U/L (35-105) H 04/17/25 00:19 Total Protein 7.0 g/dL (6.6-8.7) 04/17/25 00:19 Albumin 4.0 g/dL (3.5-5.2) 04/17/25 00:19 Globulin 3.0 g/dL (1.3-4.6) 04/17/25 00:19 Urine Color [place] (Yellow) A 04/16/25 22:24 Urine Appearance Cloudy (CLEAR) A 04/16/25 22:24 Urine pH 7.5 (5-7) 04/16/25 22:24 Ur Specific [place] 1.011 (1.005-1.030) 04/16/25 22:24 Urine Protein 2+ (Negative) A 04/16/25 22:24 Urine Glucose (UA) Negative (Normal) 04/16/25 22:24 Urine Ketones Negative (Negative) 04/16/25 22:24 Urine Blood 3+ (Negative) A 04/16/25 22:24 Urine Nitrate Positive (Negative) A 04/16/25 22:24 Urine Bilirubin Negative (Negative) 04/16/25 22:24 Urine Urobilinogen 1.0 mg/dL (Negative) 04/16/25 22:24 Ur Leukocyte Esterase 3+ (Negative) A 04/16/25 22:24 Urine RBC 51-100 /hpf (0-2) H 04/16/25 22:24 Urine WBC >100 /hpf (0-5) H 04/16/25 22:24 Ur Squamous Epith Cells 0-5 /hpf (0-5) 04/16/25 22:24 Amorphous Sediment Not Reportable 04/16/25 22:24 Urine Bacteria 4+ /hpf (NONE) H 04/16/25 22:24 Hyaline Casts 2.05 /lpf 04/16/25 22:24 Discharge Plan Discharge Patient Disposition: Xfer Short-Term Hosp Clinical Impression: Urolithiasis Qualifiers: Urinary calculus location: ureter Qualified Code(s): N20.1 - Calculus of ureter Urinary tract infection Qualifiers: Urinary tract infection type: acute cystitis Hematuria presence: with hematuria Qualified Code(s): N30.01 - Acute cystitis with hematuria Condition: Stable Referrals: Steven Del Rio MD [Primary Care Provider, [facility]] Discharge Diet: As Directed Discharge Activity: Resume usual activity Print Language: Slovak Coding Level of Care Code ED Disposal Plant Operator for Abad Ely
[2025-04-16] MEDS: orphenadrine 30 mg/mL Inj 2 mL 60 MG IM (22:22)
[2025-04-16 22:30] VITALS: BP 128/85; PULSE 112; RESP 16; O2SAT 95
[2025-04-16 22:32] LABS: Glucose Urine UA Negative (Normal); Nitrate Urine Positive (Negative); Specific Gravity, Urine 1.011 (1.005-1.030)
[2025-04-16 22:37] LABS: Add Urine Microscopic? YES
--- NOTE | 2025-04-16 23:17 | CTR_ITS ---
PROCEDURE INFORMATION: Exam: CT Abdomen And Pelvis Without Contrast Exam date and time: 04/16/2025 11:27 PM Age: 29 years old Clinical indication: Abdominal pain; Prior surgery; Surgery date: 6+ months; Surgery type: Gb. Tubal. Bilateral flank pain with fever. History of sponge kidney. ; Additional info: Renal colic TECHNIQUE: Imaging protocol: Computed tomography of the abdomen and pelvis without contrast. Radiation optimization: All CT scans at this facility use at least one of these dose optimization techniques: automated exposure control; mA and/or kV adjustment per patient size (includes targeted exams where dose is matched to clinical indication); or iterative reconstruction. COMPARISON: CT kidney stone [id number] 03/31/2025 1:54 PM RADIATION DOSE METRICS: Total DLP (mGy-cm): 960.37 FINDINGS: Liver: Normal. No mass. Gallbladder and biliary ducts: Normal. No calcified stones. No ductal dilation. Pancreas: Normal. No ductal dilation. Spleen: Normal. No splenomegaly. Adrenal glands: Normal. No mass. Kidneys and ureters: Obstructing 5 mm right proximal ureter stone. Mild hydronephrosis of the right kidney. Obstructing 8 mm left mid ureter stone. Mild hydronephrosis of the left kidney. Extensive bilateral medullary nephrocalcinosis. Stomach and bowel: Unremarkable. No obstruction. No mucosal thickening. Appendix: No evidence of appendicitis. Intraperitoneal space: Unremarkable. No free air. No significant fluid collection. Vasculature: Unremarkable. No abdominal aortic aneurysm. Lymph nodes: Unremarkable. No enlarged lymph nodes. Urinary bladder: Unremarkable as visualized. Reproductive: Unremarkable as visualized. Bones/joints: Unremarkable. No acute fracture. Soft tissues: Unremarkable. CT/CT kidney stone [id number] IMPRESSION: 1. Obstructing 5 mm right proximal ureter stone. Mild hydronephrosis of the right kidney. 2. Obstructing 8 mm left mid ureter stone. Mild hydronephrosis of the left kidney. 3. Extensive bilateral medullary nephrocalcinosis.
[2025-04-16] MEDS: cefTRIAXone 1,000 MG in water for injection-sterile 2.1 ML 2.1 MG IM (23:52)
[2025-04-17 00:25] LABS: Hematocrit 35.6 % (36-47); Hemoglobin 11.70 g/dL (11.27-16.99); Mean Corpuscular HGB Conc 32.9 g/dL (30-55); Mean Corpuscular Hemoglobin 26.8 pg (27-33); Mean Corpuscular Volume 81.7 fl (85-98); Nucleated Red Blood Cells % 0 %; Platelet Count 268 10^3/cmm (157-399); Red Blood Count 4.36 10^6/uL (3.85-5.65); White Blood Count 16.74 10^3/uL (3.29-11.43)
[2025-04-17 00:40] LABS: Alanine Aminotransferase 55 U/L (0-33); Albumin Level 4.0 g/dL (3.5-5.2); Alkaline Phosphatase 200 U/L (35-105); Anion Gap 13.6 (5-19); Aspartate Amino Transferase 54 U/L (0-32); Blood Urea Nitrogen 11 mg/dL (6-20); Calcium 10.4 mg/dL (8.5-10.5); Carbon Dioxide 23 mmol/L (22-29); Chloride 102 mmol/L (98-107); Creatinine Clr Calc Pharmacy 134.3313; Globulin 3.0 g/dL (1.3-4.6); Glucose 123 mg/dL (65-115); Osmolality Calculated 281 mOsm/kg (285-295); Potassium 3.6 mmol/L (3.5-5.1); Sodium 135 mmol/L (136-145); Total Protein 7.0 g/dL (6.6-8.7)
[2025-04-17 00:46] VITALS: BP 117/74; PULSE 117; RESP 16; O2SAT 96
[2025-04-17 01:17] VITALS: BP 109/68; PULSE 102; RESP 16; TEMP 37.1; O2SAT 96
[2025-04-17] MEDS: morphine 4 mg/mL SDV 1 mL IVP (01:17)
[2025-04-17] MEDS: ondansetron 2 mg/ML SDV 2 mL 4 MG IVP (01:17)
[2025-04-17 01:50] VITALS: BP 98/62; PULSE 102; RESP 16; O2SAT 99
== END 2025-04-17 02:14 | disposition short-term general hospital (02) ==
PROVIDERS: Emergency Provider Physician Assistant; PCP Family Medicine
DX: N20.1 Calculus of ureter (principal); N30.01 Acute cystitis with hematuria; F17.290 Nicotine dependence, other tobacco product, uncomplicated
CPT/HCPCS: 36415; 74176; 80053; 81001; 85025; 87077; 87086; 87186; 93005; 96372; 96374; 96375; 99285; J0696; J1885; J2270; J2360; J2405; J7120